=== PATIENT | female | born 1965 | race Caucasian/White ===

== ENCOUNTER 2017-07-30 14:37 | Emergency (ER) | payer MEDICARE ==
[2017-07-30] MEDS ORDERED: Oxymetazoline HCl 0.05% ( 15 ML ) ONE (15:38)
== END 2017-07-30 16:33 | disposition home or self-care (01) ==
LOC: ERS 14:37
DX: R04.0 Epistaxis (principal); I25.10 Atherosclerotic heart disease of native coronary artery without angina pectoris; G47.39 Other sleep apnea; M79.7 Fibromyalgia; I10 Essential (primary) hypertension; K21.9 Gastro-esophageal reflux disease without esophagitis; E32.9 Disease of thymus, unspecified; E11.9 Type 2 diabetes mellitus without complications; Z79.82 Long term (current) use of aspirin; Z79.4 Long term (current) use of insulin; Z79.899 Other long term (current) drug therapy
CPT/HCPCS: 30903

== ENCOUNTER 2017-08-14 16:20 | Emergency (ER) | payer MEDICARE ==
[2017-08-14 17:09] LABS: #Basophils 0.1 thou/uL (0.0-0.2); #Eosinphils 0.1 thou/uL (0.0-0.7); #Lymphocytes 2.8 thou/uL (1.20-3.40); #Monocytes 0.5 thou/uL (0.11-0.59); #Neutrophils 4.6 thou/uL (1.40-6.50); %Basophils 0.7 % (0.0-1.0); %Eosinophils 0.7 % (0.0-10.0); %Lymphocytes 35.4 % (21.0-51.0); Mean Platelet Volume 6.3 fL (7.4-10.4); White Blood Cell (WBC) Count 7.9 thou/uL (4.8-10.8)
[2017-08-14 18:33] LABS: Bilirubin Negative (Negative); Blood, Urine Large (Negative); Glucose, Urine (Dipstick) Negative (Negative); Ketone, Urine Negative (Negative); Nitrite Negative (Negative); Protein, Urine (Dipstick) Negative (Neg-Trace); Urobilinogen 0.2 mg/dL (0.2-1.0)
[2017-08-14 18:35] LABS: Bacteria/HPF None Seen HPF (None Seen); Hyaline Casts/LPF 0-3 HYALINE CAST LPF (0-3 Hyaline); RBC/HPF GREATER THAN 50-TNTC HPF (0-3); Squamous Epithelial 0-3 HPF (0-3); WBC/HPF 0-3 HPF (0-3)
== END 2017-08-14 19:25 | disposition home or self-care (01) ==
LOC: ERS 16:20
DX: N93.8 Other specified abnormal uterine and vaginal bleeding (principal); I25.10 Atherosclerotic heart disease of native coronary artery without angina pectoris; E11.9 Type 2 diabetes mellitus without complications; K21.9 Gastro-esophageal reflux disease without esophagitis; E78.5 Hyperlipidemia, unspecified; I10 Essential (primary) hypertension; E66.9 Obesity, unspecified; F32.9 Major depressive disorder, single episode, unspecified; Z79.84 Long term (current) use of oral hypoglycemic drugs; Z79.82 Long term (current) use of aspirin; Z79.899 Other long term (current) drug therapy
CPT/HCPCS: 36415; 81003; 81015; 81025; 85025; 99284

== ENCOUNTER 2017-08-18 02:13 | Emergency (ER) | payer MEDICARE ==
[2017-08-18 03:02] LABS: #Eosinphils 0.1 thou/uL (0.0-0.7); #Lymphocytes 2.8 thou/uL (1.20-3.40); #Monocytes 0.5 thou/uL (0.11-0.59); #Neutrophils 4.2 thou/uL (1.40-6.50); %Basophils 0.5 % (0.0-1.0); %Eosinophils 0.9 % (0.0-10.0); %Lymphocytes 36.5 % (21.0-51.0); %Monocytes 6.1 % (0.0-10.0); Hematocrit 33.6 % (36.0-47.0); Mean Platelet Volume 6.4 fL (7.4-10.4); Red Blood Cell (RBC) Count 3.81 mill/uL (4.20-5.40); White Blood Cell (WBC) Count 7.5 thou/uL (4.8-10.8)
[2017-08-18 03:25] LABS: ALT (SGPT) 11 U/L (8-55); AST (SGOT) 11 U/L (5-34); Alkaline Phosphatase 96 U/L (40-150); Anion Gap 12 mmol/L (10-20); BUN (Urea Nitrogen) 17 mg/dL (7.0-18.7); Bilirubin, Total 0.2 mg/dL (0.2-1.2); Calc. Creatinine Clearance 0 mL/min (70-130); Calcium 9.6 mg/dL (7.8-10.44); Carbon Dioxide 29 mmol/L (22-29); Chloride 100 mmol/L (98-107); Estimated GFR-MDRD 48; Globulin 3.6 g/dL (2.4-3.5); Protein, Total 7.4 g/dL (6.0-8.3)
[2017-08-18 03:32] LABS: PTT 33.3 SEC (22.9-36.1); Prothrombin Time 16.3 SEC (12.0-14.7)
== END 2017-08-18 05:40 | disposition home or self-care (01) ==
LOC: ERS 02:13
DX: R04.0 Epistaxis (principal); I25.10 Atherosclerotic heart disease of native coronary artery without angina pectoris; E11.9 Type 2 diabetes mellitus without complications; K21.9 Gastro-esophageal reflux disease without esophagitis; E78.5 Hyperlipidemia, unspecified; I10 Essential (primary) hypertension; G47.30 Sleep apnea, unspecified; E66.9 Obesity, unspecified; F32.9 Major depressive disorder, single episode, unspecified
CPT/HCPCS: 36415; 80053; 85025; 85610; 85730; 99283

== ENCOUNTER 2017-08-25 02:30 | Emergency (ER) | payer MEDICARE ==
[2017-08-25] MEDS ORDERED: Oxymetazoline HCl 0.05% ( 15 ML ) ONE (03:06)
== END 2017-08-25 04:40 | disposition home or self-care (01) ==
LOC: ERS 02:30
DX: R04.0 Epistaxis (principal); I25.10 Atherosclerotic heart disease of native coronary artery without angina pectoris; E11.9 Type 2 diabetes mellitus without complications; K21.9 Gastro-esophageal reflux disease without esophagitis; E78.5 Hyperlipidemia, unspecified; I10 Essential (primary) hypertension; G47.30 Sleep apnea, unspecified; E66.9 Obesity, unspecified; F32.9 Major depressive disorder, single episode, unspecified
CPT/HCPCS: 99283

== ENCOUNTER 2017-11-13 10:02 | Emergency (ER) | payer MEDICARE ==
[2017-11-13] MEDS ORDERED: Bacitracin Zinc 1 Packet ONE (11:05)
[2017-11-13] MEDS ORDERED: Adacel (T-DAP) 0.5 ML VIAL ONE (11:06)
--- NOTE | 2017-11-13 11:59 | CT ---
CT BRAIN WITHOUT CONTRAST: HISTORY: Trauma, fall, trauma to the face and head. FINDINGS: No evidence of acute infarct, hemorrhage, midline shift, or abnormal extraaxial fluid collections are seen. The ventricular size is normal and the basilar cisterns are patent. The bony calvarium is in tact. The visualized paranasal sinuses and mastoid air cells are well aerated. There is soft tissue swelling in the left periorbital region. Dural calcifications are present. IMPRESSION: No CT evidence of acute intracranial process. POS: [facility]
== END 2017-11-13 12:19 | disposition home or self-care (01) ==
LOC: ERS 10:02
DX: S80.212A Abrasion, left knee, initial encounter (principal); S40.812A Abrasion of left upper arm, initial encounter; S60.512A Abrasion of left hand, initial encounter; S60.511A Abrasion of right hand, initial encounter; S00.31XA Abrasion of nose, initial encounter; S00.81XA Abrasion of other part of head, initial encounter; I25.10 Atherosclerotic heart disease of native coronary artery without angina pectoris; E11.9 Type 2 diabetes mellitus without complications; K21.9 Gastro-esophageal reflux disease without esophagitis; E78.5 Hyperlipidemia, unspecified; I10 Essential (primary) hypertension; E66.9 Obesity, unspecified; F32.9 Major depressive disorder, single episode, unspecified; W01.0XXA Fall on same level from slipping, tripping and stumbling without subsequent striking against object, initial encounter; Y92.481 Parking lot as the place of occurrence of the external cause
CPT/HCPCS: 70450; 90715

== ENCOUNTER 2017-12-06 14:46 | Observation (INO) | payer MEDICARE ==
[2017-12-06 15:21] LABS: #Lymphocytes 1.8 thou/uL (1.20-3.40); #Monocytes 0.4 thou/uL (0.11-0.59); #Neutrophils 4.8 thou/uL (1.40-6.50); %Basophils 0.4 % (0.0-1.0); %Eosinophils 0.5 % (0.0-10.0); %Lymphocytes 25.7 % (21.0-51.0); %Monocytes 5.1 % (0.0-10.0); %Neutrophils 68.3 % (42.0-75.0); Mean Corpuscular HGB CONC 31.3 g/dL (32.0-36.0); Mean Corpuscular Hemoglobin 23.6 pg (27.0-31.0); Mean Corpuscular Volume 75.3 fl (81.0-99.0); Mean Platelet Volume 8.1 fL (7.4-10.4); Platelet Count 411 thou/uL (130-400); RBC Distribution Width 17.1 % (11.5-14.5)
[2017-12-06 15:40] LABS: ALT (SGPT) 11 U/L (8-55); AST (SGOT) 14 U/L (5-34); Albumin 3.6 g/dL (3.5-5.0); Alkaline Phosphatase 103 U/L (40-150); Anion Gap 16 mmol/L (10-20); BUN (Urea Nitrogen) 19 mg/dL (9.8-20.1); Bilirubin, Total 0.3 mg/dL (0.2-1.2); CK (CPK) 73 U/L (29-168); Calc. Creatinine Clearance 0 mL/min (70-130); Calcium 8.9 mg/dL (7.8-10.44); Carbon Dioxide 24 mmol/L (22-29); Chloride 100 mmol/L (98-107); Estimated GFR-MDRD 41; Globulin 3.9 g/dL (2.4-3.5); Glucose 289 mg/dL (70-105); Potassium 3.8 mmol/L (3.5-5.1); Protein, Total 7.5 g/dL (6.0-8.3); Sodium 136 mmol/L (136-145)
[2017-12-06 15:49] LABS: Troponin I Less than 0.010 ng/mL (< 0.028)
--- NOTE | 2017-12-06 16:19 | RAD ---
CHEST ONE VIEW: 12/06/17 HISTORY: Chest pain. COMPARISON: Chest radiograph 07/13/17. FINDINGS: There is mild pulmonary venous congestion. Heart size is upper limits of normal. No pneumothorax. No acute osseous abnormality. No effusion. IMPRESSION: Mild cardiomegaly and pulmonary venous congestion. POS: [facility]
[2017-12-06 18:44] LABS: Troponin I 0.011 ng/mL (< 0.028)
[2017-12-06 20:03] VITALS: BMI 40.0
[2017-12-06 21:25] LABS: Hemoglobin 8.1 g/dL (12.0-16.0)
[2017-12-06 21:46] LABS: Troponin I Less than 0.010 ng/mL (< 0.028)
[2017-12-07] MEDS ORDERED: FEXOFENADINE HCL 180 MG PO PRN (06:58)
[2017-12-07] MEDS ORDERED: Gabapentin 300 MG CAP PO SCH ×2 (07:00→21:00)
[2017-12-07] MEDS ORDERED: Furosemide 40 MG TAB PO SCH ×2 (07:00→14:00)
[2017-12-07] MEDS ORDERED: Loratadine 10 MG TAB PO PRN (07:09)
[2017-12-07] MEDS ORDERED: HYDROcodone/Acetaminophen 5/325 mg Tablet PO PRN (07:19)
[2017-12-07] MEDS ORDERED: Ondansetron ODT 4 MG TAB PO PRN (07:19)
[2017-12-07] MEDS ORDERED: Acetaminophen 325 MG TAB PO PRN (07:19)
[2017-12-07] MEDS ORDERED: Dextrose 5% in Water 1,000 ML IV PRN (07:19)
[2017-12-07] MEDS ORDERED: HYDROcodone/Acetaminophen 10/325 mg Tablet PO PRN (07:19)
[2017-12-07] MEDS ORDERED: HumaLOG 300 UNITS/3 ML VIAL SC PRN ×2 (07:19)
[2017-12-07] MEDS ORDERED: Dextrose 50% Abboject 50 ML SYRINGE SLOW IVP PRN (07:19)
[2017-12-07] MEDS ORDERED: INSULIN LISPRO 10 UNIT SQ SCH (08:00)
[2017-12-07 08:08] LABS: Iron 28 ug/dL (50-170); Iron Binding Capacity, Total 400 mcg/dL (265-497); Transferrin, Serum 320 mg/dL (180-382)
[2017-12-07] MEDS: HumaLOG 300 UNITS/3 ML VIAL SC SCH ×3 (08:35→17:27)
[2017-12-07] MEDS: Alogliptin 6.25 MG TAB PO SCH (08:38)
[2017-12-07] MEDS: metFORMIN 500 MG TAB PO SCH (08:38)
[2017-12-07] MEDS: Gabapentin 300 MG CAP PO SCH (08:39)
[2017-12-07] MEDS: Aspirin 81 mg Enteric Coated Tablet PO SCH (08:39)
[2017-12-07] MEDS: Clindamycin 150 MG CAP PO SCH ×4 (08:39→21:25)
[2017-12-07] MEDS: Metoprolol Tartrate 25 MG TAB PO SCH ×2 (08:39→21:25)
[2017-12-07] MEDS: Furosemide 80 MG TAB PO SCH (08:39)
[2017-12-07] MEDS: Potassium Chloride 20 MEQ TAB PO SCH ×2 (08:40→21:24)
[2017-12-07] MEDS ORDERED: Non-Formulary Item 1 EACH (Sertraline Hcl [Zoloft] 100 MG) PO SCH (09:00)
[2017-12-07] MEDS ORDERED: Non-Formulary Item 1 EACH (Omeprazole [Omeprazole] 40 MG) PO SCH (09:00)
[2017-12-07] MEDS ORDERED: Iron Polysaccharides Complex 150 MG CAP PO SCH (09:00)
[2017-12-07] MEDS ORDERED: INSULIN DEGLUDEC SC SCH (09:00)
[2017-12-07] MEDS ORDERED: Non-Formulary Item 1 EACH (Sitagliptin Phos/Metformin Hcl [Janumet] 1 TABLET) PO SCH (09:00)
[2017-12-07] MEDS ORDERED: INSULIN DEGLUDEC SQ SCH (09:00)
[2017-12-07] MEDS ORDERED: Non-Formulary Item 1 EACH (Rivaroxaban [Xarelto] 15 MG) PO SCH (09:00)
[2017-12-07] MEDS ORDERED: Rivaroxaban 15 MG TAB PO SCH (09:00)
[2017-12-07] MEDS ORDERED: CLINDAMYCIN HCL 300 MG PO SCH (09:00)
[2017-12-07 13:55] LABS: Hemoglobin 8.1 g/dL (12.0-16.0)
[2017-12-07] MEDS ORDERED: Iron Sucrose Complex 200 MG in Sodium Chloride 0.9% 250 ML 250 ML IVPB SCH (15:30)
[2017-12-07] MEDS ORDERED: Sodium Ferric Gluconate 250 MG in Sodium Chloride 0.9% 100 ML IVPB SCH (16:00)
[2017-12-07] MEDS ORDERED: GoLYTELY 4,000 ml Bottle PO SCH (18:00)
--- NOTE | 2017-12-07 18:28 | CON ---
DATE OF CONSULTATION: 12/07/2017 HISTORY OF PRESENT ILLNESS: The patient is a pleasant 52-year-old woman who presented with recurrent chest discomfort. The patient has a long history of coronary artery disease. She underwent coronary bypass surgery in 06/2015, ROSARIO placed to the LAD, saphenous vein graft to the diagonal right coronary artery. Left circumflex was non-bypassable. The patient also developed atrial fibrillation and she underwent ablation for atrial fibrillation. The patient has been maintained on chronic anticoagulation therapy. The patient was admitted with a non-Q-wave myocardial infarction in July. The patient was in her usual state of health when she developed mid sternal chest discomfort. This lasted for approximately an hour and half. The patient's pain did not radiate. It was not associated with diaphoresis or dyspnea. The patient came to the emergency room for further evaluation. The patient also reports that she has noticed having bright red blood per rectum. This started three weeks ago. It lasts for several days and eventually resolved. The patient has not seen it recently. PAST MEDICAL HISTORY: 1. Coronary artery disease. 2. Atrial fibrillation. 3. Hypertension. 4. Diabetes mellitus. 5. Hyperlipidemia. 6. Depression. 7. GE reflux. PAST SURGICAL HISTORY: Coronary bypass surgery, cholecystectomy, lumpectomy, neck and back surgery. ALLERGIES: CODEINE and PENICILLIN. SOCIAL HISTORY: Nonsmoker. FAMILY HISTORY: There is no strong family history of heart disease. MEDICATIONS ON ADMISSION: Ranexa 500 b.i.d., aspirin 81 daily, Lipitor 80 at bedtime, Xarelto 50 mg at bedtime, potassium 20 b.i.d., metoprolol 25 b.i.d., omeprazole 40 at bedtime, gabapentin 300 daily. FAMILY HISTORY: Positive family history of coronary artery disease. REVIEW OF SYSTEMS: Ten-point system otherwise unremarkable except for the bright red blood per rectum. PHYSICAL EXAMINATION: GENERAL AND VITAL SIGNS: Obese woman in no acute distress with a blood pressure of 130/73. NECK: No jugular distention. LUNGS: Clear to auscultation. HEART: Regular rate and rhythm, normal S1, S2. ABDOMEN: Distended. EXTREMITIES: Showed trace edema. SKIN: Pale and dry. NEUROLOGIC: Nonfocal. VASCULAR: Radial pulses are 2+. LABORATORY RESULTS: White blood count 7.0, hemoglobin 8.0, hematocrit 25.6. Her platelets are 411. Sodium was 136, potassium 3.8, chloride 100, bicarbonate 24, BUN 19, creatinine 1.3, troponin less than 0.01. BNP 354. Her EKG revealed normal sinus rhythm with an incomplete right bundle branch block, ST-T wave abnormalities suggestive of ischemia. IMPRESSION: 1. Chest pain, possibly due to demand ischemia from her marked anemia. 2. History of coronary bypass surgery with non-bypassable left circumflex artery. 3. Diabetes mellitus. 4. Hypertension. 5. Dyslipidemia. 6. Obesity. 7. Anemia. This patient presents with chest pain and cardiac enzymes reveal no evidence of myocardial infarction. The patient was markedly anemic. Her hemoglobin is only 8. From a cardiac standpoint, her chest pain is probably secondary to her low hemoglobin and her known non-bypassable CAD. From a cardiac standpoint, she remains on Xarelto for atrial fibrillation prophylaxis. Would recommend she undergo a GI evaluation. We will hold the patient's Xarelto. We will follow this patient with you throughout her hospitalization. DYLAN
[2017-12-07] MEDS ORDERED: Atorvastatin Calcium 40 MG TAB PO SCH (21:00)
--- NOTE | 2017-12-07 22:46 | CON ---
DATE OF CONSULTATION: 12/07/2017 REASON FOR CONSULTATION: Microcytic anemia. HISTORY OF PRESENT ILLNESS: Ms. Hardy is a 52-year-old female who was admitted for anginal-like chest pain, rule out for ND. She was found to have progression of anemia with hemoglobin 8.1, had be en around 10.7 back in 08/2017 and 07/2017. She had 1 or 2 episodes about a month ago, some bright r ed painless rectal bleeding and occasionally has some vaginal bleeding, but has had no acute bleeding recently. Her hemoglobin has been stable at 8.1 since admission. She had an MCV of 75, iron of 28, TIBC of 400 and saturation of 7% with transferrin of 320. Hospitalist plan was to release her home with outpatient GI workup. She had seen Dr. Urias in the past and Cardiology was asked to evaluate to see if they prefer her to get a unit of blood in light of her history of coronary disease and use of Xarelto. Cardiology felt she should have a GI workup at this time. I talked with the outpatient case manager who did not feel she is to be transfused before endoscopy. In talking with the patient now, she has no chest pain, shortness of breath or dyspnea. She has no black tarry stools, hematemesis, weight lo ss, change in appetite, dysphagia or odynophagia. She does take Xarelto since about 2015 for atrial fibrillation. She has had a bypass in 2015. She reports a colonoscopy with Dr. Uiras about 2005. Sh elvia has never had an upper endoscopy. Her last admission at this hospital was 07/17/2017. She was her e with regard to complications of uncontrolled diabetes, non-ST demand infarction related to sepsis. PAST MEDICAL HISTORY: Coronary artery disease, atrial fibrillation, hypertension, diabetes, hyperlip idemia, depression, sleep apnea, and reflux. PAST SURGICAL HISTORY: Coronary artery bypass grafting, cholecystectomy, lumpectomy, neck and back s urgery, colonoscopy about 10 years ago. SOCIAL HISTORY: Nonsmoker, does not drink. FAMILY HISTORY: Heart disease. ALLERGIES: CODEINE AND PENICILLIN. She has also had a previous cardiac ablation for atrial fibrillation in 2015. Her bypass was actuall y in 2014. MEDICATIONS: She is on Tylenol, alogliptin, aspirin 81 mg a day, Lipitor, clindamycin, iron, Lasix, hydrocodone p.r.n., insulin, Claritin, Glucophage, Zofran, Protonix, Ranexa, , Calciferol, atorv astatin, aspirin. PHYSICAL EXAMINATION: GENERAL: Patient is resting comfortable in bed, otherwise, she is in no distress. She is having no chest pain or shortness of breath now. VITAL SIGNS: Pulse is 60, temperature is 98.3, blood pressure 130/73. LUNGS: Clear. CARDIOVASCULAR: Heart has regular rate and rhythm without clicks or murmurs. ABDOMEN: Soft, nontender, without palpable hepatosplenomegaly. EXTREMITIES: No clubbing, cyanosis or edema. LABORATORY DATA AND X-RAY FINDINGS: Hemoglobin is 8.1, it was 10.8 on 04/2017, it was 11.4 on 2016. MCV is 75, it had been 88 in August. INR is 1.3. Electrolytes are normal as per HPI. Card iac enzymes were negative. Troponin less than 0.01 x3. ASSESSMENT AND PLAN: Iron deficiency anemia. This is likely chronic probably related to the Xarelto , may be related to her irregular menses, they are occurring about every 4-6 months. When they occur , there is quite a bit of clotting. The possible underlying gastrointestinal disorder needs to be ev aluated for. This could be reevaluated for in the outpatient setting; however, the fact that she has a hemoglobin of 8.1 and already presented with chest pain; will probably just go ahead and get this taken care of it while she is here in the hospital. I am going to give her some IV iron. I talked w ith Cardiology and they did not feel she needs a transfusion before endoscopy. Even this was perform ed in the outpatient setting, but it will need to be performed in the hospital because of her disease and chest pain and with her need for long-term anticoagulation, going to go ahead and get this perfo rmed now and lower risk for complications of stroke. I am holding her anticoagulation until she can be seen in the outpatient setting.
[2017-12-08 08:03] VITALS: BP 128/70; TEMP 98
[2017-12-08] MEDS: HumaLOG 300 UNITS/3 ML VIAL SC SCH (09:18)
[2017-12-08] MEDS: Alogliptin 6.25 MG TAB PO SCH (09:22)
[2017-12-08] MEDS: metFORMIN 500 MG TAB PO SCH (09:22)
[2017-12-08] MEDS: Clindamycin 150 MG CAP PO SCH (09:22)
[2017-12-08] MEDS: Potassium Chloride 20 MEQ TAB PO SCH (09:23)
[2017-12-08] MEDS: Gabapentin 300 MG CAP PO SCH (09:23)
[2017-12-08] MEDS: Metoprolol Tartrate 25 MG TAB PO SCH (09:23)
[2017-12-08] MEDS ORDERED: Promethazine HCl 25 MG/ML VIAL IM PRN (11:09)
[2017-12-08] MEDS ORDERED: Promethazine HCl 25 MG/ML VIAL SLOW IVP PRN (11:09)
[2017-12-08] MEDS ORDERED: Ondansetron HCl/PF 4 MG/2 ML Vial IVP PRN (11:09)
[2017-12-08] MEDS: Furosemide 80 MG TAB PO SCH (11:40)
[2017-12-08] MEDS: Aspirin 81 mg Enteric Coated Tablet PO SCH (11:40)
--- NOTE | 2017-12-08 13:14 | OP ---
PREPROCEDURE DIAGNOSES: 1. Iron deficiency anemia. 2. Heme-positive stool. 3. Chronic Xarelto for atrial fibrillation. 4. No acute bleeding. POSTPROCEDURE DIAGNOSES: 1. Normal esophagogastroduodenoscopy. 2. Two diminutive polyps in the sigmoid colon; 1 removed by snare polypectomy, hot; 1 removed by sna re polypectomy, cold. 3. Small internal hemorrhoids. PROCEDURES PERFORMED: Diagnostic esophagogastroduodenoscopy and colonoscopy with snare polypectomy. ANESTHESIA: TIVA. RECOMMENDATIONS: 1. Follow up Dr. Urias, primary gastrologist, in 2 weeks for pathology. 2. Follow up with either primary physician or yeast culture developer in 1 week for monitoring H and H and the chest pain which she came in with. 3. From a GI standpoint, she can go home if it is okay with Cardiology. We would defer to Cardiolog y if they want to transfuse her before she goes with regard to hemoglobin of 8 and cardiac disease. PROCEDURE IN DETAIL: After the patient was informed of risks, benefits, and possible complications o f endoscopy including perforation, bleeding, reactions to medication and aspiration, informed consent was obtained. The patient was brought to endoscopy suite where she was sedated with fashion. Once she was comfortable, a bite block was placed in incisural orifice. The endoscope was advanced throug h the esophagus, stomach, second and third portion of duodenum and slowly removed. There was good vi sualization of mucosa. There was no evidence of celiac or mucosal abnormalities in the second and th ird portion of the duodenum. There were no AVMs, ulcers or masses in the duodenum, stomach or esopha nicholas. Forward and retroflexed views in the stomach were normal. The scope was removed. The patient was turned in the room. A rectal exam was performed which was normal. There was no bloo d in the colon or old blood. No bleeding sites were identified on colonoscopy. The scope was advanc ed to the cecum, which identified by ileocecal valve and appendiceal orifice. The prep was good. Th e scope was then slowly removed and 2 small polyps about 5 mm in size were seen in the sigmoid colon. These were sessile, one was removed by snare polypectomy cold and one hot. Retroflexed views in th e rectum revealed some internal hemorrhoids. The scope was returned to forward position and removed. The patient tolerated the procedure well with no complications.
--- NOTE | 2017-12-08 15:05 | HP ---
DATE OF ADMISSION: 12/06/2017 PRIMARY CARE PHYSICIAN: Jeronimo Webster M.D. PRIMARY CATERING [place]: [place] Dodd M.D. CHIEF COMPLAINT: Chest pain, resolved. HISTORY OF PRESENT ILLNESS: Ms. Hardy is a pleasant 52-year-old female with a history of chest p ain in substernal area she describes as a pressure-like sensation that lasted for about 1 hour and re solved within minutes of arriving in the emergency department. She had no nausea, vomiting, diarrhea . No diaphoresis. No cough or sputum production, and no pleuritic component. Workup in the emergency department showed hemoglobin of 8.1. We were subsequently called for admit. Cardiac workup was negative. Last known hemoglobin was 10.7 back in 08/2017. We were called for admission. The patient was accepted as observation and was subsequently placed in the stroke unit. She is to hold over and I am admitting her first thing in the morning. Patient landis s had no bleeding. Repeat labs showed hemoglobin remained stable. She denies any current rectal ble eding. She states she has some red blood seen in the toilet and when she wiped about 3-4 weeks ago t hat lasted 1 or 2 days, then stopped. She denies any other current complaints. PAST MEDICAL HISTORY: 1. Insulin-dependent diabetes mellitus type 2. 2. Coronary artery disease. 3. GERD. 4. Hyperlipidemia. 5. Hypertension. 6. Fibromyalgia. 7. Sleep apnea. 8. Severe obesity. 9. Paroxysmal atrial fibrillation. PAST SURGICAL HISTORY: Includes, 1. Cervical and T spine disk surgery. 2. Cholecystectomy. 3. Three-vessel coronary artery bypass grafting in 2014. 4. Laparoscopic hysterectomy in 1988. 5. Atrial fibrillation ablation in 2015. HOME MEDICATIONS: 1. Ranexa 500 mg p.o. b.i.d. 2. Aspirin 81 mg daily. 3. Lipitor 80 mg p.o. at bedtime. 4. Ally 100 mg p.o. as needed for allergies. 5. Vitamin D3. 6. Biotin daily. 7. Gabapentin 600 mg p.o. q.a.m., 300 mg p.o. q.p.m. 8. Lasix 80 mg p.o. daily as needed for swelling. 9. Clindamycin 300 mg p.o. q.i.d. recently started for leg wounds. 10. Omeprazole 40 mg p.o. q.a.m. 11. Multivitamin. 12. Metoprolol tartrate 25 mg p.o. b.i.d. 13. Humalog 10 units subcu t.i.d. a.c. 14. Tresiba 140 mg p.o. q.a.m. 15. Xarelto 15 mg p.o. daily. 16. K-Dur 20 mEq p.o. b.i.d. 17. Janumet p.o. q.a.m. 18. Zoloft 100 mg p.o. q.a.m. ALLERGIES: CODEINE and PENICILLIN G. FAMILY HISTORY: Negative for clotting or bleeding disorder, no immune dysfunction. SOCIAL HISTORY: Negative for habits x3. REVIEW OF SYSTEMS: A 10-point review of systems was performed negative, negative for all other syste ms except as per HPI. PHYSICAL EXAMINATION: VITAL SIGNS: Temperature is 98.2, pulse 69, blood pressure 129/73, respiratory 18, O2 sat 90% on berenice m air. GENERAL: She is awake. She is alert. She is oriented x3. She is an obese white female, appears to be in no distress. HEENT: Normocephalic and atraumatic. Pupils equal, round, react to light bilaterally, mucous membra fede are moist. She has no visible lesion, no thrush. NECK: Supple. She has no lymphadenopathy, no JVD, no thyromegaly. She has no carotid upstrokes wit hout bruits. LUNGS: Clear to auscultation bilaterally. She has no wheezes, no rales, no rhonchi. CARDIOVASCULAR: Normal S1, S2. No S3 or S4. She has a faint systolic ejection murmur best heard at the right upper sternal border. She has no diastolic murmurs. Median sternotomy site is well heale d. ABDOMEN: Soft, it is nontender, nondistended. She has no hepatosplenomegaly. She has slightly hype ractive bowel sounds present in all 4 quadrants. EXTREMITIES: No cyanosis, clubbing with trace pedal edema. She has 2+ bounding peripheral pulses, d orsalis pedis and posterior tibial. SKIN: Otherwise, warm moist well perfused. She has no other rashes or lesions. NEUROLOGIC: Cranial nerves II-XII are grossly intact without any focal neurologic deficits, normal s trength, and normal speech pattern. SKIN: Otherwise warm, moist and well perfused. MUSCULOSKELETAL: Normal to inspection. Large joints appear uninflamed. She has good range of motio n and no palpable effusions. LABORATORY DATA: Sodium is 136, potassium 3.8, chloride 100, bicarbonate 24, BUN 19, creatinine 1.36 , it is above her baseline; glucose 289, and calcium of 8.7. Liver function completely within normal limits. CBC shows a white count of 7.0, hemoglobin in the ER was 8.0, repeat of 8.1, hematocrit is up to 26.6 , and platelet count was 411,000. She has a BNP of 343, CK-MB 10, troponin I was initially negative, repeat 0.011, and third was again negative, less than 0.010. Fecal occult blood testing negative. ASSESSMENT AND PLAN: 1. Anemia. The patient had hemoglobin of 10.7 back in 08/2017. She did have an episode 3-4 weeks a go with some rectal bleeding lasted a day or so resolved. She is hypochromic and microcytic. I will check an iron panel and start her on iron. We will ask Cardiology to evaluate her regarding need fo r additional blood products as she appears to be stable at present. She has no further chest pain an d negative heart markers. In the meantime, we will get a 2D echocardiogram. We will get serial H an d Hs and will follow up with the recommendation of Cardiology. If her hemoglobin remains stable thro ugh the day, we will likely discharge this afternoon. 2. Diabetes mellitus type 2. Continue home medications. 3. Coronary artery disease with history of 3-vessel coronary artery bypass grafting in 2014. She pr esented with chest pain. Has no further chest pain at this point. We will continue to watch. 4. Hyperlipidemia. 5. Hypertension. 6. Fibromyalgia. 7. Obstructive sleep apnea. 8. Severe obesity. 9. Paroxysmal atrial fibrillation, on anticoagulation with Xarelto. I do not believe she is actively bleeding. She has had a repeat stable H and Hs. There is a chronic blood loss problem that may be exacerbated by her acute on chronic kidney disease. At this point, estefani gan will follow up on the iron studies and Cardiology recommendations.
[2017-12-08] MEDS ORDERED: PROPOFOL 200 MG/20 ML VIAL ONE (15:11)
[2017-12-08] MEDS ORDERED: Lidocaine 1% PF 5 ML VIAL ONE (15:11)
--- NOTE | 2017-12-09 14:17 | DIS ---
DATE OF ADMISSION: 12/07/2017 DATE OF DISCHARGE: 12/08/2017 DISCHARGE DIAGNOSES: 1. Chronic iron deficiency anemia, likely chronic blood loss. 2. Chest pain, possibly cardiac. 3. Coronary artery disease, status post 3-vessel coronary artery bypass grafting. 4. Colonic polyps. 5. Diabetes mellitus type 2. 6. Severe obesity with a BMI of 35-39.9. 7. Depression. 8. Hypertension, essential. 9. History of paroxysmal atrial fibrillation. 10. She is on chronic anticoagulation. CONSULTATIONS: 1. Dr. Tomas Pavon on 12/07/2017. 2. Dr. Ej Oneal on 12/07/2017. PROCEDURES: Colonoscopy and EGD with polypectomy on 12/08/2017. HISTORY AND PHYSICAL: Ms. Hardy is a 52-year-old female whom I admitted at the hold over admissi on from the night before. She was seen and examined and placed on observation on the morning of 12/07. She presented in the emergency department complaining of chest pain that lasted about an hour and hortencia t resolved essentially the time she arrived to the emergency department. Cardiac workup was unremark able and we were called for admission. HOSPITAL COURSE: The patient seen and examined by me the morning of 12/07. She has a history of rect al bleeding about a month ago, it last day or two and then stop. She has not had it before after one episode. Workup in the emergency department showed hemoglobin to be 8.1. Overnight, she had second hemoglobin done that was still 8.1, and a third one done midday on 12/07/2017 was still 8.1. Cardiology was co nsulted due to her chest pain to ascertain whether we need to give her another unit of blood or not, and Dr. Pavon subsequently felt the answer was knowing and consulted Dr. Onael. The patient was seen by Dr. Oneal who wanted to keep her overnight, make her n.p.o. and do colonoscopy first thing t prasanth. Overnight, she did well. She had no bleeding. She was made n.p.o. and underwent colon prep. She wa s taken to endoscopy suite today on 12/08/2017 underwent a colonoscopy that showed 2 polyps that were removed and sent for pathology. She also underwent an EGD that was unremarkable. Post-procedure, she was stable for discharge and was sent home with outpatient followup. The patient was seen and examined on the day of discharge. Discharge plan and disposition was discussed with myriam gan patient and her significant other at the patient's bedside. DISCHARGE MEDICATIONS: 1. Iron sulfate 325 mg p.o. b.i.d., prescription sent. 2. Clindamycin 450 mg p.o. q.i.d. for 10 days, prescription sent. 3. Atorvastatin 80 mg p.o. at bedtime. 4. Biotin 10,000 mcg p.o. daily. 5. Vitamin D3 1000 units p.o. q.a.m. 6. Ally 180 mg p.o. as needed. 7. Lasix 80 mg p.o. as needed for swelling. 8. Gabapentin 600 mg p.o. q.a.m. and 300 mg p.o. q.p.m. 9. Tarceva 140 units subcu q.a.m. 10. Humalog 10 units subcu t.i.d. 11. Metoprolol tartrate 25 mg p.o. b.i.d. 12. Hair, skin, and nail vitamin. 13. Omeprazole 40 mg p.o. q.a.m. 14. K-Dur 20 mEq p.o. b.i.d. 15. Ranexa 500 mg p.o. b.i.d. 16. Xarelto 15 mg p.o. daily. 17. Zoloft 100 mg p.o. q.a.m. 18. Sitagliptin/metformin mg p.o. q.a.m. DISCHARGE DIET: Heart healthy diabetic diet recommended. DISCHARGE ACTIVITY: Per cardiopulmonary limits. DISCHARGE CONDITION: Good. DISPOSITION: To be discharged home via private vehicle with a significant other. FOLLOWUP APPOINTMENTS: 1. Primary care physician, Dr. Jeronimo Webster within a week. 2. Dr. Oneal in 2-3 weeks for followup. 3. Cardiology as needed with Dr. Dodd.
--- NOTE | 2017-12-25 15:06 | EKG ---
Test Reason : CP Blood Pressure : / mmHG Vent. Rate : 065 BPM Atrial Rate : 065 BPM P-R Int : 158 ms QRS Dur : 134 ms QT Int : 518 ms P-R-T Axes : 023 000 089 degrees QTc Int : 538 ms Normal sinus rhythm Non-specific intra-ventricular conduction block Cannot rule out Anterior infarct , age undetermined T wave abnormality, consider lateral ischemia Abnormal ECG Confirmed by JET WILLOUGHBY ([id number]), supervising film or videotape editor BENITO WINN ([id number] on 12/25/2017 3:05:23 PM Referred By: Confirmed By:JET WILLOUGHBY
== END 2017-12-08 12:07 | disposition home or self-care (01) ==
LOC: ERS 14:46 → 2SE 17:00 → INTOOBSV 17:00
PROVIDERS: ADMIT Internal Medicine; ATTEND Internal Medicine
PROC: 0DBN8ZX Excision of Sigmoid Colon, Via Natural or Artificial Opening Endoscopic, Diagnostic (ICD-10-PCS; principal; 2017-12-08)
PROC: 0DJ08ZZ Inspection of Upper Intestinal Tract, Via Natural or Artificial Opening Endoscopic (ICD-10-PCS; 2017-12-08)
DX: D12.5 Benign neoplasm of sigmoid colon (principal); D50.9 Iron deficiency anemia, unspecified; R07.2 Precordial pain; K64.8 Other hemorrhoids; I25.10 Atherosclerotic heart disease of native coronary artery without angina pectoris; E11.9 Type 2 diabetes mellitus without complications; K21.9 Gastro-esophageal reflux disease without esophagitis; E78.5 Hyperlipidemia, unspecified; G47.33 Obstructive sleep apnea (adult) (pediatric); I10 Essential (primary) hypertension; M79.7 Fibromyalgia; I48.0 Paroxysmal atrial fibrillation; F32.9 Major depressive disorder, single episode, unspecified; E66.01 Morbid (severe) obesity due to excess calories; Z68.41 Body mass index [BMI] 40.0-44.9, adult; Z88.0 Allergy status to penicillin; Z88.5 Allergy status to narcotic agent; Z79.01 Long term (current) use of anticoagulants; Z79.4 Long term (current) use of insulin; Z79.82 Long term (current) use of aspirin; Z79.899 Other long term (current) drug therapy; Z95.1 Presence of aortocoronary bypass graft; Z98.890 Other specified postprocedural states
CPT/HCPCS: 43235; 45385; 71045; 80053; 82274; 82550; 82553; 82962 ×3; 83540; 83880; 84484 ×2; 85014 ×2; 85018 ×2; 85025; 86850; 86900; 86901; 88305; 93005; 96365; 97139 ×2; 99285; G0378; 36415; 36416; 83550; 84466; J2001; J2704; J2916; J7050

== ENCOUNTER 2018-02-14 16:14 | Emergency (ER) | payer MEDICARE ==
[2018-02-14 17:22] LABS: #Basophils 0.1 thou/uL (0.0-0.2); #Eosinphils 0.1 thou/uL (0.0-0.7); #Lymphocytes 2.5 thou/uL (1.20-3.40); #Monocytes 0.5 thou/uL (0.11-0.59); #Neutrophils 6.6 thou/uL (1.40-6.50); %Basophils 0.6 % (0.0-1.0); %Eosinophils 0.7 % (0.0-10.0); %Lymphocytes 25.5 % (21.0-51.0); %Monocytes 5.1 % (0.0-10.0); %Neutrophils 68.1 % (42.0-75.0); Hemoglobin 13.4 g/dL (12.0-16.0); Mean Corpuscular HGB CONC 32.4 g/dL (32.0-36.0); Mean Corpuscular Hemoglobin 28.1 pg (27.0-31.0); Mean Corpuscular Volume 86.7 fl (81.0-99.0); Mean Platelet Volume 7.7 fL (7.4-10.4); Platelet Count 354 thou/uL (130-400); RBC Distribution Width 18.8 % (11.5-14.5); Red Blood Cell (RBC) Count 4.77 mill/uL (4.20-5.40); White Blood Cell (WBC) Count 9.6 thou/uL (4.8-10.8)
== END 2018-02-14 17:59 | disposition home or self-care (01) ==
LOC: ERS 16:14
DX: N93.9 Abnormal uterine and vaginal bleeding, unspecified (principal); I25.10 Atherosclerotic heart disease of native coronary artery without angina pectoris; E11.9 Type 2 diabetes mellitus without complications; K21.9 Gastro-esophageal reflux disease without esophagitis; E78.5 Hyperlipidemia, unspecified; I10 Essential (primary) hypertension; G47.30 Sleep apnea, unspecified; E66.9 Obesity, unspecified; F32.9 Major depressive disorder, single episode, unspecified; Z79.82 Long term (current) use of aspirin; Z79.899 Other long term (current) drug therapy; Z79.84 Long term (current) use of oral hypoglycemic drugs
CPT/HCPCS: 36415; 85025; 99284

== ENCOUNTER 2018-06-05 11:05 | Outpatient (CLI) | payer MEDICARE ==
[2018-06-05 12:51] LABS: Hemoglobin 13.5 g/dL (12.0-16.0); Mean Corpuscular HGB CONC 31.7 g/dL (32.0-36.0); Mean Corpuscular Hemoglobin 29.2 pg (27.0-31.0); Mean Corpuscular Volume 91.9 fL (78.0-98.0); Mean Platelet Volume 6.1 fL (7.4-10.4); Platelet Count 588 thou/uL (130-400); RBC Distribution Width 14.2 % (11.5-14.5); Red Blood Cell (RBC) Count 4.63 mill/uL (4.20-5.40); White Blood Cell (WBC) Count 10.7 thou/uL (4.8-10.8)
[2018-06-05 13:13] LABS: ALT (SGPT) 9 U/L (8-55); AST (SGOT) 9 U/L (5-34); Albumin 4.2 g/dL (3.5-5.0); Alkaline Phosphatase 107 U/L (40-150); Anion Gap 14 mmol/L (10-20); BUN (Urea Nitrogen) 26 mg/dL (9.8-20.1); Bilirubin, Total 0.5 mg/dL (0.2-1.2); Calc. Creatinine Clearance 0 mL/min (70-130); Calcium 9.6 mg/dL (7.8-10.44); Carbon Dioxide 28 mmol/L (22-29); Chloride 99 mmol/L (98-107); Estimated GFR-MDRD 41; Globulin 4.3 g/dL (2.4-3.5); Glucose 181 mg/dL (70-105); Potassium 3.4 mmol/L (3.5-5.1); Protein, Total 8.5 g/dL (6.0-8.3); Sodium 138 mmol/L (136-145)
[2018-06-05 13:22] LABS: Hemoglobin A1c 6.9 % (4.0-6.0)
== END 2018-06-05 11:06 | disposition home or self-care (01) ==
LOC: LABBT 11:05
PROVIDERS: ATTEND Student in an Organized Health Care Education/Training Program
DX: Z01.812 Encounter for preprocedural laboratory examination (principal); N92.0 Excessive and frequent menstruation with regular cycle
CPT/HCPCS: 80053; 83036; 85027; 86850; 86900; 86901

== ENCOUNTER 2018-06-10 05:32 | Day surgery (SDC) | payer MEDICARE ==
[2018-06-05 11:22] VITALS: BMI 34.6
[2018-06-10] MEDS ORDERED: Fentanyl 250 MCG/5 ML VIAL ONE (06:35)
[2018-06-10] MEDS ORDERED: Gabapentin 300 MG CAP ONE ×2 (06:45→06:51)
[2018-06-10] MEDS ORDERED: CeleCOXIB 100 MG CAP ONE ×2 (06:46→06:47)
[2018-06-10] MEDS ORDERED: CEFAZOLIN/Water 2 GM/20 ML SYRINGE ONE (06:48)
[2018-06-10] MEDS ORDERED: Midazolam HCl 2 mg/2 ml Vial ONE (07:09)
--- NOTE | 2018-06-10 09:06 | OP ---
DATE OF OPERATION: 06/10/2018 PREOPERATIVE DIAGNOSIS: Perimenopausal menorrhagia. POSTOPERATIVE DIAGNOSES: Perimenopausal menorrhagia. PROCEDURE: Hysteroscopy, dilation and curettage and Yumiko endometrial ablation. ANESTHESIA: General endotracheal. ATTENDING SURGEON: Vivian Garza M.D. DISH TECHNICIAN: None. ESTIMATED BLOOD LOSS: 5 mL. IVF: 400 mL crystalloid. URINE OUTPUT: 200 mL of clear urine. PATHOLOGY: Endometrial curettings. COMPLICATIONS: None. DRAINS: None. FINDINGS: A uterus that sounded to 8 cm. A cervical length of approximately 3.5 cm. The endometriu m had an atrophic appearance. No intrauterine masses or endocervical masses. The uterus had normal contours and bilateral tubal ostia were visualized and a hysteroscopy deficit for normal saline was 1 00 mL. Following the ablation, there was good willa to all uterine smith and no evidence of perforati on. OPERATIVE TECHNIQUE: The patient was taken to the operating room where general anesthesia was obtain ed without difficulty. The patient was prepped and draped in a sterile fashion in the dorsal lithoto my position. A speculum was placed in the vagina and the anterior lip of the cervix was grasped with a single tooth tenaculum. The uterus then sounded to 8 cm and the cervix was progressively dilated with Carlin dilators. A 5 mm hysteroscope was inserted into the uterus using normal saline as distenti on media and the above findings were noted. Photo documentation was performed. The hysteroscopy was then removed and a sharp curettage was performed to all uterine smith and endometrial curettings wer e sent for final pathology. The Yumiko ablation was then assembled and during the hysteroscopic exa mination, the cervical length was measured to be 3-3.5 cm. A 5 cm cavity length was dialed into the Yumiko and the Yumiko was inserted into the uterine fundus and the array was deployed. The marker on the Yumiko was in the green zone and the cervical balloon was inflated. Cavity assessment was pe rformed and failed. The Yumiko was then removed out of the patient and the hysteroscopic look was p erformed. There was no evidence of perforation and the fluid deficit was noted to be stable. The hy steroscope was then removed. The Yumiko was again inserted into the uterus. The cervical balloon w as inflated x2 syringes full and cavity assessment was again performed and failed. At that time, it was felt to be a defective device and an additional Yumiko device was opened. This was assembled an d a 4.5 cm cavity length was dialed in, thinking that maybe the cervical length was in fact, slightly longer. A array was deployed and the cervical balloon was inflated and cavity assessment was perfor med and passed. At that time, an endometrial ablation was performed x120 seconds and the cervical ba lloon was then deflated and the array was collapsed and removed out of the patient. A second look wi th the hysteroscope was performed noting a good willa to all uterine smith and no evidence of perforat ion. The hysteroscope was removed. The tenaculum was removed off the cervix and hemostasis was note d. All instruments were removed from the vagina. The patient tolerated procedure well. Sponge, lap , needle counts were correct x2. The patient was taken to recovery room in stable condition. The pete curtis received Ancef 2 grams prior to procedure.
[2018-06-10] MEDS ORDERED: ePHEDrine/0.9% NaCl/PF SYRINGE 50 mg/10 ml ONE (13:55)
[2018-06-10] MEDS ORDERED: Lidocaine 1% PF 5 ML VIAL ONE (13:55)
[2018-06-10] MEDS ORDERED: Succinylcholine Chloride 20 MG/ML 10 ml SYRINGE FS ONE (13:55)
[2018-06-10] MEDS ORDERED: Metoclopramide HCl 10 MG/2 ML VIAL ONE (13:55)
[2018-06-10] MEDS ORDERED: Ondansetron HCl/PF 4 MG/2 ML Vial ONE (13:55)
[2018-06-10] MEDS ORDERED: PROPOFOL 200 MG/20 ML VIAL ONE (13:55)
== END 2018-06-10 10:50 | disposition home or self-care (01) ==
LOC: SDC 05:32
PROVIDERS: ATTEND Student in an Organized Health Care Education/Training Program
PROC: 0U5B8ZZ Destruction of Endometrium, Via Natural or Artificial Opening Endoscopic (ICD-10-PCS; principal; 2018-06-10)
DX: N92.0 Excessive and frequent menstruation with regular cycle (principal); E11.9 Type 2 diabetes mellitus without complications; I10 Essential (primary) hypertension; J45.909 Unspecified asthma, uncomplicated; I25.10 Atherosclerotic heart disease of native coronary artery without angina pectoris; E78.00 Pure hypercholesterolemia, unspecified; E55.9 Vitamin D deficiency, unspecified; E66.9 Obesity, unspecified; Z68.34 Body mass index [BMI] 34.0-34.9, adult; Z79.82 Long term (current) use of aspirin; Z79.4 Long term (current) use of insulin; Z79.899 Other long term (current) drug therapy; Z88.0 Allergy status to penicillin; Z88.5 Allergy status to narcotic agent
CPT/HCPCS: 36416; 88305; J2001; J2250; J2405; J2704; J2765; J3010

== ENCOUNTER 2018-08-04 14:13 | Outpatient (CLI) | payer MEDICARE | END 2018-08-04 14:14 | disposition home or self-care (01) | LOC: BICMAMMO 14:13 | PROVIDERS: ATTEND Internal Medicine | DX: Z12.31 Encounter for screening mammogram for malignant neoplasm of breast (principal); Z80.3 Family history of malignant neoplasm of breast | CPT/HCPCS: 77063; 77067 ==

== ENCOUNTER 2018-08-22 14:03 | Observation (INO) | payer MEDICARE ==
[2018-08-22 14:38] LABS: #Lymphocytes 1.3 thou/uL (1.20-3.40); #Monocytes 0.2 thou/uL (0.11-0.59); #Neutrophils 5.4 thou/uL (1.40-6.50); %Basophils 0.2 % (0.0-1.0); %Eosinophils 0.3 % (0.0-10.0); %Lymphocytes 18.5 % (21.0-51.0); %Monocytes 3.4 % (0.0-10.0); %Neutrophils 77.6 % (42.0-75.0); Hemoglobin 15.2 g/dL (12.0-16.0); Mean Corpuscular HGB CONC 34.8 g/dL (32.0-36.0); Mean Corpuscular Hemoglobin 31.5 pg (27.0-31.0); Mean Corpuscular Volume 90.5 fL (78.0-98.0); Mean Platelet Volume 6.4 fL (7.4-10.4); Platelet Count 320 thou/uL (130-400); RBC Distribution Width 13.1 % (11.5-14.5); Red Blood Cell (RBC) Count 4.82 mill/uL (4.20-5.40)
[2018-08-22 15:06] LABS: ALT (SGPT) 24 U/L (8-55); AST (SGOT) 31 U/L (5-34); Albumin 3.8 g/dL (3.5-5.0); Alkaline Phosphatase 110 U/L (40-150); Anion Gap 17 mmol/L (10-20); BUN (Urea Nitrogen) 14 mg/dL (9.8-20.1); Bilirubin, Total 0.5 mg/dL (0.2-1.2); Calc. Creatinine Clearance 0 mL/min (70-130); Calcium 9.8 mg/dL (7.8-10.44); Carbon Dioxide 24 mmol/L (22-29); Estimated GFR-MDRD 67; Glucose 121 mg/dL (70-105); Protein, Total 7.8 g/dL (6.0-8.3)
[2018-08-22 15:13] LABS: Chloride 101 mmol/L (98-107); Potassium 2.7 mmol/L (3.5-5.1); Sodium 139 mmol/L (136-145)
[2018-08-22] MEDS ORDERED: Potassium Chloride 20 MEQ TAB ONE (15:23)
[2018-08-22] MEDS ORDERED: Potassium Chloride 20 MEQ/100 ML PREMIX BAG ONE (15:23)
--- NOTE | 2018-08-22 15:42 | RAD ---
SINGLE VIEW CHEST: Date: 08/22/18 COMPARISON: 12/06/17. HISTORY: Fall at home, hitting head. Syncope. FINDINGS: Single view of the chest shows normal sized cardiomediastinal silhouette. The patient is status post sternotomy. There is no evidence of consolidation, mass, or pleural effusion. Hardware is seen in the cervical spine. IMPRESSION: No evidence of acute cardiopulmonary disease. POS: [facility]
[2018-08-22] MEDS ORDERED: Acetaminophen 325 MG TAB ONE (17:27)
[2018-08-22] MEDS ORDERED: Acetaminophen 500 MG TAB PO PRN ×2 (17:30→22:54)
[2018-08-22] MEDS ORDERED: hydrALAZINE 20 MG/ML VIAL SLOW IVP PRN ×2 (17:30→22:55)
[2018-08-22] MEDS ORDERED: HumaLOG 300 UNITS/3 ML VIAL SC PRN ×3 (17:30→22:55)
[2018-08-22] MEDS ORDERED: Ondansetron ODT 4 MG TAB PO PRN ×2 (17:30→22:55)
[2018-08-22] MEDS ORDERED: Dextrose 5% in Water 1,000 ML IV PRN ×2 (17:30→22:54)
[2018-08-22] MEDS ORDERED: Ondansetron PF 4 MG/2 ML Vial IVP PRN ×2 (17:30→22:55)
[2018-08-22] MEDS ORDERED: Dextrose 50% Abboject 50 ML SYRINGE SLOW IVP PRN ×2 (17:30→22:54)
[2018-08-22 18:03] LABS: Troponin I 0.011 ng/mL (< 0.028)
[2018-08-22] MEDS: Sodium Chloride 0.9% 1,000 ML IV SCH (18:23)
--- NOTE | 2018-08-22 19:01 | ULT ---
CAROTID DOPPLER: 08/22/18 Color doppler and spectral analysis with velocity studies performed on the extracranial carotid arter ies. Ultrasound images were obtained. INDICATION: Syncope. Echogenic plaque noted in both bulbs and both proximal ICAs. Velocity recordings however, remain with in normal range. No evidence of hemodynamically significant stenosis identified by velocity recording . Incidental note is made of increased velocities in both external carotid arteries. Vertebral arteries show antegrade flow. IMPRESSION: Echogenic plaque in both bulbs; however, no evidence of hemodynamically significant stenosis identifi ed in either internal carotid artery. POS: [facility]
[2018-08-22] MEDS ORDERED: Famotidine 20 MG TAB PO SCH ×2 (21:00→23:00)
[2018-08-22] MEDS ORDERED: Atorvastatin Calcium 40 MG TAB PO SCH (21:30)
[2018-08-22] MEDS ORDERED: Gabapentin 300 MG CAP PO SCH (21:30)
[2018-08-22] MEDS ORDERED: Metoprolol Tartrate 25 MG TAB PO SCH (21:30)
--- NOTE | 2018-08-22 23:09 | HP ---
PRIMARY CARE PROVIDER: Jeronimo Webster MD CHIEF COMPLAINT: Passing out. HISTORY OF PRESENT ILLNESS: This is a 52-year-old female, who presents to [facility] Emergency Department after apparently sustaining a brief syncopal episode while at home. The patient was apparently talking to a neighbor when she suddenly passed out, landing on her buttocks on a carpeted floor. The patient denied any head injury premonition or aura prior to the event. The patient denies any prior similar history of passing out. The patient does state that she has felt somewhat ill and febrile over the last week and apparently was placed on ciprofloxacin for suspected urinary tract infection in the last 3 days prior to this evaluation. The patient denied any specific nausea or vomiting, but does state she had diarrhea for several days prior to this evaluation. The patient denied any other change to her chronic medication regimens, sick contacts, family members with similar symptoms, or travel history. The patient denied any visual disturbance or unilateral weakness. The patient states she is normally active, ambulating without assistive device. The patient denied any specific bowel or bladder incontinence and there was no witnessed or seizure activity by bystanders. The patient states she felt groggy and tired after coming to approximately less than a minute, at which point EMS personnel were notified. In the emergency room, the patient underwent general evaluation including screening metabolic survey showing evidence of hypokalemia with potassium 2.7. The patient was given intravenous fluids as well as potassium supplementation and referred to the hospitalist for evaluation. PAST MEDICAL HISTORY: 1. Diabetes mellitus type 2. 2. Hyperlipidemia. 3. Depression. 4. Peripheral neuropathy. 5. Hypertension. 6. Coronary artery disease. 7. Gastroesophageal reflux disease. 8. Fibromyalgia. 9. Sleep apnea. 10. Morbid obesity. 11. History of paroxysmal atrial fibrillation. PAST SURGICAL HISTORY: 1. Status post cervical and thoracic spine disk surgery. 2. Status post cholecystectomy. 3. Status post three-vessel coronary artery bypass grafting in 2014. 4. Status post laparoscopic hysterectomy in 1988. 5. Status post hysteroscopy with dilation and curettage in 06/2018. 6. Status post cardiac ablation secondary to atrial fibrillation in 2015. CURRENT MEDICATIONS: Based on previous admission in December 2017; 1. Ranexa 500 mg p.o. b.i.d. 2. Aspirin 81 mg p.o. daily. 3. Lipitor 80 mg p.o. at bedtime. 4. Ally 180 mg p.o. daily. 5. Vitamin D3 one tablet p.o. daily. 6. Gabapentin 600 mg p.o. q.a.m. and 300 mg p.o. at bedtime. 7. Lasix 80 mg p.o. daily as needed for edema. 8. Omeprazole 40 mg p.o. q.a.m.. 9. Multivitamin 1 tablet p.o. daily. 10. Metoprolol tartrate 25 mg p.o. b.i.d. 11. Humalog 10 units subcutaneously t.i.d. with meals. 12. Tresiba p.o. q.a.m. 13. Xarelto 15 mg p.o. daily. 14. K-Dur 20 mEq p.o. b.i.d.. 15. Janumet mg p.o. q.a.m. 16. Zoloft 100 mg p.o. q.a.m. ALLERGIES: 1. CODEINE. 2. PENICILLIN G. FAMILY HISTORY: No inheritable diseases per patient report. SOCIAL HISTORY: The patient denies any alcohol, tobacco, or illicit drug use. Lives independently. Functional of all activities of daily living. REVIEW OF SYSTEMS: CONSTITUTIONAL: Negative for weight loss or gain, ability to conduct usual activities. SKIN: Negative for rash, itching. EYES: Negative for double vision, pain. ENT/MOUTH: Negative for nose bleeding, neck stiffness, pain, tenderness. CARDIOVASCULAR: Negative for palpitations, dyspnea on exertion, orthopnea. RESPIRATORY: Negative for shortness of breath, wheezing, cough, hemoptysis, fever or night sweats. GASTROINTESTINAL: Negative for poor appetite, abdominal pain, heartburn, nausea, vomiting, constipation, or diarrhea. GENITOURINARY: Negative for urgency, frequency, dysuria, nocturia. MUSCULOSKELETAL: Negative for pain, swelling. NEUROLOGIC/PSYCHIATRIC: Negative for anxiety, depression. ALLERGY/IMMUNOLOGIC: Negative for skin rash, bleeding tendency. Otherwise negative except as stated per HPI. PHYSICAL EXAMINATION: VITAL SIGNS: On admission, blood pressure 130/78, pulse 73, respiratory rate 17, temperature 99.4 degrees Fahrenheit, O2 saturation 98% on room air. GENERAL APPEARANCE: This is a 52-year-old female, alert and oriented x3, pleasant, responsive, in no acute distress. HEENT: Pupils are equal, round, and reactive to light and accommodation. Extraocular muscles are intact. No scleral icterus. No conjunctival injection. Nares patent. OP is clear. Teeth in fair repair. NECK: Supple. No cervical adenopathy. No thyromegaly. No carotid bruits. No JVD appreciated. Cervical spine with full active and passive range of motion. No meningeal signs appreciated. CHEST: Lungs are clear to auscultation bilaterally. CARDIOVASCULAR: S1 and S2 without noted murmur, rub, or gallop. ABDOMEN: Obese, soft, nontender, and nondistended. Bowel sounds are positive in all 4 quadrants. There is no hepatosplenomegaly. Landmarks are difficult to palpate due to patient's body habitus. EXTREMITIES: Warm and dry with fair turgor. Trace edema of the lower extremities. Pulses are palpable distally at the dorsalis pedis, posterior tibial, and popliteal arteries bilaterally. Capillary refill less than 2 seconds. NEUROLOGIC: Cranial nerves 2 through 12 are grossly intact. No focal or lateralizing signs appreciated. SKIN: Left foot with all toenails missing with macerations of the distal phalanx on all toes. PERTINENT LAB AND X-RAY FINDINGS: Sodium 139, potassium 2.7, chloride 101, CO2 of 24, BUN 14, creatinine 0.89, estimated GFR of 67, glucose 121, calcium 9.8. LFTs within normal limits. Troponin I negative x1. BNP 224, previously noted 354 on 12/06/2017. CBC showed neutrophilia of 78%. Portable chest x-ray dated 08/22/2018, showed no acute cardiopulmonary process. EKG showed sinus mechanism, heart rates in the 80s. Attenuated R-waves in the precordial leads. Normal axis. ASSESSMENT AND PLAN: 1. Syncope. The patient will be placed in observation status on the telemetry unit. We will check carotid Doppler study and 2D transthoracic echocardiogram. Check orthostatic vital signs q.4 hours x2. Check TSH and magnesium level in the a.m. Suspect component of volume depletion. Continue telemetry monitoring. IV fluids with normal saline at 100 mL/h. 2. Hypokalemia. Continue potassium and chloride supplementation and repeat potassium level in the a.m. 3. Diabetes mellitus type 2, insulin requiring. Insulin sliding scale for reflexive coverage. Accu-Cheks a.c. and at bedtime. ADA diet. Confirm home insulin regimen. 4. Coronary artery disease, chronic and stable. Resume home regimen to include aspirin 81 mg daily. Continue Ranexa 500 mg p.o. b.i.d. 5. Left foot cellulitis. We will consult Wound Care Services for local care and evaluation. 6. Prophylaxis. Sequential compression devices while in bed. Pepcid 20 mg p.o. b.i.d. 7. Code status is full. Surrogate medical decision maker not identified. Job ID: [id number]
[2018-08-23] MEDS: Sodium Chloride 0.9% 1,000 ML IV SCH ×3 (04:14→22:55)
[2018-08-23 06:01] LABS: Bilirubin Moderate (Negative); Blood, Urine Negative (Negative); Clarity CLEAR (Clear); Glucose, Urine (Dipstick) Negative (Negative); Leukocyte Moderate (Negative); Nitrite Negative (Negative); Protein, Urine (Dipstick) Trace mg/dL (Neg-Trace); Specific Gravity, Urine 1.027 (1.002-1.036)
[2018-08-23 06:02] LABS: Bacteria/HPF None Seen HPF (None Seen); Hyaline Casts/LPF 4-6 HYALINE CAST LPF (0-3 Hyaline); Pathc Cast-AUWi Flag 0.58 (0-2.49); WBC/HPF 21-50 HPF (0-3)
[2018-08-23 06:39] LABS: RBC/HPF 0-3 HPF (0-3)
[2018-08-23] MEDS: HumaLOG 300 UNITS/3 ML VIAL SC PRN ×2 (06:39→11:21)
[2018-08-23] MEDS: Famotidine 20 MG TAB PO SCH ×2 (08:24→20:43)
[2018-08-23] MEDS: Aspirin 81 mg Enteric Coated Tablet PO SCH (08:24)
[2018-08-23 08:48] LABS: #Lymphocytes 1.7 thou/uL (1.20-3.40); #Monocytes 0.6 thou/uL (0.11-0.59); #Neutrophils 3.2 thou/uL (1.40-6.50); %Basophils 0.5 % (0.0-1.0); %Eosinophils 0.3 % (0.0-10.0); %Lymphocytes 30.2 % (21.0-51.0); %Monocytes 10.9 % (0.0-10.0); Hemoglobin 12.6 g/dL (12.0-16.0); Mean Corpuscular HGB CONC 34.1 g/dL (32.0-36.0); Mean Platelet Volume 6.5 fL (7.4-10.4); Platelet Count 285 thou/uL (130-400); RBC Distribution Width 13.2 % (11.5-14.5); Red Blood Cell (RBC) Count 4.06 mill/uL (4.20-5.40); White Blood Cell (WBC) Count 5.5 thou/uL (4.8-10.8)
[2018-08-23] MEDS ORDERED: Aspirin 81 mg Enteric Coated Tablet PO SCH (09:00)
[2018-08-23 09:07] LABS: ALT (SGPT) 29 U/L (8-55); AST (SGOT) 28 U/L (5-34); Albumin 3.2 g/dL (3.5-5.0); Alkaline Phosphatase 93 U/L (40-150); Anion Gap 12 mmol/L (10-20); BUN (Urea Nitrogen) 16 mg/dL (9.8-20.1); Bilirubin, Total 0.4 mg/dL (0.2-1.2); Calc. Creatinine Clearance 109 mL/min (70-130); Calcium 8.7 mg/dL (7.8-10.44); Carbon Dioxide 23 mmol/L (22-29); Chloride 105 mmol/L (98-107); Estimated GFR-MDRD 63; Globulin 3.3 g/dL (2.4-3.5); Glucose 153 mg/dL (70-105); Potassium 3.4 mmol/L (3.5-5.1); Protein, Total 6.5 g/dL (6.0-8.3); Sodium 137 mmol/L (136-145)
--- NOTE | 2018-08-23 12:50 | PDOC.PN ---
- Subjective Encounter Start Date: 08/23/18 Encounter Start Time: 12:46 Subjective: No weakness/dizziness. No further syncopal episodes. She is feeling well in herself apart form a cough. Reports a cough for several days which she associates with "bronchitis". States she has that frequently. Temp of 101.3 overnight. Denies any purulent sputum or hemoptysis. No CP or SOB. No n/v, abdo pain or bowel changes. Denies any dysuria, frequency or urgency. No hematuria. No skin changes, rash or redness. - Objective Resuscitation Status - Order Detail: 08/22/18 17:20 Resuscitation Status Routine Resuscitation Status: FULL: Full Resuscitation MAR Reviewed: Yes Vital Signs & Weight: Vital Signs (12 hours) Temp Pulse Resp BP BP BP BP 08/23/18 11:09 99.6 F 69 18 124/57 L 08/23/18 07:17 98.3 F 63 20 108/60 100/59 L 112/59 L 08/23/18 03:26 101.3 F H 76 16 121/62 Pulse Ox 08/23/18 11:09 96 08/23/18 07:17 95 08/23/18 03:26 95 Weight Weight 214 lb 9.6 oz I&O: 08/22/18 08/23/18 08/24/18 06:59 06:59 06:59 Intake Total 2001 Output Total 1200 Balance 801 Result Diagrams: 08/23/18 08:26 08/23/18 08:26 Additional Labs: Accuchecks 08/23/18 08/23/18 08/22/18 10:18 05:35 20:50 POC Glucose 170 H 163 H 153 H 08/22/18 15:45 POC Glucose 129 H Phys Exam - Physical Examination HEENT: PERRLA, sclera anicteric, oral pharynx no lesions Neck: no nodes, no JVD, supple, full ROM Respiratory: no wheezing, no rales Cardiovascular: RRR Gastrointestinal: soft, non-tender, no distention Musculoskeletal: no edema, pulses present Multiple healing sores on lower legs and feet. Self-induced wounds. She picks at her skin. No discharge, no redness, no cellulitis. Neurological: non-focal, normal sensation, moves all 4 limbs Psychiatric: normal affect, A&O x 3 Skin: no rash, normal turgor Deviation from normal: no signs of rash or cellulitis. Dx/Plan (1) Syncope and collapse Code(s): R55 - SYNCOPE AND COLLAPSE Status: Resolved (2) Fever Code(s): R50.9 - FEVER, UNSPECIFIED Status: Acute (3) Hypokalemia Code(s): E87.6 - HYPOKALEMIA Status: Acute (4) DM type 2 (diabetes mellitus, type 2) Status: Chronic - Plan cont current plan of care Monitor temp. Continue Tylenol for fever. No urinary symptoms -: CXR clear. Hold off on Abx. UA: mod wbc. Awaiting UCx. -: Possibly viral. Monitor WBC (normal today). -: Awaiting Echo -: K+ replaced, continue to monitor. * .
[2018-08-23 15:23] VITALS: BMI 35.6
[2018-08-23] MEDS ORDERED: Atorvastatin Calcium 40 MG TAB PO SCH (21:00)
[2018-08-23] MEDS ORDERED: Gabapentin 300 MG CAP PO SCH (21:00)
[2018-08-23] MEDS ORDERED: Metoprolol Tartrate 25 MG TAB PO SCH (21:00)
[2018-08-24] MEDS ORDERED: Loratadine 10 MG TAB PO PRN (02:23)
[2018-08-24] MEDS ORDERED: Diabetic Tussin 200 MG/10 ML UDCUP PO PRN (02:23)
[2018-08-24 07:04] LABS: #Basophils 0.1 thou/uL (0.0-0.2); #Lymphocytes 1.6 thou/uL (1.20-3.40); #Monocytes 0.6 thou/uL (0.11-0.59); #Neutrophils 3.1 thou/uL (1.40-6.50); %Basophils 1.3 % (0.0-1.0); %Eosinophils 0.5 % (0.0-10.0); %Lymphocytes 29.9 % (21.0-51.0); %Monocytes 10.7 % (0.0-10.0); %Neutrophils 57.5 % (42.0-75.0); Hemoglobin 11.5 g/dL (12.0-16.0); Mean Corpuscular HGB CONC 33.7 g/dL (32.0-36.0); Mean Corpuscular Hemoglobin 30.8 pg (27.0-31.0); Mean Corpuscular Volume 91.6 fL (78.0-98.0); Mean Platelet Volume 6.2 fL (7.4-10.4); Platelet Count 274 thou/uL (130-400); RBC Distribution Width 13.1 % (11.5-14.5); Red Blood Cell (RBC) Count 3.74 mill/uL (4.20-5.40); White Blood Cell (WBC) Count 5.3 thou/uL (4.8-10.8)
[2018-08-24 07:15] LABS: ALT (SGPT) 27 U/L (8-55); AST (SGOT) 24 U/L (5-34); Albumin 3.2 g/dL (3.5-5.0); Alkaline Phosphatase 89 U/L (40-150); Anion Gap 12 mmol/L (10-20); BUN (Urea Nitrogen) 10 mg/dL (9.8-20.1); Bilirubin, Total 0.6 mg/dL (0.2-1.2); Calc. Creatinine Clearance 133 mL/min (70-130); Calcium 8.7 mg/dL (7.8-10.44); Carbon Dioxide 21 mmol/L (22-29); Chloride 107 mmol/L (98-107); Estimated GFR-MDRD 78; Globulin 3.1 g/dL (2.4-3.5); Glucose 154 mg/dL (70-105); Potassium 3.9 mmol/L (3.5-5.1); Protein, Total 6.3 g/dL (6.0-8.3); Sodium 136 mmol/L (136-145)
[2018-08-24 07:46] VITALS: TEMP 99.2
[2018-08-24] MEDS: Famotidine 20 MG TAB PO SCH (09:23)
[2018-08-24] MEDS: Aspirin 81 mg Enteric Coated Tablet PO SCH (09:23)
[2018-08-24 09:39] VITALS: BP 131/62
--- NOTE | 2018-08-24 16:19 | DIS ---
DATE OF ADMISSION: 08/22/2018 DATE OF DISCHARGE: 08/24/2018 CHIEF COMPLAINT: Syncope. CONSULTING PHYSICIANS: None. DISCHARGE DIAGNOSES: 1. Hypokalemia, resolved. 2. Orthostatic hypotension, resolved. 3. Type 2 diabetes mellitus. 4. Sores with cellulitis of left lower limb. HOSPITAL COURSE: Ms. Hardy is a pleasant 52-year-old woman, who initially presented to the ED following a brief syncopal episode. She landed on her bottom and denies any warning signs or preceding symptoms. Denies previous episodes. She had been feeling unwell and febrile for approximately 1 week prior. She had been started on Cipro for UTI, status post 3 days of antibiotics before presenting to the ED. She underwent laboratory studies, which were notable for hypokalemia with potassium of 2.7. She received IV fluids as well as potassium replacement. She was admitted for further evaluation. During her hospital stay, she underwent a carotid Doppler study, which showed echogenic plaques bilaterally, but no significant stenosis. She also underwent an echocardiogram with an ejection fraction of 50% to 55% and mild tricuspid regurgitation noted, otherwise unremarkable. Initially, she did have a postural drop with blood pressure. Supine blood pressure was taken and was 117/67, dropping to 99/72 on initial presentation. This was repeated yesterday with a supine blood pressure of 112/59, dropping to 100/59. Orthostatics repeated today are normal. On day of discharge, the patient states she is feeling significantly better. She has had improvement with her temperature. She has also noted improvement in her cough. Denies any headaches or dizziness. No chest pain, palpitations, or shortness of breath. She has been eating and drinking without any difficulties. Denies any nausea or vomiting. She has been moving her bowels without any trouble and denies having any urinary symptoms. Of note, she did undergo blood cultures x2 both without growth. A urine culture was also done showing 25,000 to 50,000 . LABORATORY DATA: White blood cell count 5.3, hemoglobin 11.5, hematocrit 34.3, and platelets 274. Sodium 136, potassium 2.9, BUN 10, creatinine 0.78, and calcium 8.7. LFTs unremarkable. IMAGIN. Portable chest x-ray done on 08/22/2018. No evidence of acute cardiopulmonary disease. No new consolidation, mass or pleural effusion. Hardware seen in the cervical spine. 2. Carotid Doppler done 08/22/2018. Echogenic plaque noted on both bulbs and both proximal ICAs. Flow velocity recordings within normal range with no hemodynamically significant stenosis identified in the internal carotid artery. 3. Echo done on 08/22/2018. Ejection fraction estimated at 50% to 55%. Normal-sized left atrium. Left ventricular size is normal. Mild tricuspid regurgitation. Please note, this study was felt to be suboptimal due to poor echocardiographic windows. Per discussion with Dr. Damian, no need for repeat. PROCEDURES: None. DISCHARGE MEDICATIONS: 1. Aspirin 81 mg p.o. daily. 2. Atorvastatin 80 mg p.o. at bedtime. 3. Biotin 10 mg p.o. daily. 4. Vitamin D3 of 1000 units p.o. daily. 5. Ezetimibe 10 mg p.o. daily. 6. Ferrous sulfate 325 mg p.o. twice daily. 7. Fexofenadine 180 mg p.o. . 8. Gabapentin 300 mg p.o. 2 capsules in the morning and 1 capsule at night. 9. Insulin 10 units subcutaneous three times daily with meals. 10. Metoprolol reduced from 25 mg p.o. b.i.d. to 25 mg p.o. at bedtime. 11. Multivitamin with minerals. 12. Omeprazole 40 mg p.o. daily. 13. Potassium chloride 20 mEq p.o. twice daily. 14. Ranolazine 500 mg p.o. twice daily reduced to 500 mg p.o. at bedtime. 15. Zoloft 100 mg p.o. daily. 16. Sitagliptin/metformin 50 mg/1000 mg, one tablet p.o., every morning. DISCHARGE CONDITION: Stable. DISCHARGE ACTIVITY: As tolerated. DISCHARGE DIET: Heart healthy, diabetic diet. FOLLOWUP: The patient was advised to see her primary care physician and Dr. Dodd of Cardiology in 1 to 2 weeks. DISPOSITION: Home on August 24, 2018. Job ID: [id number]
--- NOTE | 2018-08-26 11:08 | EKG ---
Test Reason : Blood Pressure : / mmHG Vent. Rate : 069 BPM Atrial Rate : 069 BPM P-R Int : 142 ms QRS Dur : 124 ms QT Int : 484 ms P-R-T Axes : 026 -04 034 degrees QTc Int : 518 ms Normal sinus rhythm Possible Left atrial enlargement Right bundle branch block Abnormal ECG Confirmed by CAMILA RICH D.O. ([id number]), editorial project manager BENITO WINN ([id number] on 08/26/2018 11:07:39 AM Referred By: Confirmed By:CAMILA RICH D.O.
== END 2018-08-24 11:30 | disposition home or self-care (01) ==
LOC: ERS 14:03 → 2SW 18:18
PROVIDERS: ADMIT Family Medicine; ATTEND Family Medicine
DX: E87.6 Hypokalemia (principal); I95.1 Orthostatic hypotension; L03.116 Cellulitis of left lower limb; E11.42 Type 2 diabetes mellitus with diabetic polyneuropathy; I10 Essential (primary) hypertension; I25.10 Atherosclerotic heart disease of native coronary artery without angina pectoris; I48.0 Paroxysmal atrial fibrillation; E78.5 Hyperlipidemia, unspecified; K21.9 Gastro-esophageal reflux disease without esophagitis; F32.9 Major depressive disorder, single episode, unspecified; G47.30 Sleep apnea, unspecified; M79.7 Fibromyalgia; E66.01 Morbid (severe) obesity due to excess calories; Z68.36 Body mass index [BMI] 36.0-36.9, adult; Z95.1 Presence of aortocoronary bypass graft; Z90.49 Acquired absence of other specified parts of digestive tract; Z90.710 Acquired absence of both cervix and uterus; Z88.5 Allergy status to narcotic agent; Z88.0 Allergy status to penicillin; Z79.82 Long term (current) use of aspirin; Z79.4 Long term (current) use of insulin; Z79.899 Other long term (current) drug therapy; Z98.890 Other specified postprocedural states
CPT/HCPCS: 71045; 80053 ×3; 81001; 82962 ×3; 83880; 84484 ×2; 85025 ×3; 87040; 87086; 93005; 93306; 93880; 96361 ×3; 96365; 96366; 97116 ×2; 97139 ×2; 99285; G0378 ×2; G8978; G8979; 36415; 36416; J3480

== ENCOUNTER 2019-09-12 02:10 | Observation (INO) | payer MEDICARE ==
[2019-09-12] MEDS ORDERED: Ketamine 50 MG/ML (10ML VIAL) ONE (02:18)
[2019-09-12 02:50] LABS: #Basophils 0.1 thou/uL (0.0-0.2); #Eosinphils 0.1 thou/uL (0.0-0.7); #Lymphocytes 3.1 thou/uL (1.20-3.40); #Monocytes 0.7 thou/uL (0.11-0.59); #Neutrophils 5.8 thou/uL (1.40-6.50); %Basophils 0.6 % (0.0-1.0); %Eosinophils 0.9 % (0.0-10.0); %Lymphocytes 31.5 % (21.0-51.0); %Monocytes 7.1 % (0.0-10.0); %Neutrophils 59.9 % (42.0-75.0); Hemoglobin 13.9 g/dL (12.0-16.0); Mean Corpuscular HGB CONC 34.8 g/dL (32.0-36.0); Mean Corpuscular Hemoglobin 32.2 pg (27.0-31.0); Mean Corpuscular Volume 92.5 fL (78.0-98.0); Mean Platelet Volume 6.7 fL (7.4-10.4); Platelet Count 313 thou/uL (130-400); RBC Distribution Width 12.4 % (11.5-14.5); Red Blood Cell (RBC) Count 4.31 mill/uL (4.20-5.40); White Blood Cell (WBC) Count 9.7 thou/uL (4.8-10.8)
[2019-09-12] MEDS ORDERED: Apixaban 5 MG TAB PO SCH (03:15)
[2019-09-12] MEDS ORDERED: Senokot S 8.6-50 MG TAB PO PRN (03:40)
[2019-09-12] MEDS ORDERED: Acetaminophen 325 MG TAB PO PRN (03:40)
[2019-09-12] MEDS ORDERED: Dextrose 50% Abboject 50 ML SYRINGE SLOW IVP PRN (03:42)
[2019-09-12] MEDS ORDERED: HumaLOG 300 UNITS/3 ML VIAL SC PRN (03:42)
[2019-09-12] MEDS ORDERED: Dextrose 5% in Water 1,000 ML IV PRN (03:42)
[2019-09-12 05:01] VITALS: BMI 40.6
--- NOTE | 2019-09-12 05:22 | HP ---
CHIEF COMPLAINT: Chest pain and diaphoresis. HISTORY OF PRESENT ILLNESS: The patient is a very pleasant 54-year-old female, who has a history of diabetes and also has a history of paroxysmal atrial fibrillation in the past, who presents to the hospital with complaint of chest pain and diaphoresis. 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 The patient states that tonight she woke up, also sudden in the middle of the night, having some chest pain, felt very diaphoretic and did not feel well at all. At this time, she called EMS, who brought her into the hospital. The patient actually was noted to be in atrial fibrillation with RVR per the EMS notes and was given mg of Cardizem and aspirin. At this time, her blood pressure did drop when she came in to the ER. In the ER, she was still in atrial fibrillation with mild RVR and at this time, she was still symptomatic and was about to be cardioverted, however, the patient wiggled and she flipped back to normal sinus. Per EMS, she was also given one nitroglycerin. PAST MEDICAL HISTORY: She has a history of diabetes and has a history of atrial fibrillation, coronary artery disease, and hypertension. PAST SURGICAL HISTORY: She has had a ruptured disk in the back. She has had a cholecystectomy. She has had a triple bypass. She has a lump removed from the left breast and she has had cardiac ablation for atrial fibrillation in 2016 and uterine ablation. SOCIAL HISTORY: She denies any alcohol use, drug use, or smoking history. She lives at home alone. She is a full code. FAMILY HISTORY: No history of heart disease or strokes. ALLERGIES: SHE IS ALLERGIC TO PENICILLIN. SHE HAD IT WHEN SHE WAS YOUNG AND ALSO CODEINE, SHE GETS NAUSEATED. MEDICATIONS: She is on, 1. Sertraline 100 mg daily. 2. Atorvastatin 80 mg daily. 3. Gabapentin 300 mg t.i.d. 4. Metoprolol 25 mg twice a day. 5. Omeprazole 20 mg twice a day. 6. Lasix 80 mg daily. 7. Ranexa 500 mg twice a day. 8. Aspirin 81 mg daily. REVIEW OF SYSTEMS: All negative except for the ones mentioned above in the HPI. LABORATORY RESULTS: WBCs of 9.7, hemoglobin of 13.3, hematocrit of 39.9, platelets of 313. Chemistry; sodium of 132, potassium of 3.9, BUN of 10, creatinine of 0.78. Troponins are negative. Her thyroid is normal and her BNP is 37. She did have a chest x-ray, which did not indicate any acute abnormalities. PHYSICAL EXAMINATION: VITAL SIGNS: Temperature of 98.8, heart rate of 78, and blood pressure of 112/60. GENERAL: She is awake, alert, and oriented x3. Does not appear in distress. HEENT: Normocephalic and atraumatic. No lymphadenopathy noted. Pupils are equal and reactive to light. CV: S1 and S2 present. Regular. LUNGS: Clear to auscultation. No rhonchi or wheezes noted. ABDOMEN: Soft and nontender. Bowel sounds are present x2. EXTREMITIES: She does have a small scab to her left second toe. She also has a little water blister that broke in her left trevino area and mild erythema is noted. NEUROVASCULAR: There are no focal deficits noted. SKIN: As I mentioned earlier. ASSESSMENT AND PLAN: The patient is a very pleasant 54-year-old female, who presents to the hospital with complaints of chest pain and was found to be in atrial fibrillation with rapid ventricular response. 1. Atrial fibrillation with rapid ventricular response. She did receive mg of Cardizem by EMS and one nitroglycerin and that did drop her blood pressures. She did get some fluid. She was about to be cardioverted, however, she vasovagalled and at this time, she converted herself back to sinus rhythm. She has had an ablation in the past. We will get Cardiology to see her. She has had an echocardiogram, this was back in 2018, so we will repeat another echocardiogram. Her thyroid was normal. 2. Coronary artery disease. We will continue her home medications. 3. Hyperlipidemia. We will continue home medications. 4. Diabetes. We will check her Accu-Cheks before meals and at bedtime and continue her home medications. Also, she does have significant diabetic neuropathy. I will put her on some prophylactic doxycycline for the erythema that is noted to her left foot. I have advised her to assess her feet more often and to be more careful given the fact that she is a diabetic and she does have diabetic neuropathy. 5. Deep venous thrombosis prophylaxis. ER provided her with some Eliquis. I will put her on some Lovenox for temporary coverage. Job ID: [id number]
[2019-09-12 06:21] LABS: Troponin I 0.091 ng/mL (< 0.028)
[2019-09-12] MEDS ORDERED: Aspirin 81 mg Enteric Coated Tablet PO SCH (09:00)
[2019-09-12] MEDS ORDERED: Gabapentin 300 MG CAP PO SCH ×3 (09:00→21:00)
[2019-09-12] MEDS: Doxycycline 100 MG CAP PO SCH ×2 (09:12→21:15)
[2019-09-12] MEDS: HumaLOG 300 UNITS/3 ML VIAL SC SCH ×2 (10:07→13:16)
[2019-09-12 10:22] LABS: Troponin I 0.303 ng/mL (< 0.028)
--- NOTE | 2019-09-12 10:34 | RAD ---
PORTABLE CHEST ONE VIEW: 09/12/2019 2:28 a.m. HISTORY: Chest pain. COMPARISON: 08/22/2018 FINDINGS: The heart size is prominent but stable. There are changes of median sternotomy. The lungs are well ex panded without lobar consolidation, pneumothoraces or pleural effusions. There is no evidence of sami k pulmonary edema. Postop changes and metallic hardware in the lower cervical spine are again noted. IMPRESSION: No acute process. POS: [facility]
[2019-09-12 11:42] LABS: Anion Gap 13 mmol/L (10-20); BUN (Urea Nitrogen) 20 mg/dL (9.8-20.1); Calc. Creatinine Clearance 106 mL/min (70-130); Calcium 9.3 mg/dL (7.8-10.44); Carbon Dioxide 27 mmol/L (22-29); Chloride 105 mmol/L (98-107); Estimated GFR-MDRD 54; Glucose 244 mg/dL (70-105); Magnesium 1.8 mg/dL (1.6-2.6); Potassium 4.1 mmol/L (3.5-5.1); Sodium 141 mmol/L (136-145)
[2019-09-12] MEDS ORDERED: Magnesium 2 GM/50 ML 2 GM in Premix Bag 1 BAG IVPB SCH (12:00)
--- NOTE | 2019-09-12 15:36 | CON ---
DATE OF CONSULTATION: HISTORY OF PRESENT ILLNESS: The patient is a 54-year-old woman, who presents for evaluation of palpitations and chest discomfort. The patient has a long history of coronary artery disease. She previously underwent coronary artery bypass graft surgery. In 2014, she had ROSARIO placed to LAD, saphenous vein graft to diagonal and RCA. The left circumflex artery cannot be bypassed. The patient also has a history of paroxysmal atrial fibrillation. She underwent ablation a few years ago. The patient also has a history of GI hemorrhage, so she has not been on chronic anticoagulation therapy. The patient had a history of vaginal bleeding, which required an ablation. The patient has had no further difficulty with bleeding. She was in her usual state of health when she suddenly felt palpitations, left -sided chest discomfort, and became diaphoretic. The patient denies having any presents with chest discomfort. PAST MEDICAL HISTORY: 1. Coronary artery disease. 2. Atrial fibrillation. 3. Hypertension. 4. Dyslipidemia. 5. Sleep apnea. 6. Fibromyalgia. PAST SURGICAL HISTORY: Coronary artery bypass surgery, lumpectomy, cholecystectomy, neck and back surgery. ALLERGIES: 1. CODEINE. 2. PENICILLIN. SOCIAL HISTORY: Nonsmoker. Does not consume excessive amounts of alcohol. FAMILY HISTORY: There is a positive family history of coronary artery disease. REVIEW OF SYSTEMS: Ten-point systems otherwise unremarkable. No history of easy bruising or bleeding. PHYSICAL EXAMINATION: GENERAL: Obese woman, in no acute distress with a blood pressure of 136/72. NECK: Showed no jugular venous distention. LUNGS: Clear to auscultation. HEART: Regular rate and rhythm. Normal S1 and S2. No murmurs. ABDOMEN: Distended. EXTREMITIES: Showed mild bilateral edema with ecchymoses on both lower extremities. VASCULAR: Radial pulses 2+. LABORATORY DATA: Sodium 141, potassium 4.1, chloride 105, bicarbonate 27, BUN 20, creatinine 1.0, glucose 244. White blood cell count 9.7, hemoglobin 13.9, hematocrit 39.9, platelets are 313. Her EKG revealed her to have atrial fibrillation with a rapid ventricular response and Q wave suggestive of possible previous inferior infarct. Troponin level was 0.9. IMPRESSION AND PLAN: 1. Paroxysmal atrial fibrillation. 2. History of coronary artery bypass surgery x3. 3. Elevated troponin level, most likely secondary to demand ischemia. 4. Diabetes mellitus. 5. Hypertension. 6. Obesity. This patient presents with recurrent atrial fibrillation. The patient has no longer had difficulty with bleeding, and we would recommend she be on lifetime anticoagulation therapy with her multiple risk factors for thromboembolism We will check the patient's echocardiogram and follow this patient with you through her hospitalization. Job ID: [id number] MTDD
[2019-09-12] MEDS: HumaLOG 300 UNITS/3 ML VIAL SC PRN ×2 (17:18→21:16)
[2019-09-12] MEDS ORDERED: Enoxaparin Sodium 120 MG/0.8 ML SYRINGE SC SCH (18:00)
[2019-09-12] MEDS ORDERED: Non-Formulary Item 1 EACH (Insulin Glargine,Hum.Rec.Anlog [Lantus Solostar] 20 UNITS) SQ SCH (21:00)
[2019-09-12] MEDS ORDERED: Metoprolol Tartrate 25 MG TAB PO SCH (21:00)
[2019-09-12] MEDS ORDERED: Atorvastatin Calcium 40 MG TAB PO SCH (21:00)
[2019-09-12] MEDS ORDERED: Insulin Glargine 20 UNITS in Pre-Filled Syringe 1 EACH SC SCH (21:00)
[2019-09-12] MEDS: Apixaban 5 MG TAB PO SCH (21:15)
[2019-09-12] MEDS ORDERED: Nystatin Powder 15 GM BOT TOP PRN (21:21)
[2019-09-13] MEDS: HumaLOG 300 UNITS/3 ML VIAL SC PRN ×3 (02:45→11:42)
[2019-09-13 05:17] LABS: #Eosinphils 0.2 thou/uL (0.0-0.7); #Lymphocytes 3.6 thou/uL (1.20-3.40); #Monocytes 0.5 thou/uL (0.11-0.59); #Neutrophils 3.9 thou/uL (1.40-6.50); %Basophils 0.6 % (0.0-1.0); %Eosinophils 2.2 % (0.0-10.0); %Lymphocytes 43.8 % (21.0-51.0); %Monocytes 5.9 % (0.0-10.0); %Neutrophils 47.4 % (42.0-75.0); Hemoglobin 13.2 g/dL (12.0-16.0); Mean Corpuscular HGB CONC 33.7 g/dL (32.0-36.0); Mean Corpuscular Hemoglobin 32.3 pg (27.0-31.0); Mean Platelet Volume 6.6 fL (7.4-10.4); Platelet Count 288 thou/uL (130-400); RBC Distribution Width 12.6 % (11.5-14.5); White Blood Cell (WBC) Count 8.3 thou/uL (4.8-10.8)
[2019-09-13 05:34] LABS: Anion Gap 10 mmol/L (10-20); BUN (Urea Nitrogen) 17 mg/dL (9.8-20.1); Calc. Creatinine Clearance 134 mL/min (70-130); Calcium 8.8 mg/dL (7.8-10.44); Carbon Dioxide 26 mmol/L (22-29); Chloride 107 mmol/L (98-107); Estimated GFR-MDRD 71; Glucose 204 mg/dL (70-105); Potassium 3.9 mmol/L (3.5-5.1); Sodium 139 mmol/L (136-145)
[2019-09-13 06:00] LABS: CKMB 2.9 ng/mL (0-6.6)
[2019-09-13] MEDS: Apixaban 5 MG TAB PO SCH (08:57)
[2019-09-13] MEDS: Doxycycline 100 MG CAP PO SCH (08:57)
[2019-09-13] MEDS ORDERED: Ezetimibe 10 MG TAB PO SCH (09:00)
[2019-09-13] MEDS ORDERED: Gabapentin 300 MG CAP PO SCH ×4 (09:00→21:00)
[2019-09-13] MEDS ORDERED: Insulin Glargine 20 UNITS in Pre-Filled Syringe 1 EACH SC SCH (09:00)
[2019-09-13 11:53] VITALS: BP 147/66; TEMP 98.1
--- NOTE | 2019-09-13 15:50 | DIS ---
DATE OF ADMISSION: 09/12/2019 DATE OF DISCHARGE: 09/13/2019 DISCHARGE DISPOSITION: Home. FOLLOWUP: 1. Follow up with primary care physician, Dr. Jeronimo Webster, in 1 week. 2. Follow up with Dr. Junior Pavon, Cardiology. ALLERGIES: THE PATIENT IS ALLERGIC TO PENICILLIN AND CODEINE. DISCHARGE MEDICATIONS: 1. Eliquis 5 mg b.i.d. 2. Metoprolol tartrate was changed to metoprolol succinate 50 mg daily. 3. All other home medications were left unchanged. The patient was seen and examined on the day of discharge. Denies any new complaints. No chest pain, shortness of breath, or palpitations reported. BRIEF HOSPITAL COURSE: The patient is a 54-year-old female with paroxysmal atrial fibrillation, presented to the hospital with chest discomfort. Her workup was consistent with atrial fibrillation with rapid ventricular response. She was monitored on telemetry unit. She was started on anticoagulation. She was evaluated by Cardiology, Dr. Junior Pavon. Echocardiogram showed left ventricular ejection fraction of 50% to 55% with mild dilated left atrium, mild mitral regurgitation, and mild tricuspid regurgitation. Her troponin was 0.303. She denies any history of coronary artery disease. She has been started on Toprol-XL. Metoprolol tartrate has been discontinued. The patient has been cleared by Cardiology for discharge. FINAL DIAGNOSES: 1. Chest discomfort secondary to atrial fibrillation with rapid ventricular response, requiring IV Cardizem push by EMS. 2. Coronary artery disease. 3. Hypertension. 4. Hyperlipidemia. 5. Diabetes mellitus type 2. 6. Morbid obesity with a BMI of 40.4. 7. Peripheral neuropathy. 8. Gastroesophageal reflux disease. The patient understands the risk associated with anticoagulation. Job ID: [id number]
== END 2019-09-13 13:23 | disposition home or self-care (01) ==
LOC: ERS 02:10 → 2SW 03:43
PROVIDERS: ADMIT Internal Medicine; ATTEND Internal Medicine
DX: I48.0 Paroxysmal atrial fibrillation (principal); I25.10 Atherosclerotic heart disease of native coronary artery without angina pectoris; I10 Essential (primary) hypertension; E78.5 Hyperlipidemia, unspecified; M79.7 Fibromyalgia; G47.30 Sleep apnea, unspecified; R79.89 Other specified abnormal findings of blood chemistry; E11.42 Type 2 diabetes mellitus with diabetic polyneuropathy; K21.9 Gastro-esophageal reflux disease without esophagitis; E66.01 Morbid (severe) obesity due to excess calories; Z68.41 Body mass index [BMI] 40.0-44.9, adult; Z79.4 Long term (current) use of insulin; Z79.899 Other long term (current) drug therapy; Z88.0 Allergy status to penicillin; Z88.5 Allergy status to narcotic agent; Z95.1 Presence of aortocoronary bypass graft
CPT/HCPCS: 71045; 80048 ×2; 82550; 82553; 82962 ×2; 83735; 83880; 84443; 84484 ×3; 85025 ×2; 93005; 93306; 96360; 96365; 99285; G0378 ×3; 36415; 36416; J1815; J3475

== ENCOUNTER 2019-09-19 06:04 | Inpatient (IN) | payer MEDICARE ==
[2019-09-19] MEDS ORDERED: Amiodarone 150 MG/3 ML VIAL ONE (06:31)
[2019-09-19 06:50] LABS: #Basophils 0.1 thou/uL (0.0-0.2); #Lymphocytes 1.9 thou/uL (1.20-3.40); #Monocytes 0.3 thou/uL (0.11-0.59); #Neutrophils 2.8 thou/uL (1.40-6.50); %Basophils 1.2 % (0.0-1.0); %Eosinophils 0.2 % (0.0-10.0); %Lymphocytes 37.3 % (21.0-51.0); %Monocytes 6.1 % (0.0-10.0); %Neutrophils 55.2 % (42.0-75.0); Hemoglobin 15.9 g/dL (12.0-16.0); Mean Corpuscular HGB CONC 33.6 g/dL (32.0-36.0); Mean Corpuscular Hemoglobin 31.3 pg (27.0-31.0); Mean Platelet Volume 7.3 fL (7.4-10.4); Platelet Count 228 thou/uL (130-400); RBC Distribution Width 12.2 % (11.5-14.5); Red Blood Cell (RBC) Count 5.07 mill/uL (4.20-5.40); White Blood Cell (WBC) Count 5.1 thou/uL (4.8-10.8)
[2019-09-19 07:14] LABS: Anion Gap 18 mmol/L (10-20); BUN (Urea Nitrogen) 27 mg/dL (9.8-20.1); Calc. Creatinine Clearance 0 mL/min (70-130); Carbon Dioxide 25 mmol/L (22-29); Chloride 95 mmol/L (98-107); Estimated GFR-MDRD 31; Potassium 3.3 mmol/L (3.5-5.1); Sodium 135 mmol/L (136-145)
[2019-09-19 07:15] LABS: ALT (SGPT) 39 U/L (8-55); AST (SGOT) 48 U/L (5-34); Albumin 4.3 g/dL (3.5-5.0); Alkaline Phosphatase 81 U/L (40-110); Bilirubin, Total 0.5 mg/dL (0.2-1.2); Globulin 3.8 g/dL (2.4-3.5); Glucose 278 mg/dL (70-105); Protein, Total 8.1 g/dL (6.0-8.3)
[2019-09-19] MEDS ORDERED: Acetaminophen 325 MG TAB PO PRN (08:09)
[2019-09-19] MEDS ORDERED: Bisacodyl 5 MG TAB PO PRN (08:09)
[2019-09-19] MEDS ORDERED: Acetaminophen 650 MG Suppository PR PRN (08:09)
[2019-09-19] MEDS ORDERED: traZODone HCl 50 MG TAB PO PRN (08:12)
--- NOTE | 2019-09-19 08:12 | RAD ---
XR Chest 1 View Portable History: Chest pain Comparison: None. Findings: Lungs are clear. No pneumothorax. No effusion. No acute osseous abnormality. Impression: No acute intrathoracic abnormality.
[2019-09-19] MEDS ORDERED: Dextrose 5% in Water 1,000 ML IV PRN (08:13)
[2019-09-19] MEDS ORDERED: Dextrose 50% Abboject 50 ML SYRINGE SLOW IVP PRN (08:13)
[2019-09-19] MEDS ORDERED: Exenatide Microspheres [Bydureon Pen] 2 MG SC SCH (08:45)
[2019-09-19] MEDS: Apixaban 5 MG TAB PO SCH ×2 (10:15→20:36)
[2019-09-19] MEDS: Ezetimibe 10 MG TAB PO SCH (10:18)
[2019-09-19] MEDS: Fish Oil 1,000 MG CAP PO SCH ×2 (10:18→20:36)
[2019-09-19] MEDS: Gabapentin 300 MG CAP PO SCH ×2 (10:18→20:37)
[2019-09-19] MEDS: HumaLOG 300 UNITS/3 ML VIAL SC PRN ×4 (10:19→21:37)
[2019-09-19] MEDS: Prenatal Vitamin 1 TAB PO SCH (10:19)
[2019-09-19 11:00] LABS: Troponin I 0.041 ng/mL (< 0.028)
[2019-09-19] MEDS: NS 0.9% w/ 20 MEQ KCL 1,000 ML/1,000 ML BAG IV SCH ×2 (11:24→23:43)
[2019-09-19 13:20] LABS: Troponin I 0.075 ng/mL (< 0.028)
--- NOTE | 2019-09-19 13:50 | HP ---
PRIMARY CARE PROVIDER: Jeronimo Webster MD CHIEF COMPLAINT: Chest pain. HISTORY OF PRESENT ILLNESS: Ms. Hardy is a pleasant 54-year-old lady who was seen at [facility] on September 19, 2019. She was hospitalized at this facility from September 12 to of this year for chest discomfort, secondary to atrial fibrillation with rapid ventricular response. She was started on Eliquis at that time. Her metoprolol tartrate was changed to metoprolol succinate 50 mg daily. The patient reports doing well until last night. She reports developing chest pain last night. She reports that it was retrosternal, dull, 5/10 at its worst, nonradiating, not accompanied by palpitations or shortness of breath or nausea, but accompanied by lightheadedness. Her roving or yarn color checker is Dr. Dodd. The patient reports that she also has coronary artery occlusion that cannot be fixed. She also reports that she was diagnosed with flu for the last week. She has been on Tamiflu. She reports generalized body aches. She denies any abdominal pain. She reports not eating well, but reports drinking a lot of water. She presented to the emergency room because of ongoing chest pain. In the emergency room, she was found to be in atrial fibrillation with rapid ventricular response. She has been started on amiodarone drip and referred to Hospitalist Service for admission. REVIEW OF SYSTEMS: All systems were reviewed and found to be negative except for the pertinent positives mentioned above. PAST MEDICAL HISTORY: Atrial fibrillation, coronary artery disease, hypertension, and diabetes mellitus type 2. PAST SURGICAL HISTORY: Cholecystectomy, coronary artery bypass graft x3, left breast lump removal, cardiac ablation for atrial fibrillation in 2016, and uterine artery ablation. SOCIAL HISTORY: The patient denies tobacco use, alcohol use, or recreational drug use. FAMILY HISTORY: No history of heart disease or stroke. ALLERGIES: PENICILLIN AND CODEINE. HOME MEDICATIONS: 1. Sertraline 100 mg daily. 2. Atorvastatin 80 mg daily. 3. Gabapentin 300 mg 3 times a day. 4. Metoprolol succinate 50 mg daily. 5. Omeprazole 20 mg 2 times a day. 6. Lasix 80 mg daily. 7. Ranexa 500 mg 2 times a day. 8. Aspirin 81 mg daily. PHYSICAL EXAMINATION: GENERAL: On examination, Ms. Hardy is sleepy, but arousable, not in acute distress. VITAL SIGNS: Blood pressure is 122/72, pulse 75, respiratory rate 16, and oxygen saturation 96% on room air. She is afebrile. She is obese, with a BMI of 37.7. EYES: No scleral icterus, no conjunctival pallor. ENT: Moist mucosal membranes. No oropharyngeal erythema or exudates. NECK: Supple, nontender, trachea is midline. No jugular venous distention. RESPIRATORY: Accessory muscles of breathing are not active. Chest wall movements are symmetric bilaterally. LUNGS: Clear to auscultation without wheeze, rhonchi, or crepitations. CARDIOVASCULAR: S1 and S2 are heard, irregular and tachycardic. Peripheral pulses palpable. ABDOMEN: Soft, nontender, bowel sounds are heard. NEUROLOGIC: Cranial nerves 2 through 12 are intact. MUSCULOSKELETAL: Power is 5/5 in all 4 extremities. SKIN: No rashes or subcutaneous nodules. LYMPHATIC: No cervical lymphadenopathy. PSYCHIATRIC: Normal mood, normal affect. The patient is oriented to person, place, and time. LABORATORY DATA: Ms. Hardy's labs and investigations were reviewed. I reviewed her electrocardiogram which shows atrial fibrillation with rapid ventricular response, no ST changes to suggest an acute coronary syndrome. She has a right bundle-branch block. I also reviewed her chest x-ray which does not show any pulmonary infiltrates. She has an unremarkable CBC, decreased sodium of 135, decreased potassium of 3.3, elevated blood urea nitrogen of 27, elevated creatinine of 1.70, creatinine was 0.84 on September 13, 2019, mildly elevated AST of 48, otherwise unremarkable liver profile and indeterminate troponin I of 0.081. ASSESSMENT AND PLAN: Ms. Hardy is a pleasant 54-year-old lady, who was seen at [facility] on September 19, 2019. Her problem list includes: 1. Atrial fibrillation with rapid ventricular response: The patient has been started on amiodarone drip, which I will continue. She will be monitored on telemetry. We will request Cardiology Service consultation for opinion and help with management. 2. Hyponatremia: Mild, likely asymptomatic. 3. Hypokalemia: We will replace potassium and recheck. 4. Acute kidney injury: Most likely prerenal, given the patient's history of poor oral intake. I will provide her gentle hydration and recheck creatinine. 5. Diabetes mellitus, type 2: The patient was reported in not compliant with all her medications. I will start her on Accu-Cheks and insulin sliding scale. We will continue exenatide. We will also start her on decreased dose of Lantus. She reportedly is taking 35 units 2 times a day, but as mentioned earlier, it is unclear whether she is compliant with it. Also, given her acute kidney injury, we will decrease her Lantus dose. 6. Coronary artery disease: Continue Ranexa and Lipitor. The patient's troponin is indeterminate, trend troponin. Many thanks for allowing me to participate in your patient's care. Please feel free to contact me with any questions or concerns. LEVEL OF RISK: High. LEVEL OF COMPLEXITY: High. Job ID: [id number]
--- NOTE | 2019-09-19 16:38 | CON ---
DATE OF CONSULTATION: 09/19/2019 PRIMARY CANT GANG SAWYER: Dr. [place] Dodd. REASON FOR CONSULTATION: Atrial fibrillation. HISTORY OF PRESENT ILLNESS: Ms. Hardy is a very pleasant 54-year-old white female, who comes to the hospital for chest pain. She was actually diagnosed with the flu recently, was started on Tamiflu. She started having chest pain. She usually has chest pains when she goes into atrial fibrillation and in fact, when she came in, she was in atrial fibrillation. She was started on amiodarone drip, eventually converted into sinus rhythm and has not had any chest pain since. On my evaluation, Ms. Hardy denies any chest pain. She states, as long as she stays away from the atrial fibrillation, she feels just fine. Denies any shortness of breath. No lightheadedness, syncope, or presyncope. PAST MEDICAL HISTORY: 1. History of paroxysmal atrial fibrillation. 2. Coronary artery disease, status post CABG x3 in the past with very small vessel disease, not amenable to any other type of revascularization. Medical therapy is the only option. 3. Hypertension. 4. Type 2 diabetes. PAST SURGICAL HISTORY: 1. Cholecystectomy. 2. CABG x3. 3. Left breast lump removal. 4. Atrial fibrillation ablation in 2016. 5. Uterine artery ablation for bleeding. SOCIAL HISTORY: Denies any alcohol, tobacco, or drugs. FAMILY HISTORY: Noncontributory. OUTPATIENT MEDICATIONS: 1. Sertraline 100 mg a day. 2. Atorvastatin 80 mg a day. 3. Gabapentin 300 mg 3 times a day. 4. Metoprolol succinate 50 mg a day. 5. Omeprazole 20 mg twice a day. 6. Lasix 80 mg a day. 7. Ranexa 500 mg twice a day. 8. Aspirin 81 a day. 9. Eliquis 5 mg b.i.d. ALLERGIES: PENICILLIN AND CODEINE. REVIEW OF SYSTEMS: A 12-point review of systems was done and was all negative unless stated in the history of present illness. PHYSICAL EXAMINATION: VITAL SIGNS: Temperature 98.1, pulse 63, respiratory rate 18, saturating 97% on 2 L nasal cannula, and blood pressure 115/62. GENERAL: Awake, alert, oriented x3, in no distress. HEENT: Normocephalic and atraumatic. NECK: Supple. LUNGS: Clear. CARDIOVASCULAR: S1 and S2. No S3 or S4. No murmurs. ABDOMEN: Soft. Positive bowel sounds. EXTREMITIES: No edema. SKIN: Warm and dry. LABORATORY DATA: Laboratory work was reviewed. CBC is unremarkable. Chemistry with a potassium 3.3, BUN and creatinine are a little bit elevated, creatinine 1.7 with her baseline being in the 0.8 to 0.9 range. Troponin was 0.08, 0.04, and 0.07. Albumin of 4.3. EKG was reviewed. ASSESSMENT AND PLAN: 1. Paroxysmal atrial fibrillation. 2. Chest pain during her atrial fibrillation. 3. Coronary artery disease, inoperable and non-revascularizable. 4. Status post coronary artery bypass grafting x3 in 2015. 5. Type 2 diabetes. 6. Hypertension. PLAN: 1. Continue Eliquis for stroke prophylaxis. 2. Replace potassium aggressively. 3. Continue amiodarone drip for now. We will switch to an oral load tomorrow. 4. No need for any further risk stratification as her disease is non-revascularizable by catheter-based interventions or redo bypass. Thank you for letting us to participate in the care of patient. Job ID: [id number]
[2019-09-19] MEDS: Ferrous Sulfate 325 MG TAB PO SCH (17:06)
[2019-09-19] MEDS: Potassium Chloride 8 MEQ TAB PO SCH (17:06)
[2019-09-19] MEDS: Amiodarone 450 MG, Admixture Fee 1 EACH in Dextrose 5% in Water 250 ML IVPB SCH (17:06)
[2019-09-19] MEDS: Oseltamivir 75 MG CAP PO SCH (20:36)
[2019-09-19] MEDS: Atorvastatin Calcium 40 MG TAB PO SCH (20:36)
[2019-09-19] MEDS: Insulin Glargine 20 UNITS in Pre-Filled Syringe 1 EACH SC SCH (21:37)
[2019-09-20] MEDS: NS 0.9% w/ 20 MEQ KCL 1,000 ML/1,000 ML BAG IV SCH ×3 (00:27→23:26)
[2019-09-20 04:19] LABS: #Lymphocytes 1.9 thou/uL (1.20-3.40); #Monocytes 0.3 thou/uL (0.11-0.59); #Neutrophils 1.9 thou/uL (1.40-6.50); %Basophils 0.4 % (0.0-1.0); %Eosinophils 0.1 % (0.0-10.0); %Lymphocytes 46.8 % (21.0-51.0); %Monocytes 7.4 % (0.0-10.0); %Neutrophils 45.2 % (42.0-75.0); Hemoglobin 14.5 g/dL (12.0-16.0); Mean Corpuscular HGB CONC 34.3 g/dL (32.0-36.0); Mean Corpuscular Hemoglobin 32.1 pg (27.0-31.0); Mean Corpuscular Volume 93.7 fL (78.0-98.0); Mean Platelet Volume 7.1 fL (7.4-10.4); Platelet Count 177 thou/uL (130-400); RBC Distribution Width 12.2 % (11.5-14.5); White Blood Cell (WBC) Count 4.1 thou/uL (4.8-10.8)
[2019-09-20 04:58] LABS: Anion Gap 20 mmol/L (10-20); Carbon Dioxide 19 mmol/L (22-29); Glucose 152 mg/dL (70-105)
[2019-09-20 04:59] LABS: BUN (Urea Nitrogen) 25 mg/dL (9.8-20.1); Calc. Creatinine Clearance 80 mL/min (70-130); Estimated GFR-MDRD 42
[2019-09-20 05:15] LABS: Calcium 8.4 mg/dL (7.8-10.44); Chloride 101 mmol/L (98-107); Potassium 3.6 mmol/L (3.5-5.1); Sodium 137 mmol/L (136-145)
[2019-09-20] MEDS: Potassium Chloride 8 MEQ TAB PO SCH ×2 (07:54→17:13)
[2019-09-20] MEDS: Prenatal Vitamin 1 TAB PO SCH (07:54)
[2019-09-20] MEDS: Gabapentin 300 MG CAP PO SCH ×2 (07:54→20:29)
[2019-09-20] MEDS: Fish Oil 1,000 MG CAP PO SCH ×2 (07:54→20:29)
[2019-09-20] MEDS: Ferrous Sulfate 325 MG TAB PO SCH ×2 (07:54→17:13)
[2019-09-20] MEDS: Apixaban 5 MG TAB PO SCH ×2 (07:55→20:30)
[2019-09-20] MEDS: Insulin Glargine 20 UNITS in Pre-Filled Syringe 1 EACH SC SCH ×2 (07:55→20:31)
[2019-09-20] MEDS: Oseltamivir 75 MG CAP PO SCH ×2 (07:55→20:30)
[2019-09-20] MEDS: Ezetimibe 10 MG TAB PO SCH (07:55)
[2019-09-20] MEDS: Amiodarone 450 MG, Admixture Fee 1 EACH in Dextrose 5% in Water 250 ML IVPB SCH (08:50)
[2019-09-20 10:04] LABS: Hemoglobin 13.8 g/dL (12.0-16.0); Platelet Count 178 thou/uL (130-400)
[2019-09-20] MEDS: HumaLOG 300 UNITS/3 ML VIAL SC PRN ×2 (11:53→17:13)
--- NOTE | 2019-09-20 11:54 | PDOC.HOSPP ---
- Subjective Encounter Date: 09/20/19 Encounter Time: 08:00 Subjective: Pt seen for followup re; atrial fibrillation. Feels slightly better. Cough+. No sputum. Body aches+. - Objective Vital Signs & Weight: Vital Signs (12 hours) Temp Pulse Resp BP Pulse Ox 09/20/19 07:50 98.3 F 57 L 18 103/58 L 96 09/20/19 04:38 98.8 F 56 L 14 120/58 L 96 Weight Weight 226 lb 4.8 oz I&O: 09/19/19 09/20/19 09/21/19 06:59 06:59 06:59 Intake Total 450 Balance 450 Result Diagrams: 09/20/19 09:52 09/20/19 09:52 Additional Labs: Accuchecks 09/20/19 09/20/19 09/19/19 10:40 05:47 20:48 POC Glucose 183 H 171 H 215 H 09/19/19 09/19/19 09/19/19 17:19 12:14 09:20 POC Glucose 231 H 307 H 314 H Labs and MARs reviewed by me EKG Reviewed by me: Yes (Tele: NSR) Hospitalist ROS - Review of Systems Constitutional: reports: weakness. denies: fever, chills, sweats, malaise Respiratory: reports: cough, dry. denies: shortness of breath, hemoptysis, SOB with excertion, pleuritic pain, sputum, wheezing Cardiovascular: denies: chest pain, palpitations, orthopnea, paroxysmal noc. dyspnea, edema, light headedness Gastrointestinal: denies: nausea, vomiting, abdominal pain, diarrhea, constipation, melena, hematochezia Genitourinary: denies: dysuria, frequency, incontinence, hematuria, retention - Medication Medications: Active Medications Generic Name Dose Route Start Last Admin Trade Name Freq PRN Reason Stop Dose Admin Apixaban 5 mg 09/19/19 09:00 09/20/19 07:55 Eliquis PO 5 mg BID SOLO Administration Atorvastatin Calcium 80 mg 09/19/19 21:00 09/19/19 20:36 Lipitor PO 80 mg HS SOLO Administration Cholecalciferol 5,000 units 09/19/19 09:00 09/20/19 07:55 Vitamin D3 PO 5,000 units DAILY SOLO Administration Ezetimibe 10 mg 09/19/19 09:00 09/20/19 07:55 Zetia PO 10 mg DAILY SOLO Administration Ferrous Sulfate 325 mg 09/19/19 17:00 09/20/19 07:54 Feosol PO 325 mg BID-WM SOLO Administration Fish Oil 2,000 mg 09/19/19 09:00 09/20/19 07:54 Fish Oil PO 2,000 mg BID SOLO Administration Gabapentin 300 mg 09/19/19 09:00 09/20/19 07:54 Neurontin PO 300 mg DAILY SOLO Administration Gabapentin 600 mg 09/19/19 21:00 09/19/19 20:37 Neurontin PO 600 mg HS SOLO Administration Amiodarone HCl 450 mg/ 259 mls @ 0 mls/hr 09/19/19 06:45 09/20/19 08:50 Miscellaneous Medication 1 IVPB 259 mls each/ Dextrose/Water INF SOLO Administration Protocol As Directed Potassium Chloride/Sodium Chloride 1,000 ml in 1,000 mls @ 75 mls/hr 09/19/19 08:15 09/20/19 00:27 Ns 0.9% W/ 20 Meq Kcl IV 1,000 mls .[id number] SOLO Administration Insulin Glargine 20 units/ 0.2 mls @ 0 mls/hr 09/19/19 21:00 09/20/19 07:55 Miscellaneous Medication SC 0.2 mls BID SOLO Administration Insulin Human Lispro 0 units 09/19/19 08:13 09/19/19 21:37 Humalog SC 3 unit .MILD SLIDING SCALE PRN Administration Mild Correctional Scale Metoprolol Succinate 50 mg 09/19/19 18:00 09/19/19 17:06 Toprol Xl PO 50 mg 1800 SOLO Administration Oseltamivir Phosphate 75 mg 09/19/19 21:00 09/20/19 07:55 Tamiflu PO 09/24/19 09:01 75 mg BID SOLO Administration Pantoprazole Sodium 40 mg 09/19/19 09:00 09/20/19 07:54 Protonix PO 40 mg QAM SOLO Administration Potassium Chloride 4 meq 09/19/19 17:00 09/20/19 07:54 Slow-K 8 Meq PO 4 meq BID-WM SOLO Administration Multivit/Folic Acid/Iron 1 tab 09/19/19 09:00 09/20/19 07:54 Vitamin PO 1 tab DAILY SOLO Administration Ranolazine 500 mg 09/19/19 09:00 09/20/19 07:54 Ranexa PO 500 mg BID SOLO Administration Sertraline HCl 100 mg 09/19/19 09:00 09/20/19 07:55 Zoloft PO 100 mg QAM SOLO Administration - Exam General - other findings: Obese Eye: anicteric sclera ENT: moist mucosa Neck: supple, symmetric, no JVD, no thyromegaly Heart: RRR, no murmur, no gallops, no rubs Respiratory: CTAB, no wheezes, no rales, normal chest expansion Gastrointestinal: soft, non-tender, non-distended, normal bowel sounds Extremities: no cyanosis Skin: normal turgor Skin - other findings: Wounds as documented Neurological: cranial nerve grossly intact Musculoskeletal: no muscle wasting Psychiatric: normal affect, normal behavior, oriented to person, oriented to place, oriented to time Hosp A/P (1) Afib Code(s): I48.91 - UNSPECIFIED ATRIAL FIBRILLATION Status: Acute (2) Influenza Code(s): J11.1 - FLU DUE TO UNIDENTIFIED INFLUENZA VIRUS W OTH RESP MANIFEST Status: Acute (3) CAD (coronary artery disease) Code(s): I25.10 - ATHSCL HEART DISEASE OF [place] CORONARY ARTERY W/O ANG PCTRS Status: Chronic (4) DM type 2 (diabetes mellitus, type 2) Status: Chronic (5) Depression Code(s): F32.9 - MAJOR DEPRESSIVE DISORDER, SINGLE EPISODE, UNSPECIFIED Status : Chronic (6) HTN (hypertension) Code(s): I10 - ESSENTIAL (PRIMARY) HYPERTENSION Status: Chronic (7) Obesity (BMI 35.0-39.9 without comorbidity) Code(s): E66.9 - OBESITY, UNSPECIFIED Status: Chronic - Plan out of bed/ambulate Continue apixaban and Toprol XL. Pt now in sinus rhythm. For oral amio loading today. Continue Tamiflu. Increase Lantus to 25 units BID. Continue Ranexa. Depression mild, stable.
--- NOTE | 2019-09-20 16:02 | PDOC.CPN ---
- Subjective Date: 09/20/19 Time: 15:59 Interval history: No new issues., No more chest pain. - Review of Systems General: denies: fever/chills, weight/appetite/sleep changes, night sweats, fatigue Respiratory: denies: cough, congestion, shortness of breath, exercise intolerance Cardiovascular: denies: chest pain, palpitation, edema, paroxysmal nocturnal dyspnea, orthopnea Gastrointestinal: denies: nausea, vomiting, diarrhea, constipation, abd pain, GI bleeding Musculoskeletal: denies: pain, tenderness, stiffness, swelling, arthritis/ arthralgias Neurological: denies: numbness, syncope, seizure, weakness - Objective Allergies/Adverse Reactions: Allergies Allergy/AdvReac Type Severity Reaction Status Date / Time penicillin G Allergy Verified 09/19/19 09:20 codeine AdvReac Severe Nausea Verified 09/19/19 09:20 Visit Medications: Current Medications Acetaminophen (Tylenol) 650 mg PO Q4H PRN PRN Reason: Headache/Fever/Mild Pain (1-3) Acetaminophen (Tylenol) 650 mg TX Q4H PRN PRN Reason: Headache/Fever/Mild Pain (1-3) Apixaban (Eliquis) 5 mg PO BID [facility] Last Admin: 09/20/19 07:55 Dose: 5 mg Atorvastatin Calcium (Lipitor) 80 mg PO HS [facility] Last Admin: 09/19/19 20:36 Dose: 80 mg Bisacodyl (Dulcolax) 10 mg PO DAILYPRN PRN PRN Reason: Constipation Cholecalciferol (Vitamin D3) 5,000 units PO DAILY [facility] Last Admin: 09/20/19 07:55 Dose: 5,000 units Dextrose/Water (Dextrose 50%) 25 gm SLOW IVP PRN PRN PRN Reason: Hypoglycemia Ezetimibe (Zetia) 10 mg PO DAILY [facility] Last Admin: 09/20/19 07:55 Dose: 10 mg Ferrous Sulfate (Feosol) 325 mg PO BID-WM [facility] Last Admin: 09/20/19 07:54 Dose: 325 mg Fish Oil (Fish Oil) 2,000 mg PO BID [facility] Last Admin: 09/20/19 07:54 Dose: 2,000 mg Gabapentin (Neurontin) 300 mg PO DAILY [facility] Last Admin: 09/20/19 07:54 Dose: 300 mg Gabapentin (Neurontin) 600 mg PO HS [facility] Last Admin: 09/19/19 20:37 Dose: 600 mg Glucagon (Glucagon) 1 mg IM PRN PRN PRN Reason: Hypoglycemia Amiodarone HCl 450 mg/Miscellaneous Medication 1 each/ Dextrose/Water 259 mls @ 0 mls/hr IVPB INF [facility]; Protocol Last Admin: 09/20/19 08:50 Dose: 259 mls Potassium Chloride/Sodium Chloride (Ns 0.9% W/ 20 Meq Kcl) 1,000 ml in 1,000 mls @ 75 mls/hr IV .[id number] [facility] Last Admin: 09/20/19 14:12 Dose: 1,000 mls Dextrose/Water (D5w) 1,000 mls @ 0 mls/hr IV .Q0M PRN PRN Reason: Hypoglycemia Insulin Glargine 20 units/ (Miscellaneous Medication) 0.2 mls @ 0 mls/hr SC BID [facility] Last Admin: 09/20/19 07:55 Dose: 0.2 mls Insulin Human Lispro (Humalog) 0 units SC .MILD SLIDING SCALE PRN PRN Reason: Mild Correctional Scale Last Admin: 09/20/19 11:53 Dose: 2 unit Metoprolol Succinate (Toprol Xl) 50 mg PO 1800 [facility] Last Admin: 09/19/19 17:06 Dose: 50 mg Oseltamivir Phosphate (Tamiflu) 75 mg PO BID [facility] Stop: 09/24/19 09:01 Last Admin: 09/20/19 07:55 Dose: 75 mg Pantoprazole Sodium (Protonix) 40 mg PO QAM [facility] Last Admin: 09/20/19 07:54 Dose: 40 mg Exenatide Microspheres [ Bydureon Pen] 2 Mg 0 each SC Q7D [facility] Potassium Chloride (Slow-K 8 Meq) 4 meq PO BID-[facility] Last Admin: 09/20/19 07:54 Dose: 4 meq Multivit/Folic Acid/Iron ( Vitamin) 1 tab PO DAILY [facility] Last Admin: 09/20/19 07:54 Dose: 1 tab Ranolazine (Ranexa) 500 mg PO BID [facility] Last Admin: 09/20/19 07:54 Dose: 500 mg Sertraline HCl (Zoloft) 100 mg PO QAM [facility] Last Admin: 09/20/19 07:55 Dose: 100 mg Trazodone HCl (Desyrel) 50 mg PO HS PRN PRN Reason: insomnia Vital Signs & Weight: Vital Signs Temp Pulse Resp BP Pulse Ox 09/20/19 15:20 98.6 F 64 18 127/60 98 09/20/19 11:57 98.4 F 55 L 18 118/58 L 95 09/20/19 07:50 98.3 F 57 L 18 103/58 L 96 09/20/19 04:38 98.8 F 56 L 14 120/58 L 96 Weight 226 lb 4.8 oz - Physical Exam General: alert & oriented x3 HEENT: mucus membranes moist Neck: supple neck Cardiac: regular rate and rhythm Lungs: normal breath sounds Neuro: grossly intact Abdomen: active bowel sounds Extremities: no edema Skin: clear Musculoskeletal: no pain - Labs Result Diagrams: 09/20/19 09:52 09/20/19 09:52 Troponin/CKMB CK-MB (CK-2) 2.0 ng/mL (0-6.6) 09/19/19 06:39 Troponin I 0.075 ng/mL (< 0.028) H 09/19/19 12:51 - Telemetry Sinus rhythms and dysrhythmias: sinus rhythm - Assessment/Plan Assessment/Plan: 1. Atrial fibrillation with RVR, girish in sinus 2. Chest pain with afib 3. CAD, s/p CABG, diffuse disease. 4. Type 2 DM 5. HTN PLAN: - Switch amiodarone to PO load. - Continue Eliquis for stroke prophylaxis.
[2019-09-20] MEDS: Atorvastatin Calcium 40 MG TAB PO SCH (20:29)
[2019-09-20] MEDS: Amiodarone 200 MG TAB PO SCH (20:30)
[2019-09-21 05:06] LABS: Anion Gap 13 mmol/L (10-20); BUN (Urea Nitrogen) 16 mg/dL (9.8-20.1); Calc. Creatinine Clearance 101 mL/min (70-130); Calcium 8.3 mg/dL (7.8-10.44); Carbon Dioxide 22 mmol/L (22-29); Chloride 106 mmol/L (98-107); Estimated GFR-MDRD 53; Glucose 126 mg/dL (70-105); Potassium 3.6 mmol/L (3.5-5.1); Sodium 137 mmol/L (136-145)
[2019-09-21 05:25] LABS: Band 1 % (5-11); Hemoglobin 13.4 g/dL (12.0-16.0); Lymphocytes 60 % (21-51); MDiff Complete? YES; Mean Corpuscular HGB CONC 33.2 g/dL (32.0-36.0); Mean Corpuscular Hemoglobin 31.4 pg (27.0-31.0); Mean Corpuscular Volume 94.6 fL (78.0-98.0); Mean Platelet Volume 7.8 fL (7.4-10.4); Monocytes 5 % (0-10); Neutrophil 34 % (42-75); Platelet Count 171 thou/uL (130-400); Platelet Morphology Comment Appears Adequate; RBC Distribution Width 12.4 % (11.5-14.5); RBC Morphology Normal; Red Blood Cell (RBC) Count 4.26 mill/uL (4.20-5.40); White Blood Cell (WBC) Count 4.2 thou/uL (4.8-10.8)
--- NOTE | 2019-09-21 08:44 | PDOC.CPN ---
- Subjective Date: 09/21/19 Time: 09:01 Interval history: The pt seen and examined. No overnight events. No cardiac complaints - Objective Allergies/Adverse Reactions: Allergies Allergy/AdvReac Type Severity Reaction Status Date / Time penicillin G Allergy Verified 09/19/19 09:20 codeine AdvReac Severe Nausea Verified 09/19/19 09:20 Visit Medications: Current Medications Acetaminophen (Tylenol) 650 mg PO Q4H PRN PRN Reason: Headache/Fever/Mild Pain (1-3) Acetaminophen (Tylenol) 650 mg AR Q4H PRN PRN Reason: Headache/Fever/Mild Pain (1-3) Amiodarone HCl (Cordarone) 400 mg PO BID [facility] Last Admin: 09/20/19 20:30 Dose: 400 mg Apixaban (Eliquis) 5 mg PO BID [facility] Last Admin: 09/20/19 20:30 Dose: 5 mg Atorvastatin Calcium (Lipitor) 80 mg PO HS [facility] Last Admin: 09/20/19 20:29 Dose: 80 mg Bisacodyl (Dulcolax) 10 mg PO DAILYPRN PRN PRN Reason: Constipation Cholecalciferol (Vitamin D3) 5,000 units PO DAILY [facility] Last Admin: 09/20/19 07:55 Dose: 5,000 units Dextrose/Water (Dextrose 50%) 25 gm SLOW IVP PRN PRN PRN Reason: Hypoglycemia Ezetimibe (Zetia) 10 mg PO DAILY [facility] Last Admin: 09/20/19 07:55 Dose: 10 mg Ferrous Sulfate (Feosol) 325 mg PO BID-[facility] Last Admin: 09/20/19 17:13 Dose: 325 mg Fish Oil (Fish Oil) 2,000 mg PO BID [facility] Last Admin: 09/20/19 20:29 Dose: 2,000 mg Gabapentin (Neurontin) 300 mg PO DAILY [facility] Last Admin: 09/20/19 07:54 Dose: 300 mg Gabapentin (Neurontin) 600 mg PO HS [facility] Last Admin: 09/20/19 20:29 Dose: 600 mg Glucagon (Glucagon) 1 mg IM PRN PRN PRN Reason: Hypoglycemia Potassium Chloride/Sodium Chloride (Ns 0.9% W/ 20 Meq Kcl) 1,000 ml in 1,000 mls @ 75 mls/hr IV .[id number] [facility] Last Admin: 01/12/20 23:26 Dose: 1,000 mls Dextrose/Water (D5w) 1,000 mls @ 0 mls/hr IV .Q0M PRN PRN Reason: Hypoglycemia Insulin Glargine 20 units/ (Miscellaneous Medication) 0.2 mls @ 0 mls/hr SC BID [facility] Last Admin: 09/20/19 20:31 Dose: 0.2 mls Insulin Human Lispro (Humalog) 0 units SC .MILD SLIDING SCALE PRN PRN Reason: Mild Correctional Scale Last Admin: 09/20/19 17:13 Dose: 2 unit Metoprolol Succinate (Toprol Xl) 50 mg PO 1800 [facility] Last Admin: 09/20/19 17:13 Dose: 50 mg Oseltamivir Phosphate (Tamiflu) 75 mg PO BID [facility] Stop: 09/24/19 09:01 Last Admin: 09/20/19 20:30 Dose: 75 mg Pantoprazole Sodium (Protonix) 40 mg PO QAM [facility] Last Admin: 09/20/19 07:54 Dose: 40 mg Exenatide Microspheres [ Bydureon Pen] 2 Mg 0 each SC Q7D [facility] Potassium Chloride (Slow-K 8 Meq) 4 meq PO BID-[facility] Last Admin: 09/20/19 17:13 Dose: 4 meq Multivit/Folic Acid/Iron ( Vitamin) 1 tab PO DAILY [facility] Last Admin: 09/20/19 07:54 Dose: 1 tab Ranolazine (Ranexa) 500 mg PO BID [facility] Last Admin: 09/20/19 20:29 Dose: 500 mg Sertraline HCl (Zoloft) 100 mg PO QAM [facility] Last Admin: 09/20/19 07:55 Dose: 100 mg Trazodone HCl (Desyrel) 50 mg PO HS PRN PRN Reason: insomnia Vital Signs & Weight: Vital Signs Temp Pulse Resp BP Pulse Ox 09/21/19 03:30 98.7 F 52 L 16 109/59 L 95 09/20/19 23:05 99.6 F 52 L 20 98/54 L 97 Weight 233 lb 12.8 oz - Physical Exam General: alert & oriented x3 HEENT: mucus membranes moist Neck: supple neck Cardiac: regular rate and rhythm, S1/S2 Lungs: clear to auscultation Extremities: other: (1-2+ pitting BLE edema) - Labs Result Diagrams: 09/21/19 04:20 09/21/19 04:20 Troponin/CKMB CK-MB (CK-2) 2.0 ng/mL (0-6.6) 09/19/19 06:39 Troponin I 0.075 ng/mL (< 0.028) H 09/19/19 12:51 - Telemetry Sinus rhythms and dysrhythmias: sinus rhythm - Assessment/Plan Assessment/Plan: 1. Atrial fibrillation with RVR - remains in SR since 09/19/2019; On Amiodarone 400mg BID since 09/20/2019; On Eliquis 5mg BID and Metoprolol which will be decreased due to hypotension and mildly bradycardia; Recommend the pt to f/u with EP for further eval. 2. Chest pain with afib - asymptomatic 3. CAD with s/p CABG in 06/2015 with diffuse disease - stable. 4. Type 2 DM 5. HTN 6. Chronic BLE edema MAR reviewed Pt. seen and eval. by me. I agree with the A/P by the [employer] ENGINE[employer]. She is feeling a little better. Maintaing sinus rhythm. will decrease dose of amiodarone.
[2019-09-21] MEDS: Fish Oil 1,000 MG CAP PO SCH ×2 (09:05→21:09)
[2019-09-21] MEDS: Potassium Chloride 8 MEQ TAB PO SCH ×2 (09:05→17:40)
[2019-09-21] MEDS: Oseltamivir 75 MG CAP PO SCH ×2 (09:06→21:09)
[2019-09-21] MEDS: Insulin Glargine 20 UNITS in Pre-Filled Syringe 1 EACH SC SCH (09:06)
[2019-09-21] MEDS: Ezetimibe 10 MG TAB PO SCH (09:06)
[2019-09-21] MEDS: Ferrous Sulfate 325 MG TAB PO SCH ×2 (09:06→17:40)
[2019-09-21] MEDS: Prenatal Vitamin 1 TAB PO SCH (09:06)
[2019-09-21] MEDS: Apixaban 5 MG TAB PO SCH ×2 (09:07→21:09)
[2019-09-21] MEDS: Gabapentin 300 MG CAP PO SCH ×2 (09:07→21:10)
[2019-09-21] MEDS: Amiodarone 200 MG TAB PO SCH ×3 (11:06→21:09)
--- NOTE | 2019-09-21 15:23 | PDOC.HOSPP ---
- Subjective Encounter Date: 09/21/19 Encounter Time: 07:00 Subjective: Pt seen for followup re: atrial fibrillation. Feels better. - Objective Vital Signs & Weight: Vital Signs (12 hours) Temp Pulse Resp BP Pulse Ox 09/21/19 12:34 98.3 F 57 L 20 107/51 L 95 09/21/19 09:16 97.8 F 55 L 20 100/54 L 95 09/21/19 07:40 96 09/21/19 03:30 98.7 F 52 L 16 109/59 L 95 Weight Weight 233 lb 12.8 oz I&O: 09/20/19 09/21/19 09/22/19 06:59 06:59 06:59 Intake Total 450 3540.4 Output Total 1100 Balance 450 2440.4 Result Diagrams: 09/21/19 04:20 09/21/19 04:20 Additional Labs: Accuchecks 09/21/19 09/21/19 09/20/19 10:50 05:39 20:29 POC Glucose 159 H 143 H 200 H 09/20/19 16:36 POC Glucose 170 H Labs and MARs reviewed by me EKG Reviewed by me: Yes (Tele: NSR) Hospitalist ROS - Review of Systems Respiratory: reports: cough, sputum. denies: dry, shortness of breath, hemoptysis, SOB with excertion, pleuritic pain, wheezing Cardiovascular: denies: chest pain, palpitations, orthopnea, paroxysmal noc. dyspnea, edema, light headedness - Medication Medications: Active Medications Generic Name Dose Route Start Last Admin Trade Name Freq PRN Reason Stop Dose Admin Amiodarone HCl 200 mg 09/21/19 21:00 09/21/19 11:06 Cordarone PO 200 mg BID SOLO Administration Apixaban 5 mg 09/19/19 09:00 09/21/19 09:07 Eliquis PO 5 mg BID SOLO Administration Atorvastatin Calcium 80 mg 09/19/19 21:00 09/20/19 20:29 Lipitor PO 80 mg HS SOLO Administration Cholecalciferol 5,000 units 09/19/19 09:00 09/21/19 09:06 Vitamin D3 PO 5,000 units DAILY SOLO Administration Ezetimibe 10 mg 09/19/19 09:00 09/21/19 09:06 Zetia PO 10 mg DAILY SOLO Administration Ferrous Sulfate 325 mg 09/19/19 17:00 09/21/19 09:06 Feosol PO 325 mg BID-[facility] SOLO Administration Fish Oil 2,000 mg 09/19/19 09:00 09/21/19 09:05 Fish Oil PO 2,000 mg BID SOLO Administration Gabapentin 300 mg 09/19/19 09:00 09/21/19 09:07 Neurontin PO 300 mg DAILY SOLO Administration Gabapentin 600 mg 09/19/19 21:00 09/20/19 20:29 Neurontin PO 600 mg HS SOLO Administration Potassium Chloride/Sodium Chloride 1,000 ml in 1,000 mls @ 75 mls/hr 09/19/19 08:15 09/20/19 23:26 Ns 0.9% W/ 20 Meq Kcl IV 1,000 mls .[id number] SOLO Administration Insulin Glargine 20 units/ 0.2 mls @ 0 mls/hr 09/19/19 21:00 09/21/19 09:06 Miscellaneous Medication SC 0.2 mls BID SOLO Administration Insulin Human Lispro 0 units 09/19/19 08:13 09/20/19 17:13 Humalog SC 2 unit .MILD SLIDING SCALE PRN Administration Mild Correctional Scale Oseltamivir Phosphate 75 mg 09/19/19 21:00 09/21/19 09:06 Tamiflu PO 09/24/19 09:01 75 mg BID SOLO Administration Pantoprazole Sodium 40 mg 09/19/19 09:00 09/21/19 09:06 Protonix PO 40 mg QAM SOLO Administration Potassium Chloride 4 meq 09/19/19 17:00 09/21/19 09:05 Slow-K 8 Meq PO 4 meq BID-[facility] SOLO Administration Multivit/Folic Acid/Iron 1 tab 09/19/19 09:00 09/21/19 09:06 Vitamin PO 1 tab DAILY SOLO Administration Ranolazine 500 mg 09/19/19 09:00 09/21/19 11:06 Ranexa PO 500 mg BID SOLO Administration Sertraline HCl 100 mg 09/19/19 09:00 09/21/19 09:06 Zoloft PO 100 mg QAM SOLO Administration - Exam General - other findings: Obese Eye: anicteric sclera ENT: moist mucosa Neck: supple, no thyromegaly Heart: RRR, no rubs Respiratory: CTAB Gastrointestinal: soft, non-tender Extremities: no clubbing Psychiatric: normal affect, normal behavior Hosp A/P (1) Afib Code(s): I48.91 - UNSPECIFIED ATRIAL FIBRILLATION Status: Acute (2) Influenza Code(s): J11.1 - FLU DUE TO UNIDENTIFIED INFLUENZA VIRUS W OTH RESP MANIFEST Status: Acute (3) CAD (coronary artery disease) Code(s): I25.10 - ATHSCL HEART DISEASE OF [place] CORONARY ARTERY W/O ANG PCTRS Status: Chronic (4) DM type 2 (diabetes mellitus, type 2) Status: Chronic (5) Depression Code(s): F32.9 - MAJOR DEPRESSIVE DISORDER, SINGLE EPISODE, UNSPECIFIED Status : Chronic (6) HTN (hypertension) Code(s): I10 - ESSENTIAL (PRIMARY) HYPERTENSION Status: Chronic (7) Obesity (BMI 35.0-39.9 without comorbidity) Code(s): E66.9 - OBESITY, UNSPECIFIED Status: Chronic - Plan PT/OT, out of bed/ambulate Pt ambulated 250 feet. Pt iss on apixaban, amiodarone and Toprol XL. Pt now in sinus rhythm. Continue Tamiflu. Lantus 25 units BID. Continue Ranexa. Depression mild, stable.
[2019-09-21 15:57] VITALS: BMI 38.9
[2019-09-21] MEDS: NS 0.9% w/ 20 MEQ KCL 1,000 ML/1,000 ML BAG IV SCH (17:40)
[2019-09-21] MEDS: Insulin Glargine 25 UNITS in Pre-Filled Syringe 1 EACH SC SCH (21:08)
[2019-09-21] MEDS: Atorvastatin Calcium 40 MG TAB PO SCH (21:09)
[2019-09-22 04:49] LABS: #Lymphocytes 1.9 thou/uL (1.20-3.40); #Monocytes 0.3 thou/uL (0.11-0.59); #Neutrophils 1.7 thou/uL (1.40-6.50); %Basophils 0.2 % (0.0-1.0); %Eosinophils 0.6 % (0.0-10.0); %Lymphocytes 48.7 % (21.0-51.0); %Monocytes 7.1 % (0.0-10.0); %Neutrophils 43.5 % (42.0-75.0); Hemoglobin 12.8 g/dL (12.0-16.0); Mean Corpuscular HGB CONC 33.6 g/dL (32.0-36.0); Mean Corpuscular Hemoglobin 31.8 pg (27.0-31.0); Mean Corpuscular Volume 94.4 fL (78.0-98.0); Mean Platelet Volume 7.6 fL (7.4-10.4); Platelet Count 174 thou/uL (130-400); RBC Distribution Width 12.2 % (11.5-14.5); Red Blood Cell (RBC) Count 4.03 mill/uL (4.20-5.40); White Blood Cell (WBC) Count 3.8 thou/uL (4.8-10.8)
[2019-09-22 05:12] LABS: Anion Gap 12 mmol/L (10-20); BUN (Urea Nitrogen) 14 mg/dL (9.8-20.1); Calc. Creatinine Clearance 145 mL/min (70-130); Calcium 8.5 mg/dL (7.8-10.44); Carbon Dioxide 21 mmol/L (22-29); Chloride 111 mmol/L (98-107); Estimated GFR-MDRD 81; Glucose 103 mg/dL (70-105); Potassium 3.6 mmol/L (3.5-5.1); Sodium 140 mmol/L (136-145)
[2019-09-22] MEDS: Insulin Glargine 25 UNITS in Pre-Filled Syringe 1 EACH SC SCH (09:36)
[2019-09-22] MEDS: Potassium Chloride 8 MEQ TAB PO SCH (09:37)
[2019-09-22] MEDS: Fish Oil 1,000 MG CAP PO SCH (09:37)
[2019-09-22] MEDS: Oseltamivir 75 MG CAP PO SCH (09:37)
[2019-09-22] MEDS: Gabapentin 300 MG CAP PO SCH (09:38)
[2019-09-22] MEDS: Ferrous Sulfate 325 MG TAB PO SCH (09:38)
[2019-09-22] MEDS: Ezetimibe 10 MG TAB PO SCH (09:38)
[2019-09-22] MEDS: Prenatal Vitamin 1 TAB PO SCH (09:38)
[2019-09-22] MEDS: Amiodarone 200 MG TAB PO SCH (09:38)
[2019-09-22] MEDS: Apixaban 5 MG TAB PO SCH (09:39)
--- NOTE | 2019-09-22 10:26 | PDOC.CPN ---
- Subjective Date: 09/22/19 Time: 10:00 - Review of Systems General: reports: fever/chills Respiratory: reports: cough, congestion, shortness of breath Cardiovascular: reports: chest pain, palpitation Gastrointestinal: reports: nausea, abd pain Musculoskeletal: reports: pain, tenderness, swelling - Objective Allergies/Adverse Reactions: Allergies Allergy/AdvReac Type Severity Reaction Status Date / Time penicillin G Allergy Verified 09/19/19 09:20 codeine AdvReac Severe Nausea Verified 09/19/19 09:20 Visit Medications: Current Medications Acetaminophen (Tylenol) 650 mg PO Q4H PRN PRN Reason: Headache/Fever/Mild Pain (1-3) Acetaminophen (Tylenol) 650 mg [place] Q4H PRN PRN Reason: Headache/Fever/Mild Pain (1-3) Amiodarone HCl (Cordarone) 200 mg PO DAILY [facility] Apixaban (Eliquis) 5 mg PO BID [facility] Last Admin: 09/22/19 09:39 Dose: 5 mg Atorvastatin Calcium (Lipitor) 80 mg PO HS [facility] Last Admin: 09/21/19 21:09 Dose: 80 mg Bisacodyl (Dulcolax) 10 mg PO DAILYPRN PRN PRN Reason: Constipation Cholecalciferol (Vitamin D3) 5,000 units PO DAILY [facility] Last Admin: 09/22/19 09:37 Dose: 5,000 units Dextrose/Water (Dextrose 50%) 25 gm SLOW IVP PRN PRN PRN Reason: Hypoglycemia Ezetimibe (Zetia) 10 mg PO DAILY [facility] Last Admin: 09/22/19 09:38 Dose: 10 mg Ferrous Sulfate (Feosol) 325 mg PO BID[facility] Last Admin: 09/22/19 09:38 Dose: 325 mg Fish Oil (Fish Oil) 2,000 mg PO BID [facility] Last Admin: 09/22/19 09:37 Dose: 2,000 mg Gabapentin (Neurontin) 300 mg PO DAILY [facility] Last Admin: 09/22/19 09:38 Dose: 300 mg Gabapentin (Neurontin) 600 mg PO HS [facility] Last Admin: 09/21/19 21:10 Dose: 600 mg Glucagon (Glucagon) 1 mg IM PRN PRN PRN Reason: Hypoglycemia Dextrose/Water (D5w) 1,000 mls @ 0 mls/hr IV .Q0M PRN PRN Reason: Hypoglycemia Insulin Glargine 25 units/ (Miscellaneous Medication) 0.25 mls @ 0 mls/hr SC BID [facility] Last Admin: 09/22/19 09:36 Dose: 0.25 mls Insulin Human Lispro (Humalog) 0 units SC .MILD SLIDING SCALE PRN PRN Reason: Mild Correctional Scale Last Admin: 09/20/19 17:13 Dose: 2 unit Metoprolol Succinate (Toprol Xl) 25 mg PO 1800 [facility] Last Admin: 09/21/19 17:40 Dose: 25 mg Oseltamivir Phosphate (Tamiflu) 75 mg PO BID [facility] Stop: 09/24/19 09:01 Last Admin: 09/22/19 09:37 Dose: 75 mg Pantoprazole Sodium (Protonix) 40 mg PO QAM [facility] Last Admin: 09/22/19 09:38 Dose: 40 mg Exenatide Microspheres [ Bydureon Pen] 2 Mg 0 each SC Q7D [facility] Potassium Chloride (Slow-K 8 Meq) 4 meq PO BID-[facility] Last Admin: 09/22/19 09:37 Dose: 4 meq Multivit/Folic Acid/Iron ( Vitamin) 1 tab PO DAILY [facility] Last Admin: 09/22/19 09:38 Dose: 1 tab Ranolazine (Ranexa) 500 mg PO BID [facility] Last Admin: 09/22/19 09:38 Dose: 500 mg Sertraline HCl (Zoloft) 100 mg PO QAM [facility] Last Admin: 09/22/19 09:38 Dose: 100 mg Trazodone HCl (Desyrel) 50 mg PO HS PRN PRN Reason: insomnia Vital Signs & Weight: Vital Signs Temp Pulse Resp BP Pulse Ox 09/22/19 09:35 97.8 F 54 L 20 137/65 95 09/22/19 03:13 98.0 F 55 L 20 146/63 H 97 09/22/19 00:00 53 L 20 Admit Weight 233 lb Weight 232 lb 8 oz - Quality Measures CV meds: Beta Sigifredo: Yes, JOON/ARB: Yes, Statin: Yes - Physical Exam General: alert & oriented x3 HEENT: normocephaly Neck: no lymphadenopathy Cardiac: regular rate and rhythm, no murmur Lungs: clear to auscultation Neuro: grossly intact Abdomen: unremarkable Extremities: no cyanosis, no clubbing, no edema - Labs Result Diagrams: 09/22/19 04:16 09/22/19 04:16 Troponin/CKMB CK-MB (CK-2) 2.0 ng/mL (0-6.6) 09/19/19 06:39 Troponin I 0.075 ng/mL (< 0.028) H 09/19/19 12:51 - Telemetry Sinus rhythms and dysrhythmias: sinus rhythm - Assessment/Plan Assessment/Plan: 1. Atrial fibrillation with RVR - remains in SR since 09/19/2019; On Amiodarone 200mg BID since 09/20/2019; On Eliquis 5mg BID and Metoprolol which was decreased due to hypotension and mildly bradycardia; Seen by EP for further eval. Suggested possible repeat ablation after viral syndrome resolved. Will decrease amiodarone to 200mg qd. Recheck EKG for QT prolongation with amio + ranexa. 2. Chest pain with afib - asymptomatic . Resolved. 3. CAD with s/p CABG in 06/2015 with diffuse disease - stable. 4. Type 2 DM 5. HTN 6. Chronic BLE edema. resolved at present. MAR reviewed
[2019-09-22 12:20] VITALS: BP 132/65; TEMP 97.7
--- NOTE | 2019-09-23 03:35 | DIS ---
DATE OF ADMISSION: 09/19/2019 DATE OF DISCHARGE: 09/22/2019 PRIMARY CARE PROVIDER: Dr. Jeronimo Webster. DISCHARGE DIAGNOSES: 1. Atrial fibrillation with rapid ventricular response. 2. Influenza infection. CONDITION OF PATIENT ON THE DAY OF DISCHARGE: Stable. I assessed Ms. Hardy on the day of discharge. She denies any chest pain or shortness of breath. Vital signs are stable. S1 and S2 are heard, regular. Lungs are clear to auscultation bilaterally. CONSULTATIONS DURING THIS HOSPITALIZATION: Cardiology, Dr. Dodd. HOSPITAL COURSE: Ms. Hardy is a pleasant 54-year-old lady, who was admitted to [facility] on 09/19/2019 for atrial fibrillation with rapid ventricular response. This is in the context of recently diagnosed influenza infection. She was seen by Cardiology Service. She was initially treated with intravenous amiodarone drip, subsequently transitioned to oral amiodarone. She improved clinically. She is being discharged home in a stable condition. She has been advised to follow up with primary care provider in 3 days, Dr. Dodd in 3 to [address] Voss, Electrophysiology in 2 weeks. DISCHARGE MEDICATIONS: 1. Vitamin D3 of 5000 units daily. 2. Bydureon 2 mg subcutaneously every week. 3. Zetia 10 mg daily. 4. Ferrous sulfate 325 mg 2 times a day. 5. Lasix 80 mg daily in the morning and 40 mg at bedtime. 6. Gabapentin 300 mg in the morning and 600 mg at bedtime. 7. Insulin lispro as needed. 8. [place]-3 fatty acid 1000 mg 2 times a day. 9. Omeprazole 40 mg daily. 10. Potassium gluconate 99 mg 2 times a day. 11. Multivitamins one tablet daily. 12. Ranexa 500 mg 2 times a day. 13. Zoloft 100 mg daily. 14. Janumet XR 100/1000 mg daily. 15. Trazodone 50 mg daily. 16. Amiodarone 200 mg daily, started during this hospitalization. 17. Toprol-XL dose decreased to 25 mg daily. 18. Tamiflu 75 mg 2 times a day for 2 more days. 19. Lantus insulin dose decreased to 25 units 2 times a day. 20. Lipitor 80 mg at bedtime. 21. Apixaban 5 mg 2 times a day. LABORATORY DATA: on the day of discharge, she has white count of 3800, hemoglobin 12.8, platelet count 174,000. Sodium 140, potassium 3.6, and creatinine 0.75. Many thanks for allowing me to participate in your patient's care. Please feel free to contact me with any questions or concerns. DISCHARGE DESTINATION: Home. TIME SPENT: Total amount of time spent coordinating this discharge: 32 minutes. ACTIVITY: Ad jordan. DIET: Diabetic and heart healthy. Job ID: [id number]
[2019-09-23] MEDS ORDERED: Amiodarone 200 MG TAB PO SCH (09:00)
--- NOTE | 2019-09-23 12:01 | CON ---
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 Her problems are: 1. Paroxysmal atrial arrhythmias. a. Status post pulmonary venous isolation procedure in 01/2017. b. Recurrent atrial fibrillation seen in 09/2019 in the setting of viral infection. 2. History of coronary artery disease. a. Coronary artery bypass grafting surgery x3 vessels in 2014 with history of preserved LVEF on echo on 09/12/2019. 3. History of GI hemorrhage in the past. 4. Remote history of pulmonary embolism. 5. Hypertension. 6. Diabetes. 7. CHADS-VASc score of 3, on currently apixaban. ALLERGIES: PENICILLIN AND CODEINE. MEDICATIONS AT HOME: 1. Metoprolol succinate 50 mg a day. 2. Sertraline. 3. Lipitor. 4. Gabapentin. 5. Omeprazole. 6. Lasix. 7. Ranexa. 8. Aspirin. SUBJECTIVE: Ms. Hardy was hospitalized on 09/12 with chest pains and atrial fibrillation and rapid rates were noted at that time. She was started on Eliquis and metoprolol tartrate. She developed recurrent chest pain, dull, substernal, was admitted. She was seen by Dr. Lilly, and amiodarone was started. She eventually converted back to sinus rhythm. Currently maintaining sinus rhythm, currently feeling better. She was diagnosed with influenza recently. She maintained sinus rhythm throughout her stay after the conversion. No further arrhythmias noted. PAST HISTORY: As above. She has history of uterine hemorrhage, obesity, and venous stasis ulcer. She also has history of dyslipidemia, sleep apnea, and fibromyalgia. SURGICAL HISTORY: Significant for: 1. Bypass surgery. 2. Lumpectomy. 3. Cholecystectomy. 4. Neck and back surgery. 5. Ablation procedure as above. SOCIAL HISTORY: She is a nonsmoker. Denies EtOH or drug abuse. FAMILY HISTORY: Significant for coronary artery disease. OBJECTIVE DATA: VITAL SIGNS: Blood pressure is 132/65, heart rate 56, respirations 14, and temperature 97.7 degrees Fahrenheit. GENERAL: This is an alert and oriented woman, in no apparent distress. NECK: Supple. Jugular veins not distended. CHEST: Coarse without crackles. HEART: Regular to rate and rhythm. No murmur or gallop. ABDOMEN: Benign. Bowel sounds positive. EXTREMITIES: Lower extremities without edema, clubbing, or cyanosis. Pulses are adequate. NEUROLOGIC: The patient is nonfocal. MUSCULOSKELETAL: Without joint swelling or deformities. SKIN: Without rash. DATABASE: The EKG is reviewed, revealing a baseline atrial fibrillation with QTc 424 milliseconds. Subsequent EKGs revealed sinus rhythm although with marked QRS prolongation of 166 milliseconds. LABORATORY DATA: White cell count 3.8, hemoglobin 12.8, and platelet count is 174. Sodium 140, potassium 3.6, BUN is 14, and creatinine 0.75. ASSESSMENT AND PLAN: Ms. Hardy is a 54-year-old woman with history of atrial fibrillation and coronary artery disease, bypass surgery in the past, prior pulmonary venous isolation procedure in 2017. Since then, she is maintaining sinus rhythm in most of her office visits, but with he current upper respiratory illnesses/ flu-like syndrome, , she developed recurrent palpitations/ sustained atrial fibrillation. She also has significant chest pains associated with these. Now this was well suppressed with amiodarone. I discussed with Dr. Dodd it is reasonable to continue short-term amiodarone therapy, on the other hand, longer term - after resolution of viral illness - consideration for redo ablation could be made. I would like to follow up with her closely. We should avoid QT prolonging agents associated with amiodarone, hence she has baseline prolongation, although still not excessive in view of the marked QRS prolongation as well. We will follow up shortly in the office. Job ID: [id number] MTDD
== END 2019-09-22 14:23 | disposition home or self-care (01) | DRG 309 ==
LOC: ERS 06:04 → 2NO 09:12
PROVIDERS: ADMIT Internal Medicine; ATTEND Emergency Medicine
DX: I48.0 Paroxysmal atrial fibrillation (principal); E87.1 Hypo-osmolality and hyponatremia; N17.9 Acute kidney failure, unspecified; I10 Essential (primary) hypertension; I25.10 Atherosclerotic heart disease of native coronary artery without angina pectoris; E11.9 Type 2 diabetes mellitus without complications; E87.6 Hypokalemia; J11.1 Influenza due to unidentified influenza virus with other respiratory manifestations; E66.9 Obesity, unspecified; F32.9 Major depressive disorder, single episode, unspecified; Z90.49 Acquired absence of other specified parts of digestive tract; Z95.1 Presence of aortocoronary bypass graft; Z79.82 Long term (current) use of aspirin; Z79.899 Other long term (current) drug therapy; Z88.0 Allergy status to penicillin; Z88.5 Allergy status to narcotic agent; Z68.37 Body mass index [BMI] 37.0-37.9, adult; I95.9 Hypotension, unspecified
CPT/HCPCS: 36415; 36416; 71045; 80048; 80053; 82553; 84484; 85025; 93005; 93010; 96365; 96366; J0282; J1815; J3480; J7070

== ENCOUNTER 2019-11-02 13:15 | Observation (INO) | payer MEDICARE ==
[2019-11-02] MEDS ORDERED: Diltiazem 125 MG/25 ML ONE (13:29)
[2019-11-02 14:03] LABS: #Monocytes 0.5 thou/uL (0.11-0.59); #Neutrophils 4.1 thou/uL (1.40-6.50); %Basophils 0.5 % (0.0-1.0); %Eosinophils 0.7 % (0.0-10.0); %Lymphocytes 30.1 % (21.0-51.0); %Monocytes 7.3 % (0.0-10.0); %Neutrophils 61.4 % (42.0-75.0); Mean Corpuscular HGB CONC 33.8 g/dL (32.0-36.0); Mean Corpuscular Hemoglobin 32.1 pg (27.0-31.0); Mean Corpuscular Volume 94.9 fL (78.0-98.0); Mean Platelet Volume 7.3 fL (7.4-10.4); Platelet Count 239 thou/uL (130-400); RBC Distribution Width 12.9 % (11.5-14.5); Red Blood Cell (RBC) Count 4.35 mill/uL (4.20-5.40); White Blood Cell (WBC) Count 6.7 thou/uL (4.8-10.8)
--- NOTE | 2019-11-02 14:08 | RAD ---
EXAM: Single view of the chest HISTORY: Chest pain COMPARISON: 09/19/2019 FINDINGS: Single view of the chest shows an enlarged but stable cardiomediastinal silhouette. The pa tient is status post sternotomy. There is no evidence of consolidation, mass, or pleural effusion. The bones are unremarkable. IMPRESSION: Cardiomegaly without evidence of acute cardiopulmonary disease
[2019-11-02 14:09] LABS: INR-International Normal Ratio 0.9; Prothrombin Time 11.7 SEC (12.0-14.7)
[2019-11-02] MEDS ORDERED: Ondansetron PF 4 MG/2 ML Vial ONE (14:13)
[2019-11-02] MEDS ORDERED: Fentanyl 100 MCG/2 ML VIAL ONE (14:13)
[2019-11-02 14:15] LABS: PTT 18.2 SEC (22.9-36.1)
[2019-11-02 14:24] LABS: ALT (SGPT) 19 U/L (8-55); AST (SGOT) 16 U/L (5-34); Albumin 3.7 g/dL (3.5-5.0); Alkaline Phosphatase 80 U/L (40-110); Anion Gap 17 mmol/L (10-20); BUN (Urea Nitrogen) 12 mg/dL (9.8-20.1); Bilirubin, Total 0.4 mg/dL (0.2-1.2); Calc. Creatinine Clearance 0 mL/min (70-130); Calcium 9.3 mg/dL (7.8-10.44); Carbon Dioxide 19 mmol/L (22-29); Chloride 105 mmol/L (98-107); Estimated GFR-MDRD 63; Globulin 3.6 g/dL (2.4-3.5); Glucose 289 mg/dL (70-105); Lipase 11 U/L (8-78); Potassium 3.7 mmol/L (3.5-5.1); Protein, Total 7.3 g/dL (6.0-8.3); Sodium 137 mmol/L (136-145)
[2019-11-02] MEDS ORDERED: Nitroglycerin 0.4 MG TAB (25 Tab Bottle) PO PRN (17:32)
[2019-11-02 18:51] LABS: Troponin I 0.142 ng/mL (< 0.028)
[2019-11-02] MEDS ORDERED: Dextrose 50% Abboject 50 ML SYRINGE SLOW IVP PRN (19:59)
[2019-11-02] MEDS ORDERED: Dextrose 5% in Water 1,000 ML IV PRN (19:59)
[2019-11-02] MEDS ORDERED: (Exenatide Microspheres [Bydureon Pen] 2 MG) SC SCH (20:00)
[2019-11-02 22:08] LABS: Troponin I 0.257 ng/mL (< 0.028)
[2019-11-03 00:08] VITALS: BMI 40.6
[2019-11-03] MEDS: Insulin Glargine 25 UNITS in Pre-Filled Syringe SC SCH ×2 (00:37→21:16)
[2019-11-03] MEDS: Furosemide 40 MG TAB PO SCH ×2 (00:41→19:30)
[2019-11-03] MEDS: Atorvastatin Calcium 40 MG TAB PO SCH ×2 (00:48→19:30)
[2019-11-03] MEDS: Ferrous Sulfate 325 MG TAB PO SCH ×3 (00:49→19:29)
[2019-11-03] MEDS: Fish Oil 1,000 MG CAP PO SCH ×3 (00:49→19:29)
[2019-11-03] MEDS: Apixaban 5 MG TAB PO SCH ×3 (00:49→19:29)
--- NOTE | 2019-11-03 06:22 | HP ---
PRIMARY CARE PROVIDER: Jeronimo Webster MD CHIEF COMPLAINT: Palpitations. HISTORY OF PRESENT ILLNESS: Ms. Hardy is a pleasant 54-year-old lady, who was seen at [facility] on November 02, 2019. She was hospitalized at this facility from September 19 to September 22, 2019, for atrial fibrillation with rapid ventricular response and influenza A infection. She reports that she was seen by Electrophysiology as outpatient. Amiodarone was discontinued a few weeks ago. She is scheduled to have an ablation on January 04 of this year. She reports that around noon today, she started having palpitations and chest pain. She reports that the chest pain was a sensation of tightness, nonradiating, retrosternal, 10/10 at its worst, no known aggravating or relieving factors. She denies any accompanying shortness of breath or nausea. She denies any cough, fevers or chills. She presented to the emergency room. In the emergency room, she received normal saline. She received nitroglycerin and 20 mg of Cardizem en route to the emergency room. The patient converted to normal sinus rhythm in the emergency room. However, she had lateral lead ST depressions on electrocardiogram and there was concern for ischemic heart disease. She was therefore referred to Hospitalist Service for admission to the hospital on observation status. REVIEW OF SYSTEMS: All systems were reviewed and found to be negative except for the pertinent positives mentioned above. PAST MEDICAL HISTORY: Significant for coronary artery disease, status post coronary artery bypass graft, diffuse disease. She also has a history of atrial fibrillation, hypertension, and diabetes mellitus type 2. PAST SURGICAL HISTORY: Cholecystectomy, coronary artery bypass graft x3, left breast lump removal, cardiac ablation for atrial fibrillation in 2016, and uterine artery ablation. SOCIAL HISTORY: The patient denies tobacco use, alcohol use or recreational drug use. FAMILY HISTORY: No history of heart disease or stroke. ALLERGIES: PENICILLIN AND CODEINE. HOME MEDICATIONS: She is no longer taking amiodarone. Otherwise, she is on the medications as dictated in my discharge summary dated September 22, 2019. PHYSICAL EXAMINATION: GENERAL: On examination, Ms. Hardy is awake and alert, not in acute distress. VITAL SIGNS: Blood pressure is 146/80, pulse 55, respiratory rate 26, and oxygen saturation 97% on room air. She is afebrile. EYES: No scleral icterus, no conjunctival pallor. ENT: Moist mucosal membranes. No oropharyngeal erythema or exudates. NECK: Supple, nontender, trachea is midline. RESPIRATORY: Accessory muscles of breathing are not active. Chest wall movements are symmetric bilaterally. LUNGS: Clear to auscultation without wheeze, rhonchi or crepitations. CARDIOVASCULAR: S1 and S2 are heard, regular. Peripheral pulses palpable. ABDOMEN: Soft, nontender, bowel sounds are heard. NEUROLOGIC: Cranial nerves 2 through 12 are intact. MUSCULOSKELETAL: Power is 5/5 in all 4 extremities. SKIN: She has bruises over both shins. She has diminished sensation over the left trevino. LYMPHATIC: No cervical lymphadenopathy. PSYCHIATRIC: Normal mood, normal affect, the patient is oriented to person, place, and time. LABORATORY DATA: Ms. Hardy's labs and investigations were reviewed. I reviewed her electrocardiogram done at 1339 hours today, which shows sinus bradycardia and right bundle-branch block. She has ST depressions in the lateral leads. I also reviewed her chest x-ray, which does not show any pulmonary infiltrates. She has an unremarkable CBC, INR 0.9, unremarkable comprehensive metabolic profile, and first troponin I that is less than 0.010. ASSESSMENT AND PLAN: Ms. Hardy is a pleasant 54-year-old lady, who was seen at [facility] on November 02, 2019. Her problem list includes: 1. Chest pain: Most likely secondary to cardiac etiology. However, she does have diffuse coronary artery disease. I will continue her on her home medications including Ranexa. I will consult Cardiology Service for opinion and help with management. 2. Atrial fibrillation with rapid ventricular response: This has resolved. She will be monitored on telemetry overnight. She will need to follow up with Electrophysiology as outpatient. 3. Diabetes mellitus type 2: Start Accu-Cheks and insulin sliding scale, continue Lantus insulin. Start 1800-calorie diet. 4. Dyslipidemia: Continue Lipitor. 5. Depression: Mild, stable, continue Zoloft. Many thanks for allowing me to participate in your patient's care. Please feel free to contact me with any questions or concerns. LEVEL OF RISK: High. LEVEL OF COMPLEXITY: High. Job ID: [id number]
[2019-11-03] MEDS: Ezetimibe 10 MG TAB PO SCH (08:40)
[2019-11-03] MEDS: Gabapentin 300 MG CAP PO SCH (08:40)
[2019-11-03] MEDS: Furosemide 80 MG TAB PO SCH (08:41)
[2019-11-03] MEDS ORDERED: (Exenatide Microspheres [Bydureon Pen] 2 MG) SC SCH (08:45)
[2019-11-03 09:41] LABS: Troponin I 0.164 ng/mL (< 0.028)
--- NOTE | 2019-11-03 10:08 | CON ---
DATE OF CONSULTATION: PRIMARY TRANSFORMATION SPECIALIST: Florida Dodd MD PRIMARY CESSPOOL CLEANER: Smith Voss MD REASON FOR CARDIOLOGY CONSULT: Chest pain, AFib, elevated troponin level, and ST-segment change. HISTORY OF PRESENT ILLNESS: Ms. Hardy is a very present 54-year-old female with a significant history of paroxysmal atrial fibrillation with rapid ventricular response in September 2019 with a history of atrial fibrillation with atrial fibrillation ablation in 2016, coronary artery disease with status post CABG in June 2015, type 2 diabetes, and hypertension. The patient was hospitalized in September 2019 for the atrial fibrillation with rapid ventricular response. The patient was supposed to undergo ablation by Dr. Voss in December 2019. She has been on the Eliquis. She was doing relatively well until last night, she started having chest pain and the patient was found to have the atrial fibrillation with rapid ventricular response at the ER. After the patient received diltiazem IV push, the patient converted back to sinus rhythm. At this moment, the patient's telemetry record is showing sinus rhythm during this admission. The patient's states, the patient's chest pain improved when she converted back to sinus rhythm. At this moment, she is sleeping well. She is resting well. She denied shortness of breath, chest pain, dizziness, tightness, lightheadedness, or any other cardiac complaints. The patient has a history of CABG x3 in 2014. The patient had echocardiogram done in September 2019 with stable and preserved LVEF. The patient has a history of GI hemorrhage in the past, but she has not had any hematuria or hematochezia with Eliquis at this moment. The patient has atrial fibrillation with ablation in 2016, status post pulmonary venous isolation procedure in the January 2017. PAST MEDICAL HISTORY: The patient's medical history: 1. Coronary artery disease, status post CABG in 2014. 2. Paroxysmal atrial fibrillation. 3. Hypertension. 4. Diabetes. 5. History of GI bleed in the past. 6. Sleep apnea, she does not use a CPAP. PAST SURGICAL HISTORY: 1. CABG x3 in 2014. 2. Status post pulmonary venous isolation procedure in January 2017 for atrial fibrillation. 3. Cholecystectomy. 4. Uterine artery ablation. 5. Left breast lump removed. FAMILY HISTORY: No history of heart disease or stroke. SOCIAL HISTORY: She denied EtOH, tobacco, or illicit drug abuse. She does not do exercise. She does not wear CPAP at night. ALLERGIES: SHE IS ALLERGIC TO PENICILLIN AND CODEINE. MEDICATIONS: The patient's home medication, please refer to the patient's medical record. REVIEW OF SYSTEMS: A 12-point review of systems are negative unless otherwise mentioned in the HPI. PHYSICAL EXAMINATION: VITAL SIGNS: Blood pressure 125/55, temperature 97.9, pulse is 61 and sinus rhythm, respiratory rate 19, and O2 saturation 96% with room air. GENERAL: The patient is alert and oriented x4, not in acute distress. HEENT: Normocephalic and atraumatic. Eyes, extraocular muscle movement intact. ENT and mouth, oral and nasal mucosa moist without lesions. NECK: Supple. Normal range of motion. No JVD. RESPIRATORY: Clear to auscultate bilaterally. No wheezing, rales, or rhonchi noted. CARDIOVASCULAR: Regular rate and rhythm. Normal S1 and S2. No S3 or S4. No significant murmur, hives, or thrills noted. 2+ pulses in bilateral upper and lower extremities. 1+ edema in the lower extremities with discoloration with a healed ulcer. ABDOMEN: Soft and nontender. No mass to palpitate. Bowel sounds are present. SKIN: Warm and dry. No lesion, rash, or ischemia noted. MUSCULOSKELETAL: The patient able to move all extremities without difficulty. Carotid pulses are present without bruits or thrills. NEUROLOGIC: The patient is alert and oriented x4. Nonfocal. PSYCHIATRIC: The patient's mood is appropriate. LABORATORY DATA: WBC 6.7, hemoglobin 14.0, hematocrit 41.3, and platelets 239. INR 0.9. Sodium 137, potassium 3.7, BUN 12, creatinine 0.93, glucose 221, calcium 9.3, AST 16, and ALT 19. Troponin negative, second one 0.142 and 0.257. TSH 1.1994 and free T4 of 1.06. The patient's chest x-ray shows no cardiomegaly without evidence of acute cardiopulmonary disease. ASSESSMENT AND PLAN: 1. Chest pain with ST-segment changes in the lateral and inferior and the patient's troponin is elevated and the highest one is 0.2. The patient is going to have another troponin level in a minute. The patient is asymptomatic at this moment. However, due to a long history of uncontrolled diabetes, hypertension, and coronary artery disease, the patient might be going to undergo a cardiac catheterization today by Dr. Dodd. The patient is n.p.o. right now and Eliquis is on hold at this moment. 2. Atrial fibrillation with rapid ventricular response. The patient is in sinus rhythm at this moment after the patient receives diltiazem IV push. She is on metoprolol 25 mg once a day. She used to be on amiodarone, which was stopped by EP. The patient is going to undergo atrial fibrillation ablation in December [address] Voss. 3. Coronary artery disease with a history of CABG in 2014. The patient's condition is stable at this moment. She is on the telemetry. She is on a beta yeni and Atorvastatin. At this moment, she is not on aspirin since she is on the Eliquis. 4. Diabetes, which is managed by primary care doctor. 5. Hypertension. The patient's blood pressure is stable at this moment. We would like to continue current medication. 6. Severe sleep apnea. She does not use continuous positive airway pressure at home. Strongly recommend the patient to start using a continuous positive airway pressure, especially for other cardiac condition. Thank you very much for Cardiology Service to participate in the care of this patient. We will follow along the patient's care team and make further recommendation as appropriate. Job ID: [id number]
[2019-11-03] MEDS ORDERED: Apixaban 5 MG TAB PO SCH (11:30)
[2019-11-03] MEDS: HumaLOG 300 UNITS/3 ML VIAL SC PRN ×2 (11:35→16:26)
--- NOTE | 2019-11-03 17:28 | CON ---
DATE OF CONSULTATION: 11/03/2019 REASON FOR CONSULTATION: I am seeing Ms. Hardy at our [facility] Telemetry Floor as an electrophysiology sr technical sales consultant and her problems are: 1. Paroxysmal atrial fibrillation. a. History of pulmonary venous isolation procedure in 01/2017. b. The recurrence noted in 09/2019, requiring immunosuppression. c. Now off amiodarone for about 2 weeks. d. Recurrent atrial fibrillation paroxysmal with associated angina. 2. History of coronary artery disease with prior bypass grafting x2 vessels in 2014. a. Preserved LVEF by echo on 09/12/2019. 3. Remote history of pulmonary embolus. 4. History of GI hemorrhage in the past. 5. Hypertension. 6. Diabetes. 7. CHADS-VASc score of 4 with female gender, hypertension, diabetes and coronary vascular disease. ALLERGIES: PENICILLIN G AND CODEINE. MEDICATIONS AT HOME: Included: 1. Apixaban 5 mg twice a day. 2. Lipitor. 3. Vitamin D3. 4. Dextrose. 5. Zetia. 6. Feosol. 7. Fish oil supplements. 8. Lasix. 9. Neurontin. 10. Glucagon. 11. Insulin Humalog. 12. Metoprolol succinate. 13. Nitrostat. 14. Protonix. 15. Ranexa. 16. Zoloft. SUBJECTIVE: Ms. Hardy has been experiencing recurrent palpitations and chest discomforts, prompting her to come to the hospital. The pains were severe, 10/10, non-relieving. Nitroglycerin was given. IV Cardizem en route. Later, the patient converted back to sinus rhythm in the ER, had lower ST depressions. She was admitted for observation overnight. Currently, she is doing well. No angina or CHF like symptoms. No PND or orthopnea. No fever, chills, or cough. REVIEW OF SYSTEMS: Rest of 12-point review of system otherwise unremarkable. PAST HISTORY: As above. She has history of atrial fibrillation and recurrence noted on 09/19/2019 in the setting of influenza. Influenza now resolved. She was seen in the office on the , and at her request is scheduled her in December for redo ablation. PAST SURGICAL HISTORY: Significant for: 1. Cholecystectomy. 2. Coronary artery bypass grafting x3 vessels. 3. Breast lump removal. 4. Cardiac ablation in 2016 ablation. SOCIAL HISTORY: The patient denies smoking, EtOH, or drug abuse. FAMILY HISTORY: Not contributory. OBJECTIVE DATA: VITAL SIGNS: Blood pressure is 167/71, heart rate 72, respirations 20, and temperature 99.1 degrees Fahrenheit. GENERAL: This is an alert and oriented woman with elevated BMI, in no apparent distress. NECK: Supple. Jugular veins not distended. CHEST: Coarse without crackles. HEART: Sounds are regular to rate and rhythm. I do not hear murmur or gallop. ABDOMEN: Benign. Bowel sounds positive. EXTREMITIES: Lower extremities without edema, clubbing, or cyanosis. Pulses are adequate. NEUROLOGIC: The patient is nonfocal. MUSCULOSKELETAL: Without joint swelling or deformity. SKIN: Without rash. DATABASE: The EKG is reviewed, revealing sinus bradycardia, rate of 57 beats per minute, QTc is prolonged at 521 am milliseconds. LABORATORY DATA: White cell count 6.7, hemoglobin is 14, and platelet count 239. Sodium 137, potassium 3.7, BUN is 12, and creatinine 0.93. Troponin levels 0.01, 0.142, and 0.257 consecutively. ASSESSMENT AND PLAN: 1. Ms. Hardy is a 54-year-old woman with history of diabetes, hypertension, coronary vascular disease and bypass grafting surgery in the past. She presented with recurrent atrial fibrillation episodes with associated angina or typical presentation. She has been suppressed with amiodarone transiently on last hospital visit during her influenza infection episode, but now the amiodarone has been stopped. She has a plan to undergo an ablation procedure in December. As I discussed with her, ablation therapy is very reasonable. She was scheduled as an outpatient at her preference in December, which would be moved up, which now she would prefer. We will make arrangements for that. In the meantime, suppression of her arrhythmia is reasonable. I will consider adding Multaq to the regimen. Monitor QT or proarrhythmia overnight. Amiodarone continues to washout, I suspect, she has not been on board for last 2 weeks according to her. 2. Mild bradycardia. Monitor for bradyarrhythmias. Low-dose metoprolol currently as outpatient. 3. Elevated CHADS-VASc score. Continue oral anticoagulation. Job ID: [id number]
--- NOTE | 2019-11-03 19:10 | PDOC.HOSPP ---
- Subjective Encounter Date: 11/03/19 Encounter Time: 19:09 Subjective: Pt seen for followup re: maikol. fib. Feels better today. - Objective Vital Signs & Weight: Vital Signs (12 hours) Temp Pulse Resp BP Pulse Ox 11/03/19 15:40 98.7 F 63 13 173/81 H 95 11/03/19 11:28 99.1 F 72 20 167/71 H 98 11/03/19 09:04 93 L 11/03/19 08:07 64 14 148/65 H 93 L Weight Weight 244 lb 9.6 oz I&O: 11/02/19 11/03/19 11/04/19 06:59 06:59 06:59 Intake Total 700 Balance 700 Result Diagrams: 11/02/19 13:52 11/02/19 13:52 Additional Labs: Accuchecks 11/03/19 11/03/19 11/03/19 16:10 10:29 05:15 POC Glucose 246 H 268 H 221 H 11/03/19 00:00 POC Glucose 201 H Labs and MARs reviewed by me EKG Reviewed by me: Yes (Tele: NSR) Hospitalist ROS - Review of Systems Cardiovascular: denies: chest pain, palpitations, orthopnea, paroxysmal noc. dyspnea, edema, light headedness Gastrointestinal: denies: nausea, vomiting, abdominal pain, diarrhea, constipation, melena, hematochezia - Medication Medications: Active Medications Generic Name Dose Route Start Last Admin Trade Name Freq PRN Reason Stop Dose Admin Atorvastatin Calcium 80 mg 11/02/19 21:00 11/03/19 00:48 Lipitor PO 80 mg HS SOLO Administration Cholecalciferol 5,000 units 11/03/19 09:00 11/03/19 08:40 Vitamin D3 PO 5,000 units DAILY SOLO Administration Ezetimibe 10 mg 11/03/19 09:00 11/03/19 08:40 Zetia PO 10 mg DAILY SOLO Administration Ferrous Sulfate 325 mg 11/02/19 21:00 11/03/19 08:41 Feosol PO 325 mg BID SOLO Administration Fish Oil 1,000 mg 11/02/19 21:00 11/03/19 08:40 Fish Oil PO 1,000 mg BID SOLO Administration Furosemide 40 mg 11/02/19 21:00 11/03/19 00:41 Lasix PO Not Given HS SOLO Furosemide 80 mg 11/03/19 09:00 11/03/19 08:41 Lasix PO 80 mg DAILY SOLO Administration Gabapentin 300 mg 11/03/19 09:00 11/03/19 08:40 Neurontin PO 300 mg DAILY SOLO Administration Insulin Glargine 25 units/ 0.25 mls @ 0 mls/hr 11/02/19 21:00 11/03/19 00:37 Miscellaneous Medication SC Not Given HS SOLO Insulin Human Lispro 0 units 11/02/19 19:59 11/03/19 16:26 Humalog SC 3 unit .MILD SLIDING SCALE PRN Administration Mild Correctional Scale Metoprolol Succinate 25 mg 11/03/19 18:00 11/03/19 17:01 Toprol Xl PO 25 mg 1800 SOLO Administration Pantoprazole Sodium 40 mg 11/03/19 09:00 11/03/19 08:40 Protonix PO 40 mg DAILY SOLO Administration Sertraline HCl 100 mg 11/03/19 09:00 11/03/19 08:40 Zoloft PO 100 mg QAM SOLO Administration - Exam General - other findings: Morbid obesity Eye: anicteric sclera ENT: moist mucosa Neck: supple Heart: RRR, no rubs Respiratory: CTAB Gastrointestinal: soft, non-tender Extremities: no cyanosis Psychiatric: normal affect, normal behavior Hosp A/P (1) Afib Code(s): I48.91 - UNSPECIFIED ATRIAL FIBRILLATION Status: Acute (2) CAD (coronary artery disease) Code(s): I25.10 - ATHSCL HEART DISEASE OF [place] CORONARY ARTERY W/O ANG PCTRS Status: Chronic (3) DM type 2 (diabetes mellitus, type 2) Status: Chronic (4) Depression Code(s): F32.9 - MAJOR DEPRESSIVE DISORDER, SINGLE EPISODE, UNSPECIFIED Status : Chronic (5) Diabetes Code(s): E11.9 - TYPE 2 DIABETES MELLITUS WITHOUT COMPLICATIONS Status: Chronic (6) HTN (hypertension) Code(s): I10 - ESSENTIAL (PRIMARY) HYPERTENSION Status: Chronic (7) Morbid obesity with BMI of 40.0-44.9, adult Code(s): E66.01 - MORBID (SEVERE) OBESITY DUE TO EXCESS CALORIES; Z68.41 - BODY MASS INDEX (BMI) 40.0-44.9, ADULT Status: Chronic - Plan Pt seen by cardiology and EP services. Started on Multaq. Monitor on telemetry. Continue accuchecks, insulin sliding scale. Continue Ranexa.
[2019-11-03] MEDS: Dronedarone HCl 400 MG TAB PO SCH (19:29)
[2019-11-03] MEDS ORDERED: Acetaminophen 325 MG TAB PO PRN (19:37)
[2019-11-04] MEDS: HumaLOG 300 UNITS/3 ML VIAL SC PRN (05:19)
[2019-11-04 07:34] VITALS: BP 125/59; TEMP 97.5
[2019-11-04] MEDS: Ezetimibe 10 MG TAB PO SCH (09:12)
[2019-11-04] MEDS: Gabapentin 300 MG CAP PO SCH (09:12)
[2019-11-04] MEDS: Dronedarone HCl 400 MG TAB PO SCH (09:13)
[2019-11-04] MEDS: Apixaban 5 MG TAB PO SCH (09:13)
[2019-11-04] MEDS: Ferrous Sulfate 325 MG TAB PO SCH (09:13)
[2019-11-04] MEDS: Furosemide 80 MG TAB PO SCH (09:13)
[2019-11-04] MEDS: Fish Oil 1,000 MG CAP PO SCH (09:13)
--- NOTE | 2019-11-04 10:17 | PDOC.EP ---
- Subjective Date: 11/04/19 Time: 10:14 - Review of Systems Constitutional: denies: chills, fever, malaise, sweats, weakness, other Respiratory: denies: cough, dry, hemoptysis, pleuritic pain, shortness of breath , SOB with excertion, sputum, wheezing, other Cardiology: denies: chest pain, edema, heart racing, light headedness, paroxysmal noc. dyspnea, orthopnea, palpitations, passing out, pleuritic pain, pressure, swelling, other Gastrointestinal: denies: abdominal pain, constipation, diarrhea, hematochezia, melena, nausea, vomitting, other - Objective Allergies/Adverse Reactions: Allergies Allergy/AdvReac Type Severity Reaction Status Date / Time penicillin G Allergy Verified 11/05/19 04:54 codeine AdvReac Severe Nausea Verified 11/05/19 04:54 Current Medications Acetaminophen (Tylenol) 650 mg PO Q4H PRN PRN Reason: Headache/Fever or Pain Last Admin: 11/03/19 20:39 Dose: 650 mg Apixaban (Eliquis) 5 mg PO BID [facility] Last Admin: 11/04/19 09:13 Dose: 5 mg Atorvastatin Calcium (Lipitor) 80 mg PO [facility] Last Admin: 11/03/19 19:30 Dose: 80 mg Cholecalciferol (Vitamin D3) 5,000 units PO DAILY [facility] Last Admin: 11/04/19 09:12 Dose: 5,000 units Dextrose/Water (Dextrose 50%) 25 gm SLOW IVP PRN PRN PRN Reason: Hypoglycemia Dronedarone (Multaq) 400 mg PO BID [facility] Last Admin: 11/04/19 09:13 Dose: 400 mg Ezetimibe (Zetia) 10 mg PO DAILY [facility] Last Admin: 11/04/19 09:12 Dose: 10 mg Ferrous Sulfate (Feosol) 325 mg PO BID [facility] Last Admin: 11/04/19 09:13 Dose: 325 mg Fish Oil (Fish Oil) 1,000 mg PO BID [facility] Last Admin: 11/04/19 09:13 Dose: 1,000 mg Furosemide (Lasix) 40 mg PO HS [facility] Last Admin: 11/03/19 19:30 Dose: 40 mg Furosemide (Lasix) 80 mg PO DAILY [facility] Last Admin: 11/04/19 09:13 Dose: 80 mg Gabapentin (Neurontin) 300 mg PO DAILY [facility] Last Admin: 11/04/19 09:12 Dose: 300 mg Glucagon (Glucagon) 1 mg IM PRN PRN PRN Reason: Hypoglycemia Dextrose/Water (D5w) 1,000 mls @ 0 mls/hr IV .Q0M PRN PRN Reason: Hypoglycemia Insulin Glargine 25 units/ (Miscellaneous Medication) 0.25 mls @ 0 mls/hr SC HS [facility] Last Admin: 11/03/19 21:16 Dose: 0.25 mls Insulin Human Lispro (Humalog) 0 units SC .MILD SLIDING SCALE PRN PRN Reason: Mild Correctional Scale Last Admin: 11/04/19 05:19 Dose: 3 unit Metoprolol Succinate (Toprol Xl) 25 mg PO 1800 [facility] Last Admin: 11/03/19 17:01 Dose: 25 mg Nitroglycerin (Nitrostat) 0.4 mg PO Q5MIN PRN PRN Reason: Chest Pain (Exenatide Microspheres [ Bydureon Pen] 2 Mg) 2 mg SC Q7D [facility] Pantoprazole Sodium (Protonix) 40 mg PO DAILY [facility] Last Admin: 11/04/19 09:13 Dose: 40 mg Ranolazine (Ranexa) 1,000 mg PO BID [facility] Last Admin: 11/04/19 09:12 Dose: 1,000 mg Sertraline HCl (Zoloft) 100 mg PO QAM [facility] Last Admin: 11/04/19 09:13 Dose: 100 mg Vital Signs & Weight: Vital Signs Temp Pulse Resp BP BP Pulse Ox 11/04/19 07:21 97.5 F L 60 18 125/59 L 96 11/04/19 05:15 56 L 16 133/66 97 11/03/19 23:25 97.3 F L 60 15 156/76 H 94 L Weight 234 lb 6.4 oz I/O: I/O 11/03/19 11/04/19 11/05/19 06:59 06:59 06:59 Intake Total 1180 Output Total 800 Balance 380 - Quality Measures Condition: Atrial Fibrillation/Flutter (hx or current) CV meds: Eliquis: Yes - Physical Exam General: alert & oriented x3, appears well, no apparent distress, speech clear, affect appropriate HEENT: mucus membranes moist, normocephaly Neck: supple neck, midline trachea, no JVD/HJR, no masses, no bruit, no lymphadenopathy, no thromegaly Cardiology: regular rate and rhythm, no murmur, regular rate, regular rhythm, PMI nondisplaced Lungs: clear to auscultation, normal breath sounds, no wheeze, rales, rhonchi Neurology: cranial nerve 2-12 intact, grossly intact, sensory function intact - Labs Result Diagrams: 11/02/19 13:52 11/02/19 13:52 - EKG Interpretation EKG Method: Telemetry EKG shows: Sinus rhythm, Sinus bradycardia - Assessment/Plan Assessment/Plan: 1. Paroxysmal atrial fibrillation. a. History of pulmonary venous isolation procedure in 01/2017. b. The recurrence noted in 09/2019, requiring amiodarone for suppression. c. Now off amiodarone for about 2 weeks. d. Recurrent atrial fibrillation paroxysmal with associated angina. 2. History of coronary artery disease with prior bypass grafting x2 vessels in 2014. a. Preserved LVEF by echo on 09/12/2019. 3. Remote history of pulmonary embolus. 4. History of GI hemorrhage in the past. 5. Hypertension. 6. Diabetes. 7. CHADS-VASc score of 4 with female gender, hypertension, diabetes and coronary vascular disease. Continue medical therapy for AF with multaq, beta yeni, and eliquis. Amiodarone washout continues but plan for moving up redo left atrial ablation as OP.
--- NOTE | 2019-11-04 11:28 | DIS ---
DATE OF ADMISSION: 11/02/2019 DATE OF DISCHARGE: 11/04/2019 PRIMARY CARE PROVIDER: Dr. Jeronimo Webster. DISCHARGE DIAGNOSES: 1. Paroxysmal atrial fibrillation. 2. Atrial fibrillation with rapid ventricular response. CONDITION OF PATIENT ON THE DAY OF DISCHARGE: Stable. I assessed Ms. Hardy on the day of discharge. She denies any chest pain or shortness of breath. Vital signs are stable. S1 and S2 are heard, regular. Lungs are clear to auscultation bilaterally. CONSULTATIONS DURING THIS HOSPITALIZATION: 1. Cardiology, Dr. Dodd. 2. Electrophysiology, Dr. Voss. DISCHARGE MEDICATIONS: She has been started on Multaq 400 mg 2 times a day. Otherwise, no change was made to her pre-admission home medications. POST ACUTE CARE FOLLOWUP: With primary care provider in 3 days, with Cardiology and Electrophysiology in 2 weeks. ACTIVITY: As tolerated. DIET: Heart healthy and diabetic. HOSPITAL COURSE: Ms. Hardy is a pleasant 54-year-old lady, who was admitted to [facility] on November 02, 2019, for atrial fibrillation with rapid ventricular response. She converted to normal sinus rhythm. She also had chest pain at the time of admission, which resolved following admission. She was seen by Cardiology and Electrophysiology Services. She was started on Multaq. She continued to be asymptomatic and in sinus rhythm. She is being discharged home in a stable condition. Electrophysiology Service plans to move up redo left atrial ablation as outpatient. Many thanks for allowing me to participate in your patient's care. Please feel free to contact me with any questions or concerns. DISCHARGE DESTINATION: Home. Job ID: [id number]
--- NOTE | 2019-11-04 12:32 | EKG ---
Test Reason : Blood Pressure : / mmHG Vent. Rate : 059 BPM Atrial Rate : 059 BPM P-R Int : 168 ms QRS Dur : 150 ms QT Int : 590 ms P-R-T Axes : 044 003 064 degrees QTc Int : 584 ms Sinus bradycardia Right bundle branch block Possible Inferior infarct (cited on or before 19-SEP-2019) Abnormal ECG When compared with ECG of 02-NOV-2019 13:39, (Unconfirmed) Serial changes of Inferior infarct Present Confirmed by DR. Malu MEJIAS (3) on 11/04/2019 12:32:21 PM Referred By: CRIS Confirmed By:DR. Malu MEJIAS
--- NOTE | 2019-11-04 22:03 | PDOC.CPN ---
- Subjective Date: 11/04/19 Time: 08:45 - Review of Systems General: reports: fever/chills, fatigue Respiratory: reports: cough, shortness of breath Cardiovascular: reports: chest pain, palpitation Gastrointestinal: reports: nausea, vomiting, diarrhea Musculoskeletal: reports: pain Neurological: reports: numbness, weakness - Objective Allergies/Adverse Reactions: Allergies Allergy/AdvReac Type Severity Reaction Status Date / Time penicillin G Allergy Verified 11/03/19 00:17 codeine AdvReac Severe Nausea Verified 11/03/19 00:17 Vital Signs & Weight: Weight 234 lb 6.4 oz - Physical Exam General: no apparent distress HEENT: normocephaly Neck: supple neck, no JVD/HJR, no bruit Cardiac: regular rate and rhythm, regular rate, regular rhythm Lungs: clear to auscultation, no rhonchi Neuro: grossly intact Abdomen: unremarkable Extremities: no edema Musculoskeletal: normal range of motion - Labs Result Diagrams: 11/02/19 13:52 11/02/19 13:52 Troponin/CKMB Troponin I 0.164 ng/mL (< 0.028) H 11/03/19 08:56 - Telemetry Sinus rhythms and dysrhythmias: sinus rhythm - Assessment/Plan Assessment/Plan: 1. Atrial fibrillation, returned to NSR shortly after going to ER. She says that she can not afford Multaq. Her ablation date will be moved up . 2. Obesity 3. sleep apnea. 4.HTN 5. CAD: stable. From a cardiac standpoint she can be d/c'd and folloe up with EP for an ablation. jos
--- NOTE | 2019-11-05 07:19 | EKG ---
Test Reason : Blood Pressure : / mmHG Vent. Rate : 057 BPM Atrial Rate : 057 BPM P-R Int : 166 ms QRS Dur : 148 ms QT Int : 582 ms P-R-T Axes : 052 -15 022 degrees QTc Int : 566 ms Sinus bradycardia Right bundle branch block Anterior infarct , age undetermined Abnormal ECG When compared with ECG of 02-NOV-2019 13:39, (Unconfirmed) Anterior infarct is now Present T wave inversion no longer evident in Lateral leads Confirmed by DR. aMlu MEJIAS (3) on 11/05/2019 7:19:06 AM Referred By: Confirmed By:DR. Malu MEJIAS
== END 2019-11-04 11:46 | disposition home or self-care (01) ==
LOC: ERS 13:15 → ERHOLD 17:05 → 2SW 23:55
PROVIDERS: ADMIT Internal Medicine; ATTEND Internal Medicine
DX: I48.0 Paroxysmal atrial fibrillation (principal); I25.119 Atherosclerotic heart disease of native coronary artery with unspecified angina pectoris; I10 Essential (primary) hypertension; E11.9 Type 2 diabetes mellitus without complications; E78.5 Hyperlipidemia, unspecified; G47.30 Sleep apnea, unspecified; F32.9 Major depressive disorder, single episode, unspecified; K21.9 Gastro-esophageal reflux disease without esophagitis; E78.00 Pure hypercholesterolemia, unspecified; M79.7 Fibromyalgia; E66.01 Morbid (severe) obesity due to excess calories; Z68.39 Body mass index [BMI] 39.0-39.9, adult; Z79.01 Long term (current) use of anticoagulants; Z79.4 Long term (current) use of insulin; Z79.899 Other long term (current) drug therapy; Z88.0 Allergy status to penicillin; Z88.5 Allergy status to narcotic agent; Z95.1 Presence of aortocoronary bypass graft; Z99.89 Dependence on other enabling machines and devices
CPT/HCPCS: 71045; 80053; 82962 ×2; 83690; 84484 ×3; 85025; 85610; 85730; 93005 ×3; 94760 ×2; 96360; 96361; 99285; G0378 ×3; 36415; 36416; 93010; J1815; J2405; J3010

== ENCOUNTER 2019-11-05 00:18 | Observation (INO) | payer MEDICARE ==
[2019-11-05] MEDS ORDERED: Digoxin 0.5 MG/2 ML AMP ONE (00:59)
[2019-11-05 01:00] LABS: #Basophils 0.1 thou/uL (0.0-0.2); #Lymphocytes 3.3 thou/uL (1.20-3.40); #Monocytes 0.5 thou/uL (0.11-0.59); #Neutrophils 3.7 thou/uL (1.40-6.50); %Basophils 1.6 % (0.0-1.0); %Eosinophils 0.5 % (0.0-10.0); %Lymphocytes 42.9 % (21.0-51.0); %Monocytes 6.6 % (0.0-10.0); %Neutrophils 48.5 % (42.0-75.0); Hemoglobin 14.4 g/dL (12.0-16.0); Mean Corpuscular HGB CONC 34.1 g/dL (32.0-36.0); Mean Corpuscular Hemoglobin 32.1 pg (27.0-31.0); Mean Corpuscular Volume 94.2 fL (78.0-98.0); Mean Platelet Volume 6.8 fL (7.4-10.4); Platelet Count 336 thou/uL (130-400); RBC Distribution Width 13.1 % (11.5-14.5); Red Blood Cell (RBC) Count 4.49 mill/uL (4.20-5.40); White Blood Cell (WBC) Count 7.6 thou/uL (4.8-10.8)
[2019-11-05 01:21] LABS: ALT (SGPT) 21 U/L (8-55); AST (SGOT) 14 U/L (5-34); Albumin 4.3 g/dL (3.5-5.0); Alkaline Phosphatase 94 U/L (40-110); Anion Gap 17 mmol/L (10-20); BUN (Urea Nitrogen) 17 mg/dL (9.8-20.1); Bilirubin, Total 0.4 mg/dL (0.2-1.2); Calc. Creatinine Clearance 0 mL/min (70-130); Calcium 9.8 mg/dL (7.8-10.44); Carbon Dioxide 24 mmol/L (22-29); Chloride 101 mmol/L (98-107); Estimated GFR-MDRD 39; Globulin 3.3 g/dL (2.4-3.5); Glucose 318 mg/dL (70-105); Potassium 3.2 mmol/L (3.5-5.1); Protein, Total 7.6 g/dL (6.0-8.3); Sodium 139 mmol/L (136-145)
[2019-11-05 01:44] LABS: CKMB 1.7 ng/mL (0-6.6)
[2019-11-05] MEDS ORDERED: Diltiazem 125 MG/25 ML ONE (02:03)
[2019-11-05] MEDS ORDERED: Acetaminophen 650 MG Suppository PR PRN (03:40)
[2019-11-05] MEDS ORDERED: Acetaminophen 325 MG TAB PO PRN (03:40)
[2019-11-05] MEDS ORDERED: Dextrose 50% Abboject 50 ML SYRINGE SLOW IVP PRN (04:08)
[2019-11-05] MEDS ORDERED: Dextrose 5% in Water 1,000 ML IV PRN (04:08)
[2019-11-05] MEDS ORDERED: HumaLOG 300 UNITS/3 ML VIAL SC PRN (04:08)
[2019-11-05] MEDS ORDERED: Potassium Chloride 20 MEQ in Premix Bag 1 BAG IVPB SCH ×2 (04:15)
[2019-11-05] MEDS ORDERED: Diltiazem 125 MG in Sodium Chloride 0.9% 100 ML IVPB SCH (04:30)
[2019-11-05 04:46] LABS: Troponin I 0.058 ng/mL (< 0.028)
--- NOTE | 2019-11-05 04:53 | HP ---
TIME OF ASSESSMENT: 0300 CHIEF COMPLAINT: Chest pain and palpitations. HISTORY OF PRESENT ILLNESS: Ms. Hardy is a 54-year-old woman, who presents to the emergency department with chest pain that started around midnight. The patient states she felt her heart racing. States that she was recently discharged from the hospital yesterday after being admitted with paroxysmal atrial fibrillation/ atrial fibrillation with RVR. The patient reports being evaluated by Dr. Voss who started her on Multaq, however, due to its dang, she did not have it filled. She was started on Multaq 400 mg two times a day. She was told by Dr. Voss if she had recurring atrial fibrillation with RVR, she would require repeat cardiac ablation. The patient states her last ablation was in 2016. She reports having pressure in the center of her chest that she rates 8/10 in severity. States it has been constant since then and it usually will not resolve until her heart rate is below 70. Denies having any radiating pain. No associated nausea or vomiting. No diaphoresis. No difficulty with breathing. REVIEW OF SYSTEMS: All other review of systems are negative. EMERGENCY DEPARTMENT COURSE: In the emergency department, the patient was noted to have a heart rate ranging from high 120s to 140s. She received initially a dose of Cardizem 15 mg IV, then given digoxin 0.5 mg IV x1. She was then started on a Cardizem drip at 5 mg/hour, which was titrated to 7.5 mg an hour and her heart rate remained in the 130s range. She was increased to 10 mg/hour and heart rate improved to 55. Blood pressure is currently 118 systolic. The patient states her pain has subsided. She underwent laboratory studies which showed a normal full blood count. Her potassium is low at 3.2. BUN 17, creatinine 1.42, GFR 39, glucose 218, calcium 9.8, total bilirubin 0.4, AST 14, ALT 21, alkaline phosphatase 94. Troponin was 0.057. BNP 63.4. Albumin 4.3. In the ED, she was given 500 mL of normal saline. Now that her heart rate is controlled, she has been cleared to be moved to the floor. PAST MEDICAL HISTORY: 1. CAD. 2. Paroxysmal atrial fibrillation/atrial fibrillation with RVR. 3. Hypertension. 4. Type 2 diabetes mellitus. 5. GERD. 6. Hypertension. 7. Fibromyalgia. 8. Sleep apnea. 9. Obesity. 10. Depression. PAST SURGICAL HISTORY: 1. Ruptured disk, neck and back surgery. 2. Cholecystectomy. 3. CABG x3 in June 2015. 4. Left breast lump resected in 1988. 5. Cardiac ablation for atrial fibrillation in 2015. 6. Uterine ablation. SOCIAL HISTORY: The patient denies any tobacco use, alcohol consumption, or illicit drug use. FAMILY HISTORY: Noncontributory. ALLERGIES: PENICILLIN AND CODEINE. CURRENT MEDICATIONS: 1. Sertraline. 2. Atorvastatin. 3. Gabapentin. 4. Metoprolol. 5. Omeprazole. 6. Furosemide. 7. Ranexa. 8. Eliquis. 9. Iron. 10. vitamin. 11. Vitamin D3. 12. Janumet. 13. [place]-3. 14. Humalog. 15. Lantus. PHYSICAL EXAMINATION: GENERAL: The patient appears well developed, well nourished, and is in no apparent distress. She is resting comfortably on the stretcher. VITAL SIGNS: Temperature is 98.6, pulse ranging between 30s and 40s, respirations 20, O2 saturation 99% on room air, during my assessment, her heart rate improved to 55. Blood pressure was repeated and was 118 systolic. HEENT: Normocephalic and atraumatic. Pupils are equal, round, and reactive to light. Sclerae without icterus. Oropharynx is clear. NECK: Supple. LUNGS: Clear bilaterally without any wheezes, rales, rhonchi. CARDIAC: Regular rate and rhythm. Well-healed midline incision on her chest with no reproducible tenderness on palpation. ABDOMEN: Obese, soft, nontender, nondistended. Normoactive bowel sounds present. No guarding or rigidity. No renal angle tenderness. EXTREMITIES: No lower extremity swelling or edema. Peripheral pulses equal and strong bilaterally. SKIN: Warm and dry. She has healing blisters on both feet with no associated erythema, swelling, discharge, or bleeding. NEUROLOGIC: Alert and oriented x3. No neuro deficits on exam. INVESTIGATIONS: As mentioned above in HPI. IMPRESSION AND PLAN: Ms. Hardy is a 54-year-old woman, who presents with palpitations and chest pain, being admitted for management of the following. 1. Persistent atrial fibrillation with rapid ventricular response. The patient has had medications as mentioned above, including digoxin and Cardizem. It seems she has converted to normal sinus rhythm after being titrated up to 10 mg an hour. Blood pressure is 118 systolic and heart rate is in the 50s. We will cut her back down to 7.5 mg an hour and see if she remains rate controlled. Consultation has been placed to Dr. Voss, who per patient has advised possible cardiac ablation if she had recurring atrial fibrillation with rapid ventricular response. Of note , she did get started on Multaq yesterday, but did not have this filled due to expense of bills for her. The patient had an echo during recent admission showing an EF of 50% to 55% with mild MR and mild TR. Mildly dilated left atrium. She is known to Dr. Dodd whom she is requesting to see during admission. We are trending her troponin which is indeterminate and present. The patient's chest pain immediately resolved after converting back to sinus rhythm. EKG done showing sinus bradycardia with right bundle-branch block. This was present on prior EKG. 2. The patient will be admitted to [facility] and will remain on continuous cardiac monitoring. Of note, BNP is normal. 3. Patient will remain n.p.o. until assessed by Dr. Voss. 4. Hypertension. Monitor blood pressure. 5. Diabetes mellitus. Initiate sliding scale. Monitor blood glucose. Resume home medications once verified. 6. Hyperlipidemia. We will resume home medications once verified. 7. Gastroesophageal reflux disease. Resume pantoprazole. 8. Deep venous thrombosis prophylaxis. Mechanical SCDs. The patient is already on anticoagulation for atrial fibrillation with Eliquis, which we will continue. 9. Code status is full. Surrogate decision maker is Tito Hardy, her significant other. Case discussed with Dr. Ramos, who agrees upon plan of care as described above. Job ID: [id number] MTDD
--- NOTE | 2019-11-05 07:35 | RAD ---
XR Chest 1 View Portable History: Chest pain Comparison: Radiograph November 02, 2019 Findings: Lungs are clear. Right upper hemithorax defibrillator pad. Multiple midline sternotomy wires. No acute osseous abnormality. Impression: No acute intrathoracic abnormality.
[2019-11-05] MEDS ORDERED: Potassium Chloride 20 MEQ/100 ML PREMIX BAG ONE (07:40)
[2019-11-05 07:52] LABS: Troponin I 0.124 ng/mL (< 0.028)
[2019-11-05] MEDS ORDERED: Sodium Chloride 0.65% Nasal 44 ML BOT EA NARE PRN (08:37)
[2019-11-05] MEDS ORDERED: Loperamide HCl 2 MG CAP PO PRN (08:37)
[2019-11-05] MEDS ORDERED: Artificial Tears 18 DROP/0.9 ML EA EYE PRN (08:37)
[2019-11-05] MEDS ORDERED: hydrALAZINE 20 MG/ML VIAL SLOW IVP PRN (08:37)
[2019-11-05] MEDS ORDERED: Senokot S 8.6-50 MG TAB PO PRN (08:37)
[2019-11-05] MEDS ORDERED: Calcium Carbonate 500 MG ChewTAB PO PRN (08:37)
[2019-11-05] MEDS ORDERED: Metoclopramide HCl 10 MG/2 ML VIAL IVP PRN (08:37)
[2019-11-05] MEDS ORDERED: Loratadine 10 MG TAB PO PRN (08:37)
[2019-11-05] MEDS ORDERED: Zolpidem Tartrate 5 MG TAB PO PRN (08:37)
[2019-11-05] MEDS ORDERED: Diabetic Tussin 200 MG/10 ML UDCUP PO PRN (08:37)
[2019-11-05] MEDS ORDERED: Bisacodyl 5 MG TAB PO PRN (08:37)
[2019-11-05] MEDS ORDERED: Cepastat Lozenges 1 LOZ PO PRN (08:37)
[2019-11-05] MEDS ORDERED: Dronedarone HCl 400 MG TAB PO SCH (09:00)
[2019-11-05] MEDS ORDERED: Insulin Glargine 30 UNITS in Pre-Filled Syringe 1 EACH SC SCH ×2 (10:15→21:00)
[2019-11-05] MEDS ORDERED: Ferrous Sulfate 325 MG TAB PO SCH (10:15)
[2019-11-05] MEDS ORDERED: Fish Oil 1,000 MG CAP PO SCH (10:15)
--- NOTE | 2019-11-05 11:01 | PRG ---
DATE OF SERVICE: 11/05/2019 I am seeing Ms. Hardy at our [facility] ER as an electrophysiology followup. Her problems are: 1. Paroxysmal atrial fibrillation with rapid ventricular rate associated with chest pain. a. Prior history of pulmonary venous isolation procedure. History of pulmonary venous isolation procedure in January 2017. b. Recurrence noted in September 2019, requiring suppression with amiodarone. c. The amiodarone was stopped in preparation for pulmonary venous re-isolation procedure. 2. Coronary artery disease with CABG x2 vessels in 2014. a. Preserved LVEF on echo on September 12, 2019. b. Angina associated with AFib with RVR. 3. History of pulmonary embolus. 4. History of GI hemorrhage in the past without recurrence, on ongoing apixaban therapy. 5. Diabetes and hypertension. 6. CHADS-VASc score of 4 with female gender, hypertension, diabetes, and coronary vascular disease. ALLERGIES: PENICILLIN AND CODEINE. MEDICATIONS AT HOME: 1. Tylenol. 2. Eliquis. 3. Atorvastatin. 4. Cholecalciferol. 5. Dextrose. 6. Ezetimibe. 7. Ferrous sulfate. 8. Fish oil supplement. 9. Furosemide. 10. Gabapentin. 11. Glucagon. 12. Insulin. 13. Metoprolol succinate. 14. Multaq was prescribed, but the patient could not afford 75 dollars co-pay . SUBJECTIVE: Ms. Hardy is here with recurrent palpitations starting early this morning. She was just discharged from the hospital yesterday, then Multaq was initiated, but she could not afford it due to dang, hence it was not continued. She was evaluated in the ER. IV diltiazem was initiated and the patient returned to sinus rhythm, now currently asymptomatic, although she had significant chest tightness sensation with the rapid heart rates. She denies dizziness or loss of consciousness. No fever, chills or cough. No stroke-like symptoms. No neurological deficits. The rest of review of systems is otherwise unremarkable. OBJECTIVE: VITAL SIGNS: Blood pressure 120/70, heart rate 54, and respirations 12. The patient is afebrile. GENERAL: This is an alert and oriented woman with an elevated BMI, in no apparent distress. NECK: Supple. Jugular veins not distended. CHEST: Coarse without crackles. HEART: Heart sounds are regular to rate and rhythm. No murmur or gallop. ABDOMEN: Benign. Bowel sounds positive. EXTREMITIES: Lower extremity without edema, clubbing or cyanosis. Pulses are adequate. NEUROLOGIC: The patient is nonfocal. MUSCULOSKELETAL: Without joint swelling or deformity. SKIN: Without rash. DATABASE: EKG is reviewed. Initial EKG reveals atrial fibrillation with rates of 139 beats per minute, right bundle-branch block pattern, which is chronic. Subsequent EKG reveals sinus bradycardia, rate of 55 beats per minute with right bundle-branch block pattern. ASSESSMENT AND PLAN: Ms. Hardy is a pleasant 54-year-old woman with history of congestive heart failure and ischemic heart disease, who has presented with a recurrent episode of atrial fibrillation with rapid rates associated with angina-like spell. Her rhythm now normalized with IV diltiazem. Her cardiac enzymes are borderline elevated only. Currently, she is pain free. Our plan is at this point to continue increasing dosages of diltiazem for rate control and plan to expedite ablation procedure likely as an outpatient. Dr. Dodd follows her regarding her borderline enzyme change, although I suspect this might be related to the rapid rates, not a true acute coronary syndrome. Continue oral anticoagulation as well for now. Job ID: [id number]
[2019-11-05] MEDS: Ezetimibe 10 MG TAB PO SCH (12:40)
[2019-11-05] MEDS: Apixaban 5 MG TAB PO SCH ×2 (12:41→20:49)
[2019-11-05] MEDS: Gabapentin 300 MG CAP PO SCH ×3 (12:42→20:49)
--- NOTE | 2019-11-05 15:07 | PDOC.HOSPP ---
- Subjective Encounter Date: 11/05/19 Encounter Time: 11:15 Subjective: Patient seen and examined. No new complaints. No overnight events - Objective Vital Signs & Weight: Weight Weight 234 lb 9.149 oz Result Diagrams: 11/05/19 00:51 11/05/19 00:51 Additional Labs: Accuchecks 11/05/19 11/05/19 11/05/19 14:54 13:39 06:27 POC Glucose 341 H 320 H 297 H Radiology Reviewed by me: Yes EKG Reviewed by me: Yes Hospitalist ROS - Review of Systems ENT: denies: ear pain, ear discharge, nose pain, nose discharge, nose congestion , mouth pain, mouth swelling, throat pain, throat swelling, other Respiratory: denies: cough, dry, shortness of breath, hemoptysis, SOB with excertion, pleuritic pain, sputum, wheezing, other Cardiovascular: denies: chest pain, palpitations, orthopnea, paroxysmal noc. dyspnea, edema, light headedness, other Gastrointestinal: denies: nausea, vomiting, abdominal pain, diarrhea, constipation, melena, hematochezia, other Genitourinary: denies: dysuria, frequency, incontinence, hematuria, retention, other Musculoskeletal: denies: neck pain, shoulder pain, arm pain, back pain, hand pain, leg pain, foot pain, other - Medication Medications: Active Medications Generic Name Dose Route Start Last Admin Trade Name Freq PRN Reason Stop Dose Admin Apixaban 5 mg 11/05/19 09:00 11/05/19 12:41 Eliquis PO 5 mg BID SOLO Administration Ezetimibe 10 mg 11/05/19 09:00 11/05/19 12:40 Zetia PO 10 mg DAILY SOLO Administration Gabapentin 300 mg 11/05/19 09:00 11/05/19 12:42 Neurontin PO 300 mg TID SOLO Administration Diltiazem HCl 125 mg/ Sodium 125 mls @ 7.5 mls/hr 11/05/19 04:30 11/05/19 04: 48 Chloride IVPB 125 mls INF SOLO Administration Protocol 7.5 MG/HR - Exam General Appearance: NAD, awake alert Eye: PERRL, anicteric sclera ENT: normocephalic atraumatic, no oropharyngeal lesions Neck: supple, symmetric, no JVD, no thyromegaly Heart: RRR, no murmur, no gallops, no rubs Respiratory: CTAB, no wheezes, no rales, no ronchi Gastrointestinal: soft, non-tender, non-distended, normal bowel sounds Extremities: no cyanosis, no clubbing, 1+ LE edema Skin: normal turgor, no lesions Neurological: no focal deficits Musculoskeletal: normal tone, normal strength Psychiatric: normal affect, normal behavior Hosp A/P (1) Atrial fibrillation with RVR Code(s): I48.91 - UNSPECIFIED ATRIAL FIBRILLATION Status: Acute (2) CAD (coronary artery disease) Code(s): I25.10 - ATHSCL HEART DISEASE OF [place] CORONARY ARTERY W/O ANG PCTRS Status: Chronic (3) Chronic anticoagulation Code(s): Z79.01 - [employer] (CURRENT) USE OF ANTICOAGULANTS Status: Chronic (4) DM type 2 (diabetes mellitus, type 2) Status: Chronic (5) Depression Code(s): F32.9 - MAJOR DEPRESSIVE DISORDER, SINGLE EPISODE, UNSPECIFIED Status : Chronic (6) HTN (hypertension) Code(s): I10 - ESSENTIAL (PRIMARY) HYPERTENSION Status: Chronic (7) SLOANE on CPAP Code(s): G47.33 - OBSTRUCTIVE SLEEP APNEA (ADULT) (PEDIATRIC); Z99.89 - DEPENDENCE ON OTHER ENABLING MACHINES AND DEVICES Status: Chronic (8) Obesity (BMI 35.0-39.9 without comorbidity) Code(s): E66.9 - OBESITY, UNSPECIFIED Status: Chronic - Plan old records reviewed/req pt is converted to NSR, will start cardizem 60 mg ACHS, will observe overnight discussed with EP medication reviewed and continue to provide symptomatic treatment she can not afford multaq, will dc ablation next week start diet and reconciled her home meds
[2019-11-05 16:12] VITALS: BMI 38.2
[2019-11-05] MEDS: Furosemide 40 MG TAB PO SCH (16:56)
[2019-11-05] MEDS: Ferrous Sulfate 325 MG TAB PO SCH (17:13)
[2019-11-05] MEDS: HumaLOG 300 UNITS/3 ML VIAL SC PRN (18:01)
[2019-11-05] MEDS: Fish Oil 1,000 MG CAP PO SCH (20:49)
[2019-11-05] MEDS ORDERED: Furosemide 40 MG TAB PO SCH (21:00)
[2019-11-05] MEDS ORDERED: Atorvastatin Calcium 40 MG TAB PO SCH (21:00)
[2019-11-06 05:01] LABS: #Basophils 0.1 thou/uL (0.0-0.2); #Eosinphils 0.1 thou/uL (0.0-0.7); #Lymphocytes 2.8 thou/uL (1.20-3.40); #Monocytes 0.4 thou/uL (0.11-0.59); %Eosinophils 1.9 % (0.0-10.0); %Lymphocytes 44.2 % (21.0-51.0); %Monocytes 6.1 % (0.0-10.0); %Neutrophils 46.8 % (42.0-75.0); Hemoglobin 13.5 g/dL (12.0-16.0); Mean Corpuscular HGB CONC 34.3 g/dL (32.0-36.0); Mean Corpuscular Hemoglobin 32.2 pg (27.0-31.0); Mean Corpuscular Volume 93.9 fL (78.0-98.0); Mean Platelet Volume 6.6 fL (7.4-10.4); Platelet Count 316 thou/uL (130-400); RBC Distribution Width 13.1 % (11.5-14.5); White Blood Cell (WBC) Count 6.4 thou/uL (4.8-10.8)
[2019-11-06 05:52] LABS: Anion Gap 12 mmol/L (10-20); BUN (Urea Nitrogen) 14 mg/dL (9.8-20.1); Calc. Creatinine Clearance 109 mL/min (70-130); Calcium 9.1 mg/dL (7.8-10.44); Carbon Dioxide 26 mmol/L (22-29); Chloride 105 mmol/L (98-107); Estimated GFR-MDRD 59; Glucose 206 mg/dL (70-105); Potassium 3.1 mmol/L (3.5-5.1); Sodium 140 mmol/L (136-145)
[2019-11-06 07:56] VITALS: BP 142/67; TEMP 97.6
[2019-11-06 07:58] LABS: Troponin I 0.137 ng/mL (< 0.028)
[2019-11-06] MEDS ORDERED: Potassium Chloride 20 MEQ TAB PO SCH (08:00)
--- NOTE | 2019-11-06 08:37 | PDOC.CPN ---
- Subjective Date: 11/06/19 Time: 08:50 Interval history: The pt seen and examined. No overnight events. No cardiac complaints - Objective Allergies/Adverse Reactions: Allergies Allergy/AdvReac Type Severity Reaction Status Date / Time penicillin G Allergy Verified 11/06/19 09:20 codeine AdvReac Severe Nausea Verified 11/06/19 09:20 Visit Medications: Current Medications Acetaminophen (Tylenol) 650 mg PO Q4H PRN PRN Reason: Headache/Fever/Mild Pain (1-3) Apixaban (Eliquis) 5 mg PO BID [facility] Last Admin: 11/05/19 20:49 Dose: 5 mg Artificial Tears (Tears Naturale) 2 drop EA EYE PRN PRN PRN Reason: Dry Eyes Atorvastatin Calcium (Lipitor) 80 mg PO [facility] Last Admin: 11/05/19 20:49 Dose: 80 mg Bisacodyl (Dulcolax) 10 mg PO DAILYPRN PRN PRN Reason: Constipation Calcium Carbonate (Tums) 1,000 mg PO Q4H PRN PRN Reason: Heartburn or Indigestion Cholecalciferol (Vitamin D3) 2,000 units PO DAILY [facility] Dextrose/Water (Dextrose 50%) 25 gm SLOW IVP PRN PRN PRN Reason: Hypoglycemia Diltiazem HCl (Cardizem) 60 mg PO ACHS [facility] Last Admin: 11/05/19 20:49 Dose: 60 mg Ezetimibe (Zetia) 10 mg PO DAILY [facility] Last Admin: 11/05/19 12:40 Dose: 10 mg Ferrous Sulfate (Feosol) 325 mg PO BID-WM [facility] Last Admin: 11/05/19 17:13 Dose: 325 mg Fish Oil (Fish Oil) 2,000 mg PO BID [facility] Last Admin: 11/05/19 20:49 Dose: 2,000 mg Furosemide (Lasix) 40 mg PO HS [facility] Last Admin: 11/05/19 20:49 Dose: 40 mg Furosemide (Lasix) 80 mg PO QAM [facility] Last Admin: 11/05/19 16:56 Dose: Not Given Gabapentin (Neurontin) 300 mg PO TID [facility] Last Admin: 11/05/19 20:49 Dose: 300 mg Glucagon (Glucagon) 1 mg IM PRN PRN PRN Reason: Hypoglycemia Guaifenesin (Robitussin Sf) 200 mg PO Q4H PRN PRN Reason: Cough Hydralazine HCl (Apresoline) 10 mg SLOW IVP Q4H PRN PRN Reason: SBP > 180 and HR < 70 Dextrose/Water (D5w) 1,000 mls @ 0 mls/hr IV .Q0M PRN PRN Reason: Hypoglycemia Diltiazem HCl 125 mg/ Sodium (Chloride) 125 mls @ 7.5 mls/hr IVPB INF [facility]; Protocol Last Admin: 11/05/19 04:48 Dose: 125 mls Insulin Glargine 30 units/ (Miscellaneous Medication) 0.3 mls @ 0 mls/hr SC HS [facility] Last Admin: 11/05/19 20:49 Dose: 0.3 mls Insulin Glargine 30 units/ (Miscellaneous Medication) 0.3 mls @ 0 mls/hr SC [facility] Insulin Human Lispro (Humalog) 0 units SC .MILD SLIDING SCALE PRN PRN Reason: Mild Correctional Scale Last Admin: 11/05/19 18:01 Dose: 4 unit Insulin Human Lispro (Humalog) 0 units SC .BEDTIME SLIDING SC PRN PRN Reason: Bedtime Correctional Scale Loperamide HCl (Imodium) 2 mg PO PRN PRN PRN Reason: Diarrhea/Loose Stools Loratadine (Claritin) 10 mg PO DAILYPRN PRN PRN Reason: Sinus Symptoms Metoclopramide HCl (Reglan) 5 mg IVP Q4H PRN PRN Reason: Nausea Metoprolol Succinate (Toprol Xl) 25 mg PO 1800 [facility] Last Admin: 11/05/19 17:13 Dose: 25 mg Potassium Chloride (K-Dur) 40 meq PO NOW [facility] Stop: 11/06/19 10:00 Ranolazine (Ranexa) 500 mg PO BID [facility] Last Admin: 11/05/19 20:49 Dose: 500 mg Senna/Docusate Sodium (Senokot S) 2 tab PO BIDPRN PRN PRN Reason: Constipation Sertraline HCl (Zoloft) 100 mg PO [facility] Sodium Chloride (Flush - Normal Saline) 10 ml IVF Q12HR PRN PRN Reason: Saline Flush Last Admin: 11/05/19 20:50 Dose: 10 ml Sodium Chloride (Flush - Normal Saline) 10 ml IVF PRN PRN PRN Reason: Saline Flush Sodium Chloride ([place] Nasal [place] 0.65%) 0 ml EA NARE QIDPRN PRN PRN Reason: Nasal Congestion Throat Lozenges (Cepastat Lozenges) 1 zak PO Q2H PRN PRN Reason: Sore Throat Zolpidem Tartrate (Ambien) 5 mg PO HSPRN PRN PRN Reason: Insomnia Vital Signs & Weight: Vital Signs Temp Pulse Resp BP BP Pulse Ox 11/06/19 07:23 97.6 F 55 L 18 142/67 H 92 L 11/06/19 04:13 97.7 F 52 L 17 137/62 93 L 11/05/19 23:29 98.4 F 50 L 16 132/60 95 Weight 230 lb - Physical Exam General: alert & oriented x3 HEENT: mucus membranes moist Neck: supple neck Cardiac: regular rate and rhythm, S1/S2 Lungs: clear to auscultation, decreased breath sounds - Labs Result Diagrams: 11/06/19 04:40 11/06/19 04:40 Troponin/CKMB CK-MB (CK-2) 1.7 ng/mL (0-6.6) 11/05/19 00:51 Troponin I 0.137 ng/mL (< 0.028) H 11/06/19 04:40 - Telemetry Sinus rhythms and dysrhythmias: sinus rhythm - Assessment/Plan Assessment/Plan: 1. Afib with RVR - converted back to SR yesterday; on Diltiazem 60mg ACHS;On Metoprolol and Eliquis 5mg BID; Plan for AFib RFA on 11/09/2019 2. NSTEMI type 2 2/2 Afib with RVR - Asymptomatic; 3. CAD with hx of CABG in 06/2015 with diffuse disease - stable; on BBlocker, Lipitor and Zetia; not on ASA since the pt is on Eliquis 4. HTN - stable 5. DM type 2 6. Obesity 7. Sleep Apnea - Strongly recommend to wear Cpap at HS 8. depression MAR reviewed * From Cardiac standpoint, the pt is stable to d/c and f/u with EP for AFib RFA on 11/09/2019 Pt. seen and eval. by me. I agree with the A/P by the [employer] CONSULTANT. We have discussed the pt. and the plan.
[2019-11-06] MEDS: Ezetimibe 10 MG TAB PO SCH (08:50)
[2019-11-06] MEDS: Gabapentin 300 MG CAP PO SCH (08:50)
[2019-11-06] MEDS: Fish Oil 1,000 MG CAP PO SCH (08:51)
[2019-11-06] MEDS: Furosemide 40 MG TAB PO SCH (08:51)
[2019-11-06] MEDS: Apixaban 5 MG TAB PO SCH (08:51)
[2019-11-06] MEDS: Ferrous Sulfate 325 MG TAB PO SCH (08:52)
[2019-11-06] MEDS ORDERED: Insulin Glargine 30 UNITS in Pre-Filled Syringe 1 EACH SC SCH (09:00)
[2019-11-06] MEDS: HumaLOG 300 UNITS/3 ML VIAL SC PRN (12:06)
--- NOTE | 2019-11-06 14:08 | DIS ---
DATE OF ADMISSION: 11/05/2019 DATE OF DISCHARGE: 11/06/2019 PRIMARY CARE PHYSICIAN: Dr. Tito Santos. DISCHARGE DISPOSITION: Home. PRIMARY DISCHARGE DIAGNOSIS: Atrial fibrillation with rapid ventricular response converted to sinus rhythm. SECONDARY DISCHARGE DIAGNOSES: 1. History of coronary artery disease, status post CABG. 2. Elevated troponin due to demand ischemia. 3. History of pulmonary embolism, on chronic anticoagulation. 4. Diabetes type 2. 5. Hypertension. 6. Anxiety and depression. 7. Chronic anticoagulation. 8. Obesity with BMI 38. PRIMARY PROCEDURE/OPERATION: None. RADIOLOGICAL INVESTIGATION: Chest x-ray is normal. SIGNIFICANT LABORATORY DATA: WBC 6.4, hemoglobin 13.5, platelets 316. Sodium 140, potassium 3.1, BUN 14, creatinine 0.98, calcium 9.1. Troponin 0.137. DISCHARGE MEDICATIONS: 1. Vitamin D3 of 2000 units p.o. daily. 2. Exenatide 2 mg subcu every 7 days. 3. Zetia 10 mg daily. 4. Ferrous sulfate 325 mg b.i.d. 5. Lasix 80 mg in the morning and 40 mg in the evening. 6. Gabapentin 300 mg t.i.d. 7. Lantus 30 units subcu b.i.d. 8. Lispro 10 to 25 units subcu as per sliding scale. 9. Fish oil 1000 mg two capsules b.i.d. 10. Omeprazole 40 mg daily. 11. Potassium gluconate 99 mg p.o. b.i.d. 12. vitamin 1 tablet daily. 13. Ranexa 1000 mg p.o. b.i.d. 14. Zoloft 100 mg daily. 15. Janumet 100/1000 one tablet daily. 16. Eliquis 5 mg b.i.d. 17. Lipitor 80 mg p.o. at bedtime. 18. Cardizem 60 mg t.i.d. 19. Toprol-XL 25 mg p.o. daily. CONTRAINDICATION: None. CODE STATUS: Full code. INPATIENT [facility]ILL OBSERVER: Dr. Smith Voss was consulted while in hospital. Cardiology was also following while in hospital. TEST RESULT PENDING ON DISCHARGE: None. ALLERGIES: PENICILLIN G, CODEINE. DISCHARGE PLAN: Posthospital, the patient will follow up with primary care physician, Dr. Tito Santos, in 1 week as well as the patient is instructed to follow up with Dr. Smith Voss on November 09, 2019, and primary office mail clerk in 2 weeks. HOSPITAL COURSE: This is a 54-year-old female, who was recently discharged from hospital, and next day, the patient came back to emergency room because she was having palpitation and she was found with atrial fibrillation with RVR. The patient was admitted overnight and she was treated with Cardizem drip. Subsequently, the patient was converted to sinus rhythm, and Cardizem drip was discontinued. The patient was maintained on sinus rhythm with Cardizem p.o. and metoprolol. During previous admission, the patient was given Multaq prescription, but the patient was not able to afford that medication and she did not want to continue that medication. During this admission, the patient was evaluated by medical assisting program director and they recommended to continue Cardizem and metoprolol, and they will see her next week for further evaluation and treatment. The patient is planned for some procedure next week by medical assisting program director for her recurrent paroxysmal atrial fibrillation. Cardiology cleared her for discharge as well. The patient is seen and examined at bedside today. PHYSICAL EXAMINATION: VITAL SIGNS: Currently, temperature 97.6, pulse 55, respiratory rate 18, saturation 92% on room air, blood pressure 142/67. GENERAL: The patient is currently alert, awake, no acute distress. HEAD: Normocephalic and atraumatic. NECK: Supple. No JVD. No meningeal signs of irritation. LUNGS: Clear to auscultation without any rhonchi or rales. CARDIAC: S1 and S2 regular. No murmur. No gallop. No rub. ABDOMEN: Soft, bowel sounds present, nontender, nondistended. No organomegaly. No mass. EXTREMITIES: No edema. NEUROLOGIC: Nonfocal examination. Overall, the patient is medically stable for discharge today. Job ID: [id number]
--- NOTE | 2019-11-07 12:22 | PRG ---
DATE OF SERVICE: 11/06/2019 Dictated by Yamilex Alejandro PA-C, as a scribe for Dr. Smith Voss. SUBJECTIVE: Ms. Hardy is being seen in followup for her atrial fibrillation. She has persistent atrial fibrillation with prior PVI in January of 2017. She had recurrence noted in September 2019, requiring transient suppression with amiodarone. Amiodarone was stopped in preparation for a pulmonary venous isolation procedure. While she was undergoing amiodarone washout, she once again had recurrence. She has significant chest pain with her atrial fibrillation episodes and presents to the hospital with angina symptoms. She was discharged on Multaq a few days prior, but unfortunately could not afford the 75 dollar co-pay. She went back into atrial fibrillation shortly after missing a dose of Multaq and came back to the hospital. Her Multaq was discontinued and her oral diltiazem has been increased. She has maintained sinus rhythm overnight. Ms. Hardy is feeling well. She denies any heart racing, palpitations, chest pain, pressure, syncope, near syncope, stroke, stroke-like symptoms since admission. There is a plan in preparation for PVI on Saturday. She is eager to go home and hopefully will be able to remain there until her procedure on Saturday. OBJECTIVE: VITAL SIGNS: 97.6, pulse 55, blood pressure 142/67, respirations 18, and oxygen is 93% on room air. GENERAL: The patient is alert and oriented. Speech is clear. Affect is appropriate. She is in no apparent distress at time the exam. NECK: Supple without jugular venous distention. There is no lymphadenopathy. Trachea is midline. HEART: Rate is irregularly irregular with crisp S1 and S2. PMI is nondisplaced. LUNGS: Clear to auscultation bilaterally without wheezes, crackles, or rhonchi. ABDOMEN: Obese, soft, nontender without palpable masses. NEUROLOGIC: Grossly intact and nonfocal. Gait was not assessed. Telemetry and EKG shows sinus rhythm. IMPRESSION: 1. Persistent atrial fibrillation with recent recurrence and symptomatic with angina. 2. Coronary artery disease with 2-vessel bypass. 3. Preserved LVEF. 4. History of pulmonary embolus. 5. History of gastrointestinal hemorrhage. 6. CHADS-VASc score of 4, on Eliquis. PLAN AND RECOMMENDATIONS: Ms. Hardy is a 54-year-old woman with a history of congestive heart failure and ischemic heart disease. She presented with angina in the setting of atrial fibrillation with RVR. Her heart rate has normalized with IV and then p.o. diltiazem. At this point, she is maintaining sinus rhythm. She is no longer having any chest pain. We have expedited an ablative procedure which is to be performed Saturday. We discussed the risks, benefits, and alternatives to this. Risks include hematoma, bleeding at the groin site, pericardial effusion, atrioesophageal fistula, stroke, arrhythmia recurrence, possible need for repeat ablation, possibly open-heart repair or chest tube. She voices understanding and wishes to proceed. She will hold all of her morning medications and be n.p.o. on Saturday. Should she experience recurrence or chest pain in the interim, she will return to the hospital. Otherwise, she prefers to spend the weekend at home understanding that arrhythmia recurrence is possible. She will continue Eliquis without interruption until the morning of the procedure at which point she will hold her Eliquis. Job ID: [id number]
--- NOTE | 2019-11-08 00:53 | EKG ---
Test Reason : Blood Pressure : / mmHG Vent. Rate : 139 BPM Atrial Rate : 101 BPM P-R Int : 000 ms QRS Dur : 150 ms QT Int : 400 ms P-R-T Axes : 000 -47 016 degrees QTc Int : 608 ms Atrial fibrillation with rapid ventricular response with premature ventricular or aberrantly conducte d complexes Right bundle branch block Left anterior fascicular block Bifascicular block Inferior infarct , age undetermined Abnormal ECG Confirmed by NIKOLAS SORENSEN ([id number]), features editor BENITO WINN ([id number]) on 11/08/2019 12:52:50 AM Referred By: Confirmed By:NIKOLAS SORENSEN
== END 2019-11-06 14:40 | disposition home or self-care (01) ==
LOC: ERS 00:18 → ERHOLD 02:28 → 2SW 16:02
PROVIDERS: ADMIT Internal Medicine; ATTEND Internal Medicine
DX: I48.0 Paroxysmal atrial fibrillation (principal); I21.A1 Myocardial infarction type 2; I45.10 Unspecified right bundle-branch block; I25.119 Atherosclerotic heart disease of native coronary artery with unspecified angina pectoris; E11.9 Type 2 diabetes mellitus without complications; I11.0 Hypertensive heart disease with heart failure; I50.30 Unspecified diastolic (congestive) heart failure; K59.09 Other constipation; K21.9 Gastro-esophageal reflux disease without esophagitis; M79.7 Fibromyalgia; G47.33 Obstructive sleep apnea (adult) (pediatric); F32.9 Major depressive disorder, single episode, unspecified; E78.5 Hyperlipidemia, unspecified; E78.00 Pure hypercholesterolemia, unspecified; E66.9 Obesity, unspecified; Z68.38 Body mass index [BMI] 38.0-38.9, adult; Z86.711 Personal history of pulmonary embolism; Z79.01 Long term (current) use of anticoagulants; Z79.4 Long term (current) use of insulin; Z79.899 Other long term (current) drug therapy; Z88.0 Allergy status to penicillin; Z88.5 Allergy status to narcotic agent; Z95.1 Presence of aortocoronary bypass graft; Z99.89 Dependence on other enabling machines and devices; Z98.890 Other specified postprocedural states
CPT/HCPCS: 71045; 80048; 80053; 82553; 82962 ×2; 83735; 83880; 84484 ×3; 85025 ×2; 93005; 94760; 96365; 96366; 96375; 96376; 99285; G0378 ×3; 36415; 36416; J1160; J1815; J3480; J3490

== ENCOUNTER 2019-11-09 09:32 | Observation (INO) | payer MEDICARE ==
[2019-11-09] MEDS ORDERED: PROPOFOL 200 MG/20 ML VIAL ONE (10:10)
[2019-11-09] MEDS ORDERED: Dexamethasone 20 MG/5 ML VIAL ONE (10:10)
[2019-11-09] MEDS ORDERED: Ondansetron PF 4 MG/2 ML Vial ONE (10:10)
[2019-11-09] MEDS ORDERED: Metoclopramide HCl 10 MG/2 ML VIAL ONE (10:10)
[2019-11-09] MEDS ORDERED: EPHEDRINE 25 MG/5 ML SYRINGE ONE (10:10)
[2019-11-09] MEDS ORDERED: Rocuronium Bromide 10 MG/ML (10ML VIAL) ONE (10:10)
[2019-11-09] MEDS ORDERED: Glycopyrrolate 0.2 MG/ML 5 ML SYRINGE ONE (10:10)
[2019-11-09] MEDS ORDERED: Lidocaine 1% PF 5 ML VIAL ONE (10:10)
[2019-11-09 10:18] LABS: BUN (Urea Nitrogen) 24 mg/dL (9.8-20.1); Calc. Creatinine Clearance 87 mL/min (70-130); Calcium 9.7 mg/dL (7.8-10.44); Estimated GFR-MDRD 46; Glucose 253 mg/dL (70-105)
[2019-11-09 10:26] LABS: Anion Gap 14 mmol/L (10-20); Carbon Dioxide 25 mmol/L (22-29); Chloride 101 mmol/L (98-107); Potassium 3.3 mmol/L (3.5-5.1); Sodium 137 mmol/L (136-145)
[2019-11-09] MEDS ORDERED: Heparin 25,000 units/D5W 500 ML ONE (11:01)
[2019-11-09] MEDS ORDERED: Heparin 10,000 UNITS/1 ML VIAL ONE ×2 (11:01→14:48)
[2019-11-09] MEDS ORDERED: Fentanyl 100 MCG/2 ML VIAL ONE (12:01)
[2019-11-09] MEDS ORDERED: Phenylephrine 10 MG/ML VIAL ONE (12:44)
[2019-11-09] MEDS ORDERED: Isoproterenol 0.2 MG/1 ML AMP ONE (14:49)
[2019-11-09] MEDS ORDERED: Protamine Sulfate 50 MG/5 ML VIAL ONE (16:25)
[2019-11-09] MEDS ORDERED: Acetaminophen/Codeine 30-300mg Tablet PO PRN ×2 (17:15)
[2019-11-09] MEDS ORDERED: Furosemide 40 MG TAB PO SCH (21:00)
[2019-11-09] MEDS ORDERED: Atorvastatin Calcium 40 MG TAB PO SCH (21:15)
[2019-11-09] MEDS ORDERED: Dextrose 50% Abboject 50 ML SYRINGE IVP PRN (21:17)
[2019-11-09] MEDS ORDERED: Dextrose 5% in Water 1,000 ML IV PRN ×2 (21:17→21:37)
[2019-11-09] MEDS ORDERED: Ketorolac Tromethamine 30 MG/ML VIAL IVP PRN (21:28)
[2019-11-09] MEDS ORDERED: HumaLOG 300 UNITS/3 ML VIAL SC SCH (21:30)
[2019-11-09] MEDS ORDERED: Gabapentin 300 MG CAP PO SCH (21:30)
[2019-11-09] MEDS ORDERED: HumaLOG 300 UNITS/3 ML VIAL SC PRN ×2 (21:37)
[2019-11-09] MEDS ORDERED: Dextrose 50% Abboject 50 ML SYRINGE SLOW IVP PRN (21:37)
[2019-11-09] MEDS: Insulin Glargine 30 UNITS in Pre-Filled Syringe 1 EACH SC SCH (21:50)
[2019-11-09] MEDS: Apixaban 5 MG TAB PO SCH (21:51)
--- NOTE | 2019-11-09 22:09 | OP ---
DATE OF PROCEDURE: 11/09/2019 PROCEDURE: Electrophysiology study and radiofrequency ablation. REASON FOR PROCEDURE: Ms. Hardy is a 54-year-old female with a history of coronary artery disease, bypass surgery in the past, paroxysmal atrial fibrillation associated with severe angina, prior pulmonary venous isolation procedure was performed in [address] Marroquin, late recurrence of atrial fibrillation/flutter is noted. She is here for redo pulmonary venous isolation procedure. DESCRIPTION OF PROCEDURE: Patient received general anesthesia by Anesthesia specialist. The left and right femoral venous area was prepped, draped, and accessed under ultrasound guidance. On the left femoral vein, an 11-Nicaraguan sheath was used to advance an intracardiac echocardiogram probe to the right atrium, where it was used to monitor catheter manipulation, pericardial space, and transseptal procedure. Also from the left groin, a Preface long sheath was advanced into the IVC through which a 20-pole Duo-Deca catheter was attempted to be advanced to the CS position. Due to technical difficulties that was not possible. Therefore, a right IJ venous access was obtained through which the 20-pole Duo-Deca catheter was advanced through the CS location on the proximal portion of the CS was cannulated. The CS is very difficult to cannulate. On the right side, initially two 8-[place]icaraguan short sheaths were introduced through which a ThermoCool SFST catheter was used to obtain 3D map for right atrium, right ventricle, His bundle, CS os, and CTI location. Following that, the short sheaths on the right femoral vein was exchanged to two SL1 sheaths, which were used to perform a transseptal puncture under ultrasound guidance with the help of a VasSol powered needle. Prior to the puncture, IV heparin was administered in a bolus and drip fashion, which was periodically checked and adjusted to keep ACT over 350 throughout the case. Through the SL1 sheaths, a ThermoCool SFST and a 20-pole Lasso catheter was advanced to the left atrium. 3D map of the left atrium was obtained and reconnection of all 4 pulmonary veins were seen. Also, posterior wall was not isolated. Re-isolation of all 4 pulmonary veins were performed. A roof line was placed as an inferior line to obtain posterior wall isolation. Throughout the posterior wall ablations, an esophageal temperature probe was checked and adjusted to avoid excessive heating in the left atrium. Where ever heating spots were noted, extra irrigation from the ablation catheter was performed to enhance cooling. After sufficient isolation of the pulmonary veins, Isuprel was initiated and the reconnections were re-ablated. Baseline EP study was also performed at this point for the following findings. Before Isuprel, the RR interval was 1057, FL 195, QRS 135, QT 525, AH 149, HV 41 milliseconds. AV Wenckebach cycle length was 420 milliseconds. AV dede ERP was 600/240 milliseconds. Dual AV node physiology was seen without echo beat. No LV pacing was performed with ablation catheter advanced to the LV and there was no VA conduction was seen. Burst atrial pacing was performed which eventually induced 2:1 conducted atrial flutter which appears to be typical isthmus dependent in morphology and also overdrive pacing at the isthmus in the right atrium entering the tachycardia and post pacing intervals approximating the tachycardia cycle length about 280 milliseconds. Following that, the catheter was removed from the left side. Heparin was stopped. During the atrial flutter caval tricuspid isthmus ablation was performed during which the atrial flutter was terminated. Proximal CS pacing was also ensued and mapping revealed adequate transmissions block with longest transisthmus time adjacent to the ablation line, suggestive of unilateral block. Burst atrial pacing induced atrial flutter only which eventually self-terminated. Catheters removed from the body. Before that the ICE catheter revealed no change in the baseline minor pericardial effusion. Patient remained hemodynamically stable. Long sheaths were exchanged for short sheaths and Vascade closure was performed in the all four femoral venous access sites. Hemostasis was applied in the femoral venous site as well as to the right IJ venous access site for hemostasis. At the end of the case, cardiac silhouette did not change. Patient tolerated the procedure well. The total ablation was 54 lesions with total duration of 18 minutes at 40 rush. CONCLUSION: 1. Successful re-isolation of all 4 pulmonary veins. 2. Posterior wall ablation was performed by superior and inferior line box lesions. 3. Inducible typical atrial flutter terminated during ablation on the cavotricuspid isthmus with cavotricuspid isthmus block achieved. 4. Normal sinus and AV dede and His-Purkinje function. 5. No VA conduction, but no evidence of accessory pathway demonstrated. 6. Dual AV node physiology was seen without inducible AV dede reentrant tachycardia. PLAN: Stop antiarrhythmic agents and resume oral anticoagulation. Monitor for recurrent arrhythmias. Job ID: [id number]
[2019-11-09 22:22] VITALS: BMI 38.9
[2019-11-09] MEDS: Sucralfate 1 GM TAB PO SCH (23:52)
[2019-11-10] MEDS: Sucralfate 1 GM TAB PO SCH ×2 (05:06→13:32)
[2019-11-10] MEDS ORDERED: Ferrous Sulfate 325 MG TAB PO SCH (08:00)
[2019-11-10] MEDS ORDERED: Potassium Chloride 8 MEQ TAB PO SCH (08:00)
[2019-11-10] MEDS ORDERED: metFORMIN XR 500 MG TAB PO SCH (08:00)
[2019-11-10] MEDS: Apixaban 5 MG TAB PO SCH (08:55)
[2019-11-10] MEDS: Gabapentin 300 MG CAP PO SCH ×2 (08:55→16:00)
[2019-11-10] MEDS: Insulin Glargine 30 UNITS in Pre-Filled Syringe 1 EACH SC SCH (08:58)
[2019-11-10] MEDS ORDERED: Alogliptin 25 MG TAB PO SCH (09:00)
[2019-11-10] MEDS ORDERED: Furosemide 40 MG TAB PO SCH (09:00)
[2019-11-10] MEDS ORDERED: Ezetimibe 10 MG TAB PO SCH (09:00)
[2019-11-10] MEDS ORDERED: Fish Oil 1,000 MG CAP PO SCH (09:00)
[2019-11-10] MEDS ORDERED: Prenatal Vitamin 1 TAB PO SCH (09:00)
--- NOTE | 2019-11-10 11:09 | PDOC.EP ---
- Subjective Date: 11/10/19 Time: 08:00 Interval History: follow up after PVAI. Feels well. No complaints. Some sore throat post intubation. eager to go home. - Review of Systems Constitutional: denies: chills, fever, malaise, sweats, weakness, other Respiratory: denies: cough, dry, hemoptysis, pleuritic pain, shortness of breath , SOB with excertion, sputum, wheezing, other Cardiology: denies: chest pain, edema, heart racing, light headedness, paroxysmal noc. dyspnea, palpitations, passing out Gastrointestinal: denies: abdominal pain, constipation, diarrhea Musculoskeletal: denies: unstable gait, falls Neurological: denies: headache, vision changes - Objective Allergies/Adverse Reactions: Allergies Allergy/AdvReac Type Severity Reaction Status Date / Time penicillin G Allergy Verified 11/06/19 09:20 codeine AdvReac Severe Nausea Verified 11/06/19 09:20 Current Medications Acetaminophen/Codeine Phosphate (Tylenol #3) 1 tab PO Q4H PRN PRN Reason: Mild Pain (1-3) Acetaminophen/Codeine Phosphate (Tylenol #3) 2 tab PO Q4H PRN PRN Reason: Moderate Pain (4-6) Alogliptin Benzoate (Alogliptin) 25 mg PO DAILY [facility] Last Admin: 11/10/19 08:55 Dose: 25 mg Apixaban (Eliquis) 5 mg PO BID [facility] Last Admin: 11/10/19 08:55 Dose: 5 mg Atorvastatin Calcium (Lipitor) 80 mg PO [facility] Cholecalciferol (Vitamin D3) 2,000 units PO DAILY [facility] Last Admin: 11/10/19 08:54 Dose: 2,000 units Dextrose/Water (Dextrose 50%) 25 gm IVP PRN PRN PRN Reason: HYPOGLYCEMIA PROTOCOL Dextrose/Water (Dextrose 50%) 25 gm SLOW IVP PRN PRN PRN Reason: Hypoglycemia Diltiazem HCl (Cardizem) 30 mg PO TID [facility] Last Admin: 11/10/19 08:55 Dose: 30 mg Ezetimibe (Zetia) 10 mg PO DAILY [facility] Last Admin: 11/10/19 08:54 Dose: 10 mg Ferrous Sulfate (Feosol) 325 mg PO BID-[facility] Last Admin: 11/10/19 08:54 Dose: 325 mg Fish Oil (Fish Oil) 2,000 mg PO BID [facility] Last Admin: 11/10/19 08:53 Dose: 2,000 mg Furosemide (Lasix) 80 mg PO QAM [facility] Last Admin: 11/10/19 08:55 Dose: 80 mg Furosemide (Lasix) 40 mg PO HS [facility] Last Admin: 11/09/19 21:51 Dose: 40 mg Gabapentin (Neurontin) 300 mg PO TID [facility] Last Admin: 11/10/19 08:55 Dose: 300 mg Glucagon (Glucagon) 1 mg IM PRN PRN PRN Reason: HYPOGLYCEMIA PROTOCOL Glucagon (Glucagon) 1 mg IM PRN PRN PRN Reason: Hypoglycemia Insulin Glargine 30 units/ (Miscellaneous Medication) 0.3 mls @ 0 mls/hr SC BID [facility] Last Admin: 11/10/19 08:58 Dose: 0.3 mls Dextrose/Water (D5w) 1,000 mls @ 0 mls/hr IV INF PRN PRN Reason: HYPOGLYCEMIA PROTOCOL Dextrose/Water (D5w) 1,000 mls @ 0 mls/hr IV .Q0M PRN PRN Reason: Hypoglycemia Insulin Human Lispro (Humalog) 0 units SC .MILD SLIDING SCALE PRN PRN Reason: Mild Correctional Scale Last Admin: 11/10/19 05:13 Dose: 4 unit Insulin Human Lispro (Humalog) 0 units SC .BEDTIME SLIDING SC PRN PRN Reason: Bedtime Correctional Scale Ketorolac Tromethamine (Toradol) 30 mg IVP Q6H PRN PRN Reason: Pain Stop: 11/14/19 21:29 Metformin HCl (Glucophage Xr) 1,000 mg PO QAM-[facility] Last Admin: 11/10/19 08:53 Dose: 1,000 mg Metoprolol Succinate (Toprol Xl) 25 mg PO 1800 [facility] Pantoprazole Sodium (Protonix) 40 mg PO DAILY [facility] Stop: 11/23/19 09:01 Last Admin: 11/10/19 08:56 Dose: 40 mg Exenatide (Bydureon (Pen)) 2 each SC [facility] Potassium Chloride (Slow-K 8 Meq) 8 meq PO BID-[facility] Last Admin: 11/10/19 08:55 Dose: 8 meq Multivit/Folic Acid/Iron ( Vitamin) 1 tab PO DAILY [facility] Last Admin: 11/10/19 08:54 Dose: 1 tab Ranolazine (Ranexa) 1,000 mg PO BID [facility] Last Admin: 11/10/19 08:58 Dose: 1,000 mg Sertraline HCl (Zoloft) 100 mg PO QAM [facility] Last Admin: 11/10/19 08:55 Dose: 100 mg Sodium Chloride (Flush - Normal Saline) 10 ml IVF PRN PRN PRN Reason: Saline Flush Last Admin: 11/09/19 21:50 Dose: 10 ml Sucralfate (Carafate) 1 gm PO Q6HR [facility] Stop: 11/23/19 18:01 Last Admin: 11/10/19 05:06 Dose: 1 gm Vital Signs & Weight: Vital Signs Temp Pulse Resp BP Pulse Ox 11/10/19 07:22 99.1 F 64 16 129/62 96 11/10/19 05:03 98 F 71 19 111/53 L 97 Weight 232 lb 12.8 oz I/O: I/O 11/09/19 11/10/19 11/11/19 06:59 06:59 06:59 Intake Total 500 Output Total 900 Balance -400 - Quality Measures Condition: Atrial Fibrillation/Flutter (hx or current) CV meds: Eliquis: Yes - Physical Exam General: alert & oriented x3, appears well, no apparent distress, speech clear, affect appropriate HEENT: mucus membranes moist, normocephaly Neck: supple neck, midline trachea, no JVD/HJR, no masses, no bruit, no lymphadenopathy, no thromegaly Cardiology: regular rate and rhythm, no murmur, regular rate, regular rhythm, PMI nondisplaced Lungs: clear to auscultation, normal breath sounds, normal exam, no wheeze, rales, rhonchi, no wheezes, no rales, no rhonchi Neurology: cranial nerve 2-12 intact, grossly intact, sensory function intact, no lateralizing findings Extremities: dry, strong pulses, warm Skin: groin sites stable - Labs Result Diagrams: 11/09/19 09:49 - EKG Interpretation EKG Method: Telemetry EKG shows: Sinus rhythm - Assessment/Plan Assessment/Plan: Ms. Hardy is a 54-year-old female with a history of coronary artery disease, bypass surgery in the past, paroxysmal atrial fibrillation associated with severe angina, prior pulmonary venous isolation procedure was [place] [address] Marroquin, late recurrence of atrial fibrillation/ flutter is noted. She is here for redo pulmonary venous isolation procedure performed 2019 The total ablation was 54 lesions with total duration of 18 minutes at 40 rush. Impression: 1. Persistent atrial fibrillation s/p redo LA ablation 2. Chronic OAC on eliquis 3. Chronic angina, worsened by AF with RVR CONCLUSION: 1. Successful re-isolation of all 4 pulmonary veins. 2. Posterior wall ablation was performed by superior and inferior line box lesions. 3. Inducible typical atrial flutter terminated during ablation on the cavotricuspid isthmus with cavotricuspid isthmus block achieved. 4. Normal sinus and AV dede and His-Purkinje function. 5. No VA conduction, but no evidence of accessory pathway demonstrated. 6. Dual AV node physiology was seen without inducible AV dede reentrant tachycardia. PLAN: Stop antiarrhythmic agents and resume oral anticoagulation. Monitor for recurrent arrhythmias. DC medication list was completed. OK for DC. 6 week follow up. medications as detailed in DC planning.
[2019-11-10 12:03] VITALS: BP 138/65; TEMP 97.6
[2019-11-10] MEDS ORDERED: Atorvastatin Calcium 40 MG TAB PO SCH (21:00)
--- NOTE | 2019-11-10 23:51 | DIS ---
DATE OF ADMISSION: 11/09/2019 DATE OF DISCHARGE: 11/10/2019 The patient was seen and examined on the day of discharge. Denies any new complaints. No chest pain, shortness of breath, or palpitations reported. FOLLOWUP: Follow up with primary care physician, Dr. Webster in 1 week. DISCHARGE PHYSICAL EXAMINATION: VITAL SIGNS: On the day of discharge, showed temperature 97.6, pulse of 68, respirations 20, blood pressure of 138/65, and O2 saturation 97% on room air. GENERAL: A 54-year-old female, in no apparent distress. No chest pain, shortness of breath, or palpitations. LUNGS: Clear to auscultation bilaterally. No wheezing, rales, or rhonchi. HEART: S1 and S2 present. Regular. ABDOMEN: Soft. Bowel sounds present. EXTREMITIES: No calf tenderness. LABORATORY FINDINGS: Potassium 3.3, BUN 24, and creatinine 1.23. Telemetry monitoring by my review showed sinus rhythm. BRIEF HOSPITAL COURSE: The patient is a 54-year-old female with atrial fibrillation, coronary artery disease, and hypertension, was admitted by Electrophysiology, Dr. Voss for radiofrequency ablation. She underwent successful re-isolation of all the 4 pulmonary veins. She was monitored overnight. Medications have been reconciled by Electrophysiology. Anticoagulation has been restarted. She has been cleared by Electrophysiology for discharge. FINAL DIAGNOSES: 1. Status post radiofrequency ablation for atrial fibrillation. 2. Coronary artery disease. 3. Hypertension. 4. Hyperlipidemia. 5. Diabetes mellitus, type 2. 6. Obesity with a BMI of 38.7. 7. Peripheral neuropathy. 8. Gastroesophageal reflux disease. 9. History of pulmonary embolism, on anticoagulation. 10. Hypokalemia. Repeat basic metabolic profile after 1 week was recommended. Primary care physician advised to follow. The patient understands the above plan of care. Job ID: [id number]
--- NOTE | 2019-11-12 08:21 | EKG ---
Test Reason : Blood Pressure : / mmHG Vent. Rate : 065 BPM Atrial Rate : 065 BPM P-R Int : 172 ms QRS Dur : 158 ms QT Int : 578 ms P-R-T Axes : 046 007 076 degrees QTc Int : 601 ms Normal sinus rhythm Right bundle branch block Abnormal ECG When compared with ECG of 05-NOV-2019 03:48, Nonspecific T wave abnormality no longer evident in Inferior leads QT has lengthened Confirmed by DR. Zuleyka VAUGHAN ([id number]) on 11/12/2019 8:21:11 AM Referred By: CRIS Confirmed By:DR. Zuleyka VAUGHAN
--- NOTE | 2019-11-12 08:22 | EKG ---
Test Reason : Blood Pressure : / mmHG Vent. Rate : 064 BPM Atrial Rate : 064 BPM P-R Int : 166 ms QRS Dur : 160 ms QT Int : 558 ms P-R-T Axes : 048 -02 079 degrees QTc Int : 575 ms Normal sinus rhythm Right bundle branch block Possible Inferior infarct , age undetermined Abnormal ECG When compared with ECG of 09-NOV-2019 17:12, (Unconfirmed) No significant change was found Confirmed by DR. Zuleyka VAUGHAN ([id number]) on 11/12/2019 8:22:04 AM Referred By: CRIS Confirmed By:DR. Zuleyka VAUGHAN
[2019-11-13] MEDS ORDERED: EXENATIDE SC SCH (09:00)
== END 2019-11-10 16:08 | disposition home or self-care (01) ==
LOC: CCL 09:32 → 2SW 20:53
PROVIDERS: ADMIT Internal Medicine Cardiovascular Disease; ATTEND Internal Medicine Cardiovascular Disease
PROC: 02583ZZ Destruction of Conduction Mechanism, Percutaneous Approach (ICD-10-PCS; principal; 2019-11-09)
PROC: 02K83ZZ Map Conduction Mechanism, Percutaneous Approach (ICD-10-PCS; 2019-11-09)
PROC: 4A023FZ Measurement of Cardiac Rhythm, Percutaneous Approach (ICD-10-PCS; 2019-11-09)
PROC: 4A0234Z Measurement of Cardiac Electrical Activity, Percutaneous Approach (ICD-10-PCS; 2019-11-09)
DX: I48.0 Paroxysmal atrial fibrillation (principal); I48.3 Typical atrial flutter; I25.119 Atherosclerotic heart disease of native coronary artery with unspecified angina pectoris; I10 Essential (primary) hypertension; E78.5 Hyperlipidemia, unspecified; E11.42 Type 2 diabetes mellitus with diabetic polyneuropathy; K21.9 Gastro-esophageal reflux disease without esophagitis; E87.6 Hypokalemia; E66.9 Obesity, unspecified; Z68.38 Body mass index [BMI] 38.0-38.9, adult; Z79.01 Long term (current) use of anticoagulants; Z79.4 Long term (current) use of insulin; Z79.899 Other long term (current) drug therapy; Z88.0 Allergy status to penicillin; Z88.5 Allergy status to narcotic agent; Z95.1 Presence of aortocoronary bypass graft
CPT/HCPCS: 76942; 80048; 82962 ×2; 85347 ×2; 93005 ×2; 93613; 93622; 93623; 93655; 93656; 93662; C1731; C1732 ×3; C1759; C1769; G0378 ×2; 36415; 36416; 93010; J1100; J1644; J1815; J2001; J2370; J2405; J2704; J2720; J2765; J3010

== ENCOUNTER 2019-11-16 04:21 | Observation (INO) | payer MEDICARE ==
[2019-11-16] MEDS ORDERED: Diltiazem 125 MG/25 ML ONE (04:41)
[2019-11-16 05:25] LABS: #Basophils 0.1 thou/uL (0.0-0.2); #Eosinphils 0.1 thou/uL (0.0-0.7); #Lymphocytes 3.3 thou/uL (1.20-3.40); #Monocytes 0.5 thou/uL (0.11-0.59); #Neutrophils 3.9 thou/uL (1.40-6.50); %Lymphocytes 42.1 % (21.0-51.0); %Monocytes 5.8 % (0.0-10.0); Hemoglobin 12.9 g/dL (12.0-16.0); Mean Corpuscular HGB CONC 32.8 g/dL (32.0-36.0); Mean Corpuscular Hemoglobin 32.1 pg (27.0-31.0); Mean Corpuscular Volume 97.9 fL (78.0-98.0); Mean Platelet Volume 7.2 fL (7.4-10.4); Platelet Count 333 thou/uL (130-400); RBC Distribution Width 13.3 % (11.5-14.5); Red Blood Cell (RBC) Count 4.02 mill/uL (4.20-5.40); White Blood Cell (WBC) Count 7.8 thou/uL (4.8-10.8)
[2019-11-16 05:36] LABS: ALT (SGPT) 18 U/L (8-55); AST (SGOT) 11 U/L (5-34); Alkaline Phosphatase 88 U/L (40-110); Anion Gap 14 mmol/L (10-20); BUN (Urea Nitrogen) 16 mg/dL (9.8-20.1); Bilirubin, Total 0.3 mg/dL (0.2-1.2); Calc. Creatinine Clearance 0 mL/min (70-130); Carbon Dioxide 26 mmol/L (22-29); Chloride 103 mmol/L (98-107); Estimated GFR-MDRD 63; Globulin 2.8 g/dL (2.4-3.5); Glucose 269 mg/dL (70-105); Magnesium 1.5 mg/dL (1.6-2.6); Potassium 3.1 mmol/L (3.5-5.1); Protein, Total 6.8 g/dL (6.0-8.3); Sodium 140 mmol/L (136-145)
[2019-11-16] MEDS ORDERED: Magnesium 2 GM/50 ML BAG (IN WATER) ONE ×2 (05:54→06:42)
[2019-11-16] MEDS ORDERED: Potassium Chloride 20 MEQ TAB ONE (05:54)
[2019-11-16 06:04] LABS: CKMB 1.1 ng/mL (0-6.6)
[2019-11-16] MEDS ORDERED: Magnesium 2 GM/50 ML 2 GM in Premix Bag 1 BAG IVPB SCH (07:00)
[2019-11-16] MEDS ORDERED: Potassium Chloride 20 MEQ TAB PO SCH ×2 (07:00→12:45)
[2019-11-16] MEDS ORDERED: Diltiazem 125 MG in Sodium Chloride 0.9% 100 ML IVPB SCH (07:00)
[2019-11-16] MEDS ORDERED: Sodium Chloride 0.9% 1,000 ML IV SCH (07:00)
--- NOTE | 2019-11-16 08:35 | RAD ---
PORTABLE CHEST 1 VIEW: DATE: 11/16/2019. TIME: 4:11 AM. HISTORY: Chest pain. FINDINGS: Comparison is made with the exam of 11/05/2019. Changes of median sternotomy are again seen. The heart size is stable. The lungs are expanded witho ut focal areas of consolidation, pneumothoraces, or pleural effusions. IMPRESSION: No acute process. POS: [facility]
[2019-11-16] MEDS ORDERED: Acetaminophen 325 MG TAB PO PRN (08:49)
[2019-11-16] MEDS ORDERED: Dextrose 5% in Water 1,000 ML IV PRN (08:49)
[2019-11-16] MEDS ORDERED: Bisacodyl 5 MG TAB PO PRN (08:49)
[2019-11-16] MEDS ORDERED: Dextrose 50% Abboject 50 ML SYRINGE SLOW IVP PRN (08:49)
[2019-11-16] MEDS ORDERED: metFORMIN 500 MG TAB PO SCH (09:45)
[2019-11-16] MEDS: Fish Oil 1,000 MG CAP PO SCH ×2 (10:13→21:15)
[2019-11-16] MEDS: Apixaban 5 MG TAB PO SCH ×2 (10:13→21:14)
[2019-11-16] MEDS: Ezetimibe 10 MG TAB PO SCH (10:13)
[2019-11-16] MEDS: Gabapentin 300 MG CAP PO SCH ×3 (10:14→21:37)
[2019-11-16] MEDS: Furosemide 80 MG TAB PO SCH (10:14)
[2019-11-16] MEDS: Prenatal Vitamin 1 TAB PO SCH (10:14)
[2019-11-16] MEDS: Insulin Glargine 30 UNITS in Pre-Filled Syringe 1 EACH SC SCH ×2 (10:19→21:55)
[2019-11-16] MEDS ORDERED: Metoprolol Tartrate 25 MG TAB ONE (10:31)
[2019-11-16] MEDS ORDERED: Amiodarone 200 MG TAB PO SCH (11:45)
--- NOTE | 2019-11-16 13:07 | HP ---
PRIMARY CARE PROVIDER: Dr. Jeronimo Webster. CHIEF COMPLAINT: Chest pain. HISTORY OF PRESENT ILLNESS: Ms. Hardy is a pleasant 54-year-old lady, who was seen at [facility] on November 16, 2019. She was hospitalized at this facility from November 08 to November 09 of this year for atrial fibrillation with rapid ventricular response. She underwent radiofrequency ablation. She reports that she developed retrosternal chest discomfort at 3:30 a.m. today. She describes a sensation of tightness, 9/10 at its worst, nonradiating, no known aggravating or relieving factors, not accompanied by shortness of breath or palpitations. It lasted 1.5 hours. She denies any lightheadedness. REVIEW OF SYSTEMS: All systems were reviewed and found to be negative except for the pertinent positives mentioned above. PAST MEDICAL HISTORY: Coronary artery disease, diabetes mellitus type 2, gastroesophageal reflux disease, dyslipidemia, hypertension, fibromyalgia, obstructive sleep apnea syndrome, obesity, and atrial fibrillation. PAST SURGICAL HISTORY: Back surgery, cholecystectomy, coronary artery bypass graft surgery, left breast lumpectomy, ablation for atrial fibrillation, and uterine artery ablation. PSYCHIATRIC HISTORY: Depression. SOCIAL HISTORY: The patient denies tobacco use, alcohol use, or recreational drug use. FAMILY HISTORY: Significant for myocardial infarction in her paternal grandfather and open heart surgery in her father. ALLERGIES: PENICILLIN AND CODEINE. CURRENT MEDICATIONS: These need to be clarified, but during her recent hospitalization, she was on: 1. Vitamin D3. 2. Cardizem. 3. Exenatide. 4. Ezetimibe. 5. Ferrous sulfate. 6. Furosemide. 7. Gabapentin. 8. Lantus insulin. 9. Lispro insulin. 10. [place]-3 fatty acids. 11. Omeprazole. 12. Potassium gluconate. 13. Multivitamins. 14. Ranexa. 15. Sertraline. 16. Sitagliptin. 17. Carafate. 18. Apixaban. 19. Lipitor. 20. Metoprolol succinate. PHYSICAL EXAMINATION: GENERAL: On examination, Ms. Hardy is awake and alert, not in acute distress. VITAL SIGNS: Blood pressure is 143/72, pulse 60, respiratory rate 20, and oxygen saturation 97% on room air. She is afebrile. EYES: No scleral icterus, no conjunctival pallor. ENT: Moist mucosal membranes. No oropharyngeal erythema or exudates. NECK: Supple and nontender. Trachea is midline. RESPIRATORY: Accessory muscles of breathing are not active. Chest wall movements are symmetric bilaterally. LUNGS: Clear to auscultation without wheeze, rhonchi, or crepitations. CARDIOVASCULAR: S1 and S2 are heard, regular. Peripheral pulses palpable. ABDOMEN: Soft and nontender. Bowel sounds are heard. NEUROLOGIC: Cranial nerves 2 through 12 are intact. MUSCULOSKELETAL: Power is 5/5 in all 4 extremities. SKIN: No rashes. LYMPHATIC: No cervical lymphadenopathy. PSYCHIATRIC: Normal mood, normal affect. The patient is oriented to person, place, and time. LABORATORY DATA: Ms. Hardy's labs and investigations were reviewed. I reviewed her electrocardiogram from 4:29 a.m., which shows atrial fibrillation with rapid ventricular response and right bundle-branch block. I also reviewed her electrocardiogram from 6:07 a.m., which shows normal sinus rhythm with right bundle-branch block. I reviewed her chest x-ray, which does not show any pulmonary infiltrates. She has an unremarkable CBC, decreased potassium of 3.1, decreased magnesium of 1.5, otherwise unremarkable comprehensive metabolic profile. Troponin I is in the indeterminate range at 0.140. ASSESSMENT AND PLAN: Ms. Hardy is a pleasant 54-year-old lady, who was seen at [facility] on November 16, 2019. Her problem list includes: 1. Atrial fibrillation with rapid ventricular response: Ms. Hardy presented in atrial fibrillation with rapid ventricular response. She has converted to normal sinus rhythm after receiving one dose of intravenous diltiazem. She will be admitted to the hospital for further management. I discussed her case with her loading dock helper. He recommended starting her on amiodarone, which I will do. 2. Chest pain: Most likely secondary to atrial fibrillation with rapid ventricular response, we will consult Cardiology Service for opinion and help with management. 3. Hypomagnesemia: Replace magnesium. 4. Hypokalemia: Replace potassium and recheck. 5. Diabetes mellitus type 2: Resume home medications, start Accu-Cheks and insulin sliding scale. 6. Dyslipidemia: Continue statin. 7. Depression: Mild, stable. 8. Hypertension: Resume home medications, monitor vital signs and titrate antihypertensives as needed. Many thanks for allowing me to participate in your patient's care. Please feel free to contact me with any questions or concerns. LEVEL OF RISK: High. LEVEL OF COMPLEXITY: High. Job ID: [id number]
[2019-11-16] MEDS: Alogliptin 25 MG TAB PO SCH (13:32)
[2019-11-16 15:27] VITALS: BMI 38.7
[2019-11-16] MEDS: Sucralfate 1 GM TAB PO SCH ×3 (16:12→21:15)
--- NOTE | 2019-11-16 16:51 | PDOC.CPN ---
- Subjective Date: 11/16/19 Time: 16:58 Interval history: The pt seen and examined. She started palpitation and chest pressure after she had [address] Pepper at lunch time. She converted back to SR with Diltiazem IV push. She denied any cardiac complaints for now. S/p re-do PVI RFA for Afib on 11/09/2019 - Objective Allergies/Adverse Reactions: Allergies Allergy/AdvReac Type Severity Reaction Status Date / Time penicillin G Allergy Verified 11/06/19 09:20 codeine AdvReac Severe Nausea Verified 11/06/19 09:20 Visit Medications: Current Medications Acetaminophen (Tylenol) 650 mg PO Q4H PRN PRN Reason: Headache/Fever/Mild Pain (1-3) Alogliptin Benzoate (Alogliptin) 25 mg PO DAILY [facility] Last Admin: 11/16/19 13:32 Dose: 25 mg Amiodarone HCl (Cordarone) 400 mg PO BID [facility] Apixaban (Eliquis) 5 mg PO BID [facility] Last Admin: 11/16/19 10:13 Dose: 5 mg Atorvastatin Calcium (Lipitor) 80 mg PO HS [facility] Bisacodyl (Dulcolax) 10 mg PO DAILYPRN PRN PRN Reason: Constipation Cholecalciferol (Vitamin D3) 2,000 units PO DAILY [facility] Last Admin: 11/16/19 10:13 Dose: 2,000 units Dextrose/Water (Dextrose 50%) 25 gm SLOW IVP PRN PRN PRN Reason: Hypoglycemia Diltiazem HCl (Cardizem) 30 mg PO TID [facility] Last Admin: 11/16/19 16:37 Dose: Not Given Ezetimibe (Zetia) 10 mg PO DAILY [facility] Last Admin: 11/16/19 10:13 Dose: 10 mg Ferrous Sulfate (Feosol) 325 mg PO BID-[facility] Fish Oil (Fish Oil) 2,000 mg PO BID [facility] Last Admin: 11/16/19 10:13 Dose: 2,000 mg Furosemide (Lasix) 40 mg PO HS [facility] Furosemide (Lasix) 80 mg PO QAM [facility] Last Admin: 11/16/19 10:14 Dose: 80 mg Gabapentin (Neurontin) 300 mg PO TID [facility] Last Admin: 11/16/19 10:14 Dose: 300 mg Glucagon (Glucagon) 1 mg IM PRN PRN PRN Reason: Hypoglycemia Sodium Chloride (Normal Saline 0.9%) 1,000 mls @ 0 mls/hr IV .Q0M SOLO Diltiazem HCl 125 mg/ Sodium (Chloride) 125 mls @ 5 mls/hr IVPB INF [facility] Dextrose/Water (D5w) 1,000 mls @ 0 mls/hr IV .Q0M PRN PRN Reason: Hypoglycemia Insulin Glargine 30 units/ (Miscellaneous Medication) 0.3 mls @ 0 mls/hr SC BID [facility] Last Admin: 11/16/19 10:19 Dose: 0.3 mls Insulin Human Lispro (Humalog) 0 units SC .MILD SLIDING SCALE PRN PRN Reason: Mild Correctional Scale Metformin HCl (Glucophage) 500 mg PO BID-[facility] Metoprolol Succinate (Toprol Xl) 25 mg PO 1800 [facility] Pantoprazole Sodium (Protonix) 40 mg PO QAM [facility] Last Admin: 11/16/19 13:33 Dose: 40 mg Exenatide Microspheres [ Bydureon Pen] 2 Mg 0 each SC Fr [facility] Potassium Gluconate (99 Mg) 0 each PO BID-[facility] Multivit/Folic Acid/Iron ( Vitamin) 1 tab PO DAILY [facility] Last Admin: 11/16/19 10:14 Dose: 1 tab Ranolazine (Ranexa) 1,000 mg PO BID [facility] Last Admin: 11/16/19 10:15 Dose: 1,000 mg Sertraline HCl (Zoloft) 100 mg PO QAM [facility] Last Admin: 11/16/19 10:15 Dose: 100 mg Sodium Chloride (Flush - Normal Saline) 10 ml IVF Q12HR [facility] Last Admin: 11/16/19 13:36 Dose: 10 ml Sodium Chloride (Flush - Normal Saline) 10 ml IVF PRN PRN PRN Reason: Saline Flush Sucralfate (Carafate) 1 gm PO ACHS [facility] Last Admin: 11/16/19 16:12 Dose: Not Given Vital Signs & Weight: Vital Signs Temp Pulse Resp BP Pulse Ox 11/16/19 15:21 97.9 F 66 18 131/70 97 Weight 233 lb - Physical Exam General: alert & oriented x3 HEENT: mucus membranes moist Neck: supple neck Cardiac: regular rate and rhythm, S1/S2 Lungs: clear to auscultation Neuro: cranial nerve 2-12 intact Extremities: no edema - Labs Result Diagrams: 11/16/19 04:48 11/16/19 04:48 Troponin/CKMB CK-MB (CK-2) 1.1 ng/mL (0-6.6) 11/16/19 04:47 Troponin I 0.140 ng/mL (< 0.028) H 11/16/19 10:33 - Telemetry Sinus rhythms and dysrhythmias: sinus rhythm - Assessment/Plan Assessment/Plan: 1. Afib with RVR (s/p redo PVI RFA on 11/09/2019) - converted back to SR after 1 dose of diltiazem 20mg IV push; Amiodarone 400mg BID from today and hold Diltiazem; On Eliquis; 2. NSTEMI type 2 2/2 afib with RVR and/or s/p redo PVI RFA on 11/09/2019 3. CAD with hx of CABG in 06/2015 with diffuse disease - stable; on bblocker, Lipitor, and Zetia; not on ASA since the pt is on Eliquis 4. HTN - stable 5. DM type 2 - 6. Obesity 7. Sleep Apnea - strongly recommend to wear Cpap 8. Depression MAR reviewed Pt. seen and eval. by me. I agree with the A/P by the PARTNERSHIP DEVELOPMENT MANAGER. Advised to stop drinking drinks with caffeine. Chest clear. RRR. She may eventually need a repeat ablation of the atrial fibrillation.
[2019-11-16] MEDS: Ferrous Sulfate 325 MG TAB PO SCH (17:21)
[2019-11-16] MEDS: metFORMIN 500 MG TAB PO SCH (17:22)
[2019-11-16] MEDS: HumaLOG 300 UNITS/3 ML VIAL SC PRN (17:34)
[2019-11-16] MEDS ORDERED: Atorvastatin Calcium 40 MG TAB PO SCH (21:00)
[2019-11-16] MEDS ORDERED: Furosemide 40 MG TAB PO SCH (21:00)
[2019-11-16] MEDS: Amiodarone 200 MG TAB PO SCH (21:14)
[2019-11-17 04:32] LABS: #Basophils 0.1 thou/uL (0.0-0.2); #Eosinphils 0.1 thou/uL (0.0-0.7); #Lymphocytes 3.2 thou/uL (1.20-3.40); #Monocytes 0.4 thou/uL (0.11-0.59); #Neutrophils 3.3 thou/uL (1.40-6.50); %Basophils 0.7 % (0.0-1.0); %Eosinophils 1.5 % (0.0-10.0); %Lymphocytes 45.9 % (21.0-51.0); %Neutrophils 46.7 % (42.0-75.0); Mean Corpuscular HGB CONC 32.7 g/dL (32.0-36.0); Mean Corpuscular Hemoglobin 31.1 pg (27.0-31.0); Mean Corpuscular Volume 95.1 fL (78.0-98.0); Platelet Count 348 thou/uL (130-400); RBC Distribution Width 13.3 % (11.5-14.5); Red Blood Cell (RBC) Count 4.17 mill/uL (4.20-5.40)
[2019-11-17 04:50] LABS: Anion Gap 12 mmol/L (10-20); BUN (Urea Nitrogen) 15 mg/dL (9.8-20.1); Calc. Creatinine Clearance 115 mL/min (70-130); Calcium 8.8 mg/dL (7.8-10.44); Carbon Dioxide 28 mmol/L (22-29); Chloride 105 mmol/L (98-107); Estimated GFR-MDRD 62; Glucose 166 mg/dL (70-105); Potassium 3.5 mmol/L (3.5-5.1); Sodium 141 mmol/L (136-145)
[2019-11-17] MEDS ORDERED: Potassium Chloride 10 MEQ TAB PO SCH (08:00)
[2019-11-17] MEDS: Alogliptin 25 MG TAB PO SCH (08:09)
[2019-11-17] MEDS: Ezetimibe 10 MG TAB PO SCH (08:09)
[2019-11-17] MEDS: metFORMIN 500 MG TAB PO SCH (08:09)
[2019-11-17] MEDS: Fish Oil 1,000 MG CAP PO SCH (08:10)
[2019-11-17] MEDS: Prenatal Vitamin 1 TAB PO SCH (08:10)
[2019-11-17] MEDS: Amiodarone 200 MG TAB PO SCH (08:10)
[2019-11-17] MEDS: Insulin Glargine 30 UNITS in Pre-Filled Syringe 1 EACH SC SCH (08:11)
[2019-11-17] MEDS: Gabapentin 300 MG CAP PO SCH (08:11)
[2019-11-17] MEDS: Apixaban 5 MG TAB PO SCH (08:11)
[2019-11-17] MEDS: Ferrous Sulfate 325 MG TAB PO SCH (08:11)
[2019-11-17] MEDS: Sucralfate 1 GM TAB PO SCH ×2 (08:11→11:05)
[2019-11-17] MEDS: Furosemide 80 MG TAB PO SCH (08:11)
--- NOTE | 2019-11-17 10:48 | PDOC.EP ---
- Subjective Date: 11/17/19 Time: 10:39 Interval History: follow up note for early recurrence of atrial arrhythmias following PVAI last week Saturday. Feels well. No complaints voiced today. DC later today likely. - Review of Systems Constitutional: denies: chills, fever, malaise, sweats, weakness, other Respiratory: denies: cough, dry, hemoptysis, pleuritic pain, shortness of breath , SOB with excertion, sputum, wheezing, other Cardiology: denies: chest pain, edema, heart racing, light headedness Gastrointestinal: denies: abdominal pain, constipation, diarrhea - Objective Allergies/Adverse Reactions: Allergies Allergy/AdvReac Type Severity Reaction Status Date / Time penicillin G Allergy Verified 11/06/19 09:20 codeine AdvReac Severe Nausea Verified 11/06/19 09:20 Current Medications Acetaminophen (Tylenol) 650 mg PO Q4H PRN PRN Reason: Headache/Fever/Mild Pain (1-3) Alogliptin Benzoate (Alogliptin) 25 mg PO DAILY [facility] Last Admin: 11/17/19 08:09 Dose: 25 mg Amiodarone HCl (Cordarone) 400 mg PO BID [facility] Last Admin: 11/17/19 08:10 Dose: 400 mg Apixaban (Eliquis) 5 mg PO BID [facility] Last Admin: 11/17/19 08:11 Dose: 5 mg Atorvastatin Calcium (Lipitor) 80 mg PO [facility] Last Admin: 11/16/19 21:14 Dose: 80 mg Bisacodyl (Dulcolax) 10 mg PO DAILYPRN PRN PRN Reason: Constipation Cholecalciferol (Vitamin D3) 2,000 units PO DAILY [facility] Last Admin: 11/17/19 08:10 Dose: 2,000 units Dextrose/Water (Dextrose 50%) 25 gm SLOW IVP PRN PRN PRN Reason: Hypoglycemia Ezetimibe (Zetia) 10 mg PO DAILY [facility] Last Admin: 11/17/19 08:09 Dose: 10 mg Ferrous Sulfate (Feosol) 325 mg PO BID[facility] Last Admin: 11/17/19 08:11 Dose: 325 mg Fish Oil (Fish Oil) 2,000 mg PO BID [facility] Last Admin: 11/17/19 08:10 Dose: 2,000 mg Furosemide (Lasix) 40 mg PO HS [facility] Last Admin: 11/16/19 21:15 Dose: 40 mg Furosemide (Lasix) 80 mg PO QAM [facility] Last Admin: 11/17/19 08:11 Dose: 80 mg Gabapentin (Neurontin) 300 mg PO TID [facility] Last Admin: 11/17/19 08:11 Dose: 300 mg Glucagon (Glucagon) 1 mg IM PRN PRN PRN Reason: Hypoglycemia Sodium Chloride (Normal Saline 0.9%) 1,000 mls @ 0 mls/hr IV .Q0M SOLO Diltiazem HCl 125 mg/ Sodium (Chloride) 125 mls @ 5 mls/hr IVPB INF [facility] Dextrose/Water (D5w) 1,000 mls @ 0 mls/hr IV .Q0M PRN PRN Reason: Hypoglycemia Insulin Glargine 30 units/ (Miscellaneous Medication) 0.3 mls @ 0 mls/hr SC BID [facility] Last Admin: 11/17/19 08:11 Dose: Not Given Insulin Human Lispro (Humalog) 0 units SC .MILD SLIDING SCALE PRN PRN Reason: Mild Correctional Scale Last Admin: 11/16/19 17:34 Dose: 3 unit Metformin HCl (Glucophage) 500 mg PO BID-[facility] Last Admin: 11/17/19 08:09 Dose: 500 mg Metoprolol Succinate (Toprol Xl) 25 mg PO 1800 [facility] Last Admin: 11/16/19 17:22 Dose: 25 mg Pantoprazole Sodium (Protonix) 40 mg PO QAM [facility] Last Admin: 11/17/19 08:11 Dose: 40 mg Exenatide Microspheres [ Bydureon Pen] 2 Mg 0 each SC Fr [facility] Potassium Chloride (Klor-Con 10) 5 meq PO BID-[facility] Last Admin: 11/17/19 08:10 Dose: 5 meq Multivit/Folic Acid/Iron ( Vitamin) 1 tab PO DAILY [facility] Last Admin: 11/17/19 08:10 Dose: 1 tab Ranolazine (Ranexa) 1,000 mg PO BID [facility] Last Admin: 11/17/19 08:09 Dose: 1,000 mg Sertraline HCl (Zoloft) 100 mg PO QAM [facility] Last Admin: 11/17/19 08:11 Dose: 100 mg Sodium Chloride (Flush - Normal Saline) 10 ml IVF Q12HR [facility] Last Admin: 11/17/19 08:12 Dose: 10 ml Sodium Chloride (Flush - Normal Saline) 10 ml IVF PRN PRN PRN Reason: Saline Flush Sucralfate (Carafate) 1 gm PO ACHS [facility] Last Admin: 11/17/19 08:11 Dose: 1 gm Vital Signs & Weight: Vital Signs Temp Pulse Resp BP BP Pulse Ox 11/17/19 07:20 98.2 F 64 18 107/55 L 95 11/17/19 04:00 97.8 F 58 L 16 101/55 L 97 11/17/19 00:00 96.7 F L 69 23 H 122/69 98 Weight 233 lb I/O: I/O 11/16/19 11/17/19 11/18/19 06:59 06:59 06:59 Intake Total 480 Balance 480 - Quality Measures Condition: Atrial Fibrillation/Flutter (hx or current) CV meds: Eliquis: Yes - Physical Exam General: alert & oriented x3, appears well, no apparent distress, speech clear, affect appropriate HEENT: mucus membranes moist, normocephaly Neck: supple neck, midline trachea, no JVD/HJR, no masses, no bruit, no lymphadenopathy, no thromegaly Cardiology: regular rate and rhythm, no murmur, regular rate, regular rhythm, PMI nondisplaced Lungs: clear to auscultation, normal breath sounds, normal exam, no wheeze, rales, rhonchi, no wheezes, no rales, no rhonchi Neurology: cranial nerve 2-12 intact, grossly intact, coordination normal Abdomen: unremarkable, active bowel sounds, HJR negative Skin: groin sites stable - Labs Result Diagrams: 11/17/19 04:18 11/17/19 04:18 - EKG Interpretation EKG Method: Telemetry EKG shows: Sinus rhythm - Assessment/Plan Assessment/Plan: 1. Persistent atrial fibrillation with RVR - EKG on admission showed variable atrial flutter, atypical. Ventricular rate of 125bpm. Converted with IV push diltiazem. - started on amiodarone loading taper 2. OAC -eliquis 5mg BID 3. Chest pain -demand ischemia with RVR, known issue with this patient. evaluated by cardiology OK for DC by EP. Continue eliquis, amiodarone taper and low dose diltiazem. Patient will monitor for bradycadia and hold dilt if HR <60. Office visit already arranged. Amiodarone 400mg PO BID x 7 days then 200mg BID x 7 days then 200mg daily thereafter
[2019-11-17 11:00] VITALS: BP 106/52; TEMP 98.1
[2019-11-17] MEDS: HumaLOG 300 UNITS/3 ML VIAL SC PRN (11:05)
--- NOTE | 2019-11-17 14:53 | PDOC.CPN ---
- Subjective Date: 11/17/19 Time: 08:00 Interval history: The pt seen and examined. No overnight events. No cardiac complaints. - Objective Allergies/Adverse Reactions: Allergies Allergy/AdvReac Type Severity Reaction Status Date / Time penicillin G Allergy Verified 11/06/19 09:20 codeine AdvReac Severe Nausea Verified 11/06/19 09:20 Vital Signs & Weight: Vital Signs Temp Pulse Resp BP BP Pulse Ox 11/17/19 10:58 98.1 F 66 18 106/52 L 98 11/17/19 07:20 98.2 F 64 18 107/55 L 95 11/17/19 04:00 97.8 F 58 L 16 101/55 L 97 Weight 233 lb - Physical Exam General: alert & oriented x3 HEENT: mucus membranes moist Neck: supple neck Cardiac: regular rate and rhythm, S1/S2 Lungs: clear to auscultation Neuro: cranial nerve 2-12 intact - Labs Result Diagrams: 11/17/19 04:18 11/17/19 04:18 Troponin/CKMB CK-MB (CK-2) 1.1 ng/mL (0-6.6) 11/16/19 04:47 Troponin I 0.140 ng/mL (< 0.028) H 11/16/19 10:33 - Telemetry Sinus rhythms and dysrhythmias: sinus rhythm - Assessment/Plan Assessment/Plan: 1. Afib with RVR (s/p redo PVI RFA on 11/09/2019) - converted back to SR after 1 dose of diltiazem 20mg IV push; On Amiodarone 400mg BID since 11/16/2019; holding Diltiazem; On Eliquis; The pt will wear heart monitor which already arranged by Dr Voss's office 2. NSTEMI type 2 2/2 afib with RVR and/or s/p redo PVI RFA on 11/09/2019 3. CAD with hx of CABG in 06/2015 with diffuse disease - stable; on bblocker, Lipitor, and Zetia; not on ASA since the pt is on Eliquis 4. HTN - stable 5. DM type 2 - 6. Obesity 7. Sleep Apnea - strongly recommend to wear Cpap 8. Depression MAR reviewed * Amiodarone 400mg PO BID x 7 days, 200mg BID x 7 days, then 200mg daily thereafter
--- NOTE | 2019-11-18 04:28 | DIS ---
DATE OF ADMISSION: 11/16/2019 DATE OF DISCHARGE: 11/17/2019 PRIMARY CARE PROVIDER: Jeronimo Webster MD DISCHARGE DIAGNOSES: 1. Atrial fibrillation with rapid ventricular response. 2. [id number] myocardial infarction type 2, secondary to atrial fibrillation with rapid ventricular response. CONDITION OF PATIENT ON THE DAY OF DISCHARGE: Stable. I assessed Ms. Hardy on the day of discharge. She denies any chest pain or shortness of breath. Vital signs are stable. S1 and S2 are heard, regular. Lungs are clear to auscultation bilaterally. DISCHARGE MEDICATIONS: Her diltiazem has been changed to diltiazem extended release 120 mg daily. She has been started on amiodarone taper. Amiodarone will be 400 mg 2 times a day for 1 week, followed by 200 mg 2 times a day for 1 week, followed by 200 mg daily. Otherwise, no change was made to her pre-admission home medications. CONSULTATIONS DURING THIS HOSPITALIZATION: 1. Cardiology, Dr. Dodd. 2. Electrophysiology, Dr. Voss. HOSPITAL COURSE: Ms. Hardy is a pleasant 54-year-old lady, who was admitted to [facility] on November 16, 2019, for atrial fibrillation with rapid ventricular response and vas-PB-dhdcoemzj myocardial infarction type 2. She was seen by Cardiology and Electrophysiology Services. She converted to sinus rhythm after administration of intravenous diltiazem. She has been started on amiodarone. She was monitored overnight on telemetry. She is being discharged home in a stable condition. POST ACUTE CARE FOLLOWUP: With primary care provider in [address] Voss as an outpatient in 5 weeks. ACTIVITY: No restrictions. DIET: Heart healthy, low-sodium, and diabetic diet. DISCHARGE DESTINATION: Home. Many thanks for allowing me to participate in your patient's care. Please feel free to contact me with any questions or concerns. Job ID: [id number]
[2019-11-20] MEDS ORDERED: Exenatide Microspheres [Bydureon Pen] 2 MG SC SCH (09:00)
--- NOTE | 2019-11-21 14:12 | EKG ---
Test Reason : Blood Pressure : / mmHG Vent. Rate : 068 BPM Atrial Rate : 068 BPM P-R Int : 170 ms QRS Dur : 156 ms QT Int : 528 ms P-R-T Axes : 043 -11 030 degrees QTc Int : 561 ms Normal sinus rhythm Right bundle branch block Abnormal ECG Confirmed by FREDRICK RUBIO DO ([id number]), non linear editor EVETTE ORTIZ ([id number]) on 11/21/2019 2:12:22 PM Referred By: Confirmed By:FREDRICK RUBIO DO
== END 2019-11-17 12:17 | disposition home or self-care (01) ==
LOC: ERS 04:21 → ERHOLD 06:54 → 2NO 15:17
PROVIDERS: ADMIT Internal Medicine; ATTEND Internal Medicine
DX: I48.91 Unspecified atrial fibrillation (principal); I21.A1 Myocardial infarction type 2; I25.10 Atherosclerotic heart disease of native coronary artery without angina pectoris; E11.9 Type 2 diabetes mellitus without complications; K21.9 Gastro-esophageal reflux disease without esophagitis; E78.5 Hyperlipidemia, unspecified; I10 Essential (primary) hypertension; M79.7 Fibromyalgia; G47.33 Obstructive sleep apnea (adult) (pediatric); E66.9 Obesity, unspecified; F32.9 Major depressive disorder, single episode, unspecified; E83.42 Hypomagnesemia; E87.6 Hypokalemia; Z90.49 Acquired absence of other specified parts of digestive tract; Z85.3 Personal history of malignant neoplasm of breast; Z98.890 Other specified postprocedural states; Z95.1 Presence of aortocoronary bypass graft; Z88.0 Allergy status to penicillin; Z88.5 Allergy status to narcotic agent; Z79.899 Other long term (current) drug therapy; Z79.4 Long term (current) use of insulin
CPT/HCPCS: 71045; 80048; 80053; 82553; 82962 ×2; 83735; 84484 ×2; 85025 ×2; 93005; 96365; 96366; 96368; 99285; G0378 ×3; 36415; 36416; J1815; J3475; J3490

== ENCOUNTER 2019-11-22 02:11 | Emergency (ER) | payer MEDICARE ==
[2019-11-22 03:07] LABS: #Basophils 0.1 thou/uL (0.0-0.2); #Eosinphils 0.1 thou/uL (0.0-0.7); #Lymphocytes 3.4 thou/uL (1.20-3.40); #Monocytes 0.6 thou/uL (0.11-0.59); #Neutrophils 4.9 thou/uL (1.40-6.50); %Basophils 0.8 % (0.0-1.0); %Eosinophils 0.9 % (0.0-10.0); %Lymphocytes 37.9 % (21.0-51.0); %Monocytes 6.6 % (0.0-10.0); %Neutrophils 53.8 % (42.0-75.0); Hemoglobin 13.7 g/dL (12.0-16.0); Mean Corpuscular HGB CONC 34.2 g/dL (32.0-36.0); Mean Corpuscular Hemoglobin 31.9 pg (27.0-31.0); Mean Corpuscular Volume 93.2 fL (78.0-98.0); Mean Platelet Volume 7.1 fL (7.4-10.4); Platelet Count 387 thou/uL (130-400); Red Blood Cell (RBC) Count 4.29 mill/uL (4.20-5.40)
[2019-11-22 03:34] LABS: ALT (SGPT) 24 U/L (8-55); AST (SGOT) 14 U/L (5-34); Alkaline Phosphatase 92 U/L (40-110); Anion Gap 15 mmol/L (10-20); BUN (Urea Nitrogen) 23 mg/dL (9.8-20.1); Bilirubin, Total 0.2 mg/dL (0.2-1.2); Calc. Creatinine Clearance 0 mL/min (70-130); Calcium 9.4 mg/dL (7.8-10.44); Carbon Dioxide 24 mmol/L (22-29); Chloride 103 mmol/L (98-107); Estimated GFR-MDRD 40; Globulin 3.3 g/dL (2.4-3.5); Glucose 251 mg/dL (70-105); Potassium 3.2 mmol/L (3.5-5.1); Protein, Total 7.3 g/dL (6.0-8.3); Sodium 139 mmol/L (136-145)
[2019-11-22 03:50] LABS: CKMB 0.9 ng/mL (0-6.6)
--- NOTE | 2019-11-22 09:14 | RAD ---
Chest one view HISTORY: Chest pain. COMPARISON: 11/26/2019. FINDINGS: Cardiac silhouette is magnified and upper limits of normal. Pulmonary vasculature is unrema rkable. Mediastinum is midline with postoperative changes. No lobar consolidation or evidence of pneumothorax. teacher dramatics leads overlie the chest. IMPRESSION: Chronic-type findings are stable. No active cardiopulmonary abnormalities are demonstrate d.
== END 2019-11-22 05:34 | disposition home or self-care (01) ==
LOC: ERS 02:11
DX: I48.20 Chronic atrial fibrillation, unspecified (principal); I25.10 Atherosclerotic heart disease of native coronary artery without angina pectoris; E11.9 Type 2 diabetes mellitus without complications; K21.9 Gastro-esophageal reflux disease without esophagitis; E78.00 Pure hypercholesterolemia, unspecified; I10 Essential (primary) hypertension; M79.7 Fibromyalgia; G47.30 Sleep apnea, unspecified; E66.9 Obesity, unspecified; F32.9 Major depressive disorder, single episode, unspecified; Z79.01 Long term (current) use of anticoagulants; Z79.4 Long term (current) use of insulin; Z79.899 Other long term (current) drug therapy
CPT/HCPCS: 71045; 80053; 82553; 83735; 84443; 84484; 85025; 93005; 96360; 96361

== ENCOUNTER 2020-05-17 22:40 | Emergency (ER) | payer MEDICARE ==
--- NOTE | 2020-05-17 23:11 | RAD ---
RADIOGRAPH LEFT FOOT 3VIEWS: DATE: 05/17/2020 HISTORY: 54-year-old female status post acute traumatic injury to left foot FINDINGS: There is no dislocation. No fracture is identified. IMPRESSION: No fracture.
== END 2020-05-17 23:58 | disposition home or self-care (01) ==
LOC: ERS 22:40
DX: S91.112A Laceration without foreign body of left great toe without damage to nail, initial encounter (principal); I25.10 Atherosclerotic heart disease of native coronary artery without angina pectoris; E11.9 Type 2 diabetes mellitus without complications; K21.9 Gastro-esophageal reflux disease without esophagitis; E78.00 Pure hypercholesterolemia, unspecified; I10 Essential (primary) hypertension; G47.30 Sleep apnea, unspecified; E66.9 Obesity, unspecified; I48.91 Unspecified atrial fibrillation; F32.9 Major depressive disorder, single episode, unspecified; M79.7 Fibromyalgia; Z79.899 Other long term (current) drug therapy; Z79.01 Long term (current) use of anticoagulants; Z79.4 Long term (current) use of insulin; W22.8XXA Striking against or struck by other objects, initial encounter; Y92.009 Unspecified place in unspecified non-institutional (private) residence as the place of occurrence of the external cause

== ENCOUNTER 2020-12-20 09:05 | Emergency (ER) | payer MEDICARE ==
[~2020-12-20 09:05] MED LIST: Iopamidol-370 76% 500 ML 1 ML ONE
[2020-12-20 10:19] LABS: #Basophils 0.1 thou/uL (0.0-0.2); #Eosinphils 0.1 thou/uL (0.0-0.7); #Lymphocytes 1.6 thou/uL (1.20-3.40); #Monocytes 0.4 thou/uL (0.11-0.59); #Neutrophils 5.6 thou/uL (1.40-6.50); %Basophils 0.8 % (0.0-1.0); %Eosinophils 0.7 % (0.0-10.0); %Lymphocytes 20.9 % (21.0-51.0); %Monocytes 5.5 % (0.0-10.0); %Neutrophils 72.1 % (42.0-75.0); Hemoglobin 13.9 g/dL (12.0-16.0); Mean Corpuscular Hemoglobin 30.7 pg (27.0-31.0); Mean Corpuscular Volume 96.1 fL (78.0-98.0); Mean Platelet Volume 6.5 fL (7.4-10.4); Platelet Count 348 thou/uL (130-400); RBC Distribution Width 13.7 % (11.5-14.5); Red Blood Cell (RBC) Count 4.52 mill/uL (4.20-5.40); White Blood Cell (WBC) Count 7.8 thou/uL (4.8-10.8)
[2020-12-20 10:41] LABS: ALT (SGPT) 17 U/L (8-55); AST (SGOT) 12 U/L (5-34); Albumin 3.9 g/dL (3.5-5.0); Alkaline Phosphatase 126 U/L (40-110); Anion Gap 14 mmol/L (10-20); BUN (Urea Nitrogen) 20 mg/dL (9.8-20.1); Bilirubin, Total 0.3 mg/dL (0.2-1.2); Calc. Creatinine Clearance 0 mL/min (70-130); Calcium 9.1 mg/dL (7.8-10.44); Carbon Dioxide 22 mmol/L (22-29); Chloride 104 mmol/L (98-107); Globulin 3.5 g/dL (2.4-3.5); Glucose 345 mg/dL (70-105); Lipase 19 U/L (8-78); Potassium 4.4 mmol/L (3.5-5.1); Protein, Total 7.4 g/dL (6.0-8.3); Sodium 136 mmol/L (136-145)
[2020-12-20 13:29] LABS: Troponin I Less than 0.010 ng/mL (< 0.028)
== END 2020-12-20 13:58 | disposition home or self-care (01) ==
LOC: ERS 09:05
DX: R07.2 Precordial pain (principal); R60.0 Localized edema; M54.6 Pain in thoracic spine; S81.801A Unspecified open wound, right lower leg, initial encounter; I25.10 Atherosclerotic heart disease of native coronary artery without angina pectoris; E11.9 Type 2 diabetes mellitus without complications; K21.9 Gastro-esophageal reflux disease without esophagitis; E78.00 Pure hypercholesterolemia, unspecified; I10 Essential (primary) hypertension; M79.7 Fibromyalgia; G47.30 Sleep apnea, unspecified; E66.9 Obesity, unspecified; I48.91 Unspecified atrial fibrillation; Z79.899 Other long term (current) drug therapy; Z79.01 Long term (current) use of anticoagulants
CPT/HCPCS: 36415; 71045; 71275; 74174; 80053; 83690; 83880; 84484; 85025; 93005; Q9967

== ENCOUNTER 2021-02-25 16:01 | Inpatient (IN) | payer MEDICARE ==
[2021-02-25 17:24] LABS: #Lymphocytes 1.6 thou/uL (1.20-3.40); #Monocytes 0.5 thou/uL (0.11-0.59); #Neutrophils 6.1 thou/uL (1.40-6.50); %Basophils 0.5 % (0.0-1.0); %Eosinophils 0.1 % (0.0-10.0); %Lymphocytes 18.9 % (21.0-51.0); %Monocytes 5.6 % (0.0-10.0); %Neutrophils 74.9 % (42.0-75.0); Hemoglobin 13.3 g/dL (12.0-16.0); Mean Corpuscular HGB CONC 33.5 g/dL (32.0-36.0); Mean Corpuscular Hemoglobin 32.3 pg (27.0-31.0); Mean Corpuscular Volume 96.5 fL (78.0-98.0); Mean Platelet Volume 6.5 fL (7.4-10.4); Platelet Count 278 thou/uL (130-400); RBC Distribution Width 12.6 % (11.5-14.5); Red Blood Cell (RBC) Count 4.12 mill/uL (4.20-5.40); White Blood Cell (WBC) Count 8.2 thou/uL (4.8-10.8)
[2021-02-25] MEDS ORDERED: Cefepime 2 GM VIAL ONE (17:36)
[2021-02-25] MEDS ORDERED: Vancomycin 1 GM/200 ML BAG ONE (17:36)
[2021-02-25 17:45] LABS: ALT (SGPT) 18 U/L (8-55); AST (SGOT) 14 U/L (5-34); Albumin 3.6 g/dL (3.5-5.0); Alkaline Phosphatase 100 U/L (40-110); Anion Gap 13 mmol/L (10-20); BUN (Urea Nitrogen) 13 mg/dL (9.8-20.1); Bilirubin, Total 0.4 mg/dL (0.2-1.2); Calc. Creatinine Clearance 0 mL/min (70-130); Calcium 9.1 mg/dL (7.8-10.44); Carbon Dioxide 27 mmol/L (22-29); Chloride 101 mmol/L (98-107); Globulin 3.9 g/dL (2.4-3.5); Glucose 290 mg/dL (70-105); Phosphorus 2.5 mg/dL (2.3-4.7); Potassium 3.6 mmol/L (3.5-5.1); Protein, Total 7.5 g/dL (6.0-8.3); Sodium 137 mmol/L (136-145)
[2021-02-25 18:12] LABS: Bacteria/HPF 2+ HPF (None Seen); Bilirubin Negative (Negative); Blood, Urine Negative (Negative); Clarity Turbid (Clear); Glucose, Urine (Dipstick) Greater than 1000 mg/dL (Negative); Ketone, Urine 20 mg/dL (Negative); Leukocyte 75 Leu/uL (Negative); Nitrite Negative (Negative); Protein, Urine (Dipstick) 30 mg/dL (Neg-Trace); RBC/HPF 0-3 HPF (0-3); Specific Gravity, Urine 1.031 (1.002-1.036); Urobilinogen Normal mg/dL (Less than 2)
[2021-02-25] MEDS ORDERED: Labetalol HCl 100 MG/20 ML VIAL SLOW IVP PRN (20:06)
[2021-02-25] MEDS ORDERED: Ondansetron PF 4 MG/2 ML Vial IVP PRN (20:06)
[2021-02-25] MEDS ORDERED: Promethazine HCl 12.5 MG in Sodium Chloride 0.9% 50 ML IVPB PRN (20:06)
[2021-02-25] MEDS ORDERED: Morphine 2 MG/ML VIAL SLOW IVP PRN (20:06)
[2021-02-25] MEDS ORDERED: Melatonin 3 MG TAB PO PRN (20:06)
[2021-02-25] MEDS ORDERED: Guaifenesin DM 100-10/5 ML UDCUP PO PRN (20:06)
[2021-02-25] MEDS ORDERED: hydrALAZINE 20 MG/ML VIAL SLOW IVP PRN (20:06)
[2021-02-25] MEDS ORDERED: HYDROcodone/Acetaminophen 5/325 mg Tablet PO PRN (20:06)
[2021-02-25] MEDS ORDERED: cloNIDine 0.1 MG TAB PO PRN (20:06)
[2021-02-25] MEDS ORDERED: Electrolyte Replacement Protocol 1 EACH FS SCH (20:15)
[2021-02-25] MEDS ORDERED: Famotidine 20 MG TAB PO SCH (21:00)
[2021-02-25] MEDS ORDERED: HumaLOG 300 UNITS/3 ML VIAL SC PRN (22:52)
[2021-02-26 03:27] VITALS: BMI 41.3
[2021-02-26] MEDS: Acetaminophen 325 MG TAB PO PRN ×3 (03:34→22:36)
[2021-02-26] MEDS ORDERED: Magnesium 2 GM/50 ML 2 GM in Premix Bag 1 BAG IVPB SCH (06:30)
[2021-02-26] MEDS: Nitroglycerin 0.4 MG TAB (25 Tab Bottle) SL PRN ×2 (08:42→09:13)
[2021-02-26] MEDS ORDERED: Polyethylene Glycol 3350 17 GM Packet PO SCH (09:00)
[2021-02-26] MEDS ORDERED: Metoprolol Tartrate 50 MG TAB PO SCH (09:35)
[2021-02-26] MEDS ORDERED: HumaLOG 300 UNITS/3 ML VIAL SC PRN (09:39)
[2021-02-26 09:46] LABS: Troponin I 0.059 ng/mL (< 0.028)
[2021-02-26] MEDS ORDERED: Sodium Chloride 0.9% 500 ML IV SCH (10:00)
[2021-02-26] MEDS: Apixaban 5 MG TAB PO SCH ×2 (10:01→20:31)
[2021-02-26] MEDS ORDERED: Aspirin 81 mg Enteric Coated Tablet PO SCH (10:15)
[2021-02-26] MEDS: Nitroglycerin 2% Ointment 1 INCH/1 GM Packet TOP SCH ×2 (10:26→16:49)
[2021-02-26] MEDS ORDERED: Morphine 2 MG/ML VIAL SLOW IVP SCH (11:15)
[2021-02-26] MEDS ORDERED: Lantus 1000 UNITS/10 ML VIAL SC SCH ×3 (12:00→21:00)
[2021-02-26 12:34] LABS: #Basophils 0.1 thou/uL (0.0-0.2); #Lymphocytes 1.1 thou/uL (1.20-3.40); #Monocytes 0.5 thou/uL (0.11-0.59); #Neutrophils 6.8 thou/uL (1.40-6.50); %Basophils 0.7 % (0.0-1.0); %Eosinophils 0.3 % (0.0-10.0); %Lymphocytes 13.2 % (21.0-51.0); %Monocytes 5.5 % (0.0-10.0); %Neutrophils 80.3 % (42.0-75.0); Hemoglobin 13.7 g/dL (12.0-16.0); Mean Corpuscular Hemoglobin 32.5 pg (27.0-31.0); Mean Corpuscular Volume 95.5 fL (78.0-98.0); Mean Platelet Volume 6.5 fL (7.4-10.4); Platelet Count 241 thou/uL (130-400); RBC Distribution Width 12.7 % (11.5-14.5); Red Blood Cell (RBC) Count 4.23 mill/uL (4.20-5.40); White Blood Cell (WBC) Count 8.5 thou/uL (4.8-10.8)
[2021-02-26 12:53] LABS: ALT (SGPT) 20 U/L (8-55); AST (SGOT) 20 U/L (5-34); Albumin 3.7 g/dL (3.5-5.0); Alkaline Phosphatase 102 U/L (40-110); Anion Gap 21 mmol/L (10-20); BUN (Urea Nitrogen) 10 mg/dL (9.8-20.1); Bilirubin, Total 0.4 mg/dL (0.2-1.2); Calc. Creatinine Clearance 136 mL/min (70-130); Calcium 8.4 mg/dL (7.8-10.44); Carbon Dioxide 16 mmol/L (22-29); Chloride 105 mmol/L (98-107); Globulin 3.5 g/dL (2.4-3.5); Glucose 303 mg/dL (70-105); Protein, Total 7.2 g/dL (6.0-8.3); Sodium 138 mmol/L (136-145)
[2021-02-26 12:57] LABS: Troponin I 0.051 ng/mL (< 0.028)
[2021-02-26] MEDS ORDERED: Fentanyl 100 MCG/2 ML VIAL SLOW IVP PRN (14:05)
[2021-02-26] MEDS ORDERED: Diltiazem HCl 125 MG, Admixture Fee 1 EACH in Sodium Chloride 0.9% 100 ML IVPB SCH (14:45)
[2021-02-26] MEDS: CEFAZOLIN 2 GM in Premix Bag 1 BAG IVPB SCH ×2 (15:07→20:35)
[2021-02-26] MEDS: Gabapentin 300 MG CAP PO SCH ×2 (15:08→20:29)
[2021-02-26] MEDS ORDERED: Sodium Bicarbonate Tab 325 MG TAB PO SCH (16:00)
[2021-02-26] MEDS ORDERED: Sodium Bicarbonate 100 MEQ in Sodium Chloride 0.45% 1,000 ML IV SCH (16:15)
[2021-02-26] MEDS: Vancomycin HCl 25 MG/ML Oral PO SCH ×2 (16:49→22:37)
[2021-02-26] MEDS: HumaLOG 300 UNITS/3 ML VIAL SC PRN (17:00)
[2021-02-26] MEDS ORDERED: Vancomycin HCl 1.75 GM in Sodium Chloride 0.9% 500 ML IVPB SCH (18:00)
[2021-02-26 18:34] LABS: Anion Gap 16 mmol/L (10-20); BUN (Urea Nitrogen) 9 mg/dL (9.8-20.1); Calc. Creatinine Clearance 133 mL/min (70-130); Calcium 8.8 mg/dL (7.8-10.44); Carbon Dioxide 21 mmol/L (22-29); Chloride 106 mmol/L (98-107); Glucose 218 mg/dL (70-105); Potassium 3.6 mmol/L (3.5-5.1); Sodium 139 mmol/L (136-145)
[2021-02-26 19:42] LABS: SARS-CoV-2 PCR by NAA Not Detected (NotDetected)
[2021-02-26] MEDS: Famotidine 20 MG TAB PO SCH (20:29)
[2021-02-26] MEDS: Saccharomyces boulardii 250 MG CAP PO SCH (20:29)
[2021-02-26] MEDS: Sodium Bicarbonate Tab 325 MG TAB PO SCH (20:29)
[2021-02-26] MEDS: Metoprolol Tartrate 25 MG TAB PO SCH (20:31)
[2021-02-26] MEDS ORDERED: Saccharomyces boulardii 250 MG CAP PO SCH (21:00)
[2021-02-26] MEDS ORDERED: cefTRIAXone\\ROCEPHIN 1 GM in Sodium Chloride 0.9% 100 ML IVPB SCH (23:59)
[2021-02-27] MEDS: Vancomycin HCl 25 MG/ML Oral PO SCH ×4 (05:07→23:54)
[2021-02-27] MEDS: CEFAZOLIN 2 GM in Premix Bag 1 BAG IVPB SCH ×3 (05:07→21:57)
[2021-02-27 05:13] LABS: #Eosinphils 0.1 thou/uL (0.0-0.7); #Lymphocytes 2.4 thou/uL (1.20-3.40); #Monocytes 0.5 thou/uL (0.11-0.59); #Neutrophils 3.6 thou/uL (1.40-6.50); %Basophils 0.7 % (0.0-1.0); %Eosinophils 0.9 % (0.0-10.0); %Lymphocytes 37.1 % (21.0-51.0); %Monocytes 7.5 % (0.0-10.0); %Neutrophils 53.9 % (42.0-75.0); Hemoglobin 13.5 g/dL (12.0-16.0); Mean Corpuscular HGB CONC 34.2 g/dL (32.0-36.0); Mean Corpuscular Hemoglobin 32.5 pg (27.0-31.0); Mean Corpuscular Volume 95.2 fL (78.0-98.0); Mean Platelet Volume 6.7 fL (7.4-10.4); Platelet Count 283 thou/uL (130-400); RBC Distribution Width 12.7 % (11.5-14.5); Red Blood Cell (RBC) Count 4.16 mill/uL (4.20-5.40); White Blood Cell (WBC) Count 6.6 thou/uL (4.8-10.8)
[2021-02-27 05:35] LABS: Phosphorus 2.8 mg/dL (2.3-4.7)
[2021-02-27 05:52] LABS: Anion Gap 16 mmol/L (10-20); BUN (Urea Nitrogen) 8 mg/dL (9.8-20.1); Calc. Creatinine Clearance 138 mL/min (70-130); Calcium 8.8 mg/dL (7.8-10.44); Carbon Dioxide 22 mmol/L (22-29); Chloride 103 mmol/L (98-107); Glucose 215 mg/dL (70-105); Magnesium 2.1 mg/dL (1.6-2.6); Potassium 3.6 mmol/L (3.5-5.1); Sodium 137 mmol/L (136-145)
[2021-02-27] MEDS: Apixaban 5 MG TAB PO SCH ×2 (08:22→21:52)
[2021-02-27] MEDS: Sodium Bicarbonate Tab 325 MG TAB PO SCH ×3 (08:22→21:56)
[2021-02-27] MEDS: Aspirin 81 mg Enteric Coated Tablet PO SCH (08:23)
[2021-02-27] MEDS: Saccharomyces boulardii 250 MG CAP PO SCH ×2 (08:23→21:56)
[2021-02-27] MEDS: Famotidine 20 MG TAB PO SCH ×2 (08:23→21:52)
[2021-02-27] MEDS: Gabapentin 300 MG CAP PO SCH ×3 (08:23→21:52)
[2021-02-27] MEDS: Metoprolol Tartrate 25 MG TAB PO SCH ×2 (08:23→22:07)
[2021-02-27] MEDS: HumaLOG 300 UNITS/3 ML VIAL SC PRN (11:17)
[2021-02-27 17:11] LABS: Anion Gap 14 mmol/L (10-20); BUN (Urea Nitrogen) 10 mg/dL (9.8-20.1); Calc. Creatinine Clearance 120 mL/min (70-130); Carbon Dioxide 26 mmol/L (22-29); Chloride 103 mmol/L (98-107); Glucose 200 mg/dL (70-105); Potassium 3.5 mmol/L (3.5-5.1); Sodium 139 mmol/L (136-145)
[2021-02-28] MEDS: Vancomycin HCl 25 MG/ML Oral PO SCH ×4 (05:34→23:54)
[2021-02-28] MEDS: CEFAZOLIN 2 GM in Premix Bag 1 BAG IVPB SCH ×3 (05:34→21:36)
[2021-02-28 08:36] LABS: #Eosinphils 0.1 thou/uL (0.0-0.7); #Lymphocytes 1.8 thou/uL (1.20-3.40); #Monocytes 0.5 thou/uL (0.11-0.59); #Neutrophils 5.7 thou/uL (1.40-6.50); %Basophils 0.5 % (0.0-1.0); %Eosinophils 0.9 % (0.0-10.0); %Lymphocytes 21.7 % (21.0-51.0); %Monocytes 6.6 % (0.0-10.0); %Neutrophils 70.3 % (42.0-75.0); Hemoglobin 12.6 g/dL (12.0-16.0); Mean Corpuscular HGB CONC 32.9 g/dL (32.0-36.0); Mean Corpuscular Hemoglobin 31.5 pg (27.0-31.0); Mean Corpuscular Volume 95.9 fL (78.0-98.0); Mean Platelet Volume 6.2 fL (7.4-10.4); Platelet Count 312 thou/uL (130-400); RBC Distribution Width 12.5 % (11.5-14.5); Red Blood Cell (RBC) Count 4.01 mill/uL (4.20-5.40); White Blood Cell (WBC) Count 8.2 thou/uL (4.8-10.8)
[2021-02-28 08:58] LABS: Anion Gap 14 mmol/L (10-20); BUN (Urea Nitrogen) 9 mg/dL (9.8-20.1); Calc. Creatinine Clearance 124 mL/min (70-130); Calcium 8.8 mg/dL (7.8-10.44); Carbon Dioxide 23 mmol/L (22-29); Chloride 102 mmol/L (98-107); Glucose 185 mg/dL (70-105); Potassium 3.3 mmol/L (3.5-5.1); Sodium 136 mmol/L (136-145)
[2021-02-28] MEDS: Metoprolol Tartrate 25 MG TAB PO SCH ×2 (09:30→21:35)
[2021-02-28] MEDS: Aspirin 81 mg Enteric Coated Tablet PO SCH (09:30)
[2021-02-28] MEDS: Apixaban 5 MG TAB PO SCH ×2 (09:30→21:34)
[2021-02-28] MEDS: Saccharomyces boulardii 250 MG CAP PO SCH ×2 (09:31→21:34)
[2021-02-28] MEDS: Gabapentin 300 MG CAP PO SCH ×3 (09:31→21:34)
[2021-02-28] MEDS: Famotidine 20 MG TAB PO SCH ×2 (09:31→21:34)
[2021-02-28] MEDS ORDERED: Potassium Chloride 20 MEQ TAB PO SCH (09:45)
[2021-02-28] MEDS: HumaLOG 300 UNITS/3 ML VIAL SC PRN ×2 (11:59→17:20)
[2021-03-01] MEDS: CEFAZOLIN 2 GM in Premix Bag 1 BAG IVPB SCH ×2 (05:55→14:59)
[2021-03-01] MEDS: HumaLOG 300 UNITS/3 ML VIAL SC PRN ×2 (06:08→11:26)
[2021-03-01 07:59] VITALS: TEMP 98.3
[2021-03-01] MEDS: Vancomycin HCl 25 MG/ML Oral PO SCH ×2 (08:00→11:25)
[2021-03-01] MEDS: Gabapentin 300 MG CAP PO SCH ×2 (08:46→14:58)
[2021-03-01] MEDS: Aspirin 81 mg Enteric Coated Tablet PO SCH (08:47)
[2021-03-01] MEDS: Apixaban 5 MG TAB PO SCH (08:47)
[2021-03-01] MEDS: Metoprolol Tartrate 25 MG TAB PO SCH (08:47)
[2021-03-01] MEDS: Famotidine 20 MG TAB PO SCH (08:47)
[2021-03-01] MEDS: Saccharomyces boulardii 250 MG CAP PO SCH (08:47)
[2021-03-01 11:45] VITALS: BP 144/62
== END 2021-03-01 15:32 | disposition home or self-care (01) | DRG 602 ==
LOC: ERS 16:01 → SURG B 18:37 → 2NO 02-26 11:50
PROVIDERS: ADMIT Internal Medicine; ATTEND Hospitalist
DX: L03.116 Cellulitis of left lower limb (principal); G93.41 Metabolic encephalopathy; E87.2 Acidosis; I48.4 Atypical atrial flutter; A04.72 Enterocolitis due to Clostridium difficile, not specified as recurrent; N39.0 Urinary tract infection, site not specified; A04.5 Campylobacter enteritis; Z68.41 Body mass index [BMI] 40.0-44.9, adult; Z20.822 Contact with and (suspected) exposure to COVID-19; E11.40 Type 2 diabetes mellitus with diabetic neuropathy, unspecified; E11.65 Type 2 diabetes mellitus with hyperglycemia; I25.10 Atherosclerotic heart disease of native coronary artery without angina pectoris; I10 Essential (primary) hypertension; E78.5 Hyperlipidemia, unspecified; K21.9 Gastro-esophageal reflux disease without esophagitis; E78.00 Pure hypercholesterolemia, unspecified; M79.7 Fibromyalgia; G47.33 Obstructive sleep apnea (adult) (pediatric); E66.01 Morbid (severe) obesity due to excess calories; E83.42 Hypomagnesemia; F32.9 Major depressive disorder, single episode, unspecified; I48.0 Paroxysmal atrial fibrillation; Z90.49 Acquired absence of other specified parts of digestive tract; Z95.1 Presence of aortocoronary bypass graft; Z88.5 Allergy status to narcotic agent; Z88.0 Allergy status to penicillin; Z91.040 Latex allergy status; Z79.01 Long term (current) use of anticoagulants; Z79.4 Long term (current) use of insulin; Z79.899 Other long term (current) drug therapy; Z86.711 Personal history of pulmonary embolism; Z91.14 Patient's other noncompliance with medication regimen
CPT/HCPCS: 36415; 36416; 71045; 80048; 80053; 81003; 81015; 83630; 83735; 83880; 84100; 84484; 85025; 87045; 87046; 87086; 87324; 87427; 87449; 87493; 93005; 93010; 94760; 96365; J0690; J0692; J1815; J3370; J3475; J3490; J7030; U0003; U0005

== ENCOUNTER 2021-05-28 00:36 | Emergency (ER) | payer MEDICARE ==
[2021-05-28 02:02] LABS: #Eosinphils 0.2 thou/uL (0.0-0.7); #Lymphocytes 3.3 thou/uL (1.20-3.40); #Monocytes 0.6 thou/uL (0.11-0.59); #Neutrophils 3.6 thou/uL (1.40-6.50); %Basophils 0.5 % (0.0-1.0); %Eosinophils 2.6 % (0.0-10.0); %Monocytes 7.1 % (0.0-10.0); %Neutrophils 46.8 % (42.0-75.0); Hemoglobin 12.6 g/dL (12.0-16.0); Mean Corpuscular HGB CONC 33.8 g/dL (32.0-36.0); Mean Corpuscular Hemoglobin 31.8 pg (27.0-31.0); Mean Corpuscular Volume 93.9 fL (78.0-98.0); Mean Platelet Volume 6.9 fL (7.4-10.4); Platelet Count 305 thou/uL (130-400); RBC Distribution Width 12.7 % (11.5-14.5); Red Blood Cell (RBC) Count 3.96 mill/uL (4.20-5.40); White Blood Cell (WBC) Count 7.8 thou/uL (4.8-10.8)
[2021-05-28 02:24] LABS: ALT (SGPT) 13 U/L (8-55); AST (SGOT) 12 U/L (5-34); Albumin 3.7 g/dL (3.5-5.0); Alkaline Phosphatase 105 U/L (40-110); Anion Gap 15 mmol/L (10-20); BUN (Urea Nitrogen) 23 mg/dL (9.8-20.1); Bilirubin, Total 0.2 mg/dL (0.2-1.2); Calc. Creatinine Clearance 0 mL/min (70-130); Calcium 9.4 mg/dL (7.8-10.44); Carbon Dioxide 27 mmol/L (22-29); Chloride 102 mmol/L (98-107); Globulin 3.2 g/dL (2.4-3.5); Glucose 145 mg/dL (70-105); Potassium 3.4 mmol/L (3.5-5.1); Protein, Total 6.9 g/dL (6.0-8.3); Sodium 141 mmol/L (136-145)
[2021-05-28] MEDS ORDERED: Potassium Chloride 20 MEQ TAB ONE (02:50)
== END 2021-05-28 03:29 | disposition home or self-care (01) ==
LOC: ERS 00:36
DX: I48.91 Unspecified atrial fibrillation (principal); E87.6 Hypokalemia; E11.9 Type 2 diabetes mellitus without complications; K21.9 Gastro-esophageal reflux disease without esophagitis; I25.10 Atherosclerotic heart disease of native coronary artery without angina pectoris; E78.00 Pure hypercholesterolemia, unspecified; I10 Essential (primary) hypertension; G47.30 Sleep apnea, unspecified; E66.9 Obesity, unspecified; M79.7 Fibromyalgia; Z79.01 Long term (current) use of anticoagulants; Z79.899 Other long term (current) drug therapy
CPT/HCPCS: 36415; 80053; 84484; 85025; 93005

== ENCOUNTER 2021-05-28 16:12 | Observation (INO) | payer MEDICARE ==
[2021-05-28 17:23] LABS: #Basophils 0.1 thou/uL (0.0-0.2); #Eosinphils 0.2 thou/uL (0.0-0.7); #Lymphocytes 2.6 thou/uL (1.20-3.40); #Monocytes 0.6 thou/uL (0.11-0.59); #Neutrophils 3.4 thou/uL (1.40-6.50); %Eosinophils 2.5 % (0.0-10.0); %Lymphocytes 38.3 % (21.0-51.0); %Monocytes 8.1 % (0.0-10.0); %Neutrophils 50.1 % (42.0-75.0); Hemoglobin 13.5 g/dL (12.0-16.0); Mean Corpuscular HGB CONC 34.5 g/dL (32.0-36.0); Mean Corpuscular Hemoglobin 32.3 pg (27.0-31.0); Mean Corpuscular Volume 93.7 fL (78.0-98.0); Mean Platelet Volume 7.1 fL (7.4-10.4); Platelet Count 316 thou/uL (130-400); RBC Distribution Width 12.8 % (11.5-14.5); Red Blood Cell (RBC) Count 4.17 mill/uL (4.20-5.40); White Blood Cell (WBC) Count 6.7 thou/uL (4.8-10.8)
[2021-05-28] MEDS ORDERED: Apixaban 2.5 MG TAB PO SCH (18:45)
[2021-05-28] MEDS ORDERED: Senokot S 8.6-50 MG TAB PO PRN (18:59)
[2021-05-28] MEDS ORDERED: Acetaminophen 325 MG TAB PO PRN (18:59)
[2021-05-28] MEDS ORDERED: Ondansetron PF 4 MG/2 ML Vial IVP PRN (18:59)
[2021-05-28] MEDS ORDERED: HYDROcodone/Acetaminophen 10/325 mg Tablet PO PRN (18:59)
[2021-05-28] MEDS ORDERED: HYDROcodone/Acetaminophen 5/325 mg Tablet PO PRN (18:59)
[2021-05-28] MEDS ORDERED: Labetalol HCl 100 MG/20 ML VIAL SLOW IVP PRN (19:02)
[2021-05-28 19:08] LABS: Albumin 3.7 g/dL (3.5-5.0)
[2021-05-28 19:09] LABS: Chloride 102 mmol/L (98-107); Potassium 3.8 mmol/L (3.5-5.1); Sodium 140 mmol/L (136-145)
[2021-05-28 19:10] LABS: Calcium 9.6 mg/dL (7.8-10.44); Glucose 276 mg/dL (70-105)
[2021-05-28 19:11] LABS: Globulin 3.1 g/dL (2.4-3.5); Protein, Total 6.8 g/dL (6.0-8.3)
[2021-05-28 19:12] LABS: Anion Gap 14 mmol/L (10-20); Bilirubin, Total 0.2 mg/dL (0.2-1.2); Carbon Dioxide 28 mmol/L (22-29)
[2021-05-28 19:13] LABS: Alkaline Phosphatase 113 U/L (40-110)
[2021-05-28 19:14] LABS: Calc. Creatinine Clearance 0 mL/min (70-130)
[2021-05-28 19:15] LABS: BUN (Urea Nitrogen) 22 mg/dL (9.8-20.1)
[2021-05-28 19:16] LABS: ALT (SGPT) 17 U/L (8-55); AST (SGOT) 11 U/L (5-34)
[2021-05-28 19:49] VITALS: BMI 39.2
[2021-05-28] MEDS ORDERED: Dextrose 5% in Water 1,000 ML IV PRN (19:59)
[2021-05-28] MEDS ORDERED: Dextrose 50% Abboject 50 ML SYRINGE SLOW IVP PRN (19:59)
[2021-05-28 20:27] LABS: #Basophils 0.1 thou/uL (0.0-0.2); #Eosinphils 0.2 thou/uL (0.0-0.7); #Lymphocytes 2.6 thou/uL (1.20-3.40); #Monocytes 0.5 thou/uL (0.11-0.59); #Neutrophils 4.7 thou/uL (1.40-6.50); %Basophils 0.7 % (0.0-1.0); %Eosinophils 2.4 % (0.0-10.0); %Lymphocytes 32.1 % (21.0-51.0); %Monocytes 6.5 % (0.0-10.0); %Neutrophils 58.4 % (42.0-75.0); Hemoglobin 13.2 g/dL (12.0-16.0); Mean Corpuscular HGB CONC 34.1 g/dL (32.0-36.0); Mean Corpuscular Hemoglobin 31.9 pg (27.0-31.0); Mean Corpuscular Volume 93.7 fL (78.0-98.0); Mean Platelet Volume 6.8 fL (7.4-10.4); Platelet Count 308 thou/uL (130-400); RBC Distribution Width 12.7 % (11.5-14.5); Red Blood Cell (RBC) Count 4.12 mill/uL (4.20-5.40); White Blood Cell (WBC) Count 8.1 thou/uL (4.8-10.8)
[2021-05-28 20:42] LABS: SARS-CoV-2 NAA Rapid Test Not Detected (NotDetected)
[2021-05-28 20:50] LABS: Anion Gap 13 mmol/L (10-20); BUN (Urea Nitrogen) 21 mg/dL (9.8-20.1); Calc. Creatinine Clearance 85 mL/min (70-130); Calcium 9.8 mg/dL (7.8-10.44); Carbon Dioxide 30 mmol/L (22-29); Chloride 101 mmol/L (98-107); Glucose 249 mg/dL (70-105); Magnesium 2.1 mg/dL (1.6-2.6); Sodium 140 mmol/L (136-145)
[2021-05-28 20:51] LABS: Troponin I Less than 0.010 ng/mL (< 0.028)
[2021-05-28] MEDS: HumaLOG 300 UNITS/3 ML VIAL SC PRN (23:30)
[2021-05-28] MEDS: Lantus 1000 UNITS/10 ML VIAL SC SCH (23:32)
[2021-05-28 23:37] LABS: Troponin I 0.016 ng/mL (< 0.028)
[2021-05-28] MEDS: Metoprolol Tartrate 25 MG TAB PO SCH (23:41)
[2021-05-28] MEDS: Furosemide 40 MG TAB PO SCH (23:41)
[2021-05-28] MEDS: Sucralfate 1 GM TAB PO SCH (23:42)
[2021-05-28] MEDS: Gabapentin 300 MG CAP PO SCH (23:42)
[2021-05-28] MEDS: Saccharomyces boulardii 250 MG CAP PO SCH (23:43)
[2021-05-28] MEDS: Famotidine/PF 20 mg/2ml Vial SLOW IVP SCH (23:44)
[2021-05-29] MEDS: Sodium Chloride 0.9% 1,000 ML IV SCH (00:12)
[2021-05-29 06:34] LABS: Hemoglobin A1c 7.5 % (4.0-6.0)
[2021-05-29] MEDS: Famotidine/PF 20 mg/2ml Vial SLOW IVP SCH ×2 (09:43→21:25)
[2021-05-29] MEDS: Metoprolol Tartrate 25 MG TAB PO SCH ×2 (09:59→21:27)
[2021-05-29] MEDS: Ezetimibe 10 MG TAB PO SCH (10:04)
[2021-05-29] MEDS: Furosemide 40 MG TAB PO SCH ×2 (10:05→21:25)
[2021-05-29] MEDS: Apixaban 5 MG TAB PO SCH ×2 (10:06→21:24)
[2021-05-29] MEDS: Gabapentin 300 MG CAP PO SCH ×3 (10:06→21:26)
[2021-05-29] MEDS: Folic Acid 1 MG TAB PO SCH (10:06)
[2021-05-29] MEDS: Sucralfate 1 GM TAB PO SCH ×4 (10:07→21:27)
[2021-05-29] MEDS: Saccharomyces boulardii 250 MG CAP PO SCH ×2 (10:07→21:27)
[2021-05-29] MEDS: Icosapent Ethyl 1 GM CAPSULE PO SCH ×2 (10:07→16:55)
[2021-05-29] MEDS: HumaLOG 300 UNITS/3 ML VIAL SC PRN ×2 (18:06→21:28)
[2021-05-29] MEDS: Amiodarone 200 MG TAB PO SCH (21:24)
[2021-05-29] MEDS: Lantus 1000 UNITS/10 ML VIAL SC SCH (21:27)
[2021-05-30] MEDS: Sodium Chloride 0.9% 1,000 ML IV SCH (05:15)
[2021-05-30 05:34] LABS: #Eosinphils 0.2 thou/uL (0.0-0.7); #Lymphocytes 2.7 thou/uL (1.20-3.40); #Monocytes 0.5 thou/uL (0.11-0.59); #Neutrophils 2.6 thou/uL (1.40-6.50); %Basophils 0.7 % (0.0-1.0); %Eosinophils 2.7 % (0.0-10.0); %Lymphocytes 45.2 % (21.0-51.0); %Monocytes 7.6 % (0.0-10.0); %Neutrophils 43.8 % (42.0-75.0); Hemoglobin 12.8 g/dL (12.0-16.0); Mean Corpuscular HGB CONC 33.8 g/dL (32.0-36.0); Mean Corpuscular Hemoglobin 31.4 pg (27.0-31.0); Mean Corpuscular Volume 93.1 fL (78.0-98.0); Mean Platelet Volume 6.8 fL (7.4-10.4); Platelet Count 297 thou/uL (130-400); RBC Distribution Width 12.7 % (11.5-14.5); Red Blood Cell (RBC) Count 4.08 mill/uL (4.20-5.40)
[2021-05-30] MEDS: HumaLOG 300 UNITS/3 ML VIAL SC PRN (05:45)
[2021-05-30 06:00] LABS: Anion Gap 14 mmol/L (10-20); BUN (Urea Nitrogen) 20 mg/dL (9.8-20.1); Calc. Creatinine Clearance 88 mL/min (70-130); Carbon Dioxide 28 mmol/L (22-29); Chloride 101 mmol/L (98-107); Glucose 187 mg/dL (70-105); Potassium 3.6 mmol/L (3.5-5.1); Sodium 139 mmol/L (136-145)
[2021-05-30] MEDS: Apixaban 5 MG TAB PO SCH (08:40)
[2021-05-30] MEDS: Metoprolol Tartrate 25 MG TAB PO SCH (08:40)
[2021-05-30] MEDS: Gabapentin 300 MG CAP PO SCH ×2 (08:40→15:30)
[2021-05-30] MEDS: Amiodarone 200 MG TAB PO SCH ×2 (08:40→15:30)
[2021-05-30] MEDS: Folic Acid 1 MG TAB PO SCH (08:40)
[2021-05-30] MEDS: Ezetimibe 10 MG TAB PO SCH (08:41)
[2021-05-30] MEDS: Sucralfate 1 GM TAB PO SCH ×3 (08:41→18:22)
[2021-05-30] MEDS: Saccharomyces boulardii 250 MG CAP PO SCH (08:41)
[2021-05-30] MEDS: Furosemide 40 MG TAB PO SCH (08:41)
[2021-05-30] MEDS: Famotidine/PF 20 mg/2ml Vial SLOW IVP SCH (08:42)
[2021-05-30] MEDS: Icosapent Ethyl 1 GM CAPSULE PO SCH ×2 (08:45→18:22)
[2021-05-30 11:52] VITALS: TEMP 98.2
[2021-05-30 16:42] VITALS: BP 131/70
== END 2021-05-30 17:45 | disposition home or self-care (01) ==
LOC: ERS 16:12 → ERHOLD 18:23 → 2NO 22:00
PROVIDERS: ADMIT Internal Medicine; ATTEND Internal Medicine
DX: I48.0 Paroxysmal atrial fibrillation (principal); I25.10 Atherosclerotic heart disease of native coronary artery without angina pectoris; N17.9 Acute kidney failure, unspecified; I12.9 Hypertensive chronic kidney disease with stage 1 through stage 4 chronic kidney disease, or unspecified chronic kidney disease; E11.22 Type 2 diabetes mellitus with diabetic chronic kidney disease; N18.32 Chronic kidney disease, stage 3b; I07.1 Rheumatic tricuspid insufficiency; I37.1 Nonrheumatic pulmonary valve insufficiency; E11.9 Type 2 diabetes mellitus without complications; K21.9 Gastro-esophageal reflux disease without esophagitis; E78.5 Hyperlipidemia, unspecified; E78.00 Pure hypercholesterolemia, unspecified; M79.7 Fibromyalgia; E66.9 Obesity, unspecified; Z68.38 Body mass index [BMI] 38.0-38.9, adult; Z20.822 Contact with and (suspected) exposure to COVID-19; Z95.1 Presence of aortocoronary bypass graft; Z88.0 Allergy status to penicillin; Z88.5 Allergy status to narcotic agent; Z91.040 Latex allergy status; Z79.4 Long term (current) use of insulin; Z79.01 Long term (current) use of anticoagulants; Z79.899 Other long term (current) drug therapy; Z90.49 Acquired absence of other specified parts of digestive tract; Z98.890 Other specified postprocedural states; E87.6 Hypokalemia; G47.30 Sleep apnea, unspecified
CPT/HCPCS: 71045; 80048 ×2; 80053 ×2; 80061; 82962 ×3; 83036; 83735; 84100; 84443; 84484 ×2; 85025 ×3; 93005 ×2; 93306; 96374; 96375; 96376; 97139; 99285; G0378 ×4; U0002; 36415; 36416; 93010; J1815; J7050; S0028

== ENCOUNTER 2021-10-16 14:43 | Inpatient (IN) | payer MEDICARE ==
[2021-10-16 15:26] LABS: #Basophils 0.1 thou/uL (0.0-0.2); #Eosinphils 0.1 thou/uL (0.0-0.7); #Lymphocytes 1.7 thou/uL (1.20-3.40); #Monocytes 0.6 thou/uL (0.11-0.59); #Neutrophils 5.7 thou/uL (1.40-6.50); %Basophils 0.7 % (0.0-1.0); %Eosinophils 0.8 % (0.0-10.0); %Lymphocytes 21.1 % (21.0-51.0); %Monocytes 7.8 % (0.0-10.0); %Neutrophils 69.6 % (42.0-75.0); Hemoglobin 12.1 g/dL (12.0-16.0); Mean Corpuscular HGB CONC 33.7 g/dL (32.0-36.0); Mean Corpuscular Hemoglobin 31.6 pg (27.0-31.0); Mean Corpuscular Volume 93.6 fL (78.0-98.0); Mean Platelet Volume 6.6 fL (7.4-10.4); Platelet Count 388 thou/uL (130-400); RBC Distribution Width 12.7 % (11.5-14.5); Red Blood Cell (RBC) Count 3.82 mill/uL (4.20-5.40); White Blood Cell (WBC) Count 8.2 thou/uL (4.8-10.8)
[2021-10-16 15:46] LABS: ALT (SGPT) 16 U/L (8-55); AST (SGOT) 18 U/L (5-34); Albumin 3.7 g/dL (3.5-5.0); Alkaline Phosphatase 98 U/L (40-110); Anion Gap 15 mmol/L (10-20); BUN (Urea Nitrogen) 17 mg/dL (9.8-20.1); Bilirubin, Total 0.2 mg/dL (0.2-1.2); Calc. Creatinine Clearance 0 mL/min (70-130); Calcium 9.5 mg/dL (7.8-10.44); Carbon Dioxide 26 mmol/L (22-29); Chloride 103 mmol/L (98-107); Globulin 3.9 g/dL (2.4-3.5); Glucose 148 mg/dL (70-105); Potassium 3.6 mmol/L (3.5-5.1); Protein, Total 7.6 g/dL (6.0-8.3); Sodium 140 mmol/L (136-145)
[2021-10-16] MEDS ORDERED: Cefepime 2 GM VIAL ONE ×2 (17:42→17:43)
[2021-10-16] MEDS ORDERED: Vancomycin 1 GM/200 ML BAG ONE (19:14)
[2021-10-16] MEDS ORDERED: Ondansetron ODT 4 MG TAB SL PRN (22:00)
[2021-10-16] MEDS ORDERED: Ondansetron PF 4 MG/2 ML Vial IVP PRN (22:00)
[2021-10-17 00:11] VITALS: BMI 39.6
[2021-10-17] MEDS ORDERED: Acetaminophen 325 MG TAB PO PRN (04:12)
[2021-10-17] MEDS ORDERED: Ondansetron PF 4 MG/2 ML Vial IVP PRN (04:12)
[2021-10-17] MEDS ORDERED: Dextrose 50% Abboject 50 ML SYRINGE SLOW IVP PRN (04:17)
[2021-10-17] MEDS ORDERED: Dextrose 5% in Water 1,000 ML IV PRN (04:17)
[2021-10-17] MEDS ORDERED: HumaLOG 300 UNITS/3 ML VIAL SC PRN (04:17)
[2021-10-17] MEDS: Cefepime 1 GM in Sodium Chloride 0.9% 100 ML IVPB SCH ×2 (05:31→18:38)
[2021-10-17 05:33] LABS: #Eosinphils 0.1 thou/uL (0.0-0.7); #Lymphocytes 2.3 thou/uL (1.20-3.40); #Monocytes 0.6 thou/uL (0.11-0.59); #Neutrophils 4.2 thou/uL (1.40-6.50); %Basophils 0.4 % (0.0-1.0); %Eosinophils 0.8 % (0.0-10.0); %Lymphocytes 31.3 % (21.0-51.0); %Monocytes 8.6 % (0.0-10.0); Hemoglobin 11.2 g/dL (12.0-16.0); Mean Corpuscular HGB CONC 32.9 g/dL (32.0-36.0); Mean Corpuscular Hemoglobin 31.5 pg (27.0-31.0); Mean Corpuscular Volume 95.6 fL (78.0-98.0); Mean Platelet Volume 6.6 fL (7.4-10.4); Platelet Count 368 thou/uL (130-400); RBC Distribution Width 12.7 % (11.5-14.5); Red Blood Cell (RBC) Count 3.56 mill/uL (4.20-5.40); White Blood Cell (WBC) Count 7.2 thou/uL (4.8-10.8)
[2021-10-17 05:57] LABS: Anion Gap 13 mmol/L (10-20); BUN (Urea Nitrogen) 18 mg/dL (9.8-20.1); Calc. Creatinine Clearance 100 mL/min (70-130); Calcium 9.1 mg/dL (7.8-10.44); Carbon Dioxide 26 mmol/L (22-29); Chloride 104 mmol/L (98-107); Glucose 189 mg/dL (70-105); Potassium 3.6 mmol/L (3.5-5.1); Sodium 139 mmol/L (136-145)
[2021-10-17] MEDS ORDERED: Cefepime 2 GM in Sodium Chloride 0.9% 100 ML IVPB SCH (06:00)
[2021-10-17] MEDS: Vancomycin 1 GM in Premix Bag 1 BAG IVPB SCH ×2 (10:19→20:28)
[2021-10-17] MEDS: Heparin 5,000 UNITS/ML VIAL SC SCH ×2 (10:20→20:28)
[2021-10-17] MEDS: Amiodarone 200 MG TAB PO SCH (10:20)
[2021-10-17] MEDS: Metoprolol Tartrate 25 MG TAB PO SCH ×2 (10:21→20:28)
[2021-10-17] MEDS: Pregabalin 50 MG CAP PO SCH ×3 (10:23→20:29)
[2021-10-17 11:48] LABS: SARS-CoV-2 PCR by NAA Not Detected (NotDetected)
[2021-10-17] MEDS ORDERED: Famotidine/PF 20 mg/2ml Vial ONE (12:22)
[2021-10-17] MEDS ORDERED: Fentanyl 100 MCG/2 ML VIAL ONE (12:22)
[2021-10-17] MEDS ORDERED: SUGAMMADEX SODIUM 200 MG/2 ML VIAL ONE (13:17)
[2021-10-17] MEDS ORDERED: Ondansetron PF 4 MG/2 ML Vial ONE (13:20)
[2021-10-17] MEDS ORDERED: PHENYLEPHRINE-NS 100 MCG/ML 10 ML SYRINGE ONE (13:20)
[2021-10-17] MEDS ORDERED: PROPOFOL 200 MG/20 ML VIAL ONE (13:20)
[2021-10-17] MEDS ORDERED: Ketorolac Tromethamine 30 MG/ML VIAL ONE (13:20)
[2021-10-17] MEDS ORDERED: Glycopyrrolate 0.2 MG/ML 5 ML SYRINGE ONE (13:20)
[2021-10-17] MEDS ORDERED: Lidocaine 1% PF 5 ML VIAL ONE (13:20)
[2021-10-17] MEDS ORDERED: Rocuronium Bromide 10 MG/ML (10ML VIAL) ONE (13:20)
[2021-10-17] MEDS ORDERED: ePHEDrine 50 MG/ML VIAL ONE (13:20)
[2021-10-17] MEDS ORDERED: Metoclopramide HCl 10 MG/2 ML VIAL ONE (13:20)
[2021-10-17] MEDS ORDERED: Ondansetron HCl/PF 4 MG/2 ML Vial IVP PRN (14:23)
[2021-10-17] MEDS ORDERED: Promethazine HCl 25 MG/ML VIAL IVPB PRN (14:23)
[2021-10-17] MEDS: HumaLOG 300 UNITS/3 ML VIAL SC PRN (18:01)
[2021-10-18] MEDS: Cefepime 1 GM in Sodium Chloride 0.9% 100 ML IVPB SCH (06:11)
[2021-10-18] MEDS: HumaLOG 300 UNITS/3 ML VIAL SC PRN ×3 (06:53→16:23)
[2021-10-18 07:31] LABS: #Basophils 0.1 thou/uL (0.0-0.2); #Eosinphils 0.1 thou/uL (0.0-0.7); #Lymphocytes 2.1 thou/uL (1.20-3.40); #Monocytes 0.4 thou/uL (0.11-0.59); #Neutrophils 3.3 thou/uL (1.40-6.50); %Basophils 1.1 % (0.0-1.0); %Eosinophils 2.1 % (0.0-10.0); %Lymphocytes 35.6 % (21.0-51.0); %Monocytes 7.1 % (0.0-10.0); %Neutrophils 54.2 % (42.0-75.0); Hemoglobin 10.8 g/dL (12.0-16.0); Mean Corpuscular HGB CONC 33.5 g/dL (32.0-36.0); Mean Corpuscular Hemoglobin 32.4 pg (27.0-31.0); Mean Corpuscular Volume 96.7 fL (78.0-98.0); Mean Platelet Volume 6.6 fL (7.4-10.4); Platelet Count 352 thou/uL (130-400); RBC Distribution Width 12.8 % (11.5-14.5); Red Blood Cell (RBC) Count 3.33 mill/uL (4.20-5.40)
[2021-10-18 07:49] LABS: Anion Gap 11 mmol/L (10-20); BUN (Urea Nitrogen) 16 mg/dL (9.8-20.1); Calc. Creatinine Clearance 94 mL/min (70-130); Calcium 9.1 mg/dL (7.8-10.44); Carbon Dioxide 28 mmol/L (22-29); Chloride 106 mmol/L (98-107); Glucose 154 mg/dL (70-105); Potassium 4.6 mmol/L (3.5-5.1); Sodium 140 mmol/L (136-145); Vancomycin, Trough 16.7 ug/mL
[2021-10-18] MEDS: Vancomycin 1 GM in Premix Bag 1 BAG IVPB SCH ×2 (10:02→20:25)
[2021-10-18] MEDS: Amiodarone 200 MG TAB PO SCH (10:03)
[2021-10-18] MEDS: Pregabalin 50 MG CAP PO SCH ×3 (10:03→20:24)
[2021-10-18] MEDS: Metoprolol Tartrate 25 MG TAB PO SCH ×2 (10:04→20:24)
[2021-10-18] MEDS: Heparin 5,000 UNITS/ML VIAL SC SCH (10:05)
[2021-10-18] MEDS ORDERED: Cefepime 2 GM in Sodium Chloride 0.9% 100 ML IVPB SCH (18:00)
[2021-10-19 05:49] LABS: #Eosinphils 0.1 thou/uL (0.0-0.7); #Lymphocytes 2.1 thou/uL (1.20-3.40); #Monocytes 0.4 thou/uL (0.11-0.59); %Basophils 0.5 % (0.0-1.0); %Eosinophils 2.6 % (0.0-10.0); %Lymphocytes 36.9 % (21.0-51.0); %Monocytes 7.5 % (0.0-10.0); %Neutrophils 52.5 % (42.0-75.0); Hemoglobin 11.3 g/dL (12.0-16.0); Mean Corpuscular HGB CONC 32.5 g/dL (32.0-36.0); Mean Corpuscular Hemoglobin 31.2 pg (27.0-31.0); Mean Corpuscular Volume 95.8 fL (78.0-98.0); Mean Platelet Volume 6.7 fL (7.4-10.4); Platelet Count 361 thou/uL (130-400); RBC Distribution Width 12.8 % (11.5-14.5); Red Blood Cell (RBC) Count 3.62 mill/uL (4.20-5.40); White Blood Cell (WBC) Count 5.6 thou/uL (4.8-10.8)
[2021-10-19 06:12] LABS: Anion Gap 14 mmol/L (10-20); BUN (Urea Nitrogen) 15 mg/dL (9.8-20.1); Calc. Creatinine Clearance 100 mL/min (70-130); Calcium 8.5 mg/dL (7.8-10.44); Carbon Dioxide 24 mmol/L (22-29); Chloride 106 mmol/L (98-107); Glucose 211 mg/dL (70-105); Potassium 4.1 mmol/L (3.5-5.1); Sodium 140 mmol/L (136-145)
[2021-10-19] MEDS: HumaLOG 300 UNITS/3 ML VIAL SC PRN ×2 (06:17→11:08)
[2021-10-19 08:51] VITALS: BP 121/75; TEMP 97.8
[2021-10-19] MEDS ORDERED: Apixaban 5 MG TAB PO SCH (09:00)
[2021-10-19] MEDS: Vancomycin 1 GM in Premix Bag 1 BAG IVPB SCH (09:00)
[2021-10-19] MEDS: Amiodarone 200 MG TAB PO SCH (09:01)
[2021-10-19] MEDS: Metoprolol Tartrate 25 MG TAB PO SCH (09:02)
[2021-10-19] MEDS: Pregabalin 50 MG CAP PO SCH ×2 (09:03→16:42)
== END 2021-10-19 17:32 | disposition home or self-care (01) | DRG 264 ==
LOC: ERS 14:43 → MSONC 20:06
PROVIDERS: ADMIT Internal Medicine; ATTEND Internal Medicine
PROC: 0JBN0ZZ Excision of Right Lower Leg Subcutaneous Tissue and Fascia, Open Approach (ICD-10-PCS; principal; 2021-10-17)
DX: E11.52 Type 2 diabetes mellitus with diabetic peripheral angiopathy with gangrene (principal); L03.115 Cellulitis of right lower limb; I48.20 Chronic atrial fibrillation, unspecified; I96 Gangrene, not elsewhere classified; L02.415 Cutaneous abscess of right lower limb; Z20.822 Contact with and (suspected) exposure to COVID-19; I25.10 Atherosclerotic heart disease of native coronary artery without angina pectoris; K21.9 Gastro-esophageal reflux disease without esophagitis; E78.00 Pure hypercholesterolemia, unspecified; M79.7 Fibromyalgia; G47.33 Obstructive sleep apnea (adult) (pediatric); E66.9 Obesity, unspecified; I48.91 Unspecified atrial fibrillation; F32.A Depression, unspecified; I12.9 Hypertensive chronic kidney disease with stage 1 through stage 4 chronic kidney disease, or unspecified chronic kidney disease; E11.22 Type 2 diabetes mellitus with diabetic chronic kidney disease; N18.30 Chronic kidney disease, stage 3 unspecified; G47.00 Insomnia, unspecified; B95.62 Methicillin resistant Staphylococcus aureus infection as the cause of diseases classified elsewhere; Z95.0 Presence of cardiac pacemaker; Z88.0 Allergy status to penicillin; Z88.5 Allergy status to narcotic agent; Z91.040 Latex allergy status; Z68.39 Body mass index [BMI] 39.0-39.9, adult; Z90.49 Acquired absence of other specified parts of digestive tract; Z79.01 Long term (current) use of anticoagulants; Z79.899 Other long term (current) drug therapy; Z79.4 Long term (current) use of insulin; Z79.84 Long term (current) use of oral hypoglycemic drugs
CPT/HCPCS: 10060; 36415; 36416; 80048; 80053; 80202; 83605; 85025; 87040; 87070; 87077; 87186; 87205; 88304; 96365; 96367; J0692; J1644; J1815; J1885; J2405; J2704; J2765; J3010; J3370; J3490; S0028; U0003; U0005

== ENCOUNTER 2022-04-27 07:39 | Emergency (ER) | payer MEDICARE ==
[2022-04-27] MEDS ORDERED: Boostrix 0.5 ML (Tdap) VIAL ONE (08:29)
[2022-04-27 08:39] LABS: #Basophils 0.1 thou/uL (0.0-0.2); #Eosinphils 0.1 thou/uL (0.0-0.7); #Lymphocytes 2.7 thou/uL (1.20-3.40); #Monocytes 0.5 thou/uL (0.11-0.59); #Neutrophils 3.6 thou/uL (1.40-6.50); %Basophils 0.9 % (0.0-1.0); %Lymphocytes 39.4 % (21.0-51.0); %Monocytes 7.4 % (0.0-10.0); %Neutrophils 51.4 % (42.0-75.0); Hemoglobin 12.7 g/dL (12.0-16.0); Mean Corpuscular HGB CONC 32.6 g/dL (32.0-36.0); Mean Corpuscular Hemoglobin 31.2 pg (27.0-31.0); Mean Corpuscular Volume 95.4 fL (78.0-98.0); Mean Platelet Volume 6.6 fL (7.4-10.4); Platelet Count 351 thou/uL (130-400); RBC Distribution Width 12.9 % (11.5-14.5); Red Blood Cell (RBC) Count 4.09 mill/uL (4.20-5.40); White Blood Cell (WBC) Count 6.9 thou/uL (4.8-10.8)
[2022-04-27 08:51] LABS: INR-International Normal Ratio 0.9; PTT 29.6 sec (22.9-36.1); Prothrombin Time 12.7 sec (12.0-14.7)
[2022-04-27 09:03] LABS: ALT (SGPT) 16 U/L (8-55); AST (SGOT) 11 U/L (5-34); Alkaline Phosphatase 100 U/L (40-110); Anion Gap 15 mmol/L (10-20); BUN (Urea Nitrogen) 26 mg/dL (9.8-20.1); Bilirubin, Total 0.2 mg/dL (0.2-1.2); Calc. Creatinine Clearance 0 mL/min (70-130); Calcium 9.5 mg/dL (7.8-10.44); Carbon Dioxide 32 mmol/L (22-29); Chloride 99 mmol/L (98-107); Estimated GFR 55; Globulin 3.6 g/dL (2.4-3.5); Glucose 142 mg/dL (70-105); Potassium 3.4 mmol/L (3.5-5.1); Protein, Total 7.6 g/dL (6.0-8.3); Sodium 143 mmol/L (136-145)
[2022-04-27] MEDS ORDERED: Lidocaine 1% MPF 2 ML VIAL ONE (12:15)
== END 2022-04-27 14:15 | disposition home or self-care (01) ==
LOC: ERS 07:39
DX: S01.01XA Laceration without foreign body of scalp, initial encounter (principal); I25.10 Atherosclerotic heart disease of native coronary artery without angina pectoris; E11.9 Type 2 diabetes mellitus without complications; K21.9 Gastro-esophageal reflux disease without esophagitis; E78.00 Pure hypercholesterolemia, unspecified; I10 Essential (primary) hypertension; I48.91 Unspecified atrial fibrillation; W06.XXXA Fall from bed, initial encounter
CPT/HCPCS: 12001; 36415; 70450; 80053; 85025; 85610; 85730; 90471; 90715; 93005

== ENCOUNTER 2022-05-07 18:28 | Emergency (ER) | payer MEDICARE | END 2022-05-07 19:20 | disposition home or self-care (01) | LOC: ERS 18:28 | DX: S01.01XD Laceration without foreign body of scalp, subsequent encounter (principal) ==

== ENCOUNTER 2022-07-25 21:47 | Observation (INO) | payer MEDICARE ==
[2022-07-26 00:14] LABS: #Basophils 0.1 thou/uL (0.0-0.2); #Lymphocytes 2.2 thou/uL (1.20-3.40); #Monocytes 0.7 thou/uL (0.11-0.59); #Neutrophils 6.2 thou/uL (1.40-6.50); %Basophils 0.6 % (0.0-1.0); %Eosinophils 0.3 % (0.0-10.0); %Lymphocytes 24.1 % (21.0-51.0); %Monocytes 7.6 % (0.0-10.0); %Neutrophils 67.4 % (42.0-75.0); Hemoglobin 14.4 g/dL (12.0-16.0); Mean Corpuscular HGB CONC 32.9 g/dL (32.0-36.0); Mean Corpuscular Hemoglobin 31.1 pg (27.0-31.0); Mean Corpuscular Volume 94.8 fl (78.0-98.0); Platelet Count 336 10x3/uL (130-400); RBC Distribution Width 12.9 % (11.5-14.5); Red Blood Cell (RBC) Count 4.63 mill/uL (4.20-5.40); White Blood Cell (WBC) Count 9.2 10x3/uL (4.8-10.8)
[2022-07-26 00:26] LABS: Prothrombin Time 13.3 sec (12.0-14.7)
[2022-07-26 00:36] LABS: ALT (SGPT) 12 U/L (8-55); AST (SGOT) 8 U/L (5-34); Albumin 4.1 g/dL (3.5-5.0); Alkaline Phosphatase 106 U/L (40-110); Anion Gap 15 mmol/L (10-20); BUN (Urea Nitrogen) 22 mg/dL (9.8-20.1); Bilirubin, Total 0.4 mg/dL (0.2-1.2); Calc. Creatinine Clearance 0 mL/min (70-130); Carbon Dioxide 32 mmol/L (22-29); Chloride 94 mmol/L (98-107); Estimated GFR 39; Globulin 3.5 g/dL (2.4-3.5); Glucose 232 mg/dL (70-105); Protein, Total 7.6 g/dL (6.0-8.3); Sodium 137 mmol/L (136-145)
[2022-07-26] MEDS ORDERED: Aspirin Chewable 81 MG TAB ONE (02:15)
[2022-07-26] MEDS ORDERED: HumaLOG 300 UNITS/3 ML VIAL SC PRN (02:59)
[2022-07-26] MEDS ORDERED: Acetaminophen 325 MG TAB PO PRN (02:59)
[2022-07-26] MEDS ORDERED: Dextrose 50% Abboject 50 ML SYRINGE SLOW IVP PRN (02:59)
[2022-07-26] MEDS ORDERED: Ondansetron ODT 4 MG TAB PO PRN (02:59)
[2022-07-26] MEDS ORDERED: Dextrose 5% in Water 1,000 ML IV PRN (02:59)
[2022-07-26] MEDS ORDERED: hydrALAZINE 20 MG/ML VIAL SLOW IVP PRN (02:59)
[2022-07-26 04:11] VITALS: BMI 37.3
[2022-07-26] MEDS ORDERED: Polymyxin B Sulf/Trimethoprim 10 ML OPHTH DROPS R EYE SCH (04:30)
[2022-07-26] MEDS ORDERED: Polymyxin B Sulf/Trimethoprim 10 ML OPHTH DROPS OP SCH ×2 (04:30→09:00)
[2022-07-26 04:42] LABS: #Basophils 0.1 thou/uL (0.0-0.2); #Eosinphils 0.1 thou/uL (0.0-0.7); #Lymphocytes 3.1 thou/uL (1.20-3.40); #Monocytes 0.6 thou/uL (0.11-0.59); #Neutrophils 4.4 thou/uL (1.40-6.50); %Basophils 0.7 % (0.0-1.0); %Lymphocytes 37.7 % (21.0-51.0); %Monocytes 7.1 % (0.0-10.0); %Neutrophils 53.6 % (42.0-75.0); Mean Corpuscular HGB CONC 32.6 g/dL (32.0-36.0); Mean Corpuscular Hemoglobin 30.5 pg (27.0-31.0); Mean Corpuscular Volume 93.7 fl (78.0-98.0); Mean Platelet Volume 6.9 fL (7.4-10.4); Platelet Count 321 10x3/uL (130-400); RBC Distribution Width 12.8 % (11.5-14.5); White Blood Cell (WBC) Count 8.2 10x3/uL (4.8-10.8)
[2022-07-26 05:00] LABS: Anion Gap 16 mmol/L (10-20); BUN (Urea Nitrogen) 22 mg/dL (9.8-20.1); Calc. Creatinine Clearance 71 mL/min (70-130); Calcium 9.5 mg/dL (7.8-10.44); Carbon Dioxide 26 mmol/L (22-29); Chloride 95 mmol/L (98-107); Cholesterol 472 mg/dl (< 200 Desired); Estimated GFR 43; Glucose 278 mg/dL (70-105); HDL Cholesterol 47 mg/dL (>60 Neg Risk); LDL Cholesterol, Calculated 361 mg/dL; Potassium 3.7 mmol/L (3.5-5.1); Sodium 133 mmol/L (136-145); Triglycerides 322 mg/dL (Less than 150)
[2022-07-26] MEDS: HumaLOG 300 UNITS/3 ML VIAL SC PRN ×2 (06:31→10:54)
[2022-07-26] MEDS ORDERED: Aspirin 325 mg Enteric Coated Tablet PO SCH (09:00)
[2022-07-26] MEDS ORDERED: Non-Formulary Item 1 EACH (Evolocumab [Repatha Syringe] 140 MG/ML Syringe) SC SCH (09:15)
[2022-07-26] MEDS: Polymyxin B Sulf/Trimethoprim 10 ML OPHTH DROPS R EYE SCH ×4 (10:53→21:04)
[2022-07-26] MEDS ORDERED: HumaLOG 300 UNITS/3 ML VIAL SC SCH (14:30)
[2022-07-26] MEDS: HumaLOG 300 UNITS/3 ML VIAL SC SCH ×2 (15:57→21:09)
[2022-07-26] MEDS: Icosapent Ethyl 1 GM CAPSULE PO SCH (16:18)
[2022-07-26 16:52] LABS: BHCG - Serum Negative (NEGATIVE); Pregs Control Background? CLEAR/WHITE (CLR/WHITE); Pregs Control Bar Appear? YES (CONTROL BAR)
[2022-07-26] MEDS ORDERED: Insulin Glargine 30 UNITS/0.3 ML VIAL SC SCH (21:00)
[2022-07-26] MEDS ORDERED: Atorvastatin Calcium 40 MG TAB PO SCH (21:00)
[2022-07-26] MEDS: Apixaban 5 MG TAB PO SCH (21:05)
[2022-07-26] MEDS: Gabapentin 300 MG CAP PO SCH (21:06)
[2022-07-26] MEDS: Metoprolol Tartrate 25 MG TAB PO SCH (21:06)
[2022-07-27] MEDS: HumaLOG 300 UNITS/3 ML VIAL SC PRN (06:14)
[2022-07-27] MEDS ORDERED: Ferrous Sulfate 325 MG TAB PO SCH (08:00)
[2022-07-27] MEDS ORDERED: Ezetimibe 10 MG TAB PO SCH (09:00)
[2022-07-27] MEDS ORDERED: Insulin Glargine 30 UNITS/0.3 ML VIAL SC SCH (09:00)
[2022-07-27] MEDS ORDERED: Cholecalciferol 1,000 UNITS (25 MCG) TAB PO SCH (09:00)
[2022-07-27] MEDS ORDERED: Sertraline 100 MG TAB PO SCH (09:00)
[2022-07-27] MEDS: Polymyxin B Sulf/Trimethoprim 10 ML OPHTH DROPS R EYE SCH ×2 (09:16→13:12)
[2022-07-27] MEDS: Gabapentin 300 MG CAP PO SCH (09:16)
[2022-07-27] MEDS: Apixaban 5 MG TAB PO SCH (09:16)
[2022-07-27] MEDS: Icosapent Ethyl 1 GM CAPSULE PO SCH (09:16)
[2022-07-27] MEDS: Metoprolol Tartrate 25 MG TAB PO SCH (09:17)
[2022-07-27] MEDS: HumaLOG 300 UNITS/3 ML VIAL SC SCH ×2 (09:18→15:02)
[2022-07-27] MEDS: Non-Formulary Item 1 EACH (Biotin [Biotin] 1 MG Tablet) PO SCH ×2 (09:40→10:34)
[2022-07-27 11:43] VITALS: TEMP 97.5
[2022-07-27 12:41] VITALS: BP 126/58
== END 2022-07-27 15:00 | disposition home or self-care (01) ==
LOC: ERS 21:47 → 2NO 07-26 02:09 → OBSVTOIN 07-26 15:32 → INTOOBSV 07-26 15:32
PROVIDERS: ADMIT Internal Medicine; ATTEND Internal Medicine
DX: R42 Dizziness and giddiness (principal); E78.5 Hyperlipidemia, unspecified; E87.1 Hypo-osmolality and hyponatremia; I13.0 Hypertensive heart and chronic kidney disease with heart failure and stage 1 through stage 4 chronic kidney disease, or unspecified chronic kidney disease; E11.22 Type 2 diabetes mellitus with diabetic chronic kidney disease; N18.32 Chronic kidney disease, stage 3b; I50.30 Unspecified diastolic (congestive) heart failure; N17.9 Acute kidney failure, unspecified; H10.31 Unspecified acute conjunctivitis, right eye; I25.10 Atherosclerotic heart disease of native coronary artery without angina pectoris; I48.20 Chronic atrial fibrillation, unspecified; K21.9 Gastro-esophageal reflux disease without esophagitis; M79.7 Fibromyalgia; G47.33 Obstructive sleep apnea (adult) (pediatric); I65.21 Occlusion and stenosis of right carotid artery; D50.9 Iron deficiency anemia, unspecified; E66.9 Obesity, unspecified; Z68.37 Body mass index [BMI] 37.0-37.9, adult; Z79.01 Long term (current) use of anticoagulants; Z79.02 Long term (current) use of antithrombotics/antiplatelets; Z79.4 Long term (current) use of insulin; Z79.620 Long term (current) use of immunosuppressive biologic; Z79.899 Other long term (current) drug therapy; Z88.0 Allergy status to penicillin; Z88.5 Allergy status to narcotic agent; Z91.040 Latex allergy status; Z95.1 Presence of aortocoronary bypass graft; Z95.5 Presence of coronary angioplasty implant and graft; Z20.822 Contact with and (suspected) exposure to COVID-19
CPT/HCPCS: 70450 ×2; 80048; 80053; 80061; 82962 ×2; 84484; 84703; 85025 ×2; 85610; 85730; 93005; 93306; 93880; 99285; G0378 ×3; U0003; U0005; 36415; 36416; J1815

== ENCOUNTER 2022-07-29 06:07 | Emergency (ER) | payer MEDICARE | END 2022-07-29 10:53 | disposition home or self-care (01) | LOC: ERS 06:07 | DX: H00.032 Abscess of right lower eyelid (principal); H11.9 Unspecified disorder of conjunctiva; E11.9 Type 2 diabetes mellitus without complications; E78.5 Hyperlipidemia, unspecified; I11.0 Hypertensive heart disease with heart failure; I50.9 Heart failure, unspecified | CPT/HCPCS: 99283 ==

== ENCOUNTER 2022-08-15 19:30 | Emergency (ER) | payer MEDICARE ==
[2022-08-15] MEDS ORDERED: Diazepam 10 MG/2 ML SYRINGE ONE (21:04)
[2022-08-15] MEDS ORDERED: Lidocaine 1% w/Epinephrine 1:100K 20 ML VIAL ONE (21:04)
== END 2022-08-15 22:04 | disposition home or self-care (01) ==
LOC: ERS 19:30
DX: L02.31 Cutaneous abscess of buttock (principal); L03.317 Cellulitis of buttock; I11.0 Hypertensive heart disease with heart failure; I50.9 Heart failure, unspecified; E11.9 Type 2 diabetes mellitus without complications; E78.5 Hyperlipidemia, unspecified
CPT/HCPCS: 10060; 96372; J3360

== ENCOUNTER 2022-08-18 10:22 | Emergency (ER) | payer MEDICARE | END 2022-08-18 11:42 | disposition home or self-care (01) | LOC: ERS 10:22 | DX: L02.31 Cutaneous abscess of buttock (principal); I11.0 Hypertensive heart disease with heart failure; I50.9 Heart failure, unspecified; E11.9 Type 2 diabetes mellitus without complications; E78.5 Hyperlipidemia, unspecified | CPT/HCPCS: 99282 ==

== ENCOUNTER 2022-08-28 15:24 | Emergency (ER) | payer MEDICARE ==
[2022-08-28 16:00] LABS: #Basophils 0.1 thou/uL (0.0-0.2); #Lymphocytes 1.8 thou/uL (1.20-3.40); #Monocytes 0.4 thou/uL (0.11-0.59); #Neutrophils 6.7 thou/uL (1.40-6.50); %Basophils 0.6 % (0.0-1.0); %Eosinophils 0.5 % (0.0-10.0); %Monocytes 4.4 % (0.0-10.0); %Neutrophils 74.5 % (42.0-75.0); Hemoglobin 13.2 g/dL (12.0-16.0); Mean Corpuscular HGB CONC 33.4 g/dL (32.0-36.0); Mean Corpuscular Hemoglobin 31.4 pg (27.0-31.0); Mean Platelet Volume 6.7 fL (7.4-10.4); Platelet Count 394 10x3/uL (130-400); RBC Distribution Width 12.8 % (11.5-14.5)
[2022-08-28] MEDS ORDERED: Iopamidol-370 76% 500 ML 1 ML ONE (16:08)
[2022-08-28 16:21] LABS: ALT (SGPT) 10 U/L (8-55); AST (SGOT) 7 U/L (5-34); Albumin 3.8 g/dL (3.5-5.0); Alkaline Phosphatase 100 U/L (40-110); Anion Gap 14 mmol/L (10-20); BUN (Urea Nitrogen) 22 mg/dL (9.8-20.1); Bilirubin, Total 0.3 mg/dL (0.2-1.2); Calc. Creatinine Clearance 0 mL/min (70-130); Calcium 9.5 mg/dL (7.8-10.44); Carbon Dioxide 28 mmol/L (22-29); Chloride 97 mmol/L (98-107); Estimated GFR 55; Glucose 334 mg/dL (70-105); Potassium 4.1 mmol/L (3.5-5.1); Protein, Total 7.8 g/dL (6.0-8.3); Sodium 135 mmol/L (136-145)
== END 2022-08-28 19:14 | disposition home or self-care (01) ==
LOC: ERS 15:24
DX: L03.317 Cellulitis of buttock (principal); L02.31 Cutaneous abscess of buttock; I11.0 Hypertensive heart disease with heart failure; I50.9 Heart failure, unspecified; E78.5 Hyperlipidemia, unspecified; Z79.4 Long term (current) use of insulin
CPT/HCPCS: 36415; 74177; 80053; 83605; 85025; Q9967

== ENCOUNTER 2022-09-18 13:13 | Emergency (ER) | payer MEDICARE ==
[2022-09-18 15:44] LABS: #Basophils 0.1 thou/uL (0.0-0.2); #Lymphocytes 2.2 thou/uL (1.20-3.40); #Monocytes 0.6 thou/uL (0.11-0.59); #Neutrophils 5.9 thou/uL (1.40-6.50); %Eosinophils 0.5 % (0.0-10.0); %Lymphocytes 24.9 % (21.0-51.0); %Monocytes 6.7 % (0.0-10.0); %Neutrophils 66.9 % (42.0-75.0); Hemoglobin 13.6 g/dL (12.0-16.0); Mean Corpuscular HGB CONC 33.1 g/dL (32.0-36.0); Mean Corpuscular Hemoglobin 30.7 pg (27.0-31.0); Mean Corpuscular Volume 92.7 fl (78.0-98.0); Mean Platelet Volume 6.6 fL (7.4-10.4); Platelet Count 481 10x3/uL (130-400); RBC Distribution Width 13.6 % (11.5-14.5); Red Blood Cell (RBC) Count 4.43 mill/uL (4.20-5.40); White Blood Cell (WBC) Count 8.8 10x3/uL (4.8-10.8)
[2022-09-18 16:06] LABS: ALT (SGPT) 12 U/L (8-55); AST (SGOT) 12 U/L (5-34); Albumin 4.1 g/dL (3.5-5.0); Alkaline Phosphatase 95 U/L (40-110); Anion Gap 16 mmol/L (10-20); BUN (Urea Nitrogen) 25 mg/dL (9.8-20.1); Bilirubin, Total 0.3 mg/dL (0.2-1.2); Calc. Creatinine Clearance 0 mL/min (70-130); Carbon Dioxide 27 mmol/L (22-29); Chloride 98 mmol/L (98-107); Estimated GFR 49; Globulin 4.8 g/dL (2.4-3.5); Glucose 78 mg/dL (70-105); Potassium 4.1 mmol/L (3.5-5.1); Protein, Total 8.9 g/dL (6.0-8.3); Sodium 137 mmol/L (136-145)
== END 2022-09-18 16:35 | disposition home or self-care (01) ==
LOC: ERS 13:13
DX: M62.838 Other muscle spasm (principal); F95.9 Tic disorder, unspecified; I11.0 Hypertensive heart disease with heart failure; I50.9 Heart failure, unspecified; E11.9 Type 2 diabetes mellitus without complications; E78.00 Pure hypercholesterolemia, unspecified; Z79.01 Long term (current) use of anticoagulants; Z79.4 Long term (current) use of insulin; Z79.84 Long term (current) use of oral hypoglycemic drugs
CPT/HCPCS: 36415; 80053; 85025; 99284

== ENCOUNTER 2022-09-26 17:30 | Outpatient (CLI) | payer MEDICARE | END 2022-09-26 17:31 | disposition home or self-care (01) | LOC: SLEEPLAB 17:30 | PROVIDERS: ATTEND Internal Medicine Critical Care Medicine | DX: G47.33 Obstructive sleep apnea (adult) (pediatric) (principal); R53.83 Other fatigue; E66.9 Obesity, unspecified; R06.83 Snoring; G47.00 Insomnia, unspecified | CPT/HCPCS: 95800 ==

== ENCOUNTER 2022-12-08 08:52 | Emergency (ER) | payer MEDICARE | END 2022-12-08 11:20 | disposition home or self-care (01) | LOC: ERS 08:52 | DX: S00.03XA Contusion of scalp, initial encounter (principal); M25.512 Pain in left shoulder; M25.511 Pain in right shoulder; I11.0 Hypertensive heart disease with heart failure; I50.9 Heart failure, unspecified; E78.00 Pure hypercholesterolemia, unspecified; E11.9 Type 2 diabetes mellitus without complications; W18.31XA Fall on same level due to stepping on an object, initial encounter; Z79.4 Long term (current) use of insulin; Z79.01 Long term (current) use of anticoagulants; Z79.84 Long term (current) use of oral hypoglycemic drugs | CPT/HCPCS: 70450 ==

== ENCOUNTER 2022-12-31 19:00 | Outpatient (CLI) | payer MEDICARE | END 2022-12-31 19:01 | disposition home or self-care (01) | LOC: SLEEPLAB 19:00 | PROVIDERS: ATTEND Internal Medicine Critical Care Medicine | DX: G47.33 Obstructive sleep apnea (adult) (pediatric) (principal) | CPT/HCPCS: 95811 ==

== ENCOUNTER 2023-01-04 20:52 | Inpatient (IN) | payer MEDICARE ==
[2023-01-04] MEDS ORDERED: Diltiazem 125 MG/25 ML SDV ONE (21:16)
[2023-01-04] MEDS ORDERED: Amiodarone 150 MG/3 ML VIAL ONE (21:23)
[2023-01-04 21:33] LABS: #Basophils 0.1 thou/uL (0.0-0.2); #Lymphocytes 2.3 thou/uL (1.20-3.40); #Monocytes 0.4 thou/uL (0.11-0.59); %Basophils 1.1 % (0.0-1.0); %Eosinophils 0.8 % (0.0-10.0); %Lymphocytes 39.5 % (21.0-51.0); %Monocytes 7.2 % (0.0-10.0); %Neutrophils 51.4 % (42.0-75.0); Hemoglobin 14.8 g/dL (12.0-16.0); Mean Corpuscular HGB CONC 34.3 g/dL (32.0-36.0); Mean Corpuscular Hemoglobin 31.2 pg (27.0-31.0); Mean Corpuscular Volume 90.8 fl (78.0-98.0); Mean Platelet Volume 6.9 fL (7.4-10.4); Platelet Count 372 10x3/uL (130-400); Red Blood Cell (RBC) Count 4.75 mill/uL (4.20-5.40); White Blood Cell (WBC) Count 5.9 10x3/uL (4.8-10.8)
[2023-01-04] MEDS ORDERED: Amiodarone 150 MG, Admixture Fee 1 EACH in Dextrose 5% in Water 100 ML IVPB SCH (21:45)
[2023-01-04 21:46] LABS: INR-International Normal Ratio 0.9; PTT 23.9 sec (22.9-36.1)
[2023-01-04] MEDS ORDERED: Acetaminophen 325 MG TAB PO PRN (22:49)
[2023-01-04] MEDS ORDERED: Ondansetron PF 4 MG/2 ML Vial IVP PRN (22:49)
[2023-01-05 00:24] LABS: ALT (SGPT) 11 U/L (8-55); AST (SGOT) 11 U/L (5-34); Albumin 3.5 g/dL (3.5-5.0); Alkaline Phosphatase 104 U/L (40-110); Anion Gap 15 mmol/L (10-20); BUN (Urea Nitrogen) 18 mg/dL (9.8-20.1); Bilirubin, Total 0.4 mg/dL (0.2-1.2); Calc. Creatinine Clearance 0 mL/min (70-130); Calcium 8.7 mg/dL (7.8-10.44); Carbon Dioxide 25 mmol/L (22-29); Chloride 99 mmol/L (98-107); Estimated GFR 60; Globulin 3.7 g/dL (2.4-3.5); Glucose 305 mg/dL (70-105); Magnesium 1.8 mg/dL (1.6-2.6); Potassium 3.9 mmol/L (3.5-5.1); Protein, Total 7.2 g/dL (6.0-8.3); Sodium 135 mmol/L (136-145)
[2023-01-05 00:25] LABS: Troponin I Less than 0.010 ng/mL (< 0.028)
[2023-01-05] MEDS ORDERED: Magnesium 2 GM/50 ML(in water) 2 GM in Premix Bag 1 BAG IVPB SCH (02:45)
[2023-01-05 03:47] VITALS: BMI 37.3
[2023-01-05] MEDS ORDERED: Dextrose 5% in Water 1,000 ML IV PRN (04:44)
[2023-01-05] MEDS ORDERED: Dextrose 50% Abboject 50 ML SYRINGE SLOW IVP PRN (04:44)
[2023-01-05 04:50] LABS: #Eosinphils 0.1 thou/uL (0.0-0.7); #Lymphocytes 2.7 thou/uL (1.20-3.40); #Monocytes 0.5 thou/uL (0.11-0.59); #Neutrophils 3.3 thou/uL (1.40-6.50); %Basophils 0.6 % (0.0-1.0); %Lymphocytes 41.4 % (21.0-51.0); %Neutrophils 49.1 % (42.0-75.0); Hemoglobin 14.6 g/dL (12.0-16.0); Mean Corpuscular Hemoglobin 32.1 pg (27.0-31.0); Mean Corpuscular Volume 91.8 fl (78.0-98.0); Mean Platelet Volume 6.7 fL (7.4-10.4); Platelet Count 343 10x3/uL (130-400); RBC Distribution Width 13.1 % (11.5-14.5); Red Blood Cell (RBC) Count 4.54 mill/uL (4.20-5.40); White Blood Cell (WBC) Count 6.6 10x3/uL (4.8-10.8)
[2023-01-05 05:17] LABS: Anion Gap 16 mmol/L (10-20); BUN (Urea Nitrogen) 18 mg/dL (9.8-20.1); Calc. Creatinine Clearance 94 mL/min (70-130); Calcium 8.8 mg/dL (7.8-10.44); Carbon Dioxide 21 mmol/L (22-29); Chloride 99 mmol/L (98-107); Estimated GFR 61; Glucose 346 mg/dL (70-105); Magnesium 2.2 mg/dL (1.6-2.6); Sodium 132 mmol/L (136-145)
[2023-01-05 05:19] LABS: Troponin I 0.019 ng/mL (< 0.028)
[2023-01-05] MEDS: HumaLOG 300 UNITS/3 ML VIAL SC PRN ×4 (07:22→20:55)
[2023-01-05] MEDS: Amiodarone 450 MG, Admixture Fee 1 EACH in Dextrose 5% in Water 250 ML IVPB SCH ×2 (07:23→23:00)
[2023-01-05] MEDS ORDERED: Ezetimibe 10 MG TAB PO SCH (09:00)
[2023-01-05] MEDS: Insulin Glargine 30 UNITS/0.3 ML VIAL SC SCH ×2 (09:42→20:53)
[2023-01-05] MEDS: Gabapentin 300 MG CAP PO SCH ×2 (09:43→20:57)
[2023-01-05] MEDS: Apixaban 5 MG TAB PO SCH ×2 (09:45→20:57)
[2023-01-05] MEDS: Metoprolol Tartrate 25 MG TAB PO SCH ×2 (09:45→20:56)
[2023-01-05] MEDS: Ezetimibe 10 MG TAB PO SCH (09:45)
[2023-01-05] MEDS: Citalopram 20 MG TAB PO SCH (09:47)
[2023-01-05] MEDS: Aspirin 81 mg Enteric Coated Tablet PO SCH (09:47)
[2023-01-05] MEDS: Diltiazem 125 MG in Sodium Chloride 0.9% 100 ML IVPB SCH (17:11)
[2023-01-06 04:57] LABS: #Basophils 0.1 thou/uL (0.0-0.2); #Eosinphils 0.1 thou/uL (0.0-0.7); #Lymphocytes 2.9 thou/uL (1.20-3.40); #Monocytes 0.5 thou/uL (0.11-0.59); #Neutrophils 4.1 thou/uL (1.40-6.50); %Eosinophils 0.8 % (0.0-10.0); %Monocytes 6.2 % (0.0-10.0); %Neutrophils 54.1 % (42.0-75.0); Hemoglobin 14.9 g/dL (12.0-16.0); Mean Corpuscular HGB CONC 34.4 g/dL (32.0-36.0); Mean Corpuscular Hemoglobin 31.2 pg (27.0-31.0); Mean Corpuscular Volume 90.9 fl (78.0-98.0); Mean Platelet Volume 6.6 fL (7.4-10.4); Platelet Count 351 10x3/uL (130-400); RBC Distribution Width 13.2 % (11.5-14.5); Red Blood Cell (RBC) Count 4.77 mill/uL (4.20-5.40); White Blood Cell (WBC) Count 7.6 10x3/uL (4.8-10.8)
[2023-01-06 05:53] LABS: Anion Gap 12 mmol/L (10-20); BUN (Urea Nitrogen) 20 mg/dL (9.8-20.1); Calc. Creatinine Clearance 99 mL/min (70-130); Calcium 8.6 mg/dL (7.8-10.44); Carbon Dioxide 24 mmol/L (22-29); Chloride 98 mmol/L (98-107); Estimated GFR 65; Glucose 243 mg/dL (70-105); Magnesium 1.9 mg/dL (1.6-2.6); Potassium 3.8 mmol/L (3.5-5.1); Sodium 130 mmol/L (136-145)
[2023-01-06] MEDS: HumaLOG 300 UNITS/3 ML VIAL SC PRN ×4 (06:30→21:30)
[2023-01-06] MEDS: Apixaban 5 MG TAB PO SCH ×2 (10:20→21:28)
[2023-01-06] MEDS: Gabapentin 300 MG CAP PO SCH ×2 (10:20→21:28)
[2023-01-06] MEDS: Furosemide 80 MG TAB PO SCH (10:21)
[2023-01-06] MEDS: Citalopram 20 MG TAB PO SCH (10:21)
[2023-01-06] MEDS: Ezetimibe 10 MG TAB PO SCH (10:21)
[2023-01-06] MEDS: Metoprolol Tartrate 25 MG TAB PO SCH ×2 (10:21→21:29)
[2023-01-06] MEDS: Insulin Glargine 30 UNITS/0.3 ML VIAL SC SCH ×2 (10:36→21:28)
[2023-01-06] MEDS: Aspirin 81 mg Enteric Coated Tablet PO SCH (10:36)
[2023-01-06] MEDS: Amiodarone 450 MG, Admixture Fee 1 EACH in Dextrose 5% in Water 250 ML IVPB SCH (14:19)
[2023-01-06] MEDS: Diltiazem 125 MG in Sodium Chloride 0.9% 100 ML IVPB SCH (19:18)
[2023-01-07 05:36] LABS: #Monocytes 0.5 thou/uL (0.11-0.59); #Neutrophils 3.9 thou/uL (1.40-6.50); %Basophils 0.5 % (0.0-1.0); %Eosinophils 0.6 % (0.0-10.0); %Lymphocytes 39.9 % (21.0-51.0); %Monocytes 6.2 % (0.0-10.0); %Neutrophils 52.8 % (42.0-75.0); Hemoglobin 15.6 g/dL (12.0-16.0); Mean Corpuscular HGB CONC 35.2 g/dL (32.0-36.0); Mean Corpuscular Volume 90.8 fl (78.0-98.0); Mean Platelet Volume 6.8 fL (7.4-10.4); Platelet Count 369 10x3/uL (130-400); RBC Distribution Width 13.4 % (11.5-14.5); Red Blood Cell (RBC) Count 4.88 mill/uL (4.20-5.40); White Blood Cell (WBC) Count 7.4 10x3/uL (4.8-10.8)
[2023-01-07 05:47] LABS: Anion Gap 14 mmol/L (10-20); BUN (Urea Nitrogen) 23 mg/dL (9.8-20.1); Calc. Creatinine Clearance 82 mL/min (70-130); Calcium 8.8 mg/dL (7.8-10.44); Carbon Dioxide 24 mmol/L (22-29); Chloride 100 mmol/L (98-107); Estimated GFR 52; Glucose 134 mg/dL (70-105); Potassium 3.6 mmol/L (3.5-5.1); Sodium 134 mmol/L (136-145)
[2023-01-07] MEDS: Furosemide 80 MG TAB PO SCH (09:30)
[2023-01-07] MEDS: Apixaban 5 MG TAB PO SCH ×2 (09:30→21:22)
[2023-01-07] MEDS: Citalopram 20 MG TAB PO SCH (09:30)
[2023-01-07] MEDS: Gabapentin 300 MG CAP PO SCH ×2 (09:30→21:22)
[2023-01-07] MEDS: Ezetimibe 10 MG TAB PO SCH (09:30)
[2023-01-07] MEDS: Aspirin 81 mg Enteric Coated Tablet PO SCH (09:30)
[2023-01-07] MEDS: Insulin Glargine 30 UNITS/0.3 ML VIAL SC SCH ×2 (09:31→21:23)
[2023-01-07] MEDS: Metoprolol Tartrate 25 MG TAB PO SCH ×2 (11:50→21:23)
[2023-01-07] MEDS: Amiodarone 450 MG, Admixture Fee 1 EACH in Dextrose 5% in Water 250 ML IVPB SCH (22:13)
[2023-01-08 05:10] LABS: Magnesium 2.1 mg/dL (1.6-2.6)
[2023-01-08 07:27] LABS: Anion Gap 18 mmol/L (10-20); BUN (Urea Nitrogen) 25 mg/dL (9.8-20.1); Calc. Creatinine Clearance 70 mL/min (70-130); Carbon Dioxide 21 mmol/L (22-29); Chloride 101 mmol/L (98-107); Estimated GFR 45; Glucose 136 mg/dL (70-105); Potassium 3.7 mmol/L (3.5-5.1); Sodium 136 mmol/L (136-145)
[2023-01-08] MEDS: Ezetimibe 10 MG TAB PO SCH (08:33)
[2023-01-08] MEDS: Citalopram 20 MG TAB PO SCH (08:33)
[2023-01-08] MEDS: Metoprolol Tartrate 25 MG TAB PO SCH (08:33)
[2023-01-08] MEDS: Aspirin 81 mg Enteric Coated Tablet PO SCH (08:33)
[2023-01-08] MEDS: Furosemide 80 MG TAB PO SCH (08:33)
[2023-01-08] MEDS: Apixaban 5 MG TAB PO SCH (08:34)
[2023-01-08] MEDS: Gabapentin 300 MG CAP PO SCH (08:34)
[2023-01-08] MEDS: Insulin Glargine 30 UNITS/0.3 ML VIAL SC SCH (08:52)
[2023-01-08 12:25] VITALS: BP 112/73; TEMP 97.2
== END 2023-01-08 12:50 | disposition home or self-care (01) | DRG 309 ==
LOC: ERS 20:52 → ERHOLD 22:36 → 2NO 01-05 02:30
PROVIDERS: ADMIT Internal Medicine; ATTEND Internal Medicine
DX: I48.91 Unspecified atrial fibrillation (principal); I13.0 Hypertensive heart and chronic kidney disease with heart failure and stage 1 through stage 4 chronic kidney disease, or unspecified chronic kidney disease; I50.32 Chronic diastolic (congestive) heart failure; I25.10 Atherosclerotic heart disease of native coronary artery without angina pectoris; E11.22 Type 2 diabetes mellitus with diabetic chronic kidney disease; N18.30 Chronic kidney disease, stage 3 unspecified; K21.9 Gastro-esophageal reflux disease without esophagitis; M79.7 Fibromyalgia; E66.9 Obesity, unspecified; G47.33 Obstructive sleep apnea (adult) (pediatric); F32.A Depression, unspecified; Z79.82 Long term (current) use of aspirin; Z79.01 Long term (current) use of anticoagulants; Z91.040 Latex allergy status; Z88.0 Allergy status to penicillin; Z88.6 Allergy status to analgesic agent; Z79.4 Long term (current) use of insulin; Z79.899 Other long term (current) drug therapy; Z95.1 Presence of aortocoronary bypass graft; Z90.49 Acquired absence of other specified parts of digestive tract; Z95.5 Presence of coronary angioplasty implant and graft; Z80.3 Family history of malignant neoplasm of breast; Z82.49 Family history of ischemic heart disease and other diseases of the circulatory system; Z83.3 Family history of diabetes mellitus; Z80.1 Family history of malignant neoplasm of trachea, bronchus and lung; Z99.89 Dependence on other enabling machines and devices; Z68.37 Body mass index [BMI] 37.0-37.9, adult; Z91.148 Patient's other noncompliance with medication regimen for other reason; Z86.711 Personal history of pulmonary embolism
CPT/HCPCS: 36415; 36416; 71045; 80048; 80053; 83735; 83880; 84443; 84484; 85025; 85610; 85730; 93005; 93010; J0282; J1815; J3475; J3490; J7070

== ENCOUNTER 2023-05-14 06:41 | Emergency (ER) | payer MEDICARE ==
[2023-05-14 07:34] LABS: #Monocytes 0.3 thou/uL (0.11-0.59); #Neutrophils 4.8 thou/uL (1.40-6.50); %Basophils 0.3 % (0.0-1.0); %Eosinophils 0.5 % (0.0-10.0); %Lymphocytes 9.4 % (21.0-51.0); %Monocytes 5.9 % (0.0-10.0); %Neutrophils 83.7 % (42.0-75.0); Hematocrit 42.1 % (36.0-47.0); Hemoglobin 13.9 g/dL (12.0-16.0); Mean Platelet Volume 8.9 fL (7.4-10.4); Platelet Count 240 10x3/uL (130-400); RBC Distribution Width 13.1 % (11.5-14.5); Red Blood Cell (RBC) Count 4.34 mill/uL (4.20-5.40); White Blood Cell (WBC) Count 5.7 10x3/uL (4.8-10.8)
[2023-05-14] MEDS ORDERED: Acetaminophen 500 MG TAB ONE (07:34)
[2023-05-14 08:00] LABS: Troponin I Less than 0.010 ng/mL (< 0.028)
[2023-05-14 08:03] LABS: ALT (SGPT) 16 U/L (8-55); AST (SGOT) 13 U/L (5-34); Albumin 3.8 g/dL (3.5-5.0); Alkaline Phosphatase 89 U/L (40-110); Anion Gap 13 mmol/L (10-20); BUN (Urea Nitrogen) 18 mg/dL (9.8-20.1); Bilirubin, Total 0.3 mg/dL (0.2-1.2); Calc. Creatinine Clearance 0 mL/min (70-130); Calcium 9.4 mg/dL (7.8-10.44); Carbon Dioxide 25 mmol/L (22-29); Chloride 102 mmol/L (98-107); Estimated GFR 59; Globulin 3.2 g/dL (2.4-3.5); Glucose 312 mg/dL (70-105); Potassium 3.9 mmol/L (3.5-5.1); Sodium 136 mmol/L (136-145)
[2023-05-14] MEDS ORDERED: Morphine 4 MG/ML VIAL ONE (08:15)
[2023-05-14] MEDS ORDERED: Methocarbamol 500 MG TAB PO SCH (08:30)
[2023-05-14 08:51] LABS: Lipase 10 U/L (8-78); Magnesium 1.6 mg/dL (1.6-2.6)
== END 2023-05-14 11:06 | disposition home or self-care (01) ==
LOC: ERS 06:41
DX: M79.622 Pain in left upper arm (principal); E11.9 Type 2 diabetes mellitus without complications; I11.0 Hypertensive heart disease with heart failure; I50.9 Heart failure, unspecified; E78.00 Pure hypercholesterolemia, unspecified; I48.91 Unspecified atrial fibrillation; Z79.01 Long term (current) use of anticoagulants; Z79.4 Long term (current) use of insulin; Z79.84 Long term (current) use of oral hypoglycemic drugs
CPT/HCPCS: 36415; 71045; 80053; 83690; 83735; 83880; 84484; 85025; 93005; 96374; J2270

== ENCOUNTER 2023-05-17 04:10 | Emergency (ER) | payer MEDICARE ==
[2023-05-17] MEDS ORDERED: traMADol HCl 50 MG TAB ONE ×2 (05:10→05:16)
[2023-05-17] MEDS ORDERED: Methocarbamol 500 MG TAB PO SCH (05:30)
== END 2023-05-17 05:46 | disposition home or self-care (01) ==
LOC: ERS 04:10
DX: M25.512 Pain in left shoulder (principal); I11.0 Hypertensive heart disease with heart failure; I50.9 Heart failure, unspecified; E11.9 Type 2 diabetes mellitus without complications; I48.91 Unspecified atrial fibrillation
CPT/HCPCS: 99283

== ENCOUNTER 2023-08-08 08:13 | Outpatient (CLI) | payer MEDICARE | END 2023-08-08 08:14 | disposition home or self-care (01) | LOC: BICRAD 08:13 | PROVIDERS: ATTEND Physician Assistant Surgical | DX: M53.2X2 Spinal instabilities, cervical region (principal); I65.23 Occlusion and stenosis of bilateral carotid arteries; Z98.1 Arthrodesis status | CPT/HCPCS: 72040 ==

== ENCOUNTER 2024-03-02 09:51 | Outpatient (CLI) | payer MEDICARE | END 2024-03-02 09:52 | disposition home or self-care (01) | LOC: BICCT 09:51 | PROVIDERS: ATTEND Neurological Surgery | DX: M54.50 Low back pain, unspecified (principal); M51.34 Other intervertebral disc degeneration, thoracic region; M25.78 Osteophyte, vertebrae; M43.16 Spondylolisthesis, lumbar region; Z98.890 Other specified postprocedural states | CPT/HCPCS: 72120; 72128 ==

== ENCOUNTER 2024-03-28 09:43 | Emergency (ER) | payer MEDICARE ==
[2024-03-28] MEDS ORDERED: Dicyclomine 20 MG/2 ML VIAL ONE (09:58)
[2024-03-28] MEDS ORDERED: Ondansetron PF 4 MG/2 ML Vial ONE ×2 (09:58→12:04)
[2024-03-28 10:47] LABS: #Basophils 0.04 10x3/uL (0.0-0.2); %Basophils 0.5 % (0.0-1.0); %Eosinophils 0.4 % (0.0-10.0); %Lymphocytes 28.6 % (21.0-51.0); %Monocytes 6.4 % (0.0-10.0); Hematocrit 43.8 % (36.0-47.0); Mean Corpuscular HGB CONC 34.2 g/dL (32.0-36.0); Mean Corpuscular Hemoglobin 31.8 pg (27.0-31.0); Mean Corpuscular Volume 92.8 fL (78.0-98.0); Platelet Count 398 10x3/uL (130-400); RBC Distribution Width 13.2 % (11.5-14.5); Red Blood Cell (RBC) Count 4.72 mill/uL (4.20-5.40)
[2024-03-28 11:03] LABS: ALT (SGPT) 17 U/L (8-55); AST (SGOT) 12 U/L (5-34); Albumin 3.7 g/dL (3.5-5.0); Alkaline Phosphatase 93 U/L (40-110); Anion Gap 15 mmol/L (10-20); BUN (Urea Nitrogen) 14 mg/dL (9.8-20.1); Bilirubin, Total 0.3 mg/dL (0.2-1.2); Calc. Creatinine Clearance 0 mL/min (70-130); Calcium 9.8 mg/dL (7.8-10.44); Carbon Dioxide 22 mmol/L (22-29); Chloride 102 mmol/L (98-107); Estimated GFR 54; Glucose 272 mg/dL (70-105); Lipase 9 U/L (8-78); Potassium 4.3 mmol/L (3.5-5.1); Protein, Total 7.7 g/dL (6.0-8.3); Sodium 135 mmol/L (136-145)
[2024-03-28 11:11] LABS: Troponin I Less than 0.010 ng/mL (< 0.028)
[2024-03-28 12:41] LABS: Bilirubin Negative (Negative); Blood, Urine Negative (Negative); CAUTI Indications for Culture Pelvic or flank pain; Clarity Turbid (Clear); Glucose, Urine (Dipstick) 150 mg/dL (Negative); Ketone, Urine 10 mg/dL (Negative); Leukocyte 25 Leu/uL (Negative); Nitrite Negative (Negative); Protein, Urine (Dipstick) 50 mg/dL (Neg-Trace); RBC/HPF 0-3 HPF (0-3); Specific Gravity, Urine 1.033 (1.002-1.036); Squamous Epithelial 21-50 HPF (0-3); WBC/HPF 0-3 HPF (0-3)
[2024-03-28 12:42] LABS: Bacteria/HPF 1+ HPF (None Seen)
[2024-03-28 12:43] LABS: Urine Culture Reflex No No
== END 2024-03-28 13:05 | disposition home or self-care (01) ==
LOC: ERS 09:43
DX: R11.2 Nausea with vomiting, unspecified (principal); R19.7 Diarrhea, unspecified; E11.65 Type 2 diabetes mellitus with hyperglycemia; I11.0 Hypertensive heart disease with heart failure; I50.9 Heart failure, unspecified; I48.91 Unspecified atrial fibrillation; Z79.4 Long term (current) use of insulin
CPT/HCPCS: 71045; 80053; 81001; 83690; 84484; 85025; 93005; 96361; 96372; 96374; 96376; 99284; J2405; 36415

== ENCOUNTER 2024-09-29 16:12 | Observation (INO) | payer MEDICARE ==
[~2024-09-29 16:12] MED LIST changes: -Iopamidol-370 76% 500 ML 1 ML ONE; +Iopamidol-370 76% 500 ML MDV (1 ML CHARGE) ONE
[2024-09-29 17:07] LABS: #Basophils 0.03 10x3/uL (0.0-0.2); #Eosinophils Less than 0.03 10x3/uL (0.0-0.7); %Basophils 0.4 % (0.0-1.0); %Eosinophils 0.1 % (0.0-10.0); %Lymphocytes 22.8 % (21.0-51.0); %Monocytes 7.5 % (0.0-10.0); %Neutrophils 68.9 % (42.0-75.0); Hematocrit 44.6 % (36.0-47.0); Hemoglobin 14.8 g/dL (12.0-16.0); Mean Corpuscular HGB CONC 33.2 g/dL (32.0-36.0); Mean Corpuscular Hemoglobin 30.6 pg (27.0-31.0); Mean Corpuscular Volume 92.1 fL (78.0-98.0); Mean Platelet Volume 8.3 fL (7.4-10.4); Platelet Count 343 10x3/uL (130-400); RBC Distribution Width 12.9 % (11.5-14.5); Red Blood Cell (RBC) Count 4.84 mill/uL (4.20-5.40)
[2024-09-29 17:29] LABS: ALT (SGPT) 21 U/L (Less than 34); AST (SGOT) 18 U/L (11-34); Albumin 3.4 g/dL (3.1-4.5); Alkaline Phosphatase 112 U/L (40-110); Anion Gap 17 mmol/L (10-20); BUN (Urea Nitrogen) 12 mg/dL (9.8-20.1); Bilirubin, Total 0.4 mg/dL (0.3-1.2); Calc. Creatinine Clearance 0 mL/min (70-130); Calcium 9.3 mg/dL (7.8-10.44); Carbon Dioxide 23 mmol/L (22-29); Chloride 101 mmol/L (98-107); Estimated GFR 62; Globulin 4.5 g/dL (2.4-3.5); Glucose 312 mg/dL (70-105); Potassium 4.8 mmol/L (3.5-5.1); Protein, Total 7.9 g/dL (6.0-8.3); Sodium 136 mmol/L (136-145)
[2024-09-29] MEDS ORDERED: Lidocaine 1% PF 5 ML VIAL ONE (19:24)
[2024-09-29] MEDS ORDERED: Lidocaine 1% w/Epinephrine 1:100K 20 ML VIAL ONE (19:26)
[2024-09-29 20:44] LABS: Bacteria/HPF 3+ HPF (None Seen); Bilirubin 1+ (Negative); Blood, Urine Negative (Negative); CAUTI Indications for Culture Fever or rigors; Glucose, Urine (Dipstick) Greater than 1000 mg/dL (Negative); Ketone, Urine 20 mg/dL (Negative); Leukocyte Negative Leu/uL (Negative); Nitrite Negative (Negative); Protein, Urine (Dipstick) 100 mg/dL (Neg-Trace); RBC/HPF None Seen HPF (0-3); Specific Gravity, Urine 1.038 (1.002-1.036); Squamous Epithelial 21-50 HPF (0-3); pH, Urine 5.5 (5.0-9.0)
[2024-09-29 20:48] LABS: Clarity Hazy (Clear)
[2024-09-29 20:49] LABS: Urine Culture Reflex No No
[2024-09-29] MEDS ORDERED: Aspirin Chewable 81 MG TAB ONE (22:34)
[2024-09-29] MEDS ORDERED: Dextrose 5% in Water 1,000 ML IV PRN (23:22)
[2024-09-29] MEDS ORDERED: Acetaminophen 650 MG Suppository PR PRN (23:22)
[2024-09-29] MEDS ORDERED: Acetaminophen 325 MG TAB PO PRN (23:22)
[2024-09-29] MEDS ORDERED: Dextrose 50% Abboject 50 ML SYRINGE SLOW IVP PRN (23:22)
[2024-09-29] MEDS ORDERED: Glucagon 1 MG/ML KIT IM PRN (23:22)
[2024-09-29] MEDS ORDERED: traMADol HCl 50 MG TAB PO PRN (23:22)
[2024-09-29] MEDS ORDERED: Insulin Lispro 100 UNIT/ML 10 ML VIAL SC PRN ×2 (23:22)
[2024-09-29] MEDS ORDERED: hydrALAZINE 20 MG/ML VIAL SLOW IVP PRN (23:26)
[2024-09-29] MEDS ORDERED: Labetalol HCl 100 MG/20 ML VIAL SLOW IVP PRN (23:26)
[2024-09-29 23:45] VITALS: BMI 35.6
[2024-09-30] MEDS: Clindamycin/D5W 900 MG in Premix 1 BAG IVPB SCH ×2 (00:38→02:29)
[2024-09-30] MEDS: Sodium Chloride 0.9% 1,000 ML IV SCH (01:04)
[2024-09-30] MEDS: Insulin Glargine 30 UNITS/0.3 ML VIAL SC SCH ×2 (01:04→08:49)
[2024-09-30] MEDS ORDERED: Clindamycin/D5W 600 MG in Premix 1 BAG IVPB SCH (02:00)
[2024-09-30] MEDS: Melatonin 3 MG TAB PO SCH (04:56)
[2024-09-30 05:25] LABS: #Basophils 0.03 10x3/uL (0.0-0.2); %Basophils 0.4 % (0.0-1.0); %Eosinophils 0.4 % (0.0-10.0); %Lymphocytes 36.1 % (21.0-51.0); %Monocytes 9.6 % (0.0-10.0); %Neutrophils 53.2 % (42.0-75.0); Hematocrit 38.5 % (36.0-47.0); Hemoglobin 12.9 g/dL (12.0-16.0); Mean Corpuscular HGB CONC 33.5 g/dL (32.0-36.0); Mean Corpuscular Volume 92.5 fL (78.0-98.0); Platelet Count 335 10x3/uL (130-400); Red Blood Cell (RBC) Count 4.16 mill/uL (4.20-5.40)
[2024-09-30 05:31] LABS: Anion Gap 12 mmol/L (10-20); BUN (Urea Nitrogen) 18 mg/dL (9.8-20.1); Calc. Creatinine Clearance 106 mL/min (70-130); Calcium 8.3 mg/dL (7.8-10.44); Carbon Dioxide 23 mmol/L (22-29); Cardiac Risk 6.3 (Less than 4.5); Chloride 106 mmol/L (98-107); Cholesterol 226 mg/dl (< 200 Desired); Estimated GFR 75; Glucose 243 mg/dL (70-105); HDL Cholesterol 36 mg/dL (>60 Neg Risk); LDL Cholesterol, Calculated 141 mg/dL; Potassium 3.4 mmol/L (3.5-5.1); Sodium 138 mmol/L (136-145); Triglycerides 247 mg/dL (Less than 150)
[2024-09-30 05:57] LABS: Hemoglobin A1c 9.5 % (4.0-6.0)
[2024-09-30] MEDS ORDERED: ALPRAZolam 0.5 MG TAB PO SCH (08:30)
[2024-09-30] MEDS: Ranolazine ER 500 MG TAB PO SCH (08:42)
[2024-09-30] MEDS: Famotidine 20 MG TAB PO SCH (08:44)
[2024-09-30] MEDS: Citalopram 20 MG TAB PO SCH (08:44)
[2024-09-30] MEDS: metFORMIN 500 MG TAB PO SCH (08:44)
[2024-09-30] MEDS: Ferrous Sulfate 325 MG TAB PO SCH (08:44)
[2024-09-30] MEDS: Cholecalciferol 1,000 UNITS (25 MCG) TAB PO SCH (08:44)
[2024-09-30] MEDS: Gabapentin 300 MG CAP PO SCH (08:44)
[2024-09-30] MEDS: Ezetimibe 10 MG TAB PO SCH (08:45)
[2024-09-30] MEDS: Metoprolol Succinate XL 25 MG ER.TAB PO SCH (08:45)
[2024-09-30] MEDS: Furosemide 40 MG TAB PO SCH (08:45)
[2024-09-30] MEDS: Pantoprazole 40 MG DR.TAB PO SCH (08:45)
[2024-09-30] MEDS: Cyanocobalamin (Vitamin B-12) 1,000 MCG TAB PO SCH (08:45)
[2024-09-30] MEDS: Multivitamin W/ Minerals 1 TAB PO SCH (08:45)
[2024-09-30] MEDS: DULoxetine 30 MG CAP PO SCH (08:45)
[2024-09-30] MEDS: Insulin Lispro 100 UNIT/ML 10 ML VIAL SQ SCH (08:47)
[2024-09-30] MEDS: Apixaban 5 MG TAB PO SCH (08:48)
[2024-09-30] MEDS: Methimazole 5 MG TAB PO SCH (08:48)
[2024-09-30] MEDS: Aspirin 81 mg Enteric Coated Tablet PO SCH (08:49)
[2024-09-30] MEDS ORDERED: Aspirin 81 mg Enteric Coated Tablet PO SCH (09:00)
[2024-09-30] MEDS ORDERED: Famotidine/PF 20 mg/2ml Vial SLOW IVP SCH (09:00)
[2024-09-30] MEDS: Potassium Chloride 20 MEQ TAB PO SCH (09:07)
[2024-09-30] MEDS ORDERED: Lorazepam 2 MG/ML VIAL SLOW IVP SCH (09:30)
[2024-09-30 10:58] VITALS: BP 119/58; TEMP 99.2
[2024-09-30] MEDS: Lorazepam 2 MG/ML VIAL SLOW IVP SCH (11:47)
[2024-09-30] MEDS ORDERED: Atorvastatin Calcium 40 MG TAB PO SCH (21:00)
[2024-09-30] MEDS ORDERED: Amiodarone 200 MG TAB PO SCH (21:00)
[2024-09-30] MEDS ORDERED: Insulin Glargine 30 UNITS/0.3 ML VIAL SC SCH (21:00)
[2024-10-10] MEDS ORDERED: Evolocumab [Repatha Syringe] 140 MG/ML Syringe SC SCH (09:00)
== END 2024-09-30 15:48 | disposition home or self-care (01) ==
LOC: ERS 16:12 → OBS 22:58
PROVIDERS: ADMIT Student in an Organized Health Care Education/Training Program; ATTEND Internal Medicine
DX: K04.7 Periapical abscess without sinus (principal); L03.211 Cellulitis of face; R29.810 Facial weakness; I65.23 Occlusion and stenosis of bilateral carotid arteries; I48.0 Paroxysmal atrial fibrillation; I13.0 Hypertensive heart and chronic kidney disease with heart failure and stage 1 through stage 4 chronic kidney disease, or unspecified chronic kidney disease; I50.32 Chronic diastolic (congestive) heart failure; N18.30 Chronic kidney disease, stage 3 unspecified; E11.22 Type 2 diabetes mellitus with diabetic chronic kidney disease; E11.65 Type 2 diabetes mellitus with hyperglycemia; E78.5 Hyperlipidemia, unspecified; Z95.1 Presence of aortocoronary bypass graft; Z95.5 Presence of coronary angioplasty implant and graft; Z90.49 Acquired absence of other specified parts of digestive tract; Z98.890 Other specified postprocedural states; Z91.040 Latex allergy status; Z88.0 Allergy status to penicillin; Z88.5 Allergy status to narcotic agent; Z79.84 Long term (current) use of oral hypoglycemic drugs; Z79.4 Long term (current) use of insulin; Z79.82 Long term (current) use of aspirin; Z79.2 Long term (current) use of antibiotics; Z79.85 Long-term (current) use of injectable non-insulin antidiabetic drugs; Z79.01 Long term (current) use of anticoagulants; Z79.899 Other long term (current) drug therapy
CPT/HCPCS: 41800; 70487; 70496; 70498; 70551; 80048; 80053; 80061; 81001; 82962 ×2; 83036; 84443; 85025 ×2; 96365; 96375; 96376; 99285; G0378 ×2; J1815; J2060; J3490 ×2; J7030; Q9967; 36415; 36416

== ENCOUNTER 2024-10-16 13:20 | Outpatient (CLI) | payer MEDICARE ==
[2024-10-16 14:46] LABS: #Basophils 0.04 10x3/uL (0.0-0.2); %Basophils 0.6 % (0.0-1.0); %Eosinophils 1.3 % (0.0-10.0); %Lymphocytes 30.6 % (21.0-51.0); %Monocytes 5.9 % (0.0-10.0); %Neutrophils 61.5 % (42.0-75.0); Hematocrit 39.6 % (36.0-47.0); Hemoglobin 13.4 g/dL (12.0-16.0); Mean Corpuscular HGB CONC 33.8 g/dL (32.0-36.0); Mean Corpuscular Hemoglobin 31.2 pg (27.0-31.0); Mean Corpuscular Volume 92.3 fL (78.0-98.0); Mean Platelet Volume 8.7 fL (7.4-10.4); Platelet Count 367 10x3/uL (130-400); RBC Distribution Width 13.3 % (11.5-14.5); Red Blood Cell (RBC) Count 4.29 mill/uL (4.20-5.40)
[2024-10-16 15:04] LABS: Anion Gap 16 mmol/L (10-20); BUN (Urea Nitrogen) 22 mg/dL (9.8-20.1); Calc. Creatinine Clearance 0 mL/min (70-130); Calcium 9.2 mg/dL (7.8-10.44); Carbon Dioxide 24 mmol/L (22-29); Chloride 104 mmol/L (98-107); Estimated GFR 59; Glucose 156 mg/dL (70-105); Sodium 140 mmol/L (136-145)
== END 2024-10-16 13:21 | disposition home or self-care (01) ==
LOC: LABBT 13:20
PROVIDERS: ATTEND Thoracic Surgery (Cardiothoracic Vascular Surgery)
DX: Z01.818 Encounter for other preprocedural examination (principal); I65.21 Occlusion and stenosis of right carotid artery
CPT/HCPCS: 80048; 85025

== ENCOUNTER 2024-10-16 14:00 | Inpatient (IN) | payer MEDICARE ==
[2024-10-16 13:27] VITALS: BMI 38.6
[2024-10-19] MEDS ORDERED: Bupivacaine PF 0.5% 30 ML VIAL ONE (08:48)
[2024-10-19] MEDS ORDERED: Heparin 5,000 UNITS/ML VIAL ONE (08:48)
[2024-10-19] MEDS ORDERED: EPINEPHrine 1 MG/ML VIAL ONE (08:48)
[2024-10-19] MEDS ORDERED: Fentanyl 250 MCG/5 ML VIAL ONE (09:19)
[2024-10-19] MEDS ORDERED: PROPOFOL 20 ML ONE (09:19)
[2024-10-19] MEDS ORDERED: Etomidate 40 MG (20 mL) VIAL ONE (09:20)
[2024-10-19] MEDS ORDERED: Phenylephrine 40 MG/NS 250 ML 250 ML ONE (09:20)
[2024-10-19] MEDS ORDERED: Rocuronium Bromide 10 MG/ML (10ML VIAL) ONE (09:26)
== END 2024-10-19 09:05 | disposition home or self-care (01) | DRG 68 ==
LOC: SURG A 10-19 07:40
PROVIDERS: ADMIT Thoracic Surgery (Cardiothoracic Vascular Surgery); ATTEND Thoracic Surgery (Cardiothoracic Vascular Surgery)
DX: I65.23 Occlusion and stenosis of bilateral carotid arteries (principal); E11.9 Type 2 diabetes mellitus without complications; I25.10 Atherosclerotic heart disease of native coronary artery without angina pectoris; I10 Essential (primary) hypertension; Z53.09 Procedure and treatment not carried out because of other contraindication; Z80.9 Family history of malignant neoplasm, unspecified; Z82.49 Family history of ischemic heart disease and other diseases of the circulatory system; Z83.3 Family history of diabetes mellitus; Z88.0 Allergy status to penicillin; Z91.040 Latex allergy status; Z95.1 Presence of aortocoronary bypass graft; Z79.84 Long term (current) use of oral hypoglycemic drugs; Z79.01 Long term (current) use of anticoagulants; Z89.412 Acquired absence of left great toe; Z88.5 Allergy status to narcotic agent; Z79.4 Long term (current) use of insulin
CPT/HCPCS: 36416; J0171; J0665; J1642; J1644; J2704; J3010

== ENCOUNTER 2025-05-05 10:05 | Outpatient (CLI) | payer MEDICARE | END 2025-05-05 10:06 | disposition home or self-care (01) | LOC: BICRAD 10:05 | PROVIDERS: ATTEND Internal Medicine Cardiovascular Disease | DX: I48.19 Other persistent atrial fibrillation (principal); Z79.899 Other long term (current) drug therapy | CPT/HCPCS: 71046 ==

== ENCOUNTER 2025-06-01 13:07 | Outpatient (CLI) | payer MEDICARE ==
[2025-06-01 14:01] LABS: #Basophils 0.05 10x3/uL (0.0-0.2); #Eosinophils 0.06 10x3/uL (0.0-0.7); #Monocytes 0.37 10x3/uL (0.11-0.59); #Neutrophils 2.76 10x3/uL (1.40-6.50); %Basophils 1.0 % (0.0-1.0); %Eosinophils 1.2 % (0.0-10.0); %Lymphocytes 36.8 % (21.0-51.0); %Monocytes 7.2 % (0.0-10.0); %Neutrophils 53.6 % (42.0-75.0); Hematocrit 40.8 % (36.0-47.0); Hemoglobin 13.2 g/dL (12.0-16.0); Mean Corpuscular Hemoglobin 31.3 pg (27.0-31.0); Mean Corpuscular Volume 96.7 fL (78.0-98.0); Platelet Count 283 10x3/uL (130-400); Red Blood Cell (RBC) Count 4.22 mill/uL (4.20-5.40); White Blood Cell (WBC) Count 5.14 10x3/uL (4.8-10.8)
[2025-06-01 14:21] LABS: ALT (SGPT) 10 U/L (Less than 34); AST (SGOT) 10 U/L (11-34); Albumin 3.6 g/dL (3.1-4.5); Alkaline Phosphatase 89 U/L (40-110); Anion Gap 16 mmol/L (10-20); BUN (Urea Nitrogen) 20 mg/dL (9.8-20.1); Bilirubin, Total 0.4 mg/dL (0.3-1.2); Calc. Creatinine Clearance 0 mL/min (70-130); Calcium 9.1 mg/dL (7.8-10.44); Carbon Dioxide 22 mmol/L (22-29); Chloride 102 mmol/L (98-107); Globulin 3.5 g/dL (2.4-3.5); Glucose 178 mg/dL (70-105); Potassium 4.0 mmol/L (3.5-5.1); Sodium 136 mmol/L (136-145)
== END 2025-06-01 13:08 | disposition home or self-care (01) ==
LOC: LABBT 13:07
PROVIDERS: ATTEND Internal Medicine Cardiovascular Disease
DX: Z01.818 Encounter for other preprocedural examination (principal); E11.9 Type 2 diabetes mellitus without complications; R94.39 Abnormal result of other cardiovascular function study; Z95.1 Presence of aortocoronary bypass graft
CPT/HCPCS: 80053; 85025; 93005; 93010

== ENCOUNTER 2025-06-08 05:48 | Day surgery (SDC) | payer MEDICARE ==
[2025-06-01 13:12] VITALS: BMI 40.2
[2025-06-08] MEDS ORDERED: EPINEPHrine 1 MG/10 ML Abboject SYRINGE ONE (06:24)
[2025-06-08] MEDS ORDERED: Heparin 10,000 UNITS/ 10 ML VIAL ONE (06:25)
[2025-06-08] MEDS ORDERED: PHENYLEPHRINE-NS 100 MCG/ML 10 ML SYRINGE ONE (06:25)
[2025-06-08] MEDS ORDERED: Nitroglycerin 50 MG/250 ML BOT 0 ML ONE (06:25)
[2025-06-08] MEDS ORDERED: Lidocaine 1% (PF) 30 ML VIAL ONE (06:25)
[2025-06-08] MEDS ORDERED: Adenosine 6 mg (2 mL) VIAL ONE (06:36)
[2025-06-08] MEDS ORDERED: hydrALAZINE 20 MG/ML VIAL ONE (07:42)
[2025-06-08] MEDS ORDERED: Nitroglycerin 4.9 GM Bottle ONE (07:53)
[2025-06-08] MEDS ORDERED: Iopamidol 370 76% 100 ML VIAL ONE (13:05)
== END 2025-06-08 13:12 | disposition home or self-care (01) ==
LOC: SDC 05:48
PROVIDERS: ATTEND Internal Medicine Cardiovascular Disease
PROC: 4A023N7 Measurement of Cardiac Sampling and Pressure, Left Heart, Percutaneous Approach (ICD-10-PCS; principal; 2025-06-08)
DX: I25.10 Atherosclerotic heart disease of native coronary artery without angina pectoris (principal); I10 Essential (primary) hypertension; E78.5 Hyperlipidemia, unspecified; E11.9 Type 2 diabetes mellitus without complications; I48.91 Unspecified atrial fibrillation; Z79.01 Long term (current) use of anticoagulants; Z79.899 Other long term (current) drug therapy; Z79.84 Long term (current) use of oral hypoglycemic drugs; Z79.4 Long term (current) use of insulin; Z79.82 Long term (current) use of aspirin
CPT/HCPCS: 93459; J0360; J2250; 36416; 99152; J0153; J0165; J0461; J1644; Q9967